=== PATIENT | male | born 1950 | race Caucasian/White ===

== ENCOUNTER → 2018-03-17 13:42 | Outpatient (CLI) | payer OTHER, SELFPAY ==
--- NOTE | 2018-03-17 13:44 | RAD_ITS ---
STUDY: X-RAY - LEFT FEMUR REASON FOR STUDY: Male, 67 years old. Femur pain postop. TECHNIQUE: Radiological exam, femur, minimum 2 views COMPARISON: Prior femur radiograph of April 02, 2016 FINDINGS: Intramedullary hardware remains unchanged in position. Continued callus deposition and smoothing of the intertrochanteric fracture zone. Femoral head remains located and rounded. Negative for evidence of avascular necrosis. RAD/Femur Min 2 Views IMPRESSION: Healed intertrochanteric fracture with intramedullary hardware remaining in good position and unchanged. Electronically Signed: Mary Nair MD at 20:31 EDT , Service support ,
== END ==
PROVIDERS: Family Provider Family Medicine; PCP Family Medicine; Visit Provider Orthopaedic Surgery
DX: S72.002A Fracture of unspecified part of neck of left femur, initial encounter for closed fracture (principal)
CPT/HCPCS: 73552

== ENCOUNTER 2018-08-22 09:24 | Emergency (ER) | payer MEDICARE, OTHER, SELFPAY ==
[2018-08-22 09:25] VITALS: BP 125/68; PULSE 57; RESP 18; TEMP 37.1; O2SAT 99; BMI 29.5
--- NOTE | 2018-08-22 09:39 | RAD_ITS ---
STUDY: X-RAY - RIGHT TIBIA AND FIBULA REASON FOR EXAM: Male, 67 years old. Status post fall, knee pain TECHNIQUE: 4 view(s) of the tibia and fibula were obtained. COMPARISON: None. FINDINGS: Normal visualized tibia. Normal visualized fibula. There is enthesopathy at the quadriceps insertion. There is minimal degenerative change of the medial lateral patellofemoral compartments. The soft tissue structures are unremarkable. RAD/Tibia & Fibula 2 Views IMPRESSION: The visualized acute fracture. Electronically Signed: Christie Chapa MD at 10:34 EDT Tel , Service support ,
--- NOTE | 2018-08-22 09:40 | ED.VISSUMM ---
- ER Visit Summary Date of Service: 08/22/18 Chief Complaint: Right foot pain History of Present Illness: The patient is a 67 M who presents with right foot pain after a fall yesterday. Yesterday morning patient tripped and fell down 12-14 steps, sliding down on his bottom. He denies any tumbling, head, neck or back injury. He had his feet splayed out in front of him, and is complaining of right foot injury. He also is complaining of bilateral elbow pain. Patient noted that he is unable to bear weight on the right foot today, with pain mainly in the heel. Tetanus is up-to-date. Patient denies any other complaints. Physical Examination: Vital signs: afebrile, hemodynamically stable, no hypoxia on room air General: well nourished, well developed, in no distress Skin: warm, dry, no rash, no pallor HEENT: normocephalic and atraumatic; PERRL, EOMI, moist mucous membranes Cardiovascular: regular rate and rhythm without murmurs, no peripheral edema, 2+ pulses all distal extremities Respiratory: No increased work of breathing, lungs are clear to auscultation bilaterally, no rales, rhonchi or wheezing, no chest wall tenderness Abdominal: Abdomen is soft, nontender with normoactive bowel sounds, no guarding or rebound, no masses MSK: Pelvis is stable, neck is supple with full active range of motion, no midline tenderness deformities or step-offs, full range of motion of the back, moves all extremities, no deformities, normal strength; ecchymosis noted to the right lateral calcaneal region, tenderness to palpation, full flexion and extension of the ankle, no tenderness to palpation of the posterior margins of the distal fibula or tibia, pain with flexion and extension of the knee, no deformity, no contusions, bilateral elbow contusions and left abrasion, full active range of motion of the elbows without difficulty, radial pulses 2+ and symmetric, DP pulses 2+ and symmetric Neuro: Awake and alert, oriented ?4. No facial droop, sensation and motor function intact and symmetric Test Results: Clinical Impression(s) from Imaging Studies Tibia/Fibula X-Ray 08/22/18 09:39 Foot X-Ray 08/22/18 09:45 IMPRESSION: Plantar spur. No visualized acute fracture. Degenerative change of the metatarsophalangeal joint of the first digit. Electronically Signed: Christie Chapa MD at 10:32 EDT Tel , Service support , Emergency Department Course and Treatment: Patient's tetanus is up-to-date. He has abrasions noted to the bilateral elbows, with a small skin tear on the left elbow, hemorrhage controlled. No concern for bony injury. X-ray was performed of the right foot and the right tibia/fibula given the patient is experiencing pain up to the knee. He declined pain medications. X-ray of the foot and tib-fib showed no acute fractures. There was a small questionable chip on 1 of the cuneiform bones that looked well rounded and likely is subacute/chronic. There was no point tenderness associated with this bony abnormality, thus it is likely to be an acute fracture. Patient was placed in a walking boot and given follow-up with podiatry. Patient discharged home. Treatment Plan: [] Disposition: [] Impression: Right foot sprain, bilateral elbow contusions This note was generated with [employer] dictation software. It may contain incorrect words, spelling, and punctuation that were not noted in review of the chart prior to signing ED Disposition - Plan for ED Patient: Disposition: Home or Assisted Living Chief Complaint: Lower Extremity Injury Instructions: ED Sprain Foot Referrals: Bhavesh Schwarz DO [Primary Care Provider] - Kleber Ramirez DPM [STAFF PHYSICIAN] - 1 Week if not improving Additional Instructions: Wear the walking boot as needed for comfort. Bear weight as tolerated. Keep the foot elevated and ice it 3-4 times a day. Use [id number] pain medication as needed. If you are not having improvement in your foot within 1 week, please follow-up with the university counselor on this paperwork. At any time if you have any concerns for your injury or any other concerns, please return immediately to the emergency department for another evaluation.
--- NOTE | 2018-08-22 09:43 | ED.DCSUM_ITS ---
- ER Visit Summary Date of Service: 08/22/18 Chief Complaint: Right foot pain History of Present Illness: The patient is a 67 M who presents with right foot pain after a fall yesterday. Yesterday morning patient tripped and fell down 12-14 steps, sliding down on his bottom. He denies any tumbling, head, neck or back injury. He had his feet splayed out in front of him, and is complaining of right foot injury. He also is complaining of bilateral elbow pain. Patient noted that he is unable to bear weight on the right foot today, with pain mainly in the heel. Tetanus is up-to-date. Patient denies any other complaints. Physical Examination: Vital signs: afebrile, hemodynamically stable, no hypoxia on room air General: well nourished, well developed, in no distress Skin: warm, dry, no rash, no pallor HEENT: normocephalic and atraumatic; PERRL, EOMI, moist mucous membranes Cardiovascular: regular rate and rhythm without murmurs, no peripheral edema, 2+ pulses all distal extremities Respiratory: No increased work of breathing, lungs are clear to auscultation bilaterally, no rales, rhonchi or wheezing, no chest wall tenderness Abdominal: Abdomen is soft, nontender with normoactive bowel sounds, no guarding or rebound, no masses MSK: Pelvis is stable, neck is supple with full active range of motion, no midline tenderness deformities or step-offs, full range of motion of the back, moves all extremities, no deformities, normal strength; ecchymosis noted to the right lateral calcaneal region, tenderness to palpation, full flexion and extension of the ankle, no tenderness to palpation of the posterior margins of the distal fibula or tibia, pain with flexion and extension of the knee, no deformity, no contusions, bilateral elbow contusions and left abrasion, full active range of motion of the elbows without difficulty, radial pulses 2+ and symmetric, DP pulses 2+ and symmetric Neuro: Awake and alert, oriented ?4. No facial droop, sensation and motor function intact and symmetric Test Results: Clinical Impression(s) from Imaging Studies Tibia/Fibula X-Ray 08/22/18 09:39 Foot X-Ray 08/22/18 09:45 IMPRESSION: Plantar spur. No visualized acute fracture. Degenerative change of the metatarsophalangeal joint of the first digit. Electronically Signed: Christie Chapa MD at 10:32 EDT Tel , Service support , Emergency Department Course and Treatment: Patient's tetanus is up-to-date. He has abrasions noted to the bilateral elbows, with a small skin tear on the left elbow, hemorrhage controlled. No concern for bony injury. X-ray was performed of the right foot and the right tibia/fibula given the patient is experiencing pain up to the knee. He declined pain medications. X-ray of the foot and tib- fib showed no acute fractures. There was a small questionable chip on 1 of the cuneiform bones that looked well rounded and likely is subacute/chronic. There was no point tenderness associated with this bony abnormality, thus it is likely to be an acute fracture. Patient was placed in a walking boot and given follow- up with podiatry. Patient discharged home. Treatment Plan: [] Disposition: [] Impression: Right foot sprain, bilateral elbow contusions This note was generated with [employer] dictation software. It may contain incorrect words, spelling, and punctuation that were not noted in review of the chart prior to signing ED Disposition - Plan for ED Patient: Disposition: Home or Assisted Living Chief Complaint: Lower Extremity Injury Instructions: ED Sprain Foot Referrals: hBavesh Schwarz DO [Primary Care Provider] - Kleber Ramirez DPM [STAFF PHYSICIAN] - 1 Week if not improving Additional Instructions: Wear the walking boot as needed for comfort. Bear weight as tolerated. Keep the foot elevated and ice it 3-4 times a day. Use [id number]-[id number] pain medication as needed. If you are not having improvement in your foot within 1 week, please follow-up with the tank stave assembler on this paperwork. At any time if you have any concerns for your injury or any other concerns, please return immediately to the emergency department for another evaluation.
--- NOTE | 2018-08-22 09:45 | RAD_ITS ---
STUDY: X-RAY - RIGHT FOOT CLINICAL: Male, 67 years old. Wall, heel pain TECHNIQUE: 3 view(s) of the foot. COMPARISON: August 22, 2018 ankle x-ray FINDINGS: There is a plantar calcaneal spur. The bones are osteopenic. Normal visualized subtalar, talonavicular, calcaneocuboid, tarsal and tarsometatarsal articulations. Normal metatarsi. There is degenerative arthrosis of the metatarsophalangeal joint of the hallux . Normal tibial and fibular sesamoid bones. Normal interphalangeal joint of the great toe. Normal phalanges of the great toe. Normal second through fifth metatarsophalangeal joints. Normal interphalangeal joints and phalanges of the lesser toes. The soft tissue structures are unremarkable. RAD/Foot min 3 Views IMPRESSION: Plantar spur. No visualized acute fracture. Degenerative change of the metatarsophalangeal joint of the first digit. Electronically Signed: Christie Chapa MD at 10:32 EDT Tel , Service support ,
--- NOTE | 2018-08-22 10:58 | ED.DEP ---
ED Disposition - Plan for ED Patient: Disposition: Home or Assisted Living Chief Complaint: Lower Extremity Injury Instructions: ED Sprain Foot Referrals: Bhavesh Schwarz DO [Primary Care Provider] - Kleber Ramirez DPM [STAFF PHYSICIAN] - 1 Week if not improving Additional Instructions: Wear the walking boot as needed for comfort. Bear weight as tolerated. Keep the foot elevated and ice it 3-4 times a day. Use [id number]-skomuyw pain medication as needed. If you are not having improvement in your foot within 1 week, please follow-up with the leather goods sales representative on this paperwork. At any time if you have any concerns for your injury or any other concerns, please return immediately to the emergency department for another evaluation.
[2018-08-22 11:14] VITALS: RESP 12
== END 2018-08-22 11:19 | disposition home or self-care (01) ==
PROVIDERS: Emergency Provider Emergency Medicine; Family Provider Family Medicine; PCP Family Medicine
DX: S93.601A Unspecified sprain of right foot, initial encounter (principal); S50.02XA Contusion of left elbow, initial encounter; S50.01XA Contusion of right elbow, initial encounter; W10.9XXA Fall (on) (from) unspecified stairs and steps, initial encounter; Y93.9 Activity, unspecified
CPT/HCPCS: 73590; 73630; 99283

== ENCOUNTER → 2019-01-17 09:15 | Outpatient (CLI) | payer OTHER, SELFPAY ==
[2019-01-17 08:15] VITALS: BMI 29.5
--- NOTE | 2019-01-17 09:16 | RAD_ITS ---
STUDY: X-RAY - LUMBAR SPINE REASON FOR EXAM: Male, 68 years old. Chronic pain TECHNIQUE: 5 view(s) of the lumbar spine were obtained. COMPARISON: None FINDINGS: Normal lumbar lordosis. There is no substantial scoliosis. There is a normal alignment of the vertebrae. Normal vertebral bodies and endplates. Moderate narrowing of the disc at L5-S1. Otherwise normal disc space heights. There is no demonstrated fracture. There is atherosclerotic calcification of the abdominal aorta without a demonstrated aneurysm. RAD/L/S Spine Min 4 Views IMPRESSION: No acute abnormality. Degenerative changes at L5-S1. Electronically Signed: Dane Milton MD at 22:46 EST , Service support ,
--- NOTE | 2019-01-17 09:16 | RAD_ITS ---
STUDY: X-RAY - LEFT FEMUR REASON FOR STUDY: Male, 68 years old. Pain. TECHNIQUE: 2 view(s) of the femur. COMPARISON: 03/17/2018. FINDINGS: No change and no acute abnormality. Stable appearance of an IM alla and femoral neck nail with no evidence for loosening or complications. RAD/Femur Min 2 Views IMPRESSION: No acute fracture or dislocation. Electronically Signed: Dane Milton MD at 22:50 EST , Service support ,
== END ==
PROVIDERS: Family Provider Family Medicine; PCP Family Medicine; Referring Provider Orthopaedic Surgery; Visit Provider Orthopaedic Surgery
DX: S72.145A Nondisplaced intertrochanteric fracture of left femur, initial encounter for closed fracture (principal); M25.552 Pain in left hip
CPT/HCPCS: 72110; 73552

== ENCOUNTER 2019-03-07 13:00 | Outpatient (RCR) | payer OTHER, SELFPAY ==
[2019-01-17 08:15] VITALS: BMI 29.5
--- NOTE | 2019-02-01 13:35 | HP.PTEVAL_ITS ---
Patient's Visit Information RENY GUTIÉRREZ is a 68 year old M referred to Physical Therapy by Nando Cormier DO with a diagnosis of DISPLACED INTERTROCHANTERIC FRACTURE LEFT FEMUR. Date of Evaluation: 02/01/19 Physical Therapist: Flynn Posadas PT, Cert MDT, OCS - Visit Plan Frequency: 3x /Week Duration: 4 Weeks Plan: ROM hip ,strength hip/knee ,nustep,balance endurance ,flexablity - Subjective Findings: This 68 y/o male presents to physical therapy displaced fracture intertrochantric left hip. Patient fracture left femur 10/09/15 at stepped in in hole twisted left hip caused fx. Patient underwent s/p hip nailing done by DR Goldberg on 10/11/15. Patient had PT. Most recenly , pain left hip thigh and weakness. Patient pain and weakness affects stairs ,walking ,unable to squat/kneeling. Patient knee can give way occassionally . Patient has intermmitant parathesia/tingling left hip.Patient is able to sleep at night. Patient weakness and pain left hip affects QOL and function.Patient seen DR Mullins did x-rays. SOCAIL: maried. VOCATION: retired ,part- time [employer] - Pain Left Foot Pain Intensity (Out of 10): 3 Pain Intensity Range: 10 - Objective POSTURE: mild foward posture. GAIT: ambulated with analgic gait with decrease stance time. NEURO: intact. PALPATION: unremarkable. PROM: hip flexion 100 degrees,abduction 40 degrees,ER 50 degrees pain,IR 40 degrees pain. MMT: quads 4-5/hams 4/5 hip flexion 3/5,hip abd 3-/5,ankle. STAIRS: one step at a time - Special Tests L Hip Scour: Negative L Hip Trendelenberg - Glut Medius: Positive - Goals Goal 1:: Independant with HEP Goal Time Frame: 4-6 Weeks Goal 2:: Patient improve quality of gait 80% of the vtime with less antalgic gait. Goal Time Frame: 4-6 Weeks Goal 3:: Patient improve ROM left hip by 5-10 degrees to improve function. Goal Time Frame: 4-6 Weeks Goal 4:: Patient to increase strength left hip 3+/5 to improve with gait and function. Goal Time Frame: 4-6 Weeks Goal 5:: Patient to decrease hip pain by 50% or greater to improve function. Goal Time Frame: 4-6 Weeks Goal 6:: Patient to improve LFES score by 5-points to improve function. Goal Time Frame: 4-6 Weeks - Rehabilitation Potential Physical Therapy Diagnosis: This patient fracture left fenur at work underwenr s/p left pinning 10/09/15 ,currently patient has decrease ROM ,pain ,weakness left hip impairs walking standinmg and ADL'S Rehabilitation Potential: Good - Anticipated Interventions Patient/Client Instruction: Educate patient on: Condition, Plan of Care For the Purpose of:: To decrease pain, To increase ROM, To improve muscle performance and motor function, To improve ability to perform ADL's, To increase tolerance to activity/condition/position, To improve performance and independence with ADL's, To improve ability of physical actions for omid e/community/work/leisure, To improve gait and locomotor functions, To improve health of tissue, To decrease soft tissue restriction, To increase flexibility/ROM, To improve ability to perform tasks related to life management Therapeutic Exercise to Include: Strength training, Postural training, Flexibilty training, Gait and locomotor training, Passive ROM, Active ROM Comment: hip/knee For the Purpose of:: To decrease pain, To increase ROM, To improve muscle performance and motor function, To improve ability to perform ADL's, To increase tolerance to activity/condition/position, To improve performance and independence with ADL's, To improve ability of physical actions for home/community/work/leisure, To improve health of tissue, To increase flexibility/ROM, To improve safety with gait, To assume or resume ADL's, To improve ability to perform tasks related to life management Thank you for the opportunity to evaluate your patient. For Medicare and Medicare HMO plans, please review the plan of care and approve it. It will need to be FAXED BACK to us at [phone] for Medicare purposes. For Medicare only, by signing this I certify the plan of care. Please let me know if there are questions or concerns regarding this plan of care. Physician Signature: Date:
--- NOTE | 2019-03-07 13:52 | HP.PTDCSUM_ITS ---
HP - PT D/C Summary It has been my pleasure to treat RENY GUTIÉRREZ under orders from Nando Cormier DO, for the diagnosis of DISPLACED INTERTROCHANTERIC FRACTURE LEFT FEMUR for a total of 12 visit(s). Discharge Date: 03/07/19 Please see the following information for a summary of their discharge status. - Subjective Subjective: Doing good .alot better.. most difficulty with socks and shoes. Will do ex's on own. - Pain Left Foot Pain Intensity (Out of 10): 0 - Overall Improvement % Improvement: 70 - Objective Objective/Function: POSTURE: mild foward posture. GAIT: mild foward posture with decrease stance time. MMT: quads/hams 4/5,hip flexion 4/5,4-/5 hip abd 4- /5. STAIRS: alternating step with rail. PROM: hip flexion 100 degrees,40 IR, 50 ER - Goals Goal 1:: Independant with HEP Goal Progress: Goal Met Goal 2:: Patient improve quality of gait 80% of the vtime with less antalgic gait. Goal Progress: Goal Met Goal 3:: Patient improve ROM left hip by 5-10 degrees to improve function. Goal Progress: Goal Met Goal 4:: Patient to increase strength left hip 3+/5 to improve with gait and function. Goal 5:: Patient to decrease hip pain by 50% or greater to improve function. Goal Progress: Goal Met Goal 6:: Patient to improve LFES score by 5-points to improve function. Goal Progress: Goal Met - Plan Plan: D/C TO HEP - D/C Information Discharge Comments: HEP If there are questions or concerns regarding this patient's physical therapy, please feel free to call me at [phone]. Thank you for the referral of this patient. Sincerely, Flynn Posadas, PT, Cert MDT, OCS
== END 2019-03-07 19:00 | disposition home or self-care (01) ==
LOC: PT 13:00
PROVIDERS: Family Provider Family Medicine; PCP Family Medicine; Visit Provider Orthopaedic Surgery
DX: S72.142D Displaced intertrochanteric fracture of left femur, subsequent encounter for closed fracture with routine healing (principal)
CPT/HCPCS: 97110; 97162

== ENCOUNTER → 2019-09-07 | Outpatient (CLI) | payer OTHER, SELFPAY ==
[2019-09-07 14:12] VITALS: BMI 29.5
--- NOTE | 2019-09-07 14:22 | RAD_ITS ---
STUDY: X-RAY - LEFT KNEE REASON FOR EXAM: Proximal pain, no recent injury. TECHNIQUE: 4 view(s) of the knee. COMPARISON: Radiographs 10/18/2015. FINDINGS: There is an intramedullary alla in the femur. Normal visualized proximal tibia and fibula. Normal proximal tibiofibular articulation. There is mild joint space narrowing of the medial femorotibial compartment. Normal lateral femorotibial compartment. Normal patellofemoral articulation. There is a small enthesophyte at the superior pole of the patella. RAD/Knee 4 or More Views IMPRESSION: Mild arthrosis of the medial femorotibial compartment. Electronically Signed: Frank Mcallister MD at 15:39 EDT Tel , Service support ,
--- NOTE | 2019-09-07 14:22 | RAD_ITS ---
HISTORY: DISTAL PAIN. ANTERIOR KNEE ADDITIONAL HISTORY: None provided. COMPARISON: 01/17/2019 TECHNIQUE: Left femur 2 views Number of images including paperwork: 4 FINDINGS: BONES: No acute fracture. Long intramedullary alla and hip screw, similar to previous. JOINTS: No subluxation. Mild degenerative changes of the left knee partially visualized. SOFT TISSUES: No distinct foreign body. RAD/Femur Min 2 Views IMPRESSION: No acute osseous abnormality. at 2230 Reported and signed by: Nancy Latham MD Electronically Signed: Nancy Latham MD at 22:30 EDT Tel , Service support ,
== END | disposition home or self-care (01) ==
LOC: HPRAD 14:21
PROVIDERS: Family Provider Family Medicine; PCP Family Medicine; Referring Provider Orthopaedic Surgery; Visit Provider Orthopaedic Surgery
DX: M25.562 Pain in left knee (principal)
CPT/HCPCS: 73552; 73564

== ENCOUNTER 2020-01-26 10:12 | Day surgery (SDC) | payer MEDICARE, OTHER, SELFPAY ==
[2019-09-07 14:12] VITALS: BMI 29.5
--- NOTE | 2020-01-22 10:33 | PCM.HP.BLA ---
History and Physical Date of Admission: 01/22/20 Pierre Ibrahim 1950 ? ? REFERRING PHYSICIAN: Soledad Vidal MD ? CHIEF COMPLAINT: port consult ? HPI: The patient is a 69 year old male presents with lymphoma. He will require chemotherapy and needs IV access. He is referred by his oncologist for consideration of placement of VAD with port. He denies previous central line catheters. Denies previous upper extremity thromboses. Had right shoulder surgery, had previous left rib fractures, denies clavicular fractures. Is taking aspirin on a regular basis. ?? PAST MEDICAL HISTORY ? Abdominal pain, unspecified site ? ? Anxiety ? ? Arthritis ? ? COPD (chronic obstructive pulmonary disease) (HCC) ? ? Depression ? ? Diffuse large B-cell lymphoma of lymph nodes of multiple regions (HCC) 01/17/2020 ? Diffuse large B-cell lymphoma of lymph nodes of multiple regions (HCC) 01/17/2020 ? Diffuse large B-cell lymphoma of lymph nodes of multiple regions (HCC) 01/17/2020 ? Duodenitis without mention of hemorrhage ? ? Gastric ulcer, unspecified as acute or chronic, without mention of hemorrhage, perforation, or obstruction ? ? Insomnia ? ? Mixed hyperlipidemia ? ? Panic attacks ? ? PTSD (post-traumatic stress disorder) ? ? Sleep apnea ? ? Unspecified essential hypertension ? ? PAST SURGICAL HISTORY ? COLONOSCOP W/ OR W/O [facility] SPEC ? 12/20/2008? Normal ? EGD W/O [facility] SPECIMEN W/BX?12/20/2008? Duodenitis, Gastritis, Gastric Ulcer? PAST SURGICAL HISTORY OF?Left hip & leg ? PAST SURGICAL HISTORY OF 01/04/2020? Left axillary mass biopsy ? ROTATOR CUFF REPAIR Right ? ?? Current Outpatient Medications ? aspirin, enteric coated (ASPIRIN, ENTERIC COATED) 81 mg EC tablet Take 81 mg by mouth once daily. ? esomeprazole magnesium (NEXIUM ORAL) Take 22.3 mg by mouth once daily. ? citalopram (CELEXA) 20 mg tablet Take 20 mg by mouth once daily. ? hydroCHLOROthiazide (HYDRODIURIL, ESIDRIX) 25 mg tablet Take 25 mg by mouth once daily. ? multivitamin tablet Take 1 tablet by mouth once daily. ? metoprolol tartrate, short acting, (LOPRESSOR) 25 mg tablet Take 25 mg by mouth twice daily. ? clonazePAM (KLONOPIN) 1 mg tablet Take 1 mg by mouth daily at bedtime. ? traZODone (DESYREL) 100 mg tablet Take 100 mg by mouth daily at bedtime. ? budesonide-formoterol (SYMBICORT) 160-4.5 mcg/actuation inhaler Inhale 2 Puffs as instructed twice daily. ? IPRATROPIUM BROMIDE NASAL Use 1 [place] in the nose twice daily. ? traMADol (ULTRAM) 50 mg tablet Take 50 mg by mouth every 12 hours as needed. ? tamsulosin ER (FLOMAX) 0.4 mg cap Take 0.4 mg by mouth once daily. ? allopurinol (ZYLOPRIM) 300 mg tablet Take 1 tablet by mouth once daily. ?? ALLERGIES: Patient has no known allergies. ? PERSONAL HISTORY: Social History ?Tobacco Use ? Smoking status: Former Smoker ? ? Packs/day: 1.00 ? ? Years: 45.00 ? ? Pack years: 45.00 ? ? Types: Cigarettes ? ? Last attempt to quit: 01/17/2010 ? ? Years since quittin.0 ? Smokeless tobacco: Never Used Substance Use Topics ? Alcohol use: Not Currently ? Drug use: No ? FAMILY HISTORY ? Hypertension Mother ? ? other (Lung Cancer) Mother ? ? Heart Father ? ? Heart Attack Brother ? ? ?Nursing Notes: Sissy Robles LPN 01/19/2020 9:58 AM Signed REVIEW OF SYSTEMS: General: The patient notes fatigue, denies weight loss, denies weight gain, denies feeling hot, and denies feelings of cold. Eyes: The patient denies glaucoma, NOTES eye injury/surgery, does not wear glasses or contacts. Ear/Nose/Throat: The patient denies allergies, denies hayfever, denies ear infections, and denies bloody noses. Cardiovascular: The patient denies chest pain, denies heart disease, NOTES high blood pressure,denies cardiac stent, denies prior heart attack, denies irregular heart beat, denies high cholesterol, denies poor circulation, denies heart failure, other cardiac issues, denies claudication, denies cold feet, denies peripheral arterial stent. Respiratory: The patient denies tuberculosis, denies pneumonia, denies frequent cough, denies pulmonary embolism, denies shortness of breath, and denies coughing up blood. Gastrointestinal: The patient denies difficulty swallowing, denies acid reflux, denies ulcers, denies vomiting, denies jaundice/hepatitis, denies gallbladder problems, denies black or tarry stools, denies hemorrhoids, denies bleeding from rectum, denies diverticulitis, denies constipation, denies diarrhea, denies loss of stool control, and denies hernias. Kidney/Bladder: The patient denies kidney stones, denies urine infections, and denies bloody urine. Skin: The patient denies a history of skin cancer, denies bleeding/changing moles, and denies a history of skin rash. Neurologic: The patient denies a history of epilepsy/convulsions, denies headaches, denies head/spinal injuries, and denies stroke/TIA. Psychiatric: The patient denies psychiatric medications, denies depression, and denies voices, denies substance abuse. Endocrine: The patient denies thyroid disorders, denies diabetes, and denies hormonal problems. Hematologic: The patient denies a history of bruising, denies bleeding, and denies anemia, denies blood clots. Infections: The patient denies a history of measles and mumps, denies rheumatic fever, and denies sexually transmitted diseases. Musculoskeletal: The patient denies back pain/injury, denies back problems, denies sciatica, denies knee/foot trouble, denies arthritis, or denies gout. ?? PHYSICAL EXAMINATION: General: The patient is 69 year old male, well nourished, well hydrated in no acute distress. The patient is oriented to time, place, and person. VITALS: BP 132/70 HR 76 Temp 97F Ht: 5'10 Wt: 218# Head ? Normocephalic. EOM intact with sclera clear and no icterus noted. Mouth with mucus membranes moist. Neck - supple with no jugular venous distention noted. Trachea is midline. Lungs ? clear to auscultation. Normal breath sounds. No rales/rhonchi/wheezing noted. No labored breathing noted, such as retractions. No cough heard. Heart ? normal S1 and S2 auscultated. No rubs/clicks/murmurs noted. Regular rate. Abdomen ? soft and benign. Normal bowel sounds. No abdominal bruits noted. Difficult to determine if any masses or organomegaly due to body habitus. Extremities ? no calf tenderness noted. No pitting edema noted. Lymph - no cervical or supraclavicular adenopathy noted, no palpable axillary nodes noted Skin ? normal skin integrity. Neurological ? gait normal, no focal deficits noted. Psych ? calm and appropriate ?? IMPRESSION: lymphoma, need for IV access ? PLAN: I have discussed the above with the patient and his who is present with him. I have offered placement of portacath I have explained the procedure to the patient. I have counseled the patient as to the risks of the procedure, including but not limited to: infection, bleeding, injury to any blood vessels/nerves, scar tissue, injury to the lungs such as pneumothorax and/or hemothorax, thrombosis of vein, infection of port, non functioning of port, inability to place portacath, wound infections, complications of anesthesia, etc. ? the patient understands. The patient wishes to proceed. Patient to discontinue aspirin use for now, may restart after placement of portacath. I have answered all questions to the patient?s satisfaction and the patient has no further questions. ? ? Celeste Sanchez MD
[2020-01-26] VITALS (7 sets, daily range): BP systolic 106–133; BP diastolic 62–84; PULSE 68–83; RESP 16–18; TEMP 36.8–37.1; O2SAT 91–98; BMI 32.4
[2020-01-26] MEDS: Lactated Ringers 1,000 ML 75 ML IV (11:14)
[2020-01-26] MEDS: Cefazolin 2 GM in 0.9% Normal Saline 100 ML IV (12:00)
--- NOTE | 2020-01-26 12:06 | PCM.DC.POR ---
Discharge Diet: No Restrictions Discharge Activity: Return to Normal Activity, May not drive while taking narcotic pain medications. Call your doctor if your incision/area has: Continuous Slow Oozing, Foul Smelling Discharge Call your doctor if you observe: Fever of 101 or Higher Additional Dressing/Incision Instructions:: Leave dressings in place. May get wet in shower. Do not soak - no tub baths/swimming Additional Instructions: Recommended pain medication regimen - take 650 mg acetaminophen (Tylenol) then in three to four hours take 600 mg ibuprofen (Motrin or Advil), then in 3-4 hours take 650 mg acetaminophen, then in 3-4 hours take 600 mg ibuprofen and so on take narcotic pain medications if above doesn't help and at night Allergies/Adverse Reactions: Allergies No Known Allergies Allergy (Verified 01/26/20 11:06) Medications to take at Discharge Budesonide/Formoterol 160/4.5 [Symbicort 160/4.5 Mcg Inhaler (SP)] 2 puff INHALATION BID 10/09/15 Citalopram [Celexa] 20 mg PO DAILY 10/09/15 traZODone [Desyrel] 100 mg PO QHS 10/09/15 Multivitamins,Therapeutic [Multivitamin] 1 tablet PO DAILYCM tablet 10/16/15 Clonazepam [Klonopin] 1 mg PO QHS #30 tablet 10/26/15 Aspirin [Aspirin, Baby] 81 mg PO DAILY@0800 08/22/18 Esomeprazole Mag Trihydrate [Nexium] 20 mg PO DAILY 08/22/18 Hydrochlorothiazide [Hctz] 25 mg PO DAILY 08/22/18 Metoprolol Tartrate [Lopressor (beta sharmaine)] 25 mg PO BID 08/22/18 Hydrocodone Bitart/Apap 5-325 [[place] 5MG-325MG] 1 tab PO Q8H PRN PRN 2 Days #6 tab 01/26/20 The following prescriptions were given: Hydrocodone Bitart/Apap 5-325 [[place] 5MG-325MG] 1 tab PO Q8H PRN PRN 2 Days #6 tab PRN Reason: Pain Transmission Status: Sent to [facility] Primary Care Physician: Diego Alonso DO [Primary Care Provider] - Test Results: Test results from this visit will be discussed in further detail at your follow-up appointment, if applicable. Please Follow Up With: Celeste Sanchez MD - as per needed
--- NOTE | 2020-01-26 12:54 | OP.PCM_ITS ---
Report of Operation Date of Procedure: 01/26/20 Pre-Operative Diagnosis: lymphoma need for chemotherapy, need for IV access Post-Operative Diagnosis: same as above Surgery/Procedure Performed:: placement of permanent tunnelled indwelling venous catheter in left subclavian vein with subcutaneous port Description of Surgical Findings:: normal left subclavian anatomy to SVC Type of Anesthesia:: Local MAC Anesthesiologist: Marek Fraser Specimen's removed: none Estimated Blood Loss (mL): < 10 ml Fluids Replaced: 800 ml RL Description of Procedure: After informed consent was given, the patient was brought to the operating room. Appropriate time out protocol was followed. He was then placed in the supine position. He was then given IV conscious sedation for anesthesia. The patient?s upper chest and neck were then prepped with a surgical skin preparation and sterile surgical drapes were placed. After proper landmarks were ascertained, the skin at the upper left chest area was then infiltrated with 1% xylocaine with epinephrine. A needle trocar was then inserted into the left subclavian vein and there was good aspiration of venous blood. A wire was then threaded into the needle trocar and this was visualized under fluoroscopy to ensure that the wire was in the left subclavian vein. Once this was done, then the needle trocar was removed. A small skin asim was made with an 11 blade knife at the wire entrance site. The dilator with the introducer sheath attached was then placed over the wire into the left subclavian vein via the Seldinger technique and this was visualized under fluoroscopy. The dilator and sheath were in proper position as visualized by fluoroscopy. The wire and dilator were then removed. The catheter was then threaded into the introducer sheath and was positioned with its tip at the junction of the superior vena cava and the right atrium as visualized under fluoroscopy. The catheter was flushed with a heparin saline mixture prior to placement. A subcutaneous pocket was then created caudad to the catheter insertion site. A transverse skin incision was made after the skin and subcutaneous tissues were infiltrated with local anesthetic. Blunt dissection was then used to create a space large enough for placement of the subcutaneous port. Hemostasis was carefully controlled with electrocautery. The port was sutured to the subcutaneous fascia using vicryl suture at three sites. The catheter was then tunneled into the subcutaneous pocket. The excess catheter was transected. The catheter was then attached to the subcutaneous port using farm service consultant?s guidelines. The port was then placed in the subcutaneous pocket and the sutures were ligated. The subdermal incisional sites were reapproximated with interrupted vicryl suture. The skin was reapproximated with monocryl suture in a subcuticular fashion. Cavilon and steristrips were used for reinforcement of the skin closure and a sterile opsite dressing was applied. Patient was brought to Recovery Room in stable condition. Grafts/Implants Used: Power Port 8 Fr Lot [id number] exp 2021-06-22 - Complications none noted - Admit VTE Documentation VTE Present on Admission: Yes VTE Mechan Device Prophylaxis: SCD's
--- NOTE | 2020-01-26 13:05 | RAD_ITS ---
STUDY: X-RAY CHEST REASON FOR EXAM: Male, 69 years old. POST PORT PLACEMENT TECHNIQUE: Single AP portable view of the chest. COMPARISON: Comparison is made with prior study. October 16, 2015. FINDINGS: A left-sided portacatheter as been placed. The tip is in the right atrium. There is evidence of a diffuse increased interstitial markings in both lungs suggestive of bilateral pulmonary scarring. This has progressed as compared to prior study. There is blunting of the costophrenic angles bilaterally. There is mild cardiac enlargement. Normal mediastinum and ramses. Normal visualized pulmonary arteries. Normal visualized aortic arch and descending thoracic aorta. Normal visualized thoracic spine. Normal visualized ribs, clavicles, and shoulders. There is no demonstrated abnormality of the visualized soft tissue structures of the upper abdomen. RAD/CXR for Line Placement IMPRESSION: The tip of the left portacatheter is in the right atrium. Diffuse increased interstitial markings in both lungs suggestive of scarring. This has progressed as compared to prior study. Electronically Signed: Andrew Gee, at 13:24 EST , Service support ,
== END 2020-01-26 13:43 | disposition home or self-care (01) ==
LOC: SDC 10:12 → AC 10:15
PROVIDERS: PCP Student in an Organized Health Care Education/Training Program; Referring Provider Surgery; Visit Provider Surgery
PROC: (CPT 36561; principal; 2020-01-26 11:45)
DX: C83.38 Diffuse large B-cell lymphoma, lymph nodes of multiple sites (principal); Z45.2 Encounter for adjustment and management of vascular access device; F32.9 Major depressive disorder, single episode, unspecified; J44.9 Chronic obstructive pulmonary disease, unspecified; M19.90 Unspecified osteoarthritis, unspecified site; F41.0 Panic disorder [episodic paroxysmal anxiety]; F43.10 Post-traumatic stress disorder, unspecified; I10 Essential (primary) hypertension; K21.9 Gastro-esophageal reflux disease without esophagitis; Z87.891 Personal history of nicotine dependence; Z79.82 Long term (current) use of aspirin; Z79.51 Long term (current) use of inhaled steroids; Z79.899 Other long term (current) drug therapy
CPT/HCPCS: 00532; 36561; 71045; 77001; J7120; C1788

== ENCOUNTER 2020-04-23 10:19 | Emergency (ER) | payer MEDICARE, OTHER, SELFPAY ==
[2020-01-26 11:10] VITALS: BMI 32.4
[2020-04-23 10:20] VITALS: BP 100/77; PULSE 82; RESP 17; TEMP 36.8; O2SAT 92; BMI 31.3
[2020-04-23 10:23] VITALS: BP 100/77; PULSE 82; RESP 16; TEMP 36.8; O2SAT 92
--- NOTE | 2020-04-23 11:15 | RAD_ITS ---
STUDY: X-RAY CHEST REASON FOR EXAM: Male, 69 years old. Shortness of breath TECHNIQUE: Single AP portable view of the chest. COMPARISON: Comparison is made with prior examination dated January 26, 2020. FINDINGS: A left-sided portacatheter is seen. A left-sided portacatheter is seen with the tip in the right atrium. Limited inspiratory effort. Stable increased diffuse interstitial markings at the lung bases suggest some bibasilar pulmonary scarring. There is no demonstrated pleural abnormality. There is moderate cardiac enlargement. Normal mediastinum and ramses. Normal visualized pulmonary arteries. Normal visualized aortic arch and descending thoracic aorta. There are diffuse degenerative changes of the visualized thoracic spine. Normal visualized ribs, clavicles, and shoulders. There is no demonstrated abnormality of the visualized soft tissue structures of the upper abdomen. RAD/Chest 1 View (Portable) IMPRESSION: Limited inspiratory effort with some stable increased markings at the lung bases suggestive of scarring. Electronically Signed: Andrew Gee, at 12:14 EDT , Service support ,
[2020-04-23 11:26] LABS: Bacteria 0 SEEN /hpf (None Seen); Mucous, Urine 0 SEEN /hpf (<or=2+); Red Blood Cells-Urine 0 SEEN /hpf (0-5); Squamous Epithelial Cells - UA 0 SEEN /hpf (0-5); White Blood Cells 0 SEEN /hpf (0-5)
--- NOTE | 2020-04-23 11:26 | ED.VIS.GEN ---
History of Present Illness Chief Complaint: Fever Narrative: Patient presenting for evaluation secondary to a febrile illness. Patient is a chemotherapy patient, his last chemotherapy infusion was on 12 April. He gets chemotherapy infusions through a port, and also has a direct chemotherapy infused into his CSF. Patient states that over the course of the last couple of weeks the chemotherapy has been adversely affecting him with significant malaise and fatigue, and he states that he could sleep around 14 hours a day. However, since yesterday the patient tells me that he has had some low-grade fevers as high as 100.5, generalized body aches, some increased shortness of breath, and nausea and vomiting. He denies any diarrhea associated with this. Patient denies any sick contacts. He denies any abnormal skin rashes. No headache or neck stiffness. Review of systems otherwise negative. Past Medical History - Allergies and Home Meds Allergies/Adverse Reactions: Allergies No Known Allergies Allergy (Verified 04/23/20 10:20) Primary Care Physician: Diego Alonso DO [Primary Care Provider] - Prior records reviewed: Yes Past Medical History: - - Hypertension, COPD Smoking Status: Former smoker Review of Systems All systems negative except as indicated General: Reports: Fever, Malaise Eyes: Denies: Visual changes - bilaterally, Diplopia ENT: Denies: Rhinorrhea, Sore throat Cardiovascular: Denies: Chest pain, Palpitations Respiratory: Reports: Dyspnea Gastrointestinal: Reports: Nausea, Vomiting Genitourinary: Denies: Dysuria, Hematuria, Frequency Musculoskeletal: Denies: Back pain, Extremity Pain Skin: Denies: Rash, Wounds Neurological: Denies: Headache, Weakness, Numbness Physical Exam Vital Signs/Narrative: Vital Signs Temp Pulse Resp BP Pulse Ox 04/23/20 10:20 98.3 F 82 17 100/77 92 Inital Vital Signs reviewed: Yes General: Well nourished, Well developed, No Acute Distress Head: Normocephalic, Atraumatic Eyes: Perrl, EOMI, - - No conjunctival pallor noted ENT: Moist mucous membranes, No rhinorrhea Neck: Supple, Nontender Cardiovascular: Regular rate, Regular rhythm, No murmurs Respiratory: No distress, CTA bilaterally, Chest nontender, - - Left anterior chest port clean dry and intact Abdomen: Soft, Nontender, Nondistended, Normal bowel sounds Back: Nontender, Normal Inspection Extremities: Nontender, No edema Skin: Normal color, No rash, - - Chronic skin changes of the bilateral arms Neurological: Alert, Oriented x3, Cranial nerves II-XII grossly intact, Normal Strength, Normal Sensation Psychological: Normal affect, Normal Mood Diagnostic/Tx/Re-eval Clinical Impression(s) from Imaging Studies Chest X-Ray 04/23/20 11:15 IMPRESSION: Limited inspiratory effort with some stable increased markings at the lung bases suggestive of scarring. Electronically Signed: Andrew Gee, at 12:14 EDT , Service support , Laboratory Data 04/23/20 04/23/20 04/23/20 11:10 11:10 11:10 WBC 5.7 RBC 4.21 L Hgb 11.8 L Hct 36.4 L MCV 86.5 MCH 28.0 MCHC 32.4 RDW Std Deviation 52.1 H RDW Coeff of Thor 17.0 H Plt Count 197 MPV 9.9 Neut % (Auto) Not Reportable Absolute Neuts (auto) 3.6 Absolute Lymphs (auto) 0.74 L Total Counted 100 Neutrophils % (Manual) 63 Lymphocytes % (Manual) 13 L Monocytes % (Manual) 16 H Eosinophils % (Manual) 1 Basophils % (Manual) 1 Metamyelocytes % 1 Myelocytes % 2 H Promyelocytes % 3 H Diff Path Review May foll Platelet Estimate ADEQUATE RBC Morphology NORM C+C PT 13.7 INR 1.1 APTT 37.2 H Sodium 135 L Potassium 3.5 Chloride 97 L Carbon Dioxide 29.0 Anion Gap 9 BUN 15 Creatinine 1.01 Estim Creat Clear Calc 70.97 Est GFR (MDRD) Af Amer 95 Est GFR (MDRD) Non-Af 78 BUN/Creatinine Ratio 14.9 Glucose 149 H Lactic Acid Calcium 9.6 Total Bilirubin 0.50 AST 19 ALT 30 Alkaline Phosphatase 82 Total Protein 7.0 Albumin 2.9 L Globulin 4.1 Albumin/Globulin Ratio 0.7 L Urine Color Urine Clarity Urine pH Ur Specific [place] Urine Protein Urine Glucose (UA) Urine Ketones Urine Occult Blood Urine Nitrite Urine Bilirubin Urine Urobilinogen Ur Leukocyte Esterase Urine RBC Urine WBC Ur Squamous Epith Cells Urine Bacteria Urine Mucus 04/23/20 04/23/20 11:10 11:10 WBC RBC Hgb Hct MCV MCH MCHC RDW Std Deviation RDW Coeff of Thor Plt Count MPV Neut % (Auto) Absolute Neuts (auto) Absolute Lymphs (auto) Total Counted Neutrophils % (Manual) Lymphocytes % (Manual) Monocytes % (Manual) Eosinophils % (Manual) Basophils % (Manual) Metamyelocytes % Myelocytes % Promyelocytes % Diff Path Review Platelet Estimate RBC Morphology PT INR APTT Sodium Potassium Chloride Carbon Dioxide Anion Gap BUN Creatinine Estim Creat Clear Calc Est GFR (MDRD) Af Amer Est GFR (MDRD) Non-Af BUN/Creatinine Ratio Glucose Lactic Acid 1.7 Calcium Total Bilirubin AST ALT Alkaline Phosphatase Total Protein Albumin Globulin Albumin/Globulin Ratio Urine Color Yellow Urine Clarity Clear Urine pH 6.5 Ur Specific [place] 1.005 Urine Protein Negative Urine Glucose (UA) Normal Urine Ketones Negative Urine Occult Blood Negative Urine Nitrite Negative Urine Bilirubin Negative Urine Urobilinogen Normal Ur Leukocyte Esterase Negative Urine RBC 0 SEEN Urine WBC 0 SEEN Ur Squamous Epith Cells 0 SEEN Urine Bacteria 0 SEEN Urine Mucus 0 SEEN - Medical Decision Making Patient presented secondary to a fever yesterday in the setting of chemotherapy. He is nontoxic-appearing, has no outward signs of infection on physical exam does not seem to have any evidence of nuchal rigidity or meningitis. Laboratory work-up does not demonstrate leukocytosis or leukopenia with neutropenia. Chemistry panel unremarkable. Urinalysis negative. Chest x-ray by my personal review as well as radiology shows no signs of infiltrate, shows chronic changes consistent with prior chest x-rays. Urinalysis had a urine culture sent, there were blood culture sent. I discussed patient's case with his oncologist Dr. Russell, and we do not feel that admission or prophylactic antibiotics are indicated. Patient was discharged in stable condition. ED Disposition - Plan for ED Patient: Disposition: Home or Assisted Living Diagnosis: Fever, History of chemotherapy Instructions: ED FUO Adult Referrals: Soledad Vidal MD [STAFF PHYSICIAN] - 3-5 Days
[2020-04-23 11:28] LABS: Color, Urine Yellow (Yellow); Glucose, Dipstick Normal (Normal); Hematocrit 36.4 % (40-54); Hemoglobin 11.8 g/dL (13.0-16.5); Ketone-Dipstick Negative (Negative); Leukocyte Esterase-Dipstick Negative /ul (Negative); Mean Corp Hgb Conc 32.4 g/dL (32-36); Mean Corpuscular Volume 86.5 fL (80-94); Mean Platelet Vol. 9.9 fl (6.2-12.0); Nitrite-Dipstick Negative (Negative); Occult Blood-Urine Negative /ul (Negative); POSITIVE COUNT YES; POSITIVE MORPHOLOGY YES; Platelet Count 197 K/mm3 (150-450); Protein-Dipstick Negative (Negative); RBC Distribution Width SD 52.1 fl (35.1-43.9); Red Blood Count 4.21 M/mm3 (4.6-6.2); Specific Gravity, Urine 1.005 (1.002-1.030); Urine Bilirubin Dipstick Negative (Negative); Urine Clarity Clear (Clear); Urine Urobilinogen Normal (Normal); Urine pH 6.5 (5.0 - 8.0); White Blood Count 5.7 K/mm3 (4.4-11.0)
[2020-04-23 11:29] LABS: Differential Indicated MANUAL DIFF
[2020-04-23 11:35] LABS: International Normalized Ratio 1.1; Prothrombin Time (Protime)PT. 13.7 SECONDS (11.7-14.9)
[2020-04-23 11:37] LABS: Partial Thromboplast Time 37.2 Seconds (24.1-36.2)
[2020-04-23 11:47] LABS: ALB/GLOB Ratio 0.7 RATIO (0.9-2.4); AST(SGOT) 19 U/L (15-37); Alanine Aminotransfer ALT/SGPT 30 U/L (16-61); Albumin, Serum 2.9 g/dL (3.2-5.0); Alkaline Phosphatase 82 U/L (45-117); Anion Gap 9 (5-15); BUN 15 mg/dL (7-18); BUN/Creat Ratio 14.9 RATIO (10-20); Calcium,Total 9.6 mg/dL (8.5-10.1); Chloride 97 mmol/L (98-107); Creatinine, Serum 1.01 mg/dL (0.70-1.30); EST Glomerular Filtration Rate 78 mL/min (>60); Est Glom Filt Rate - Afr Amer 95 mL/min (>60); Estimated Creatinine Clearance 70.97 ml/min; Globulin 4.1 g/dL (2.2-4.2); Glucose 149 mg/dL (74-106); Potassium 3.5 mmol/L (3.5-5.1); Sodium Level 135 mmol/L (136-145)
[2020-04-23 11:50] LABS: Lactic Acid 1.7 mmol/L (0.4-1.9)
[2020-04-23 12:01] LABS: Basophil 1 % (0-1); Eosinophil 1 % (0-5); Lymphocyte 13 % (19-41); Metamyelocyte 1 % (0-1); Monocyte 16 % (0-10); Myelocyte 2 (0-0); Neutrophil-Segmented 63 % (47-70); Platelet Estimate ADEQUATE (ADEQ); Promyelocyte 3 (0-0); Red Cell Morphology NORM C+C NORMAL (NORM C&C); Total Cells Counted 100 (MANUAL DIFF)
[2020-04-23 12:02] LABS: Absolute Lymphocyte Count 0.74 X10^3/uL (0.83-4.51); Absolute Neutrophil Count 3.6 X10^3/uL (2.0-7.7); Lymphocyte # 0.74 X10^3/ul (4.0)
[2020-04-23 13:36] VITALS: BP 101/86; PULSE 71; RESP 18; TEMP 37.1; O2SAT 95
[2020-04-24 11:27] LABS: Pathologist Review Reviewed
== END 2020-04-23 13:37 | disposition home or self-care (01) ==
PROVIDERS: Emergency Provider Emergency Medicine; PCP Student in an Organized Health Care Education/Training Program
DX: R50.9 Fever, unspecified (principal); R06.02 Shortness of breath; I10 Essential (primary) hypertension; J44.9 Chronic obstructive pulmonary disease, unspecified; Z87.891 Personal history of nicotine dependence
CPT/HCPCS: 71045; 80053; 81001; 83605; 85025; 85610; 85730; 87040; 87086; 87635; 99283; G2023; U0003

== ENCOUNTER 2020-04-30 10:01 | Inpatient (IN) | payer MEDICARE, OTHER, SELFPAY ==
[2020-04-30] VITALS (11 sets, daily range): BP systolic 90–129; BP diastolic 55–96; PULSE 60–93; RESP 14–20; TEMP 36.4–37; O2SAT 91–95; BMI 30.7
--- NOTE | 2020-04-30 10:24 | CT_ITS ---
STUDY: CT ABDOMEN AND PELVIS WITHOUT CONTRAST REASON FOR EXAM: Male, 69 years old. ABD PAIN W/ WEAKNESS, HX LYMPHOMA RADIATION DOSAGE (If Supplied By Facility): CTDIvol = ( 16.69 ) mGy, DLP = ( 1696.80 ) mGycm TECHNIQUE: Transaxial images were obtained from the dome of the diaphragm to the symphysis pubis with oral contrast, and without intravenous contrast. Sagittal and coronal images were reconstructed. Individualized dose optimization techniques were used for this CT. COMPARISON: Comparison is made with prior study dated October 15, 2011. FINDINGS: Stable fibrosis at the lung bases. Coronary artery calcification. There is decreased attenuation of the liver consistent with steatosis. Normal gallbladder and extrahepatic biliary system. Borderline splenomegaly. Normal pancreas. Normal bilateral adrenal glands. 2 mm nonobstructive crackers in the posterior mid pole calyx of the right kidney. Stable when some mucous cyst in the upper pole of the left kidney. Normal visualized stomach. Normal small intestine. Normal colon. The appendix is visualized and appears normal. There is diffuse atherosclerotic calcification of the abdominal aorta and its major visceral branches, without a demonstrated aneurysm. Normal inferior vena cava. Normal retroperitoneum. Normal urinary bladder. There are prostatic calcifications. There is a small umbilical hernia containing fat. There are diffuse degenerative changes of the visualized lumbar spine. CT/Abdomen/Pelvis W IV Cont ONLY IMPRESSION: Fatty infiltration of the liver. Nonobstructive calculus in the right kidney. Electronically Signed: Andrew Gee, at 12:30 EDT , Service support ,
--- NOTE | 2020-04-30 10:24 | EKG12_ITS ---
Test Reason : WEAKNESS Blood Pressure : / mmHG Vent. Rate : 066 BPM Atrial Rate : 066 BPM P-R Int : 170 ms QRS Dur : 130 ms QT Int : 458 ms P-R-T Axes : -18 -02 -02 degrees QTc Int : 480 ms Normal sinus rhythm Right bundle branch block Abnormal ECG Confirmed by NADER NAVA, ABDIRIZAK ([id number]), editor news CYNTHIA OSWALD ([id number]) on 05/01/2020 10:00:48 AM Referred By: CHRISTY Confirmed By:ABDIRIZAK DOE MD
--- NOTE | 2020-04-30 10:26 | CT_ITS ---
STUDY: CTA CHEST REASON FOR EXAM: Male, 69 years old. ABD PAIN AND WEAKNESS, HX LYMPHOMA RADIATION DOSAGE (If Supplied By Facility): CTDIvol = ( 16.69 ) mGy, DLP = ( 1696.80 ) mGycm TECHNIQUE: The examination was performed with the intravenous administration of [id number] 100ML. Post-processing of the angiographic images was performed, with multiplanar reformation and 3D reconstruction. Individualized dose optimization techniques were used for this CT. COMPARISON: Comparison is made with prior study dated October 10, 2015. FINDINGS: A left-sided portacatheter seen with the tip in the superior vena cava. Stable small bilateral axillary lymph nodes. Normal enhancement of the main pulmonary artery and right and left pulmonary arteries. Normal enhancement of the bilateral peripheral pulmonary arteries. There is no demonstrated pulmonary embolism. There is atherosclerotic calcification of the aortic arch with tortuosity. There is no demonstrated aortic dissection. There are calcifications of the coronary arteries. Mildly enlarged mediastinal lymph nodes larger measuring 2.3 cm and is in the precarinal space. Normal hilar regions. Normal visualized trachea and bronchi. Hyperinflation Absent at this changes. This is worse in the upper lobes. Multiple blebs are seen. There is also evidence of interstitial scarring in both lower lobes with subpleural blebs and honeycombing. Normal pleura. Normal chest wall structures. There are degenerative changes of thoracic spine. Fatty infiltration of the liver. CT/CTA Chest W/WO Contrast IMPRESSION: No evidence of pulmonary embolism. Stable examination without evidence of emphysema and scarring and honeycombing at the lung bases. Electronically Signed: Andrew Gee, at 12:28 EDT , Service support ,
[2020-04-30 10:45] LABS: Bacteria 0 SEEN /hpf (None Seen); Red Blood Cells-Urine 0 SEEN /hpf (0-5)
[2020-04-30 10:50] LABS: Color, Urine Yellow (Yellow); Glucose, Dipstick Normal (Normal); Ketone-Dipstick 5 mg/dl (Negative); Leukocyte Esterase-Dipstick 25 /ul (Negative); Nitrite-Dipstick Negative (Negative); Occult Blood-Urine Negative /ul (Negative); Protein-Dipstick 30 mg/dl (Negative); Urine Clarity Sl. Cloudy (Clear); Urine Urobilinogen 1 mg/dl (Normal); Urine pH 6.5 (5.0 - 8.0)
[2020-04-30 10:52] LABS: Urine Bilirubin Dipstick 1 mg/dL (Negative)
--- NOTE | 2020-04-30 11:01 | ED.VIS.GEN ---
History of Present Illness Chief Complaint: General Illness Narrative: Patient presents from his oncologist office, he has a history of B-cell lymphoma and gets chemotherapy, he also had intrathecal chemotherapy about 3 weeks ago. Today he is presenting with abdominal distention, apparently hypoxia at PCPs office and intermittent fevers for the past few weeks. He does not have a headache although he has had some headaches in the past, he denies any vision changes, any neurological symptoms. He does admit to being weak throughout but has no focal weakness. He tells me he has no abdominal pain at rest but has quite a bit of pain when there is palpation. Per , she has noticed increased distention in the abdomen. He tells me he has COPD however over the past 2 weeks he has been more short of breath. Past Medical History - Allergies and Home Meds Allergies/Adverse Reactions: Allergies No Known Allergies Allergy (Verified 04/30/20 10:06) Primary Care Physician: Diego Alonso DO [Primary Care Provider] - Past Medical History: - - COPD, B-cell lymphoma on chemotherapy Smoking Status: Former smoker Review of Systems All systems negative except as indicated General: Reports: - - Generalized weakness. Denies: Fever Eyes: Denies: Visual changes - bilaterally ENT: Denies: Rhinorrhea Cardiovascular: Denies: Chest pain Respiratory: Reports: Dyspnea. Denies: Cough Gastrointestinal: Reports: Abdominal pain Genitourinary: Denies: Dysuria Musculoskeletal: Denies: Myalgias Skin: Denies: Rash Neurological: Reports: Headache Psych: Denies: Depression Endocrine: Denies: Polyuria Hematologic: Denies: Easy bruising Physical Exam Vital Signs/Narrative: Vital Signs Temp Pulse Resp BP Pulse Ox 04/30/20 10:03 97.8 F 67 18 90/55 L 91 General: Well nourished, Well developed Eyes: Perrl ENT: Dry mucous membranes Neck: Supple Cardiovascular: Regular rate, Regular rhythm Respiratory: No distress, - - Minich breath sounds bilaterally with scant wheezing. Left-sided chest wall Mediport intact Abdomen: Soft - There is some distention but no obvious fluid wave. There is tenderness to palpation in the left upper and left lower quadrants. Back: Nontender, Normal Inspection Extremities: Nontender Skin: Normal color Neurological: Alert, Normal Strength, Normal Sensation Psychological: Normal affect Diagnostic/Tx/Re-eval - Rhythm Strip Rhythm Strip: Sinus Rhythm Rate: 66 Ectopy: None - EKG Initial EKG Interpretation: - - Normal sinus rhythm with a rate of 66. Normal HI and QTc intervals. Right bundle branch pattern is noted. Otherwise no ischemic changes. Interpreted by emergency doctor. - Medical Decision Making Patient does not have a pulmonary embolism, CT abdomen and pelvis are unremarkable. He is however still hypoxic he does have COPD and has emphysematous changes he could have an infection, therefore I will treat with antibiotics, at this time I have considered the possibility of cerebral spinal fluid infection, however patient has no headache no neurological symptoms he has had intrathecal chemotherapy 3 weeks ago and has not been recent. He appears well. I will defer a diagnostic lumbar puncture. I will treat for a respiratory infection. Patient will be admitted to the hospital. ED Disposition - Plan for ED Patient: Disposition: Home or Assisted Living Diagnosis: Hypoxia, B-cell lymphoma Referrals: Diego Alonso DO [Primary Care Provider] -
[2020-04-30 11:04] LABS: Hematocrit 35.5 % (40-54); Hemoglobin 11.1 g/dL (13.0-16.5); Mean Corp Hgb Conc 31.3 g/dL (32-36); Mean Corpuscular Hgb 27.8 pg (27.0-32.0); Mean Platelet Vol. 9.7 fl (6.2-12.0); POSITIVE COUNT YES; POSITIVE DIFFERENTIAL YES; POSITIVE MORPHOLOGY YES; Platelet Count 340 K/mm3 (150-450); RBC Distribution Width CV 17.7 % (11.6-14.6); RBC Distribution Width SD 56.8 fl (35.1-43.9); Red Blood Count 3.99 M/mm3 (4.6-6.2); White Blood Count 12.4 K/mm3 (4.4-11.0)
[2020-04-30 11:12] LABS: Fine Granular Cast- Urine 0-5 SEEN /lpf (0-5); Hyaline Cast 0-5 SEEN /lpf (0-5); Mucous, Urine 1+ /hpf (<or=2+); Squamous Epithelial Cells - UA 0-5 SEEN /hpf (0-5); White Blood Cells 0-5 SEEN /hpf (0-5)
[2020-04-30 11:20] LABS: Differential Indicated MANUAL DIFF
[2020-04-30 11:22] LABS: ALB/GLOB Ratio 0.6 RATIO (0.9-2.4); AST(SGOT) 27 U/L (15-37); Alanine Aminotransfer ALT/SGPT 19 U/L (16-61); Albumin, Serum 2.5 g/dL (3.2-5.0); Alkaline Phosphatase 61 U/L (45-117); Anion Gap 7 (5-15); BUN 13 mg/dL (7-18); BUN/Creat Ratio 11.5 RATIO (10-20); Calcium,Total 9.4 mg/dL (8.5-10.1); Chloride 105 mmol/L (98-107); Creatinine, Serum 1.13 mg/dL (0.70-1.30); EST Glomerular Filtration Rate 69 mL/min (>60); Est Glom Filt Rate - Afr Amer 83 mL/min (>60); Estimated Creatinine Clearance 63.44 ml/min; Globulin 4.1 g/dL (2.2-4.2); Glucose 99 mg/dL (74-106); Potassium 4.3 mmol/L (3.5-5.1); Protein, Total 6.6 g/dL (6.4-8.2); Sodium Level 138 mmol/L (136-145)
[2020-04-30 11:24] LABS: Basophil 1 % (0-1); Eosinophil 1 % (0-5); Lymphocyte 11 % (19-41); Metamyelocyte 2 % (0-1); Monocyte 16 % (0-10); Neutrophil-Band 4 % (0-5); Neutrophil-Segmented 65 % (47-70); Total Cells Counted 100 (MANUAL DIFF)
[2020-04-30 11:25] LABS: Absolute Lymphocyte Count 1.37 X10^3/uL (0.83-4.51); Absolute Neutrophil Count 8.6 X10^3/uL (2.0-7.7)
[2020-04-30 11:26] LABS: Hypersegmented Neutrophils OCC; Reactive Lymphocyte OCC
[2020-04-30 11:27] LABS: Platelet Estimate ADEQUATE (ADEQ); Polychromasia 1+; Red Cell Morphology N CYTIC NORMAL (NORM C&C)
--- NOTE | 2020-04-30 13:24 | HP.PCM_ITS ---
History of Present Illness Date of Admission: 04/30/20 Chief Complaint: Shortness of breath, low-grade fever, generalized malaise. The patient is a 69 year old M with past medical history of B-cell lymphoma undergoing chemotherapy. He has chemotherapy via port and also intrathecal chemo chemotherapy the last of which was 3 weeks ago at [facility]. Patient said he started having headaches and low-grade fevers as well as generalized malaise about 3 weeks ago which have persisted. He also had short ness of breath which is persistently worsened. He does complain of back pain but states is more of a dull aching pain and has denied any redness or oozing of fluid from his back. He denies having a cough but states that shortness of breath from COPD has gradually worsened. He did discuss with her primary care doctor a few weeks ago about possibly starting using oxygen at home but that was never finalized. He denied any chest pain, palpitations, nausea vomiting, dizziness, and complains of diarrhea and vomiting which occurred a few times over the past 2 weeks but was currently not present. He has been using Symbicort for his COPD but states that it has not been effective recently. Review of symptoms otherwise negative. At time of review in the ED, vitals were essentially stable with temperature of 97.8 Fahrenheit, blood pressure of 116/67, respiratory rate of 14 and pulse rate of 63. He was saturating at 94% on 3 L of oxygen. Chemistry was essentially unremarkable and CBC showed WBC of 12.4 and hemoglobin of 11.1. CT of the abdomen and pelvis showed fatty infiltration of the liver with nonobstructive calculus in the right kidney and CT of the chest was negative for PE and showed stable examination with evidence of emphysema and scarring and honeycombing at the lung bases, with multiple blebs. He has been admitted to be managed for acute hypoxic respiratory failure due to COPD exacerbation. I did require a COVID test and that is pending at the moment. [] Past Medical History Past Medical History (Chronic Problems): Chronic Problems COPD (chronic obstructive pulmonary disease) (Chronic) Pulmonary fibrosis (Chronic) Hypertension (Chronic) Allergies No Known Allergies Allergy (Verified 04/30/20 10:06) Home Medications: Ambulatory Orders Medication Instructions Recorded Budesonide/Formoterol 160/4.5 2 puff INHALATION BID 10/09/15 [Symbicort 160/4.5 Mcg Inhaler (SP)] Citalopram [Celexa] 20 mg PO DAILY 10/09/15 traZODone [Desyrel] 100 mg PO QHS 10/09/15 Esomeprazole Mag Trihydrate 20 mg PO DAILY 08/22/18 [Nexium] Metoprolol Tartrate [Lopressor 25 mg PO BID 08/22/18 (beta sharmaine)] Acetaminophen [Tylenol Extra 1,000 mg PO Q8H PRN PRN 04/30/20 Strength] Clonazepam [Klonopin] 1 mg PO QHS 04/30/20 Ipratropium [place] 2 sprays NS BID PRN PRN 04/30/20 Multivitamins,Therapeutic 1 tab PO DAILYCM 04/30/20 [Multivitamin] Tamsulosin HCl [Flomax] 0.4 mg PO QHS 04/30/20 Surgical History: - - has had hip and knee surgery Psychiatric History: No pertinent psych hx Lives: Spouse/ Significant Other Smoking Status: Former smoker Alcohol: None Drugs: None - *Family History Maternal History Items: No pertinent history Paternal History Items: No pertinent history Review of Systems Constitutional: Reports: Malaise. Denies: Chills, Fever, Weakness, Weight Change, Fatigue Eyes: Denies: Blurred vision HEENT: Denies: Head Aches, Sinus Congestion, Sinus Drainage Cardiovascular: Denies: Chest Pain, Heaviness, Light Headedness, Orthopnea, Palpitations, Paroxysmal Noc. Dyspnea, Syncope Respiratory: Reports: Shortness of Breath, Shortness of breath at rest, Shortness of breath upon exertion. Denies: Cough, Sputum production, Wheezing Gastrointestinal: Denies: Abdominal Pain, Nausea, Vomiting Genitourinary: Denies: Dysuria Musculoskeletal: Denies: Joint Pain, Joint Tenderness Skin: Denies: Rash, Wounds Neurological: Denies: Numbness, Tingling, Focal weakness Psychiatric: Denies: Anxiety, Depression, Homicidal Ideations, Suicidal Ideations Hematologic/ Lymphatic: Denies: Easy Bruising, Easy Bleeding VTE Information - Inpt Only VTE Present on Admission: No VTE Pharm Prophylaxis ordered?: Yes Patient Problems: Active and Suspected Problems Hypoxia (Acute) B-cell lymphoma (Acute) - Physical Exam Vitals/I&O's: Vital Signs Temp Pulse Resp BP Pulse Ox 97.8 F 60 16 111/76 95 04/30/20 10:03 04/30/20 12:06 04/30/20 12:06 04/30/20 12:06 04/30/20 12:06 Oxygen Delivery Method Room Air Weight: 208 lb Body Mass Index (BMI) 30.7 Intake and Output for Last 24 Hours 04/28/20 04/29/20 04/30/20 23:59 23:59 23:59 Intake Total 500 / 500 Balance 500 / 500 General: Alert, Oriented x3, Cooperative, No apparent distress HEENT: Atraumatic, PERRLA, EOMI, Normocephalic Oral: Dry Mucosa Neck: Supple, No JVD, Negative Carotid Bruits Lungs: - - mildly decreased breath sounds bibasally, no wheezes or crackles. On 3L of oxygen by nasal canula Cardiovascular: Regular rate, No murmurs Abdomen: Bowel Sounds Present, Soft, Non Tender, Non-Distended, No Hepato- splenomegaly Extremities: No clubbing, No cyanosis, No edema, Capillary Refill Less than 3 Seconds Skin: No rashes, No breakdown Musculoskeletal: No Tenderness to Palpation of Joints or Extremities Lymphatic: No Cervical, Supraclavicular, or Inguinal Adenopathy Neurological: Cranial nerves II-XII grossly intact, Neuro grossly intact, Motor Exam 5/5 strength throughout Psych/Mental Status: Normal Affect, Appropriate, Alert and oriented to time, place, person, mood and affect Laboratory Results 04/30/20 10:35: Urine Color Yellow, Urine Clarity Sl. Cloudy, Urine pH 6.5, Ur Specific [place] 1.010, Urine Protein 30 H, Urine Glucose (UA) Normal, Urine Ketones 5 H, Urine Occult Blood Negative, Urine Nitrite Negative, Urine Bilirubin 1 H, Urine Urobilinogen 1 H, Ur Leukocyte Esterase 25 H, Urine RBC 0 SEEN, Urine WBC 0-5 SEEN, Ur Squamous Epith Cells 0-5 SEEN, Urine Bacteria 0 SEEN, Hyaline Casts 0-5 SEEN, Fine Granular Casts 0-5 SEEN, Urine Mucus 1+ 04/30/20 10:55: WBC 12.4 H, RBC 3.99 L, Hgb 11.1 L, Hct 35.5 L, MCV 89.0, MCH 27.8, MCHC 31.3 L, RDW Std Deviation 56.8 H, RDW Coeff of Thor 17.7 H, Plt Count 340, MPV 9.7, Neut % (Auto) Not Reportable, Absolute Neuts (auto) 8.6 H, Absolute Lymphs (auto) 1.37, Total Counted 100, Neutrophils % (Manual) 65, Band Neutrophils % 4, Lymphocytes % (Manual) 11 L, Monocytes % (Manual) 16 H, Eosinophils % (Manual) 1, Basophils % (Manual) 1, Metamyelocytes % 2 H, Diff Path Review May foll, Hypersegmented Neuts OCC, Reactive Lymphocytes OCC, Platel et Estimate ADEQUATE, RBC Morphology N CYTIC, Polychromasia 1+ 04/30/20 10:55: Sodium 138, Potassium 4.3, Chloride 105, Carbon Dioxide 26.0, Anion Gap 7, BUN 13, Creatinine 1.13, Estim Creat Clear Calc 63.44, Est GFR (MDRD) Af Amer 83, Est GFR (MDRD) Non-Af 69, BUN/Creatinine Ratio 11.5, Glucose 99, Calcium 9.4, Total Bilirubin 0.40, AST 27, ALT 19, Alkaline Phosphatase 61, Troponin I < 0.015, Total Protein 6.6, Albumin 2.5 L, Globulin 4.1, Albumin/Globulin Ratio 0.6 L 04/30/20 10:55: Lactic Acid 1.0 Diagnostic Data Abdomen/Pelvis CT 04/30/20 10:24 IMPRESSION: Fatty infiltration of the liver. Nonobstructive calculus in the right kidney. Electronically Signed: Andrew Gee, at 12:30 EDT , Service support , Chest CTA 04/30/20 10:26 IMPRESSION: No evidence of pulmonary embolism. Stable examination without evidence of emphysema and scarring and honeycombing at the lung bases. Electronically Signed: Andrew Gee, at 12:28 EDT , Service support , Current Medications Azithromycin 500 mg/ Dextrose 255 mls @ 250 mls/hr IV X1 ONE Stop: 04/30/20 14:11 Ceftriaxone Sodium (Rocephin) 1 gm in 50 mls @ 100 mls/hr IV X1 ONE Stop: 04/30/20 13:39 Assessment/Plan All Active Problems Hypoxia (Acute) B-cell lymphoma (Acute) Acute respiratory insufficiency (Acute) Fluid overload (Acute) Closed left hip fracture (Acute) 69 y/o admitted with a complaint of shortness of breath, low grade fever and general malaise. 1. COPD exacerbation * Does have a history of COPD. CTA negative for PE but showed evidence of emphysema and scarring and honeycombing at the lung bases. * On 3 L of oxygen currently. Not on oxygen at home though his PCP has told him in the past that he may need to start oxygen. * Admit to PCU with telemetry * Start IV Solu-Medrol 40 mg every 8. Start on IV ceftriaxone and azithromycin in the ED. We will continue with IV Levaquin. * COVID test pending * Titrate oxygen to maintain saturation above 90%. * Breathing treatments with bronchodilators. * Continue Symbicort inhaler. * 2. Acute hypoxic respiratory insufficiency due to COPD exacerbation: as under 1 3. History of B-cell lymphoma: * Follows with Dr. Vidal. * Undergoes both chemotherapy and intrathecal chemotherapy. * Was due to have chemo this week but this was canceled. * 4.Hypertension: on metoprolol and HCTZ 5. Depression; on Celexa and trazodone. DVT prophylaxis; lovenox COde status; full code * Patient and counseled extensively about different types of CODE STATUS including full code, DNR CCA and DNR CCA. Patient elects to be full code. Total [id number] time () minutes. Inpatient E&M: 76049 Init Hosp L3 Procedures: 11697 Advncd Care Plan 30 Min
[2020-04-30] MEDS: Ceftriaxone 1 GM/50 ML BAG IV (13:30)
[2020-04-30 14:40] LABS: BNP,B-Type NATRIURETIC PEPTIDE 51.1 pg/mL (0-100)
[2020-04-30] MEDS: Acetaminophen 500 MG Tablet 1000 MG PO (19:01)
[2020-04-30] MEDS: levoFLOXacin IV 500 MG/100 ML BAG 100 MG IV (19:25)
[2020-04-30] MEDS: 0.9% Saline Lock 10 ML Syringe IV ×2 (19:25→22:20)
[2020-04-30] MEDS: traZODone 100 MG Tablet PO (22:20)
[2020-04-30] MEDS: clonazePAM 1 MG Tablet PO (22:20)
[2020-04-30] MEDS: Metoprolol Tartrate 25 MG Tablet PO (22:20)
[2020-04-30] MEDS: guaiFENesin 1,200 MG Tablet 1200 MG PO (22:20)
[2020-04-30] MEDS: Ipratropium/Albuterol Sulfate 3 ML AMPUL.NEB INHALATION (23:07)
[2020-05-01] VITALS (18 sets, daily range): BP systolic 112–128; BP diastolic 57–74; PULSE 68–89; RESP 16–20; TEMP 36.2–36.9; O2SAT 90–95; BMI 30.7
[2020-05-01] MEDS: Ipratropium/Albuterol Sulfate 3 ML AMPUL.NEB INHALATION ×6 (03:47→23:06)
[2020-05-01] MEDS: 0.9% Saline Lock 10 ML Syringe IV ×4 (05:21→21:47)
[2020-05-01 06:49] LABS: Hematocrit 33.7 % (40-54); Hemoglobin 10.6 g/dL (13.0-16.5); Mean Corp Hgb Conc 31.5 g/dL (32-36); Mean Corpuscular Hgb 28.2 pg (27.0-32.0); Mean Corpuscular Volume 89.6 fL (80-94); Mean Platelet Vol. 9.8 fl (6.2-12.0); POSITIVE COUNT YES; POSITIVE DIFFERENTIAL YES; POSITIVE MORPHOLOGY YES; Platelet Count 321 K/mm3 (150-450); RBC Distribution Width CV 17.2 % (11.6-14.6); RBC Distribution Width SD 55.6 fl (35.1-43.9); Red Blood Count 3.76 M/mm3 (4.6-6.2); White Blood Count 6.7 K/mm3 (4.4-11.0)
[2020-05-01 06:50] LABS: Differential Indicated MANUAL DIFF
[2020-05-01 07:06] LABS: Anion Gap 4 (5-15); BUN 13 mg/dL (7-18); BUN/Creat Ratio 14.8 RATIO (10-20); Calcium,Total 9.3 mg/dL (8.5-10.1); Chloride 108 mmol/L (98-107); Creatinine, Serum 0.88 mg/dL (0.70-1.30); EST Glomerular Filtration Rate 92 mL/min (>60); Est Glom Filt Rate - Afr Amer 112 mL/min (>60); Estimated Creatinine Clearance 81.46 ml/min; Glucose 176 mg/dL (74-106); Potassium 4.6 mmol/L (3.5-5.1); Sodium Level 141 mmol/L (136-145)
[2020-05-01 07:42] LABS: Lymphocyte 1 % (19-41); Metamyelocyte 1 % (0-1); Neutrophil-Band 1 % (0-5); Neutrophil-Segmented 97 % (47-70); Total Cells Counted 100 (MANUAL DIFF)
[2020-05-01 07:43] LABS: Hypersegmented Neutrophils 2+
[2020-05-01 07:45] LABS: Absolute Lymphocyte Count 0.06 X10^3/uL (0.83-4.51); Absolute Neutrophil Count 6.5 X10^3/uL (2.0-7.7); Lymphocyte # 0.06 X10^3/ul (4.0)
[2020-05-01] MEDS: Multivitamins,Therapeutic Tablet 1 TABLET PO (09:39)
[2020-05-01] MEDS: Enoxaparin 40 MG/0.4 ML Syringe SC (09:39)
[2020-05-01] MEDS: Metoprolol Tartrate 25 MG Tablet PO ×2 (09:39→21:37)
[2020-05-01] MEDS: guaiFENesin 1,200 MG Tablet 1200 MG PO ×2 (09:39→21:39)
[2020-05-01] MEDS: Citalopram 20 MG Tablet PO (09:39)
[2020-05-01] MEDS: Pantoprazole Sodium 20 MG Tablet PO (09:40)
[2020-05-01] MEDS: levoFLOXacin IV 500 MG/100 ML BAG 100 MG IV (09:40)
--- NOTE | 2020-05-01 10:11 | PCM.NTREPORT ---
Nutrition Therapy Report - History Nutrition Services has been consulted to:: Manage nutrient details of diet order Current diet / nutrition support order:: cardiac/low cholesterol, 120mL ensure enlive 4x/day - Anthropometric Measurements Height:: 5 ft 9 in Weight:: 94.4 kg Body Mass Index (BMI):: 30.7 - Relevant Labs Relevant Labs:: WBC 12.4 K/mm3 (4.4-11.0) H 04/30/20 10:55 RBC 3.76 M/mm3 (4.6-6.2) L 05/01/20 06:35 Hgb 10.6 g/dL (13.0-16.5) L 05/01/20 06:35 Hct 33.7 % (40-54) L 05/01/20 06:35 MCHC 31.5 g/dL (32-36) L 05/01/20 06:35 RDW Std Deviation 55.6 fl (35.1-43.9) H 05/01/20 06:35 RDW Coeff of Thor 17.2 % (11.6-14.6) H 05/01/20 06:35 Absolute Neuts (auto) 8.6 X10^3/uL (2.0-7.7) H 04/30/20 10:55 Absolute Lymphs (auto) 0.06 X10^3/uL (0.83-4.51) L 05/01/20 06:35 Neutrophils % (Manual) 97 % (47-70) H 05/01/20 06:35 Lymphocytes % (Manual) 1 % (19-41) L 05/01/20 06:35 Monocytes % (Manual) 16 % (0-10) H 04/30/20 10:55 Metamyelocytes % 2 % (0-1) H 04/30/20 10:55 Hypersegmented Neuts 2+ H 05/01/20 06:35 Chloride 108 mmol/L (98-107) H 05/01/20 06:35 Anion Gap 4 (5-15) L 05/01/20 06:35 Glucose 176 mg/dL (74-106) H 05/01/20 06:35 Albumin 2.5 g/dL (3.2-5.0) L 04/30/20 10:55 Albumin/Globulin Ratio 0.6 RATIO (0.9-2.4) L 04/30/20 10:55 - Assessment Food / Nutrition-Related History:: Pt reports decreased appetite/intake for ~1 week STUDENT SERVICES ADVISOR d/t acute illness. Pt states he had nothing but water for 3 days STUDENT SERVICES ADVISOR. No special diet followed normally at home, says makes him drink Boost occassionally. Reports wt was 220# at beginning of February 2020, prior to chemotherapy starting. States wt dropped to 212# and was steady prior to acute illness. CBW 208.1# suggesting a 3.9#/1.8% wt loss <1 week, significant. Describes consuming 100% of breakfast sandwich and muffin this AM. States appetite is improving. Noted hyperglycemia- on IV steroid. - Nutrition Diagnosis Problem / Etiology / Signs & Symptoms (PES):: Inadequate oral intake related to acute resp. failure, COPD exacerbation as evidenced by reported no PO intake x 3 days STUDENT SERVICES ADVISOR, estimated PO intake <50% of estimated needs x 1 week, 3.9#/1.8% wt loss <1 week. Evidence of Malnutrition Exists:: Yes Severe PCM:: Acute Illness - Nutrition Intervention Nutrition Prescription:: 2283-9179 calories/day, 103-113 g protein/day - Food / Nutrient Delivery Interventions Summary of nutrition intervention:: Discussed Ensure as ordered-pt agreeable to drinking as needed. Pt states he would like ice cream w/lunch. Is concerned about restrictions w/ cardiac diet as ordered. Explained to pt diet will be changed to regular d/t acute malnutrition. Nutrition support ordered as / adjusted to:: regular diet; continue ensure enlive 120mL 4x/day Nutrition education provided?: Yes - encouraged adequate PO intake to prevent additional wt loss - MNT Monitoring Further MNT monitoring and evaluation required?: Yes MNT Follow-up in:: 3-5 days
[2020-05-01 11:20] LABS: Pathologist Review Reviewed
--- NOTE | 2020-05-01 11:28 | CASEMGMT ---
ALEJO MOSHER assessment: Face to Face with patient for initial transition planning/care coordination assessment. RN NOMI introduced self and role at [facility], pt voices understanding and consents to assessment at this time. Pt is sitting up in bed in no distress at this time on 4liters of oxygen. Pt is A/Ox4 at this time and answers all questions appropriately at this time. Care providers, pharmacy, and demographics verified at this time. Presentation: Referred by Dr. Vidal for weakness, hypotension, abd distention-currently in treatment for lymphoma-pt states was supposed to have chemo last week but it was cancelled d/t pt 'not feeling well.' Pt states gets chemo thru port at [facility] office but gets intrathecal chemo at [facility]. Admitting dx: Acute hypoxic resp failure, COPD PCP: [facility] Specialists: dariana Vidal Preferred [facility]acy: [facility] Insurance: MCR A/B, AARP Prescription Benefit: Yes Living Will/HPOA: Pt states does have LW/HPOA and is aware that they are not on file at [facility] at this time. Pt states , Clara Ibrahim, is HPOA. LNOK: Clara Ibrahim, Living Arrangements: Pt states lives with in 2 story home with bedroom on 2nd floor. Pt states has been difficult getting upstairs since last week d/t weakness. Pt states is normally independent with ADL's. Transportation: Pt states drives self and states no transportation concerns at this time. DME/HHC: Pt states has the following DME: cane, crutches, walker, and shower bench. Pt states that his PCP has been discussing possible home oxygen need with pt and pt to be tested prior to discharge. Pt states Skip is fine for [employer]. Pt states no hx of HHC or SNF in the past. Pt states no concerns with going home at time of discharge. Pt states is retired. Pt states quit smoking cigarettes 10 years ago and quit drinking ETOH 4 years ago. Pt states no further concerns/needs at this time. CM to follow for home oxygen testing and for any further discharge planning/needs. Advised pt to ask for CM if any further questions/concerns/needs arise, voices understanding. Pt Goal: Home Plan: Home w/ O2, pending qualification. [place] ALEJO MOSHER
--- NOTE | 2020-05-01 12:04 | PCM.HP.ID ---
Problem List (1) Hypoxia Status: Acute Reason for Consult: hypoxia Consulted by: Dr. Michelle History of Present Illness: The patient is a 69 year old M with B cell lymphoma, on chemo via port and IT chemo. Last IT chemo was 3 weeks ago, since then c/o fatigue, chills/shakes, headache, back pain, nausea, increased cough with sputum. Has chronic congestion/drainage/cough with his h/o COPD. No issues with prior cycles of chemo. No redness or drainage from LP site. No issues with port. Lives with , both have been isolating, getting groceries delivered, only going out for doctor appts. No new change in taste/smell. No n/v/d. Had increased aches and dyspnea. Came to ED 04/23, covid sent, cxr done. Saw Dr. Vidal, started on augmentin a week ago without improvement. Came back to ED 04/30, covid pcr neg, admitted on levaquin and 4L O2. Feeling much better this AM. No dysuria, some increased urine frequency, no abd pain. Sputum now resolved. Full ROS performed and neg except as noted above. - Medical History Past Medical History (Chronic Problems): Chronic Problems COPD (chronic obstructive pulmonary disease) (Chronic) Pulmonary fibrosis (Chronic) Hypertension (Chronic) Allergies/Adverse Reactions: Allergies No Known Allergies Allergy (Verified 04/30/20 10:06) Home Medications: Ambulatory Orders Medication Instructions Recorded Budesonide/Formoterol 160/4.5 2 puff INHALATION BID 10/09/15 [Symbicort 160/4.5 Mcg Inhaler (SP)] Citalopram [Celexa] 20 mg PO DAILY 10/09/15 traZODone [Desyrel] 100 mg PO QHS 10/09/15 Esomeprazole Mag Trihydrate 20 mg PO DAILY 08/22/18 [Nexium] Metoprolol Tartrate [Lopressor 25 mg PO BID 08/22/18 (beta sharmaine)] Acetaminophen [Tylenol Extra 1,000 mg PO Q8H PRN PRN 04/30/20 Strength] Clonazepam [Klonopin] 1 mg PO QHS 04/30/20 Ipratropium [place] 2 sprays NS BID PRN PRN 04/30/20 Multivitamins,Therapeutic 1 tab PO DAILYCM 06/08/20 [Multivitamin] Tamsulosin HCl [Flomax] 0.4 mg PO QHS 04/30/20 - Social History SMOKING STATUS:: Former smoker Vital Signs Temp Pulse Resp BP Pulse Ox 97.1 F L 75 16 128/74 H 92 05/01/20 09:37 05/01/20 10:34 05/01/20 10:34 05/01/20 09:37 05/01/20 09:37 Oxygen Flow Rate (L/min) 4 Oxygen Delivery Method Nasal Cannula Weight: 94.4 kg Body Mass Index (BMI) 30.7 Microbiology Past 72 Hours 04/30/20 10:35 Urine Culture - Preliminary Urine, Clean Catch Culture exhibits no growth. Laboratory Tests Past 24 Hrs 04/30/20 04/30/20 04/30/20 10:55 10:55 13:30 WBC RBC Hgb Hct MCV MCH MCHC RDW Std Deviation RDW Coeff of Thor Plt Count MPV Neut % (Auto) Absolute Neuts (auto) Absolute Lymphs (auto) Total Counted Neutrophils % (Manual) Band Neutrophils % Lymphocytes % (Manual) Metamyelocytes % Diff Path Review Reviewed Hypersegmented Neuts Sodium Potassium Chloride Carbon Dioxide Anion Gap BUN Creatinine Estim Creat Clear Calc Est GFR (MDRD) Af Amer Est GFR (MDRD) Non-Af BUN/Creatinine Ratio Glucose Calcium Troponin I B-Natriuretic Peptide 51.1 COVID-19 ([place]) Not Detected 04/30/20 04/30/20 05/01/20 18:38 22:05 06:35 WBC 6.7 RBC 3.76 L Hgb 10.6 L Hct 33.7 L MCV 89.6 MCH 28.2 MCHC 31.5 L RDW Std Deviation 55.6 H RDW Coeff of Thor 17.2 H Plt Count 321 MPV 9.8 Neut % (Auto) Not Reportable Absolute Neuts (auto) 6.5 Absolute Lymphs (auto) 0.06 L Total Counted 100 Neutrophils % (Manual) 97 H Band Neutrophils % 1 Lymphocytes % (Manual) 1 L Metamyelocytes % 1 Diff Path Review May foll Hypersegmented Neuts 2+ H Sodium Potassium Chloride Carbon Dioxide Anion Gap BUN Creatinine Estim Creat Clear Calc Est GFR (MDRD) Af Amer Est GFR (MDRD) Non-Af BUN/Creatinine Ratio Glucose Calcium Troponin I < 0.015 < 0.015 B-Natriuretic Peptide COVID-19 ([place]) 05/01/20 06:35 WBC RBC Hgb Hct MCV MCH MCHC RDW Std Deviation RDW Coeff of Thor Plt Count MPV Neut % (Auto) Absolute Neuts (auto) Absolute Lymphs (auto) Total Counted Neutrophils % (Manual) Band Neutrophils % Lymphocytes % (Manual) Metamyelocytes % Diff Path Review Hypersegmented Neuts Sodium 141 Potassium 4.6 Chloride 108 H Carbon Dioxide 29.0 Anion Gap 4 L BUN 13 Creatinine 0.88 Estim Creat Clear Calc 81.46 Est GFR (MDRD) Af Amer 112 Est GFR (MDRD) Non-Af 92 BUN/Creatinine Ratio 14.8 Glucose 176 H Calcium 9.3 Troponin I B-Natriuretic Peptide COVID-19 ([place]) - Other Studies Radiology: [] reviewed Other Studies: [] Route of nutrition/ use of supplements: [] Nutritional Intake: [] IV Site: [] Renner Catheter: [] - Physical Exam General: Alert, Oriented x3, Cooperative, No apparent distress HEENT: Atraumatic, PERRLA, EOMI Neck: Supple, No Nodes Lungs: Rhonchi - scattered Cardiovascular: Regular rate, Regular Rhythm Abdomen: Soft, Non Tender, Non-Distended Extremities: No edema Skin: No rashes IV Site: Central Line, without redness Musculoskeletal: No Tenderness to Palpation of Joints or Extremities Neurological: Cranial nerves II-XII grossly intact - Assessment/Plan Antibiotics: [] Assessment/Plan: [] Active and Suspected Problems Hypoxia (Acute) B-cell lymphoma (Acute) Wbc quickly normalized, sx rapidly improved. Has been not feeling well since last cycle of IT chemo 3 weeks ago. COVID neg. On 4L here. Will check covid serology. Cont levaquin. Low suspicion for uti given lack of dysuria and no bacteria or wbc seen on UA. Ucx here pending. Will follow, thank you.
--- NOTE | 2020-05-01 14:12 | PCM.PN.HOSP ---
Patient Problems: Active and Suspected Problems Hypoxia (Acute) B-cell lymphoma (Acute) Reason for Visit: Intermittent low-grade fever and shortness of breath for about 3 weeks. Non-Hodgkin's lymphoma on chemotherapy and intrathecal chemotherapy Objective: Seen and examined. Patient has chronic sinus drainage and postnasal drip. Has history of COPD not on home oxygen. Admitted with 3 weeks of progressive worsening shortness of breath, low-grade fever, headache, postnasal drip and generalized malaise. No dysuria. Mild increased frequency but seems chronic. Physical exam General: Alert, Oriented x3, Cooperative HEENT: Atraumatic, PERRLA, EOMI, Normocephalic Oral: No Gingival or Mucosal Lesions/ Ulcerations Neck: Supple, No JVD, Negative Carotid Bruits Lungs: Air entry diminished in bilateral lung bases. Bilateral rhonchi present. On 4 L of oxygen. Cardiovascular: Regular rate, Regular Rhythm, Normal S1, Normal S2, No murmurs. 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 No suprapubic tenderness. Extremities: Mild bilateral pedal edema, Capillary Refill Less than 3 Seconds. Spine: No lumbar spine tenderness. Skin: No rashes, No breakdown. Left upper chest Mediport present. Musculoskeletal: No Tenderness to Palpation of Joints or Extremities Neurological: Cranial nerves II-XII grossly intact, Deep Tendon Reflexes 2+/4 and Symmetrical, Neuro grossly intact Psych/Mental Status: Normal Affect, Appropriate Vitals/I&O's: Vital Signs Temp Pulse Resp BP Pulse Ox 97.1 F L 79 16 128/74 H 92 05/01/20 09:37 05/01/20 12:06 05/01/20 10:34 05/01/20 09:37 05/01/20 09:37 Oxygen Flow Rate (L/min) 4 Oxygen Delivery Method Nasal Cannula Weight: 208 lb 1.862 oz Body Mass Index (BMI) 30.7 Intake and Output for Last 24 Hours 04/29/20 04/30/20 05/01/20 23:59 23:59 23:59 Intake Total 1385 / 1385 740 / 740 Output Total 400 / 400 Balance 1385 / 1385 340 / 340 Microbiology Past 72 Hours 04/30/20 10:35 Urine, Clean Catch Urine Culture - Preliminary Culture exhibits no growth. Laboratory Results 04/30/20 10:55: Diff Path Review Reviewed 04/30/20 10:55: B-Natriuretic Peptide 51.1 04/30/20 13:30: COVID-19 ([place]) Not Detected 04/30/20 18:38: Troponin I < 0.015 04/30/20 22:05: Troponin I < 0.015 05/01/20 06:35: WBC 6.7, RBC 3.76 L, Hgb 10.6 L, Hct 33.7 L, MCV 89.6, MCH 28.2, MCHC 31.5 L, RDW Std Deviation 55.6 H, RDW Coeff of Thor 17.2 H, Plt Count 321, MPV 9.8, Neut % (Auto) Not Reportable, Absolute Neuts (auto) 6.5, Absolute Lymphs (auto) 0.06 L, Total Counted 100, Neutrophils % (Manual) 97 H, Band Neutrophils % 1, Lymphocytes % (Manual) 1 L, Metamyelocytes % 1, Diff Path Review May foll, Hypersegmented Neuts 2+ H 05/01/20 06:35: Sodium 141, Potassium 4.6, Chloride 108 H, Carbon Dioxide 29.0, Anion Gap 4 L, BUN 13, Creatinine 0.88, Estim Creat Clear Calc 81.46, Est GFR (MDRD) Af Amer 112, Est GFR (MDRD) Non-Af 92, BUN/Creatinine Ratio 14.8, Glucose 176 H, Calcium 9.3 05/01/20 13:23: SARS Serology Pending Current Medications Acetaminophen (Tylenol) 1,000 mg PO Q8H PRN PRN PRN Reason: Pain or Fever Last Admin: 04/30/20 19:01 Dose: 1,000 mg Documented by: Albuterol/Ipratropium (Duoneb) 3 ml INHALATION Q4H.RT MELODIE Last Admin: 05/01/20 10:34 Dose: 3 ml Documented by: Citalopram Hydrobromide (Celexa) 20 mg PO DAILY MELODIE Last Admin: 05/01/20 09:39 Dose: 20 mg Documented by: Clonazepam (Klonopin) 1 mg PO QHS MELODIE Last Admin: 04/30/20 22:20 Dose: 1 mg Documented by: Dextrose (D50w Syringe) 0 gm IV X1 PRN; Protocol PRN Reason: Hypoglycemia Enoxaparin Sodium (Lovenox) 40 mg SC DAILY [facility] Last Admin: 05/01/20 09:39 Dose: 40 mg Documented by: Glucagon () 1 mg IM .X1 PRN PRN Reason: Hypoglycemia Guaifenesin (Mucinex) 1,200 mg PO BID [facility] Last Admin: 05/01/20 09:39 Dose: 1,200 mg Documented by: Levofloxacin (Levaquin Iv) 500 mg in 100 mls @ 100 mls/hr IV Q24 [facility] Stop: 05/04/20 10:59 Last Infusion: 05/01/20 10:41 Dose: Infused Documented by: Methylprednisolone (Solu-Medrol) 40 mg IV Q8 [facility] Last Admin: 05/01/20 13:11 Dose: 40 mg Documented by: Metoprolol Tartrate (Lopressor (Beta Nohemi)) 25 mg PO BID [facility] Last Admin: 05/01/20 09:39 Dose: 25 mg Documented by: Multivitamins (Multivitamin) 1 tablet PO DAILYCM [facility] Last Admin: 05/01/20 09:39 Dose: 1 tablet Documented by: Nitroglycerin (Nitrostat) 0.4 mg SUBLINGUAL Q5M PRN PRN Reason: CARDIAC/CHEST PAIN Nutritional Formula (Lactose Free) (Ensure Enlive) 120 ml PO 4X/DAY [facility] Last Admin: 05/01/20 13:11 Dose: Not Given Documented by: Ondansetron HCl (Zofran) 4 mg IV Q8H PRN PRN PRN Reason: NAUSEA/VOMITING Pantoprazole Sodium (Protonix) 20 mg PO DAILY [facility] Last Admin: 05/01/20 09:40 Dose: 20 mg Documented by: Sodium Chloride () 10 - 40 ml IV UD PRN PRN Reason: SALINE FLUSH Last Admin: 05/01/20 13:11 Dose: 10 ml Documented by: Tamsulosin HCl (Flomax) 0.4 mg PO QHS [facility] Last Admin: 04/30/20 22:41 Dose: Not Given Documented by: Trazodone HCl (Desyrel) 100 mg PO QHS [facility] Last Admin: 04/30/20 22:20 Dose: 100 mg Documented by: STROKE Vital Signs/Narrative: Vital Signs Pulse Resp 05/01/20 12:06 79 05/01/20 10:34 75 16 Medical Necessity - Tobacco Use Smoking Status: Former smoker Assessment/Plan All Active Problems Hypoxia (Acute) B-cell lymphoma (Acute) Acute respiratory insufficiency (Acute) Fluid overload (Acute) Closed left hip fracture (Acute) This is a 69 y/o admitted with a complaint of shortness of breath, low grade fever and general malaise, most probably COPD exacerbation. Patient has history of large B cell non-Hodgkin's lymphoma, on CT and intrathecal chemotherap; last intrathecal chemotherapy about 3 weeks ago. 1. COPD exacerbation: Patient is being admitted in PCU. Blood culture x2 pending. Has COVID PCR negative. Seen by ID and ordered serology test. On IV Levaquin. UA is negative of pyuria, LE 25. Nitrite negative. Patient does not have dysuria. Urine culture is negative. UTI ruled out On IV Solu-Medrol, bronchodilator, incentive spirometry and pep. Titrate oxygen to keep pulse ox 90%. 2. Acute hypoxic respiratory insufficiency due to COPD exacerbation: As mentioned above 3. History of large B-cell lymphoma: On chemotherapy and intrathecal chemotherapy, last one about 3 weeks ago. No signs of infection of Mediport. Discussed with Dr. GRIFFITH. Patient was due for chemotherapy this week but is canceled. Patient has intermittent headache mostly secondary to LP but no obvious evidence for CSF leak found. 4.Hypertension: on metoprolol and HCTZ 5. Depression; on Celexa and trazodone. DVT prophylaxis; lovenox Code status; full code Total time of the visit including total time spent in counseling or coordination of care, (more than 50% of the total time, spent in obtaining medical information from nurses and other ancillary care providers), discussion with consultants, oncologist and ID, review of labs and imaging is 30 minutes Inpatient E&M: [id number] [facility] L[facility]
--- NOTE | 2020-05-01 15:18 | CHAPLAIN ---
Type of Pastoral Visit _x__ Initial Visit ___ Follow-up Visit ___ On-call Visit ___ General Patient Visit ___ Spiritual Assessment ___ Family Conference ___ Bereavement ___ Rapid Response ___ Code Blue ___ Other (describe below) Pastoral Care Referral From _x__ Patient ___ Family ___ Nurse ___ Physician ___ Bending Roll Hand ___ Sprue Cutting Press Operator _x__ Other (describe below) Sacrament/Intervention _x__ Active listening ___ Anointing ___ Mormon ___ Bereavement ___ Communion _x__ Bhavna exploration ___ _x__ Life review _x__ Prayer ___ Reconciliation ___ Sacrament of Sick _x__ Supportive presence ___ Wedding ___ Other (describe below) Pastoral Comments patient is welcoming for someone to talk to and is quite talkative about his health, his life story, and his 'outlook on life'; pt is processing his illness and mortality in his words; pt presents with positive perspective on whatever happens to me and when; pt reports good support from family; pt is connected to [employer] in [place]
[2020-05-01 17:18] LABS: M R Staph aureus DNA By PCR POSITIVE (Negative); Probe Check PASS
[2020-05-01] MEDS: Acetaminophen 500 MG Tablet 1000 MG PO (18:27)
[2020-05-01] MEDS: traZODone 100 MG Tablet PO (21:38)
[2020-05-01] MEDS: Tamsulosin HCl 0.4 MG Capsule PO (21:38)
[2020-05-01] MEDS: clonazePAM 1 MG Tablet PO (21:41)
[2020-05-02] VITALS (8 sets, daily range): BP systolic 108–138; BP diastolic 63–79; PULSE 67–100; RESP 18; TEMP 36.6–36.7; O2SAT 82–98
[2020-05-02] MEDS: 0.9% Saline Lock 10 ML Syringe IV (05:33)
[2020-05-02 07:23] LABS: SARS-COV-2 TOTAL ABS Nonreactive (Nonreactive)
[2020-05-02] MEDS: levoFLOXacin IV 500 MG/100 ML BAG 100 MG IV (09:41)
[2020-05-02] MEDS: Metoprolol Tartrate 25 MG Tablet PO (09:42)
[2020-05-02] MEDS: Pantoprazole Sodium 20 MG Tablet PO (09:42)
[2020-05-02] MEDS: Citalopram 20 MG Tablet PO (09:42)
[2020-05-02] MEDS: Multivitamins,Therapeutic Tablet 1 TABLET PO (09:43)
[2020-05-02] MEDS: guaiFENesin 1,200 MG Tablet 1200 MG PO (09:43)
[2020-05-02] MEDS: Enoxaparin 40 MG/0.4 ML Syringe SC (09:43)
--- NOTE | 2020-05-02 10:47 | NURSING ---
Pt already called and gave update, states no need to call and give update at this time
--- NOTE | 2020-05-02 11:21 | DCINST_ITS ---
- Discharge Diagnoses Current Active Problems: Current Active and Chronic Problems COPD exacerbation with hypoxia (Acute) B-cell lymphoma (Acute) You will use the following diet at home:: No restrictions Discharge Activity: Return to Normal Activity Call your doctor if you observe: Fever of 101 or Higher, Shortness of breath, Dizziness, Fainting spells, Chest pain Allergies/Adverse Reactions: Allergies No Known Allergies Allergy (Verified 04/30/20 10:06) Medications to take at Discharge Budesonide/Formoterol 160/4.5 [Symbicort 160/4.5 Mcg Inhaler (SP)] 2 puff INHALATION BID 10/09/15 Citalopram [Celexa] 20 mg PO DAILY 10/09/15 traZODone [Desyrel] 100 mg PO QHS 10/09/15 Esomeprazole Mag Trihydrate [Nexium] 20 mg PO DAILY 08/22/18 Metoprolol Tartrate [Lopressor (beta sharmaine)] 25 mg PO BID 08/22/18 Acetaminophen [Tylenol] 1,000 mg PO Q8H PRN PRN 04/30/20 Clonazepam [Klonopin] 1 mg PO QHS 04/30/20 Ipratropium [place] 2 sprays NS BID PRN PRN 04/30/20 Multivitamins,Therapeutic [Multivitamin] 1 tab PO DAILYCM 04/30/20 Tamsulosin HCl [Flomax] 0.4 mg PO QHS 04/30/20 Albuterol Inhaler [Ventolin Hfa] 1 - 2 puff INHALATION Q4H PRN PRN #1 inhaler 05/02/20 Levofloxacin [Levaquin] 500 mg PO DAILY #2 tab 05/02/20 Prednisone See Taper PO DAILY #30 tab 05/02/20 The following prescriptions were given: Levofloxacin [Levaquin] 500 mg PO DAILY #2 tab Transmission Status: Pending to [id number] Prednisone See Taper PO DAILY #30 tab Transmission Status: Pending to [id number] Albuterol Inhaler [Ventolin Hfa] 1 - 2 puff INHALATION Q4H PRN PRN #1 inhaler PRN Reason: Shortness Of Breath Transmission Status: Pending to [id number] Primary Care Physician: Diego Alonso DO [Primary Care Provider] - Please follow up with your Primary Care Physician in: 1 Week Test Results: Test results from this visit will be discussed in further detail at your follow- up appointment, if applicable. Please Follow Up With: Soledad Vidal MD When: As scheduled Please Follow Up With: Rubin Perrin DO When: 2 weeks, call to establish with pulmonary medicine Proposed Discharge Date: 05/02/20
--- NOTE | 2020-05-02 11:25 | CASEMGMT ---
Pt does qualify for 4liters home oxygen with exertion at this time. Pt states [employer] as preference and script faxed to [facility] at this time. Call to Bhavna at [facility] to notify of referral and discharge today, voices understanding. Joana DHILLON CM
--- NOTE | 2020-05-02 11:28 | DS.PCM_ITS ---
<Belia Oreilly - Last Filed: 05/02/20 11:43> Discharge Date and Diagnosis Date of Admission: 04/30/20 Date of Discharge: 05/02/20 - Primary Discharge Diagnosis Acute Problems: Active Problems 1. Acute hypoxic respiratory insufficiency secondary to COPD exacerbation 2. Large B-cell lymphoma 3. Hypertension 4. Depression/anxiety 5. BPH - Secondary Discharge Diagnosis Chronic Problems: Chronic Problems COPD (chronic obstructive pulmonary disease) (Chronic) Pulmonary fibrosis (Chronic) Hypertension (Chronic) Hospital Course and Treatment Imaging Results: Diagnostic Data Abdomen/Pelvis CT 04/30/20 10:24 IMPRESSION: Fatty infiltration of the liver. Nonobstructive calculus in the right kidney. Electronically Signed: Andrew Gee, at 12:30 EDT , Service support , Chest CTA 04/30/20 10:26 IMPRESSION: No evidence of pulmonary embolism. Stable examination without evidence of emphysema and scarring and honeycombing at the lung bases. Electronically Signed: Andrew Gee, at 12:28 EDT , Service support , Dr. Andres- ID Operations: None Procedures: None Summary of Care Provided: The patient is a 69 year old M admitted 04/30/2020 due to shortness of breath, low-grade fever and general malaise. 1. Acute hypoxic respiratory insufficiency secondary to COPD exacerbation-CTA shows no evidence of PE or other acute process. CT of abdomen pelvis shows fatty infiltration of the liver, nonobstructive right renal calculus. Respiratory panel and COVID testing negative. Urine culture and blood cultures show no growth. Patient will complete course of Levaquin empirically. Afebrile during admission. No leukocytosis. Prednisone taper at discharge. Referred to pulmonary medicine for outpatient follow-up. Follow-up with primary care in 1 week. Patient's oxygen dropped to 82% on room air with ambulation. Patient will require 4 L oxygen with ambulation. He is ambulatory in the home. Continue supplement oxygen to maintain O2 sat above 90%. 2. Large B-cell lymphoma- Follows with Dr. Vidal. Undergoing chemotherapy. 3. Hypertension-stable, continue home metoprolol regimen. 4. Depression/anxiety-continue Celexa, Klonopin. 5. BPH-continue Flomax regimen. Patient seen and examined prior to discharge. Physical assessment as noted below. Patient is stable for discharge with follow up recommendations as noted above. This patient was seen by ROCCO Wang under the supervision of Dr. Flores. - Physical Exam Vitals/I&O's: Vital Signs Temp Pulse Resp BP Pulse Ox 97.8 F 79 18 108/63 90 05/02/20 09:31 05/02/20 09:42 05/02/20 09:31 05/02/20 09:31 05/02/20 10:55 Oxygen Flow Rate (L/min) [ 4 AMBULATION with Oxygen] Oxygen Flow Rate (L/min) 2 Oxygen Delivery Method Nasal Cannula Weight: 208 lb 1.862 oz Body Mass Index (BMI) 30.7 Intake and Output for Last 24 Hours 04/30/20 05/01/20 05/02/20 23:59 23:59 23:59 Intake Total 1385 / 1385 1092 / 1092 100 / 100 Output Total 400 / 400 Balance 1385 / 1385 692 / 692 100 / 100 General: Alert, Oriented x3, Cooperative HEENT: Atraumatic, PERRLA, EOMI, Normocephalic Neck: Supple, No JVD, Negative Carotid Bruits Lungs: Clear to auscultation, Diminished, - - Left chest port Cardiovascular: Regular rate, No murmurs Abdomen: Bowel Sounds Present, Soft, Non Tender Extremities: No clubbing, No cyanosis, No edema, Capillary Refill Less than 3 Seconds Skin: No rashes, No breakdown Musculoskeletal: No Tenderness to Palpation of Joints or Extremities Neurological: Cranial nerves II-XII grossly intact, Neuro grossly intact Psych/Mental Status: Normal Affect, Appropriate Microbiology Past 72 Hours 04/30/20 10:35 Urine, Clean Catch Urine Culture - Final Culture exhibits no growth. 05/01/20 15:00 Mucosa - Nasopharyngeal Respiratory Panel (PCR) - Final Laboratory Results 05/01/20 13:23: SARS Serology Nonreactive 05/01/20 15:37: MRSA (PCR) POSITIVE H Current Medications Acetaminophen (Tylenol) 1,000 mg PO Q8H PRN PRN PRN Reason: Pain or Fever Last Admin: 05/01/20 18:27 Dose: 1,000 mg Documented by: Albuterol/Ipratropium (Duoneb) 3 ml INHALATION Q4H.RT [facility] Last Admin: 05/02/20 11:24 Dose: Not Given Documented by: Citalopram Hydrobromide (Celexa) 20 mg PO DAILY [facility] Last Admin: 05/02/20 09:42 Dose: 20 mg Documented by: Clonazepam (Klonopin) 1 mg PO QHS [facility] Last Admin: 05/01/20 21:41 Dose: 1 mg Documented by: Dextrose (D50w Syringe) 0 gm IV X1 PRN; Protocol PRN Reason: Hypoglycemia Enoxaparin Sodium (Lovenox) 40 mg SC DAILY [facility] Last Admin: 05/02/20 09:43 Dose: 40 mg Documented by: Glucagon () 1 mg IM .X1 PRN PRN Reason: Hypoglycemia Guaifenesin (Mucinex) 1,200 mg PO BID [facility] Last Admin: 05/02/20 09:43 Dose: 1,200 mg Documented by: Levofloxacin (Levaquin Iv) 500 mg in 100 mls @ 100 mls/hr IV Q24 [facility] Stop: 05/04/20 10:59 Last Infusion: 05/02/20 10:47 Dose: Infused Documented by: Methylprednisolone (Solu-Medrol) 40 mg IV Q8 [facility] Last Admin: 05/02/20 05:32 Dose: 40 mg Documented by: Metoprolol Tartrate (Lopressor (Beta Nohemi)) 25 mg PO BID [facility] Last Admin: 05/02/20 09:42 Dose: 25 mg Documented by: Multivitamins (Multivitamin) 1 tablet PO DAILYCM [facility] Last Admin: 05/02/20 09:43 Dose: 1 tablet Documented by: Nitroglycerin (Nitrostat) 0.4 mg SUBLINGUAL Q5M PRN PRN Reason: CARDIAC/CHEST PAIN Nutritional Formula (Lactose Free) (Ensure Enlive) 120 ml PO 4X/DAY [facility] Last Admin: 05/02/20 09:46 Dose: Not Given Documented by: Ondansetron HCl (Zofran) 4 mg IV Q8H PRN PRN PRN Reason: NAUSEA/VOMITING Pantoprazole Sodium (Protonix) 20 mg PO DAILY [facility] Last Admin: 06/10/20 09:42 Dose: 20 mg Documented by: Sodium Chloride () 10 - 40 ml IV UD PRN PRN Reason: SALINE FLUSH Last Admin: 05/02/20 05:33 Dose: 10 ml Documented by: Tamsulosin HCl (Flomax) 0.4 mg PO QHS [facility] Last Admin: 05/01/20 21:38 Dose: 0.4 mg Documented by: Trazodone HCl (Desyrel) 100 mg PO QHS [facility] Last Admin: 05/01/20 21:38 Dose: 100 mg Documented by: Discharge Diet: No Restrictions Discharge Activity: Return to Normal Activity Call your doctor if you observe: Fever of 101 or Higher, Shortness of breath, Dizziness, Fainting spells, Chest pain Home Medications: Medications to take at Discharge Budesonide/Formoterol 160/4.5 [Symbicort 160/4.5 Mcg Inhaler (SP)] 2 puff INHALATION BID 10/09/15 Citalopram [Celexa] 20 mg PO DAILY 10/09/15 traZODone [Desyrel] 100 mg PO QHS 10/09/15 Esomeprazole Mag Trihydrate [Nexium] 20 mg PO DAILY 08/22/18 Metoprolol Tartrate [Lopressor (beta nohemi)] 25 mg PO BID 08/22/18 Acetaminophen [Tylenol] 1,000 mg PO Q8H PRN PRN 04/30/20 Clonazepam [Klonopin] 1 mg PO QHS 04/30/20 Ipratropium [place] 2 sprays NS BID PRN PRN 04/30/20 Multivitamins,Therapeutic [Multivitamin] 1 tab PO DAILYCM 04/30/20 Tamsulosin HCl [Flomax] 0.4 mg PO QHS 04/30/20 Albuterol Inhaler [Ventolin Hfa] 1 - 2 puff INHALATION Q4H PRN PRN #1 inhaler 05/02/20 Levofloxacin [Levaquin] 500 mg PO DAILY #2 tab 05/02/20 Prednisone See Taper PO DAILY #30 tab 05/02/20 Following Prescrptions Were Given to Patient: Levofloxacin [Levaquin] 500 mg PO DAILY #2 tab Transmission Status: Received by [id number] Prednisone See Taper PO DAILY #30 tab Transmission Status: Received by [id number] Albuterol Inhaler [Ventolin Hfa] 1 - 2 puff INHALATION Q4H PRN PRN #1 inhaler PRN Reason: Shortness Of Breath Transmission Status: Received by [facility]/pharm[facility] #[id number] Primary Care Physician: Diego Alonso DO [Primary Care Provider] - Please follow up with your Primary Care Physician in: 1 Week Please Follow Up With: Soledad Vidal MD When: As scheduled Please Follow Up With: Rubin Perrin DO When: 2 weeks, call to establish with pulmonary medicine Disposition: Home Minutes spent on discharge:: 35 Patient Condition:: Stable Medical Necessity - Tobacco Use Smoking Status: Former smoker Meaningful Use Info Meaningful Use Diagnoses (Choose all that apply): None applicable <Moises Flores - Last Filed: 05/02/20 15:18> Discharge Date and Diagnosis - Secondary Discharge Diagnosis Chronic Problems: Chronic Problems COPD (chronic obstructive pulmonary disease) (Chronic) Pulmonary fibrosis (Chronic) Hypertension (Chronic) Hospital Course and Treatment Operations: None Procedures: None Summary of Care Provided: Patient seen and examined independently. Data reviewed. I agree with the above note by the nurse practitioner. The patient is a 69 year old M presents with shortness of breath, low-grade fever and general malaise. Patient was found to have an acute exacerbation of COPD. Patient had testing that was negative for viral respiratory panel as well as COVID-19. Patient will continue with prednisone taper, levofloxacin. Patient to follow-up with pulmonology as outpatient. [] - Physical Exam Vitals/I&O's: Vital Signs Temp Pulse Resp BP Pulse Ox 36.6 C 79 18 108/63 90 05/02/20 09:31 05/02/20 09:42 05/02/20 09:31 05/02/20 09:31 05/02/20 10:55 Oxygen Flow Rate (L/min) [ 4 AMBULATION with Oxygen] Oxygen Flow Rate (L/min) 2 Oxygen Delivery Method Nasal Cannula Weight: 94.4 kg Body Mass Index (BMI) 30.7 Intake and Output for Last 24 Hours 04/30/20 05/01/20 05/02/20 23:59 23:59 23:59 Intake Total 1385 / 1385 1092 / 1092 100 / 100 Output Total 400 / 400 Balance 1385 / 1385 692 / 692 100 / 100 General: Alert, Cooperative HEENT: Atraumatic, Normocephalic Neck: No Nodes, Trachea Midline Lungs: Clear to auscultation, Normal air movement, No rhonchi, No wheeze, No rales, Diminished, - Cardiovascular: Regular rate, No murmurs Abdomen: Bowel Sounds Present, Soft, Non Tender Extremities: No edema, No Calf Tenderness Skin: No rashes, No breakdown Psych/Mental Status: Normal Affect, Appropriate Microbiology Past 72 Hours 04/30/20 10:55 Blood Culture (Wb) - Anticubital Left Blood Culture - Preliminary No growth in 48 hours. 04/30/20 11:15 Blood Culture (Wb) - Anticubital Right Blood Culture - Preliminary No growth in 48 hours. 04/30/20 10:35 Urine, Clean Catch Urine Culture - Final Culture exhibits no growth. 05/01/20 15:00 Mucosa - Nasopharyngeal Respiratory Panel (PCR) - Final Laboratory Results 05/01/20 06:35: Diff Path Review Reviewed 05/01/20 13:23: SARS Serology Nonreactive 05/01/20 15:37: MRSA (PCR) POSITIVE H Discharge Diet: No Restrictions Discharge Activity: Return to Normal Activity Call your doctor if you observe: Fever of 101 or Higher, Shortness of breath, Dizziness, Fainting spells, Chest pain Disposition: Home Minutes spent on discharge:: 35 Patient Condition:: Stable Medical Necessity - Tobacco Use Smoking Status: Former smoker Inpatient E&M: 52729 Disch Hosp
[2020-05-02 11:48] LABS: Pathologist Review Reviewed
--- NOTE | 2020-05-02 12:05 | PHA.DC.MC ---
Pharmacy Service has performed discharge medication reconciliation and counseling for this patient. 1. ALBUTEROL INHALER 1-2 PUFFS Q4H PRN SOB 2. LEVOFLOXACIN 500MG PO DAILY X 2 DAYS 3. PREDNISONE 40MG PO DAILY X 3 DAYS, THEN 30MG PO DAILY X 3 DAYS, THEN 20MG PO DAILY X 3 DAYS, THEN 10MG PO DAILY X 3 DAYS The patient's discharge medication list was reviewed for discrepancies and discrepancies were resolved. Home Medications Budesonide/Formoterol 160/4.5 [Symbicort 160/4.5 Mcg Inhaler (SP)] 2 puff INHALATION BID 10/09/15 Citalopram [Celexa] 20 mg PO DAILY 10/09/15 traZODone [Desyrel] 100 mg PO QHS 10/09/15 Esomeprazole Mag Trihydrate [Nexium] 20 mg PO DAILY 08/22/18 Metoprolol Tartrate [Lopressor (beta sharmaine)] 25 mg PO BID 08/22/18 Acetaminophen [Tylenol] 1,000 mg PO Q8H PRN PRN 04/30/20 Clonazepam [Klonopin] 1 mg PO QHS 04/30/20 Ipratropium [place] 2 sprays NS BID PRN PRN 04/30/20 Multivitamins,Therapeutic [Multivitamin] 1 tab PO DAILYCM 04/30/20 Tamsulosin HCl [Flomax] 0.4 mg PO QHS 04/30/20 Albuterol Inhaler [Ventolin Hfa] 1 - 2 puff INHALATION Q4H PRN PRN #1 inhaler 05/02/20 Levofloxacin [Levaquin] 500 mg PO DAILY #2 tab 05/02/20 Prednisone See Taper PO DAILY #30 tab 05/02/20 The patient was counseled on the following discharge medications and changes in medications for homegoing were reviewed. The Reason for Use, instructions for use, and potential side effects were reviewed for all new medications. The patient's questions regarding all of their medications were answered. The patient was able to verbally demonstrate an understanding of their discharge medications.
--- NOTE | 2020-05-03 13:35 | CASEMGMT ---
ALEJO MOSHER DC PHONE CALL DC DATE: 05.02.2020 DC DISPOSITION: Home DC DIAGNOSIS: COPD exacerbation LACE/STRATA: 09/25 F/U APPTS MADE PRIOR TO DC: Pt will make appointments, does not require any assistance. PRESCRIPTIONS ACQUIRED BY PT: yes Intro role of CM to patient via phone. Pt states he is doing well, has no questions re: instructions, medications or f/u. No care improvement suggestions were given. Pt states the nursing staff was fantastic'. Hanny CLAIRE RN ACM
== END 2020-05-02 13:11 | disposition home or self-care (01) | DRG 191 ==
LOC: ED 13:13 → PCU 13:56
PROVIDERS: Internal Medicine; Internal Medicine Infectious Disease; Admitting Provider Student in an Organized Health Care Education/Training Program; Emergency Provider Emergency Medicine; PCP Student in an Organized Health Care Education/Training Program
DX: J44.1 Chronic obstructive pulmonary disease with (acute) exacerbation (principal); R09.02 Hypoxemia; C85.10 Unspecified B-cell lymphoma, unspecified site; E44.1 Mild protein-calorie malnutrition; J84.10 Pulmonary fibrosis, unspecified; Z68.30 Body mass index [BMI] 30.0-30.9, adult; I10 Essential (primary) hypertension; N40.0 Benign prostatic hyperplasia without lower urinary tract symptoms; F32.9 Major depressive disorder, single episode, unspecified; F41.9 Anxiety disorder, unspecified; Z79.51 Long term (current) use of inhaled steroids; Z79.899 Other long term (current) drug therapy; Z87.891 Personal history of nicotine dependence
CPT/HCPCS: 36415; 71275; 74177; 80048; 80053; 81001; 83605; 83880; 84484; 85025; 86769; 87040; 87086; 87633; 87635; 87641; 93005; 94640; 97110; 97161; 97166; 97530; 99285; J7040; J7050; Q9967; A4216; U0003

== ENCOUNTER → 2020-05-14 11:07 | Outpatient (CLI) | payer MEDICARE, OTHER, SELFPAY ==
[2020-05-01 10:14] VITALS: BMI 30.7
[2020-05-14 11:27] LABS: Hematocrit 41.8 % (40-54); Hemoglobin 12.8 g/dL (13.0-16.5); Mean Corp Hgb Conc 30.6 g/dL (32-36); Mean Corpuscular Hgb 28.1 pg (27.0-32.0); Mean Corpuscular Volume 91.9 fL (80-94); Mean Platelet Vol. 11.5 fl (6.2-12.0); POSITIVE COUNT YES; POSITIVE DIFFERENTIAL YES; POSITIVE MORPHOLOGY YES; Platelet Count 110 K/mm3 (150-450); RBC Distribution Width CV 16.2 % (11.6-14.6); RBC Distribution Width SD 54.6 fl (35.1-43.9); Red Blood Count 4.55 M/mm3 (4.6-6.2)
[2020-05-14 11:31] LABS: Differential Indicated MANUAL DIFF; White Blood Count 0.6 K/mm3 (4.4-11.0)
[2020-05-14 11:48] LABS: Rheumatoid Factor < 10.0 IU/mL (<15)
[2020-05-14 12:31] LABS: Eosinophil 4 % (0-5); Lymphocyte 54 % (19-41); Monocyte 20 % (0-10); Neutrophil-Segmented 22 % (47-70); Platelet Estimate SLT DEC (ADEQ); Total Cells Counted 100 (MANUAL DIFF)
[2020-05-14 12:32] LABS: Absolute Neutrophil Count 0.1 X10^3/uL (2.0-7.7); Red Cell Morphology NORM C+C NORMAL (NORM C&C)
[2020-05-15 11:56] LABS: Pathologist Review Reviewed
[2020-05-15 16:02] LABS: ANTINUCLEAR ANTIBODIES DIRECT Negative (Negative)
[2020-05-16 03:07] LABS: Cytoplasmic Ab (C-ANCA) <1:20 titer (Neg:<1:20)
[2020-05-16 03:17] LABS: CCP IgG Antibodies 5 units (0-19); Perinuclear Ab (P-ANCA) <1:20 titer (Neg:<1:20)
== END ==
PROVIDERS: PCP Student in an Organized Health Care Education/Training Program; Referring Provider Internal Medicine Critical Care Medicine; Visit Provider Internal Medicine Critical Care Medicine
DX: J96.11 Chronic respiratory failure with hypoxia (principal); J84.10 Pulmonary fibrosis, unspecified
CPT/HCPCS: 36415; 85025; 86038; 86200; 86225; 86235; 86256; 86431

== ENCOUNTER 2020-05-14 21:47 | Emergency (ER) | payer MEDICARE, OTHER, SELFPAY ==
[2020-05-01 10:14] VITALS: BMI 30.7
[2020-05-14 21:48] VITALS: BP 114/73; PULSE 105; RESP 32; TEMP 36.7; O2SAT 94; BMI 31.0
[2020-05-14 22:16] VITALS: RESP 18
--- NOTE | 2020-05-14 22:39 | MRI_ITS ---
STUDY: MRI THORACIC SPINE WITH AND WITHOUT CONTRAST REASON FOR EXAM: Male, 69 years old. BACK PAIN , LUMBAR PUNCTURE 4 WEEKS AGO, ? ABCESS -- HX LYMPHOMA, just finished chemo TECHNIQUE: IV 20 ml dotarem was administered for the contrast portion of the examination. COMPARISON: None. FINDINGS: Normal kyphosis of the thoracic spine. There is no substantial scoliosis. T1-2, T2-3, T3-4, T4-5, T5-6, T6-7, T7-8, T8-9, T9-10, T10-11, T11-12: Normal endplates. Normal disc hydration, heights and morphology of the corresponding intervertebral discs. Normal central canal and intervertebral neural foramina at the corresponding levels. Normal visualized thoracic cord. No evidence of epidural abscess or hematoma. No evidence of intracanalicular mass or abnormal enhancement. The soft tissue structures are unremarkable. There is no enhancing abnormality. MRI/Spine Thoracic W/WO Contrast IMPRESSION: No evidence of thoracic spine mass. Normal cord. No evidence of epidural abscess or hematoma. Electronically Signed: Maxwell Nelson MD at 0:49 EDT Tel , Service support ,
--- NOTE | 2020-05-14 22:39 | MRI_ITS ---
STUDY: MRI LUMBAR SPINE WITH AND WITHOUT CONTRAST REASON FOR EXAM: Male, 69 years old. BACK PAIN , LUMBAR PUNCTURE 4 WEEKS AGO, ? ABSCESS -- HX LYMPHOMA, just finished chemo TECHNIQUE: Standardized fat and water weighted pulse sequences were obtained in the sagittal and axial planes. IV yes yes was administered for the contrast portion of the examination. COMPARISON: None FINDINGS: T12-L1: Normal endplates. Normal disc height, hydration and morphology. Normal bilateral facet joints. Normal central canal and bilateral lateral recesses. Normal bilateral intervertebral neural foramina. Normal lumbar lordosis. There is no substantial scoliosis. Normal conus medullaris that terminates at the L1-2 level. L1-2: Bulging annulus and bilateral facet hypertrophy without compressive sequelae. L2-3: Epidural lipomatosis with moderate central canal stenosis. L3-4: Epidural lipomatosis with mild central canal stenosis. Bulging annulus with moderate bilateral foraminal stenoses. L4-5: Epidural lipomatosis and bulging annulus with central disc protrusion. Mild central canal stenosis. Moderate bilateral foraminal stenoses. L5-S1: Epidural lipomatosis with bulging annulus and right foraminal stenosis. Moderate right foraminal stenosis. Normal visualized sacral ala. Normal visualized paraspinous soft tissue structures. MRI/Spine Lumbar W/WO Contrast IMPRESSION: No evidence of epidural hematoma or epidural abscess. No evidence of discitis or osteomyelitis. Epidural lipomatosis contributes to multilevel central canal stenoses. Multilevel degenerative disease as described. Moderate foraminal stenoses are present bilaterally at L3-4 and on the right at L5-S1. Electronically Signed: Maxwell Nelson MD at 0:47 EDT Tel , Service support ,
[2020-05-14] MEDS: Ondansetron 4 MG/2 ML Vial IV (22:55)
[2020-05-14] MEDS: morphine 8 MG/ML Syringe IV (22:56)
--- NOTE | 2020-05-14 23:00 | ED.VISSUMM ---
- ER Visit Summary Date of Service: 05/14/20 Chief Complaint: Back spasm History of Present Illness: The patient is a 69 M presenting with back spasm. Patient began having back pain this morning and it progressively worsened throughout the day. Denies recent injury. He tried Tylenol at home earlier today and then hydrocodone with no relief. He is on chemotherapy for lymphoma. His last chemo was 6 days ago. He has not had a fever. He has been receiving LP for his lymphoma. He denies bowel or bladder incontinence. No numbness or weakness. Physical Examination: Vitals are stable. Patient is afebrile. Alert moderate acute distress. HEENT exam is unremarkable. Neck is supple. No meningismus Lungs are clear and equal bilaterally. Heart is regular tachycardic. Abdomen is soft nontender nondistended. Back midline lumbar tenderness with no erythema or warmth. Extremities are unremarkable. Skin is warm and dry. No focal neurologic deficit. Remainder of exam is unremarkable. Emergency Department Course and Treatment: Patient given morphine, Zofran IV. CBC shows white count 1.1, hemoglobin 10.8, platelet 86. Chemistries unremarkable. Urinalysis unremarkable. Patient continues to have pain was given fentanyl IV. Thoracic spine MRI shows no evidence of thoracic spine mass. Normal cord. No evidence of epidural abscess or hematoma. Lumbar spine MRI shows no evidence of epidural hematoma or epidural abscess. No evidence of discitis or osteomyelitis. Epidural lipomatosis contributes to multilevel central canal stenoses. Multilevel degenerative disease as described. Moderate foraminal stenoses are present bilaterally at L3-4 and on the right at L5-S1. Discussed with hospitalist, he feels due to lack of back specialist at [facility] recommends transfer to tertiary care center. Discussed with [facility] for transfer. Disposition: Transfer [facility] Impression: Intractable back pain, history of lymphoma This note was generated with [employer] dictation software. It may contain incorrect words, spelling, and punctuation that were not noted in review of the chart prior to signing ED Disposition - Plan for ED Patient: Referrals: Diego Alonso DO [Primary Care Provider] -
[2020-05-14] MEDS: fentaNYL 100 MCG/2 ML Ampul IV (23:20)
[2020-05-14 23:25] LABS: Absolute Lymphocyte Count 0.71 X10^3/uL (0.83-4.51); Absolute Neutrophil Count 0.1 X10^3/uL (2.0-7.7); Eosinophil# 0.07 X10^3/uL; Eosinophils% 6.7 % (0-5); Hematocrit 34.6 % (40-54); Hemoglobin 10.8 g/dL (13.0-16.5); Lymphocyte # 0.71 X10^3/ul (4.0); Lymphocyte % 67.6 % (19-41); Mean Corp Hgb Conc 31.2 g/dL (32-36); Mean Corpuscular Hgb 28.1 pg (27.0-32.0); Mean Corpuscular Volume 90.1 fL (80-94); Monocyte# 0.14 X10^3/uL; Monocyte% 13.3 % (0-10); NRBC Flagged by Analyzer 0 % (0-5); Neutrophil # 0.13 X10^3/uL (2.7-7.7); Neutrophil % 12.4 % (47-70); POSITIVE COUNT YES; POSITIVE DIFFERENTIAL YES; POSITIVE MORPHOLOGY YES; Platelet Count 86 K/mm3 (150-450); Red Blood Count 3.84 M/mm3 (4.6-6.2)
[2020-05-14 23:28] LABS: Anion Gap 6 (5-15); BUN 18 mg/dL (7-18); BUN/Creat Ratio 14.2 RATIO (10-20); Calcium,Total 8.5 mg/dL (8.5-10.1); Chloride 105 mmol/L (98-107); Creatinine, Serum 1.27 mg/dL (0.70-1.30); EST Glomerular Filtration Rate 60 mL/min (>60); Est Glom Filt Rate - Afr Amer 73 mL/min (>60); Estimated Creatinine Clearance 56.44 ml/min; Glucose 101 mg/dL (74-106); Potassium 3.8 mmol/L (3.5-5.1); Sodium Level 140 mmol/L (136-145)
[2020-05-14 23:30] LABS: Differential Indicated SCAN CRITERIA MET; White Blood Count 1.1 K/mm3 (4.4-11.0)
[2020-05-15 00:04] LABS: Differential Comment SCANNED
[2020-05-15 01:13] VITALS: RESP 16
[2020-05-15 01:51] VITALS: BP 135/74; PULSE 86; RESP 18; O2SAT 94
[2020-05-15 02:08] LABS: Bacteria 0 SEEN /hpf (None Seen); Mucous, Urine 0 SEEN /hpf (<or=2+); Red Blood Cells-Urine 0 SEEN /hpf (0-5); Squamous Epithelial Cells - UA 0 SEEN /hpf (0-5); White Blood Cells 0 SEEN /hpf (0-5)
[2020-05-15 02:09] LABS: Color, Urine Yellow (Yellow); Glucose, Dipstick Normal (Normal); Ketone-Dipstick Negative (Negative); Leukocyte Esterase-Dipstick Negative /ul (Negative); Nitrite-Dipstick Negative (Negative); Occult Blood-Urine Negative /ul (Negative); Protein-Dipstick Negative (Negative); Urine Bilirubin Dipstick Negative (Negative); Urine Clarity Clear (Clear); Urine Urobilinogen Normal (Normal)
[2020-05-15] MEDS: fentaNYL 100 MCG/2 ML Ampul 50 MCG IV ×2 (02:20→03:33)
[2020-05-15 03:05] VITALS: RESP 16
[2020-05-15 03:19] VITALS: BP 112/71; PULSE 91; RESP 18; TEMP 36.8; O2SAT 96
--- NOTE | 2020-05-15 03:24 | EKG12_ITS ---
Test Reason : CP Blood Pressure : / mmHG Vent. Rate : 084 BPM Atrial Rate : 084 BPM P-R Int : 154 ms QRS Dur : 122 ms QT Int : 436 ms P-R-T Axes : 031 000 014 degrees QTc Int : 515 ms Normal sinus rhythm Right bundle branch block Abnormal ECG Confirmed by AGNIESZKA PUENTE ([id number]), editor at large SHAHIDA ASENCIO ([id number]) on 05/22/2020 8:18:18 AM Referred By: Confirmed By:AGNIESZKA PUENTE
[2020-05-15 12:01] LABS: Pathologist Review Reviewed
== END 2020-05-15 03:50 | disposition short-term general hospital (02) ==
PROVIDERS: Emergency Provider Emergency Medicine; PCP Student in an Organized Health Care Education/Training Program
DX: M54.9 Dorsalgia, unspecified (principal); C85.90 Non-Hodgkin lymphoma, unspecified, unspecified site; J44.9 Chronic obstructive pulmonary disease, unspecified; J96.11 Chronic respiratory failure with hypoxia; J84.10 Pulmonary fibrosis, unspecified; Z87.891 Personal history of nicotine dependence; Z79.51 Long term (current) use of inhaled steroids
CPT/HCPCS: 36415; 72157; 72158; 80048; 81001; 85025; 86038; 86200; 86225; 86235; 86256; 86431; 93005; 96374; 96375; 96376; 99285; A9575; A4216; J2405

== ENCOUNTER → 2020-06-22 | Outpatient (CLI) | payer MEDICARE, OTHER, SELFPAY ==
[2020-05-01 10:14] VITALS: BMI 30.7
[2020-06-22 13:47] VITALS: PULSE 76; PULSE 77; PULSE 80; PULSE 84; PULSE 85; PULSE 89; PULSE 90; O2SAT 86; O2SAT 87; O2SAT 89; O2SAT 90; O2SAT 92; O2SAT 94
--- NOTE | 2020-06-22 14:13 | CPS ---
Patient arrived on room air for testing. He has oxygen at home through [employer] already. Testing began on room air. Spo2 at 86% one minute in to testing so rest break taken to apply nc at 2lpm. Patient had increased WOB throughout. At four minute royal, increased to 3lpm for spo2 87% 2LPM, remainder of testing done on 3lpm. Encouraged use of oxygen while up moving at home. (he states h/o anemia d/t cancer tx as well)
--- NOTE | 2020-06-23 08:54 | PCM.PSN.6M ---
PSN 6 Minute Walk Test - 6 Minute Walk Test 6 Minute Walk Test: 6 Minute Walk Test PSN:6-Minute Walk Test Start: 06/22/20 13:46 Freq: Status: Active Protocol: RESP.6MINW Document 06/22/20 13:47 [facility] (Rec: 06/22/20 14:18 [facility] [id number]) 6 Minute Walk Test Date Performed 06/22/20 Time Performed 12:30 Height 5 ft 9 in Weight: 210 lb Weight in Pounds 210.[address]: Rubin Perrin Assistive device used: None Pre-test Oxygen Delivery Method Room Air Pulse Ox (%) 94 Pulse Rate (60-100 beats/min) 76 Dyspnea [place] Scale (0-10) 3 Reported Symptoms Increased Work of Breathing 1st minute Oxygen Delivery Method Room Air Pulse Ox (%) 86 Pulse Rate (60-100 beats/min) 80 Dyspnea [place] Scale (0-10) 4 Number of Rests Taken 1 Reported Symptoms Increased Work of Breathing 2nd minute Oxygen Flow Rate (L/min) (L/min) 2 Oxygen Delivery Method Nasal Cannula Pulse Ox (%) 90 Pulse Rate (60-100 beats/min) 84 Dyspnea [place] Scale (0-10) 3 Number of Rests Taken 0 Reported Symptoms Increased Work of Breathing 3rd minute Oxygen Flow Rate (L/min) (L/min) 2 Oxygen Delivery Method Nasal Cannula Pulse Ox (%) 89 Pulse Rate (60-100 beats/min) 85 Dyspnea [place] Scale (0-10) 3 Number of Rests Taken 0 Reported Symptoms Increased Work of Breathing 4th minute Oxygen Flow Rate (L/min) (L/min) 2 Oxygen Delivery Method Nasal Cannula Pulse Ox (%) 87 Pulse Rate (60-100 beats/min) 89 Dyspnea [place] Scale (0-10) 4 Number of Rests Taken 1 Reported Symptoms Increased Work of Breathing 5th minute Oxygen Flow Rate (L/min) (L/min) 3 Oxygen Delivery Method Nasal Cannula Pulse Ox (%) 89 Pulse Rate (60-100 beats/min) 90 Dyspnea [place] Scale (0-10) 4 Number of Rests Taken 0 Reported Symptoms Increased Work of Breathing 6th minute Oxygen Flow Rate (L/min) (L/min) 3 Oxygen Delivery Method Nasal Cannula Pulse Ox (%) 90 Pulse Rate (60-100 beats/min) 89 Dyspnea [place] Scale (0-10) 4 Number of Rests Taken 0 Reported Symptoms Increased Work of Breathing Post-test Oxygen Delivery Method Room Air Pulse Ox (%) 92 Pulse Rate (60-100 beats/min) 77 Dyspnea [place] Scale (0-10) 3 Full Laps Walked 12 Partial Lap, Number of Tiles Walked 17 Total Distance Walked (ft) 725 06/22/20 14:13 Cardiopulmonary Services by Jade Jarvis Patient arrived on room air for testing. He has oxygen at home through [employer] already. Testing began on room air. Spo2 at 86% one minute in to testing so rest break taken to apply nc at 2lpm. Patient had increased WOB throughout. At four minute royal, increased to 3lpm for spo2 87% 2LPM, remainder of testing done on 3lpm. Encouraged use of oxygen while up moving at home. (he states h/o anemia d/t cancer tx as well) Initialized on 06/22/20 14:13 - END OF NOTE - Interpretation Interpretation: The patient ambulated 725 feet over the course of 6 minutes beginning on room air without assistive devices or breaks. Pretesting oxygen saturation was noted to be 94% on room air. With ambulation, the patient desaturated on several occasions, requiring the initiation of supplemental oxygen and subsequent increase in flow rate to 3 L/min to maintain appropriate saturations. - Recommendations Recommendations: 3 L/min of supplemental oxygen should be utilized with exertion.
== END | disposition home or self-care (01) ==
LOC: PSN 12:26
PROVIDERS: PCP Student in an Organized Health Care Education/Training Program; Referring Provider Internal Medicine Critical Care Medicine; Visit Provider Internal Medicine Critical Care Medicine
DX: J96.11 Chronic respiratory failure with hypoxia (principal)
CPT/HCPCS: 94618

== ENCOUNTER → 2020-06-26 | Outpatient (CLI) | payer MEDICARE, OTHER, SELFPAY ==
[2020-05-01 10:14] VITALS: BMI 30.7
--- NOTE | 2020-06-26 12:36 | PFTCOMP_ITS ---
COMPLETE PULMONARY FUNCTION TEST INTERPRETATION Brief HPI: Patient is a 69 year old male, currently under the care of Dr. Perrin, who presents to [facility] for complete pulmonary function tests secondary to diagnosis of COPD. Respiratory therapist reports good effort and reproducible results. Interpretation: Forced expiration spirometry shows a mild large airways obstructive ventilatory defect with an FEV1 of 72% predicted. There is no significant bronchodilator response by strict ATS criteria. Spirograms are of good quality and plateau slowly, indicating slowly emptying areas of the lungs. The respiratory flow volume loop shows decreased expiratory flow rates at high lung volumes consistent with small airways obstruction. Lung volumes by body plethysmography show a normal total lung capacity at 5.81 L, 92% predicted. All other lung volumes are within normal limits. Diffusion capacity by carbon monoxide is decreased at 39% predicted. The airway resistance is normal. No previous pulmonary function tests were available for review. Impression: Irreversible mild large airways obstructive ventilatory defect with a reduction in diffusion capacity that is out of proportion to level of obstruction.
== END | disposition home or self-care (01) ==
PROVIDERS: PCP Student in an Organized Health Care Education/Training Program; Referring Provider Internal Medicine Critical Care Medicine; Visit Provider Internal Medicine Critical Care Medicine
DX: J44.9 Chronic obstructive pulmonary disease, unspecified (principal)
CPT/HCPCS: 94060; 94726; 94729

== ENCOUNTER → 2021-01-03 07:51 | Outpatient (CLI) | payer MEDICARE, OTHER, SELFPAY ==
[2020-06-28 07:18] VITALS: BMI 32.5
--- NOTE | 2021-01-03 07:53 | CT_ITS ---
STUDY: CT CHEST WITHOUT CONTRAST- LOW DOSE SCREENING PROTOCOL REASON FOR EXAM: Male, 70 years old. Former smoker. Quit smoking less than 10 years ago. 45 pack per year history. No current symptoms of lung cancer or pulmonary infection. Shared decision-making with referring PCP documented in patient''s record. RADIATION DOSAGE (If Supplied By Facility): CTDIvol = ( 4.02 ) mGy, DLP = ( 126.37 ) mGycm TECHNIQUE: Low dose screening CT examination performed from the base of the neck to the upper abdomen. Sagittal and coronal reformatted images performed. Sagittal and coronal MIP images provided. The measurements provided are average, rounded measurements per ACR guidelines. COMPARISON: 04/30/2020 FINDINGS: Left subclavian chest port. Mild bilateral apical scarring. Mild emphysematous changes with subpleural blebs and bulla. No noncalcified nodule or mass. There is no demonstrated pleural abnormality. Normal heart and pericardium. There are calcifications of the coronary arteries. Normal mediastinum. Normal hilar regions. Normal unenhanced pulmonary arteries. Normal aorta arch and descending thoracic aorta. Normal osseous structures. There is no demonstrated abnormality of the visualized upper abdomen. CT/Low Dose CT Lung Screening IMPRESSION: 1. No significant indeterminate incidental findings requiring additional imaging. 2. Incidental findings include mild emphysema and bilateral apical scarring. ASSESSMENT CATEGORY: LungRADS 1 - Negative. Continue annual screening with LDCT in 12 months, per established ACR guidelines. Electronically Signed: Mario Tapia MD at 9:44 EST Tel , Service support ,
== END ==
PROVIDERS: PCP Student in an Organized Health Care Education/Training Program; Visit Provider Internal Medicine Critical Care Medicine
DX: F17.211 Nicotine dependence, cigarettes, in remission (principal); Z12.2 Encounter for screening for malignant neoplasm of respiratory organs
CPT/HCPCS: 71271

== ENCOUNTER 2021-05-23 09:30 | Outpatient (RCR) | payer MEDICARE, OTHER, SELFPAY ==
[2021-01-08 09:38] VITALS: BMI 33.7
--- NOTE | 2021-04-19 11:15 | HP.OTEVAL_ITS ---
Patient's Visit Information RENY GUTIÉRREZ is a 70 year old M, referred to Occupational Therapy by Larry Darby PA-C, with a diagnosis of left CMC arthritis. Date of Evaluation: 04/19/21 Occupational Therapist: Larisa Randhawa, OTR/Najma, CHT - Subjective this 70 year old male was seen for OT eval with dx of unilateral post-trauma o steoarthritis carpometacarpal joint left hand. with radial styloid tenosynovitis (de, Quervain). pt is right handed. pt states he is unaware of injury. pt states left wrist/thumb started bothering him 6 months ago, and almost intolerable over the last month. pt states he has had two cortisone shots from his family with success. pt would like to know what he can do to decrease his pain. - Pain left thumb 3 Pain Intensity Range: 1, 4 - ROM Wrist: right 75/70 left 30/30 with pian CMC: right 10 left 5 MP: right 55 left 50 IP: right 40 left 40 Radial Abduction: right 40 left positioned at 30* painful with movement - Strength [employer] Manager: right 80# left unable - Goals Goal:: pt will demo a increase in left escalator attendant strength to 40# to increase pts ind.with ADLs and IADLs. Goal:: pt will demo left wrist ROM equal to left by d.c to increase pts ind. with ADls and IADLs Goal:: pt will report pain no greater than 2/10 with ADLs and IADLs by d/c Goal:: Pt will demo understanding of joint protection and ergonomics when performing BADLs and IADLs by d/c. Pt will demo understanding of adaptive Equipment use to decrease stress on joints to allow pt to perform BADSL and IADLS at BERYL level. Goal:: Pt will demo ind. Donning/doffing of custom orthosis by end of 1st session. Pt will demonstrate understanding of orthosis use and precautions by end of 1st session and demonstrate knowledge of returning to clinic if orthosis needs adj. to increase comfort by end of 1st session. - Rehabilitation General Assessment: pt demo with limited thumb mobility due to pain, along with weakness limiting pts ind. with all ADLs and IADl tasks. pt would benefit from skilled OT services 1-2x week for 4 weeks to decrease pts pain, ed. on joint protection, dx along with supportive bracing to return pt to BERYL level. Today therapist ed. pt on dx, gave handout on joint protection, and tonya. custom orthosis. pt instruction in precautions on orthosis use. therapist will transition pt to thumb stabilization ex. once pain has decreased. pt demo understanding and agree to PoC. Rehabilitation Potential: Questionable - Anticipated Interventions Triggerpoint Release, Modalities, Orthoses, Joint Protection/Energy Conservation, Ergonomic Education, Education re assistive Equipment, Education re Diagnosis - Visit Plan Frequency: 1-2x /Week Duration: 4 Weeks TEXT: Thank you for the opportunity to evaluate your patient. For Medicare and Medicare HMO plans, please review the plan of care and approve it. It will need to be FAXED BACK to us at [phone] for Medicare purposes. Please let me know if there are questions or concerns regarding this plan of care. Physician Signature: Date:
--- NOTE | 2021-10-28 11:20 | HP.OTDCNRP_ITS ---
REYN GUTIÉRREZ was seen in my office for initial evaluation on 04/19/21. The following Plan of Care was established for this patient: Initial Frequency: 1-2x /Week Initial Duration: 4 Weeks Plan: cont POC Anticipated Interventions: Triggerpoint Release, Modalities, Orthoses, Joint P rotection/Energy Conservation, Ergonomic Education, Education re assistive Equipment, Education re Diagnosis This patient was last seen in our office 05/23/21. Pertinent comments regarding their Occupational therapy will appear below: Due to time laps in OT services pt d/c at this time. At this point I will be discontinuing this patient from occupational therapy. I would be happy to see this patient again in the future if found appropriate by the physician. Thank you! Larisa Randhawa, OTR/L, CHT
== END 2021-05-23 19:00 | disposition home or self-care (01) ==
LOC: OT 09:30
PROVIDERS: PCP Student in an Organized Health Care Education/Training Program; Referring Provider Physician Assistant; Visit Provider Physician Assistant
DX: M65.4 Radial styloid tenosynovitis [de Quervain] (principal); M18.32 Unilateral post-traumatic osteoarthritis of first carpometacarpal joint, left hand
CPT/HCPCS: 97035; 97110; 97140; 97166; 97530; 97760

== ENCOUNTER → 2023-05-01 | Outpatient (CLI) | payer MEDICARE, OTHER, SELFPAY ==
--- NOTE | 2023-05-01 13:46 | CT_ITS ---
INDICATION: CHRONIC SINOSITIS EXAMINATION: CT SINUSES - CT Sinuses W/O Contrast Injection TECHNIQUE: Helically acquired images were obtained of the paranasal sinuses. A radiation dose optimization technique was used for this scan. IV Contrast dosage and agent: COMPARISON: Orbit radiograph on same day. 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 Paradoxical curvature of the right anterior middle nasal turbinate. FRONTAL SINUSES AND RECESSES: Central finding septation. Symmetric elevation of the frontal ethmoidal recesses. There is mucoperiosteal thickening along the inferior frontal sinuses with partial opacified of the left frontal ethmoidal recess.. ETHMOID AIR CELLS: Scattered mild diffuse ethmoid sinus mucoperiosteal thickening. Prominent anterior ethmoid air cells narrow the maxillary infundibula. Lamina papyracea are intact.. MAXILLARY SINUSES: Scattered mild mucoperiosteal thickening. Normal uncinate processes with partial opacification of the maxillary infundibula. No Shiva air cells.. SPHENOID SINUSES: Dividing septation is well right of midline inserting on a thin right carotid covering. Right sphenoid sinuses smaller than the left. Sphenoethmoidal recesses are clear. Minimal right maxillary sinus mucoperiosteal thickening. Anterior clinoid processes are not pneumatized.. MASTOID AIR CELLS: Partial opacification in the right mastoid air cells. Left mastoid air cells are clear. Middle ears are grossly clear. ANCILLARY FINDINGS: ORBITS: Prior cataract surgical change. Globes are intact. No intraorbital edema. Normal rectus musculature VISUALIZED DENTITION: No periodontal osseous erosion. INTRACRANIAL: Carotid and vertebral atherosclerosis.. OTHER: Carotid atherosclerosis. CT/Sinus/Facial Bone IMPRESSION: Diffuse mucoperiosteal thickening compatible with the clinical diagnosis of chronic sinusitis. Sinus anatomy as above. Electronically Signed: Zan Centeno MD at 8:41 EDT ,
== END | disposition home or self-care (01) ==
LOC: CT 13:39
PROVIDERS: PCP Student in an Organized Health Care Education/Training Program; Referring Provider Otolaryngology Otolaryngology/Facial Plastic Surgery; Visit Provider Otolaryngology Otolaryngology/Facial Plastic Surgery
DX: J32.9 Chronic sinusitis, unspecified (principal)
CPT/HCPCS: 70486

== ENCOUNTER → 2023-07-18 | Outpatient (CLI) | payer MEDICARE, OTHER, SELFPAY ==
--- NOTE | 2023-07-18 08:42 | CT_ITS ---
STUDY: LOW DOSE CT LUNG CANCER SCREENING REASON FOR EXAM: Male, 72 years old. h/o Tobacco Dependency RADIATION DOSAGE (If Supplied By Facility): CTDIvol = ( 4.02 ) mGy, DLP = ( 122.35 ) mGycm TECHNIQUE: No contrast was administered. Low dose technique was utilized (average mAS-38 and kVp 120). 1.25 mm axial source images with a slice interval of 1.25-mm were reconstructed in lung windows. 2.5 mm axial source images with a slice interval of 2.5-mm were reconstructed in lung windows. 5.0 mm axial source images with a slice interval of 5.0-mm were reconstructed in soft tissue windows. COMPARISON: None. NODULES: Nodular consolidation in the posterior left lower lobe measures 5.0 x 8.8 x 15.7 mm on image 139 series 2, new since the prior study. However, on sagittal reconstruction, the consolidation is Emphysema: Paraseptal emphysema. Scattered parenchymal fibrosis Endobronchial lesion: None. Bronchiectasis. Aorta: Atherosclerosis. CORONARY ARTERIES: Atherosclerosis and stents Heart: Normal size Pulmonary artery: Unremarkable for unopacified technique. Mediastinal nodes: No adenopathy Other chest and abdominal findings: None significant CT/Low Dose CT Lung Screening IMPRESSION: 1. New nodular consolidation of the posterior left lower lobe with air bronchograms. Lung-RADS category 4A - Screening at 3 months with LDCT or evaluation with PET/CT may be used. IMPORTANT NOTES FOR USE: ACR Lung-RADS Version 1.1 Assessment Categories Release Date: 2018 Category: Coded 0-4 bases on nodule(s) with highest degree of suspicion. Negative screen is defined as categories 1 and 2; a positive screen is defined as categories 3 and 4. Category 3 and 4A nodules that are unchanged on interval CT should be coded as category 2, and individuals returned to screening in 12 months. Category 4X: Category 3 or 4 nodules with additional imaging findings that increase the suspicion of lung cancer, such as spiculation, GGN that doubles in size in 1 year, enlarged lymph notes, etc. Category Modifiers: S (significant finding unrelated to lung cancer) Electronically Signed: Brian Will (Brooks), at 22:00 EDT ,
== END | disposition home or self-care (01) ==
LOC: CT 08:35
PROVIDERS: PCP Student in an Organized Health Care Education/Training Program; Referring Provider Internal Medicine Critical Care Medicine; Visit Provider Internal Medicine Critical Care Medicine
DX: F17.211 Nicotine dependence, cigarettes, in remission (principal)
CPT/HCPCS: 71271

== ENCOUNTER → 2023-07-22 | Outpatient (CLI) | payer MEDICARE, OTHER, SELFPAY ==
[2023-07-22 11:15] LABS: Absolute Lymphocyte Count 3.01 X10^3/uL (0.83-4.51); Absolute Neutrophil Count 5.3 X10^3/uL (2.0-7.7); Basophil# 0.05 X10^3/uL; Basophil% 0.5 % (0-1); Eosinophils% 2.1 % (0-5); Hematocrit 44.8 % (40-54); Hemoglobin 14.3 g/dL (13.0-16.5); Lymphocyte # 3.01 X10^3/ul (0.83-4.51); Mean Corp Hgb Conc 31.9 g/dL (32-36); Mean Corpuscular Hgb 28.5 pg (27.0-32.0); Mean Corpuscular Volume 89.2 fL (80-94); Mean Platelet Vol. 9.8 fl (6.2-12.0); Monocyte# 0.79 X10^3/uL; Monocyte% 8.4 % (0-10); NRBC Flagged by Analyzer 0 % (0-5); Neutrophil # 5.31 X10^3/uL (2.7-7.7); Neutrophil % 56.4 % (47-70); Platelet Count 208 K/mm3 (150-450); RBC Distribution Width SD 42.3 fl (35.1-43.9); Red Blood Count 5.02 M/mm3 (4.6-6.2); White Blood Count 9.4 K/mm3 (4.4-11.0)
[2023-07-25 20:07] LABS: Aspirgillus flavus Negative (Neg:<1:1); Aspirgillus fumigatus Negative (Neg:<1:1); Aspirgillus niger Negative (Neg:<1:1); Cytoplasmic Ab (C-ANCA) <1:20 titer (Neg:<1:20); Immunoglobulin E 14 IU/mL (6-495); Perinuclear Ab (P-ANCA) <1:20 titer (Neg:<1:20)
== END | disposition home or self-care (01) ==
PROVIDERS: PCP Student in an Organized Health Care Education/Training Program; Referring Provider Nurse Practitioner Acute Care; Visit Provider Nurse Practitioner Acute Care
DX: J30.9 Allergic rhinitis, unspecified (principal)
CPT/HCPCS: 36415; 82785; 85025; 86256; 86606

== ENCOUNTER → 2023-09-15 | Outpatient (CLI) | payer MEDICARE, OTHER, SELFPAY ==
--- NOTE | 2023-09-15 07:30 | PET_ITS ---
EXAMINATION: FDG PET/CT ? INDICATIONS: 72-year-old male with a history of apparent lymphoma, presenting for initial staging examination. ? COMPARISON EXAMINATION: None available ? INDEX LESION SIZE SUV LUGANO SCORE INTERPRETATION Right lateral neck, Level IIB, III, right periclavicular region 56.7 mm, largest 14.5 5 Fulfills quantitative criteria for viable neoplasm ? TECHNIQUE: Following the intravenous administration of 14.3 mCi of F-18 deoxyglucose, multiplanar image acquisitions of the head, neck, chest, abdomen and pelvis to the level of the midthigh, obtained at one-hour post radiopharmaceutical administration contemporaneously interpreted with the current CT of the chest, abdomen and pelvis dated 09/15/2023 via coregistration reveal: HEIGHT:?? 69 inches WEIGHT:?? 230 pounds ? FINDINGS: ? HEAD/NECK: Enhanced FDG concentration is defined in the confluent mass involving Levels IIB, III, as well as several? nodular foci additionally identified in the right periclavicular region. The calculated maximum standard uptake value is 14.5. The Lugano Deauville score is 5. The maximal axial diameter is 56.7 mm. ? The visualized portion of the cerebral cortical-subcortical structures demonstrate symmetric and preserved glucose metabolism. ? CHEST:? There is no quantitative scintigraphic evidence of abnormal increased glucose metabolism within the context of the bilateral hemithorax pulmonary parenchyma, right and left hemithorax at the pleural interface, mediastinal structures, and left-right thoracic perihilum. ? CT of the chest demonstrates the following anatomic characteristics: Atherosclerotic calcification is defined in the thoracic aorta without evidence of dilatation, aneurysm formation. Coronary arterial calcification is observed. Subcentimeter bilateral axillary soft tissue densities are ametabolic. Paraseptal emphysematous changes are identified in the bilateral upper hemithorax.? ? ABDOMEN/PELVIS:? Normal physiologic distribution of the radiopharmaceutical is identified in the hepatic and splenic parenchyma, both renal units, urinary bladder, and visualized intestinal tract. Diffuse intestinal tract is identified in all four quadrants of the abdomen and pelvis. ? CT of the abdomen and pelvis is remarkable for the following: Atherosclerotic calcification is defined in the abdominal aorta without evidence of dilatation, aneurysm formation. Abdominal-pelvic arterial calcification is observed. Calcification is demonstrated within the right kidney. Right and left inguinal soft tissue densities are ametabolic. There is calcification noted within the prostate gland. Calcified phlebolith formation is defined in the left lower hemipelvis. ? SKELETAL:? There is no evidence of quantitatively significant enhanced glucose metabolism on meticulous inspection of the appendicular and axial skeletal structures. ? Degenerative changes defined in the thoracic and lumbar spine demonstrate no evidence of increased glucose metabolism. There are no sclerotic, mixed sclerotic-lytic, or primarily lytic changes defined in the axial skeletal structures with evidence of increased FDG uptake. ? PET/PET/CT Tumor Base -Thigh Subs IMPRESSION: 1. ABNORMAL EXAMINATION INDICATIVE OF MALIGNANT-VIABLE NEOPLASM. 2. Increased radiopharmaceutical concentration manifest in the right lateral neck and periclavicular regions fulfill quantitative criteria for malignant transformation. (Miguel et al, Journal of Clinical Oncology, 32: 3059, 2014). Electronic Signature Mario Plummer D.O. Accurate Quantification of SUVs and standardized LUGANO-DEAUVILLE scores specific to lymphoma FDG PET-CT study interpretation for this report are calculated using the exclusive [employer]. (U.S. Patent No. 10, 674, 983 B2 [phone] [place] patent [phone]). Standardization and correction of the FDG SUV metric via [employer] technology allow for vendor non-specific objective quantitative examination comparison and optimization of the sensitivity and specificity of the FDG PET-CT examination. [email or web address] Electronically Signed: Mario Plummer DO at 21:36 EDT ,
== END | disposition home or self-care (01) ==
LOC: ONC 07:04
PROVIDERS: PCP Student in an Organized Health Care Education/Training Program; Referring Provider Internal Medicine Hematology & Oncology; Visit Provider Internal Medicine Hematology & Oncology
DX: C83.18 Mantle cell lymphoma, lymph nodes of multiple sites (principal)
CPT/HCPCS: 78815; A9552

== ENCOUNTER → 2023-10-19 | Outpatient (CLI) | payer MEDICARE, OTHER, SELFPAY ==
--- NOTE | 2023-10-19 08:20 | CT_ITS ---
INDICATION: new nodule versus pneumonia versus scar EXAMINATION: CT CHEST WITHOUT CONTRAST - CT Chest W/O Contrast Injection TECHNIQUE: Helically acquired images were obtained of the chest. A radiation dose optimization technique was used for this scan. IV Contrast dosage and agent: None. COMPARISON: PET/CT September 15, 2023.. July 18, 2023 CT chest. FINDINGS: LUNGS, PLEURA AND LARGE AIRWAYS: Left lower lobe pleural parenchymal reaction appears less conspicuous previously noted nodular lesion not identified. Centrilobular and paraseptal emphysema noted. There is however a new right middle lobe small focal interstitial infiltrate measuring several millimeters on image #59 and image #62 in addition there is a stable 10 mm nodule in the right lower lobe on image #57. Right middle lobe interstitial infiltrate right lung base. No pleural effusion or thickening. No pneumothorax. THYROID: No thyroid lesions. HEART AND PERICARDIUM: Heart size is normal. No pericardial effusion. CORONARY ARTERIES: Coronary artery calcification present. VESSELS: Thoracic aorta is not dilated. MEDIASTINUM AND ADDISON: No mediastinal or hilar adenopathy. Esophagus is unremarkable. No hiatal hernia. UPPER ABDOMEN: No acute pathology. BONES: No suspicious lytic or blastic abnormality. CT/Chest without Contrast IMPRESSION: New right sided interstitial infiltrates. Stable 10 mm nodule right lower lobe. Left lower lobe lesion appears less conspicuous. Differential considerations include infectious, inflammatory, and neoplastic etiologies. Electronically Signed: Sohail Lees MD at 17:10 [facility] ,
== END | disposition home or self-care (01) ==
LOC: CT 08:13
PROVIDERS: PCP Student in an Organized Health Care Education/Training Program; Referring Provider Nurse Practitioner Acute Care; Visit Provider Nurse Practitioner Acute Care
DX: R91.1 Solitary pulmonary nodule (principal)
CPT/HCPCS: 71250

== ENCOUNTER → 2024-04-12 | Outpatient (CLI) | payer MEDICARE, OTHER, SELFPAY ==
--- NOTE | 2024-04-12 08:30 | PET_ITS ---
EXAMINATION: FDG PET-CT INDICATIONS: A 73-year-old male with a history of lymphoma presenting for restaging examination. COMPARISON EXAMINATION: Previous FDG PET CT report dated 09/15/23. INDEX LESION SIZE SUV LUGANO SCORE INTERPRETATION NEW: Left oral cavity 26.3 mm 9.5 5 Quantitative criteria for viable neoplasm are fulfilled. NEW: Anterior mediastinum 61.9 mm 6.7 5 Fulfills quantitative criteria for viable neoplasm. NEW: Left lobe hepatic parenchyma segment III 8.9 cm 4.1 > 2.0 5 Fulfills quantitative criteria for viable neoplasm. NEW: Right inguinal, left medial soft tissue compartment of the left lower extremity 44.5 mm 10.2 5 Fulfills quantitative criteria for viable neoplasm. TECHNIQUE: Following the intravenous administration of 14.1 mCi of F-18 deoxyglucose, multiplanar image acquisitions of the head, neck, chest, abdomen and pelvis to level of mid-thigh, lower extremities obtained at one hour post radiopharmaceutical administration contemporaneously interpreted with the current CT of the head, neck, chest, abdomen and pelvis to level of mid-thigh, lower extremities dated 04/12/24 via coregistration and Previous FDG PET CT report dated 09/15/23 reveal: HEIGHT: 69 inches. WEIGHT: 211 lbs. FINDINGS: Head/Neck: Enhanced tracer distribution is notably apparent in the left posterior oral cavity extending caudal to the cephalad hypopharynx. The calculated maximum standard uptake value is 9.5. The maximum axial diameter of the metabolic abnormality is 26.3 mm. The Lugano-Deauville score is 5 if applicable. The visualized portion of the cerebral cortical-subcortical structures demonstrate symmetric and preserved glucose metabolism. CHEST: Enhanced tracer uptake is noted in the subcarinal anterior mediastinum. The calculated maximum standard uptake value is 6.7. The maximum axial diameter of the metabolic abnormality is 61.9 mm. The Lugano-Deauville score is 5. Prominent radiopharmaceutical concentration is identified in the left ventricular myocardium commensurate with the [place]. Pertinent chest CT findings are as follows. Otherwise, the previously defined morphologic-anatomic changes described on the prior FDG PET-CT report dated 09/15/23, are essentially unchanged on the current examination. Abdomen/Pelvis: Increased FDG concentration is defined in the left lobe of the hepatic parenchyma involving segment III. The calculated maximum standard uptake value is 4.1 with a lesion to liver background ratio greater than 2.0. The maximum axial diameter of the metabolic, morphologic abnormality is 8.9 cm. Facilitated uptake is noted in the right inguinal region and medial soft tissue compartment of the left lower extremity. The calculated maximum standard uptake value is 10.2. The maximum axial diameter of the largest metabolic abnormality is 44.5 mm. The Lugano-Deauville score is 5. Normal physiologic distribution of the radiopharmaceutical is apparent in the hepatic (3.5) and splenic parenchyma, both renal units, bladder and visualized intestinal tract. Diffuse radiopharmaceutical concentration is noted in all four quadrants of the abdomen and pelvis. Pertinent abdomen and pelvis CT findings are as follows. Otherwise, the previously defined morphologic-anatomic changes described on the prior FDG PET-CT report dated 09/15/23, are essentially unchanged on the current examination. Skeletal: Degenerative changes are noted in the cervical, thoracic and lumbar spine. PET/PET/CT Tumor Base -Thigh Subs IMPRESSION: 1. ABNORMAL EXAMINATION INDICATIVE OF MALIGNANT-VIABLE NEOPLASM. 2. Increased radiopharmaceutical concentration newly defined in the posterior aspect of the oral cavity left of midline, the anterior mediastinum, the left lobe hepatic parenchyma, right inguinal region, left medial soft tissue compartment of the lesser extremity fulfills quantitative criteria for malignant transformation. (Miguel et al, Journal of Clinical Oncology 32:3059, 2014). 3. There is interim resolution of the prior defined right lateral neck and periclavicular hypermetabolic foci. 4. Overall, compared to the prior FDG PET CT study report dated 09/15/23, there is interim development of defined viable neoplastic disease as defined above with interim resolution of the prior defined right lateral neck and periclavicular hypermetabolic foci. Electronic Signature Mario Plummer D.O. Limited is Dr. Stanton Accurate Quantification of SUVs and standardized LUGANO-[place]AUVIL[place] scores specific to lymphoma FDG PET-CT study interpretation for this report are calculated using the exclusive [employer]. (U.S. Patent No. 10, 674, 983 B2 [phone] [place] patent [phone]). Standardization and correction of the FDG SUV metric via ACCUQUAN technology allow for vendor non-specific objective quantitative examination comparison and optimization of the sensitivity and specificity of the FDG PET-CT examination. [email or web address] Electronically Signed: Mario Plummer DO at 9:43 EDT ,
== END | disposition home or self-care (01) ==
LOC: ONC 07:56
PROVIDERS: PCP Student in an Organized Health Care Education/Training Program; Referring Provider Internal Medicine Hematology & Oncology; Visit Provider Internal Medicine Hematology & Oncology
DX: C33 Malignant neoplasm of trachea (principal); C78.7 Secondary malignant neoplasm of liver and intrahepatic bile duct; C34.80 Malignant neoplasm of overlapping sites of unspecified bronchus and lung; C34.31 Malignant neoplasm of lower lobe, right bronchus or lung
CPT/HCPCS: 78815; A9552

== ENCOUNTER 2024-04-24 21:07 | Emergency (ER) | payer MEDICARE, OTHER, SELFPAY ==
[2024-04-24 21:09] VITALS: BP 129/61; PULSE 91; RESP 18; TEMP 37.4; O2SAT 94; BMI 31.0
--- NOTE | 2024-04-24 21:21 | EKG12_ITS ---
Test Reason : FEVER Blood Pressure : / mmHG Vent. Rate : 089 BPM Atrial Rate : 089 BPM P-R Int : 198 ms QRS Dur : 134 ms QT Int : 438 ms P-R-T Axes : 033 -67 016 degrees QTc Int : 532 ms Normal sinus rhythm Right bundle branch block Left anterior fascicular block Bifascicular block Abnormal ECG Confirmed by ABDIRIZAK DOE MD ([id number]), editor news ROWDY KIM ([id number]) on 04/26/2024 2:03:10 PM Referred By: Confirmed By:ABDIRIZAK DOE MD
--- NOTE | 2024-04-24 21:23 | EX.ED.DYSGE1 ---
HPI History of Present Illness Chief Complaint: Fever Informant: patient Onset/Context/Timing Onset: Today Narrative Narrative: Patient present secondary to generalized body aches and fever. He developed body aches this evening and reported temperature of 102 at home. He did not take Tylenol or anything for the fever. He is currently on immunotherapy as well as chemotherapy. He started a new chemo regimen on the and that was his last treatment. He is currently on Keytruda, Alimta, and Paraplatin. He denies significant cough or congestion. He denies abdominal pain, vomiting, or diarrhea. He does state that he had increased thirst and increased urination today. [facility] Medical History History of leg surgery ANCA (obstructive sleep apnea) GERD (gastroesophageal reflux disease) B-cell lymphoma Hypoxia COPD (chronic obstructive pulmonary disease) Pulmonary fibrosis Acute respiratory insufficiency Fluid overload Closed left hip fracture Hypertension (~07/22/23) Home Medications ?Medication ?Instructions ?Recorded ?Last Taken ?Type citalopram 20 mg tablet 20 mg PO DAILY depression 10/09/15 04/30/20 History trazodone 100 mg tablet 100 mg PO QHS sleep 10/09/15 04/29/20 History metoprolol tartrate 25 mg tablet 25 mg PO BID heart 08/22/18 04/30/20 History clonazepam 1 mg tablet 1 mg PO QHS anxiety 04/30/20 04/29/20 History ipratropium bromide 21 mcg (0.03 2 sprays NS DAILY sinus drainage 04/30/20 Unknown History %) nasal spray multivitamin with folic acid 400 1 tab PO DAILYCM supplement 04/30/20 04/30/20 History mcg tablet tamsulosin 0.4 mg capsule 0.4 mg PO QHS prostate 04/30/20 04/29/20 History cetirizine 10 mg capsule (Zyrtec) 10 mg PO DAILY 05/14/20 Unknown History omeprazole 40 mg capsule,delayed 40 mg PO DAILY 05/14/20 Unknown History release albuterol sulfate 90 mcg/actuation 2 puff inhalation Q4H PRN 07/08/22 Unknown Rx aerosol inhaler shortness of breath or wheezing #3 device clopidogrel 75 mg tablet 75 mg PO DAILY 07/08/22 Unknown History rosuvastatin 20 mg tablet 20 mg PO DAILY 07/08/22 Unknown History budesonide-formoterol HFA 160 2 puff inhalation BID #3 device 10/27/23 Unknown Rx mcg-4.5 mcg/actuation aerosol inhaler fenofibrate nanocrystallized 145 145 mg PO DAILY 10/27/23 Unknown History mg tablet acyclovir 400 mg tablet 400 mg PO BID 04/24/24 Unknown History calcium carbonate 600 mg-vitamin 1 cap PO QHS 04/24/24 Unknown History D3 5 mcg (200 unit) capsule (Calcium 600 + D(3)) fluticasone propionate 50 2 spray intranasal DAILY 04/24/24 Unknown History mcg/actuation nasal spray,suspension (24 Hour Allergy Relief) folic acid 1 mg tablet 1 mg PO DAILY 04/24/24 Unknown History sulfamethoxazole 800 1 tab PO MOWEFR 04/24/24 Unknown History mg-trimethoprim 160 mg tablet zanubrutinib 80 mg capsule 160 mg PO BID 04/24/24 Unknown History (Brukinsa) amoxicillin 875 mg-potassium 1 tab PO BID #14 tabs 04/25/24 Unknown Rx clavulanate 125 mg tablet Allergy/AdvReac Type Severity Reaction Status Date / Time No Known Allergies Allergy Verified 04/24/24 21:09 Surgical History H/O heart artery stent History of shoulder surgery Social History Smoking Status: Former smoker quit date: 11/23/06 Tobacco: How many years used: 44 ROS ROS ED Constitutional Constitutional ED: Reports fever(s) Eyes Eyes: Denies change in vision or discharge from eye(s) ENT ENT ED: Denies discharge from eye(s), rhinorrhea or sore throat Cardiovascular Cardiovascular: Denies chest pain or palpitations Respiratory/Chest Respiratory/Chest: Denies cough or dyspnea Gastrointestinal Gastrointestinal: Denies abdominal pain, diarrhea, nausea or vomiting Genitourinary Genitourinary ED: Reports urinary frequency Musculoskeletal Musculoskeletal: Reports myalgias; Denies back pain or extremity pain Integumentary Reports rash; Denies Abrasions Neurologic Neurologic: Denies headache(s) or weakness Psychiatric Psychiatric: Denies anxiety or depression Allergic/Immunologic Allergic/Immunologic ED: Denies lip swelling or urticaria EXAM Physical Exam Const Vital Signs: 04/24/24 21:09 04/24/24 21:56 04/24/24 22:13 Temperature 99.3 F H 100.4 F H Temperature Source Temporal Oral Pulse Rate 91 88 Respiratory Rate 18 13 Respiratory Effort Normal Non-Labored Respiratory Pattern Normal Blood Pressure 129/61 H 136/63 H Blood Pressure Mean 83 87 Pulse Ox 94 92 Oxygen Delivery Method Room Air Room Air 04/24/24 23:07 Temperature 99.1 F Temperature Source Oral Pulse Rate 83 Respiratory Rate 24 H Respiratory Effort Respiratory Pattern Blood Pressure 133/70 H Blood Pressure Mean 91 Pulse Ox 93 Oxygen Delivery Method Room Air Positive well nourished and well developed General Appearance ED: well developed HEENT Reports moist mucous membranes HEENT Narrative: Mild erythema to the lateral sides of his face. Dry skin noted but no sign of secondary bacterial infection. Eyes EOMs intact bilaterally Neck no lymphadenopathy Chest Wall palpation of chest normal Chest Narrative: Port in place in right upper chest. Resp normal respiratory effort and clear to auscultation bilaterally Cardio regular rate and regular rhythm GI non-tender Auscultation: normoactive bowel sounds Palpation: soft Extremity normal to inspection Neuro oriented x3 and no sensory deficits noted Motor Exam: strength 5/5 throughout Psych mental status grossly normal MDM MDM MDM Narrative Medical decision making narrative: Patient's oral temperature checked at the time of my exam. It is 98.7. Patient placed on residential monitor. EKG obtained to evaluate for cardiac arrhythmia/ischemia. IV line initiated. Labwork obtained to evaluate for leukocytosis, anemia, and electrolyte derangement. Urinalysis obtained to evaluate for infection/hematuria. Blood and urine cultures obtained. Swab for COVID, influenza, and RSV will be obtained. Chest x-ray obtained to evaluate for acute lung pathology, cardiac size, or mediastinal abnormality. Patient's temperature was rechecked during his ED stay and did go up to 100.4. He did receive a dose of oral Tylenol. History & Record Review Discussion w/independent historian: Patient and Significant other Additional record(s) reviewed:: Prior labs Lab Data Attestation: I reviewed the patient's lab results. Labs: Laboratory Results - last 24 hr 04/24/24 04/24/24 21:35 22:10 WBC 4.6 RBC 3.85 L Hgb 10.9 L Hct 34.7 L MCV 90.1 MCH 28.3 MCHC 31.4 L RDW Std Deviation 42.8 RDW Coeff of [place]oh[place] 13.3 Plt Count 122 L MPV 10.9 Immature Gran % (Auto) 0.200 Neut % (Auto) 60.4 Lymph % (Auto) 23.0 [place] % (Auto) 15.1 H Eos % (Auto) 1.1 Baso % (Auto) 0.2 Absolute Neuts (auto) 2.8 Absolute Lymphs (auto) 1.05 Nucleated RBC % 0 Sodium 138 Potassium 3.5 Chloride 107 Carbon Dioxide 26.0 Anion Gap 5 BUN 17 Creatinine 1.20 Estim Creat Clear Calc 64.35 Est GFR (MDRD) Af Amer 77 Est GFR (MDRD) Non-Af 63 BUN/Creatinine Ratio 14.2 Glucose 146 H Lactic Acid 1.1 Calcium 8.8 Total Bilirubin 0.30 AST 22 ALT 19 Alkaline Phosphatase 50 Total Protein 6.4 Albumin 3.1 L Globulin 3.3 Albumin/Globulin Ratio 0.9 Urine Color Yellow Urine Clarity Clear Urine pH 7.0 Ur Specific [place] 1.015 Urine Protein Negative Urine Glucose (UA) Normal Urine Ketones Negative Urine Occult Blood 10 H Urine Nitrite Negative Urine Bilirubin Negative Urine Urobilinogen 1 H Ur Leukocyte Esterase Negative Urine RBC 0-5 SEEN Urine WBC 0 SEEN Ur Squamous Epith Cells 0-5 SEEN Urine Bacteria 0 SEEN Urine Mucus 0 SEEN Radiography Chest X-Ray - ED: 1 View, Read by ED Physician, Chronic Changes and No Infiltrates Diagnostic Testing: Clinical Impression(s) from Imaging Studies Chest X-Ray 04/24/24 21:55 IMPRESSION: No evidence of acute cardiopulmonary disease. Electronically Signed: Kleber Meraz DO at 22:11 EDT , EKG Initial EKG: Attestation: I personally reviewed and interpreted this EKG as follows: Interpretation: Sinus Rhythm (Sinus rhythm 89 bpm. Right bundle branch block noted. No evidence of acute ischemia.) Treatment and Re-Evaluation :: CBC was a white count of 4.6 with 60% neutrophils. Absolute neutrophil count is 2.8. Hemoglobin is 10.9. Chemistry studies are unremarkable with normal renal function. Glucose is 146. LFTs are unremarkable. Lactic acid is normal at 1.1. Urinalysis reveals no evidence of infection. Swab for COVID, influenza, and RSV is negative. Portable chest x-ray per my interpretation reveals port to be in place with chronic changes. No focal infiltrate appreciated. Radiology interpretation reviewed and agrees. EKG is sinus rhythm with no evidence of acute ischemia. On repeat evaluation patient states he still feels well. His repeat temperature is currently 99.1. I did attempt to reach out to [facility] oncology to review patient's case. We have not received a return call. I will go ahead and treat the patient with Augmentin p.o. with close follow-up. Patient is to call the office tomorrow. I did advise them that blood and urine cultures are pending and if there are any abnormalities in this they would receive a call from us. They are comfortable with the plan. Patient be given initial dose of Augmentin here tonight. Discharge Plan Triage Chief Complaint: Fever ED Provider: Adelia Crain Dx/Rx/DC Orders Clinical Impression: Fever, B-cell lymphoma Instructions: ED FUO Adult Prescriptions: New amoxicillin-pot clavulanate 875-125 mg tablet 1 tab PO BID Qty: 14 0RF No Action Zyrtec 10 mg capsule 10 mg PO DAILY clopidogrel 75 mg tablet 75 mg PO DAILY rosuvastatin 20 mg tablet 20 mg PO DAILY albuterol sulfate 90 mcg/actuation HFA aerosol inhaler 2 puff inhalation Q4H PRN (Reason: shortness of breath or wheezing) Qty: 3 3RF Rx Instructions: administer with spacer fenofibrate nanocrystallized 145 mg tablet 145 mg PO DAILY budesonide-formoterol 160-4.5 mcg/actuation HFA aerosol inhaler 2 puff inhalation BID Qty: 3 3RF citalopram 20 MG tablet 20 mg PO DAILY Patient Comments: MOOD trazodone 100 MG tablet 100 mg PO QHS Patient Comments: SLEEP metoprolol tartrate 25 MG tablet 25 mg PO BID ipratropium bromide 30 ML spray,non-aerosol 2 sprays NS DAILY clonazepam 1 MG tablet 1 mg PO QHS Rx Instructions: do not fill after 10/19/15 multivitamin with folic acid 1 TABLET tablet 1 tab PO DAILYCM tamsulosin 0.4 MG capsule 0.4 mg PO QHS omeprazole 40 MG capsule,delayed release(DR/EC) 40 mg PO DAILY folic acid 1 mg tablet 1 mg PO DAILY fluticasone propionate [24 Hour Allergy Relief] 50 mcg/actuation spray,suspension 2 spray intranasal DAILY Rx Instructions: administer into each nostril Calcium 600 + D(3) 600 mg-5 mcg (200 unit) capsule 1 cap PO QHS Brukinsa 80 mg capsule 160 mg PO BID acyclovir 400 mg tablet 400 mg PO BID sulfamethoxazole-trimethoprim 800-160 mg tablet 1 tab PO MOWEFR Primary Care Provider: Diego Alonso Referrals: Diego Alonso DO [Primary Care Provider] - Isaac Pagan DO [Med Staff - Active Staff] - As soon as possible Activity Restrictions/Additional Instructions: Please call her Latasha's office tomorrow with an update on her symptoms. Print Language: Arabic Disposition Disposition: Home, Self Care
--- NOTE | 2024-04-24 21:55 | RAD_ITS ---
INDICATION: fever EXAMINATION/TECHNIQUE: X-RAY - XR Chest 1 View COMPARISON: None. FINDINGS: LINES/DEVICES: Right chest port with the catheter tip at the superior vena cava/right atrial junction. LUNGS: No consolidation or evidence of an effusion. No evidence of edema or a pneumothorax. MEDIASTINUM AND CARDIOVASCULAR STRUCTURES: Cardiac silhouette is normal in size and contour. Mediastinum is unremarkable. BONES AND SOFT TISSUES: No acute abnormality. RAD/Chest 1 View (Portable) IMPRESSION: No evidence of acute cardiopulmonary disease. Electronically Signed: Kleber Meraz DO at 22:11 EDT ,
[2024-04-24 22:02] LABS: Absolute Lymphocyte Count 1.05 X10^3/uL (0.83-4.51); Absolute Neutrophil Count 2.8 X10^3/uL (2.0-7.7); Basophil# 0.01 X10^3/uL; Basophil% 0.2 % (0-1); Eosinophil# 0.05 X10^3/uL; Eosinophils% 1.1 % (0-5); Hematocrit 34.7 % (40-54); Hemoglobin 10.9 g/dL (13.0-16.5); Lymphocyte # 1.05 X10^3/ul (0.83-4.51); Mean Corp Hgb Conc 31.4 g/dL (32-36); Mean Corpuscular Hgb 28.3 pg (27.0-32.0); Mean Corpuscular Volume 90.1 fL (80-94); Mean Platelet Vol. 10.9 fl (6.2-12.0); Monocyte# 0.69 X10^3/uL; Monocyte% 15.1 % (0-10); NRBC Flagged by Analyzer 0 % (0-5); Neutrophil # 2.76 X10^3/uL (2.7-7.7); Neutrophil % 60.4 % (47-70); Platelet Count 122 K/mm3 (150-450); RBC Distribution Width CV 13.3 % (11.6-14.6); RBC Distribution Width SD 42.8 fl (35.1-43.9); Red Blood Count 3.85 M/mm3 (4.6-6.2); White Blood Count 4.6 K/mm3 (4.4-11.0)
[2024-04-24] MEDS: 0.9% Normal Saline (1000mL) 1,000 ML 125 ML IV (22:12)
[2024-04-24 22:13] VITALS: BP 136/63; PULSE 88; RESP 13; TEMP 38; O2SAT 92
[2024-04-24 22:14] LABS: Lactic Acid 1.1 mmol/L (0.4-1.9)
[2024-04-24 22:16] LABS: ALB/GLOB Ratio 0.9 RATIO (0.9-2.4); AST(SGOT) 22 U/L (15-37); Alanine Aminotransfer ALT/SGPT 19 U/L (16-61); Albumin, Serum 3.1 g/dL (3.2-5.0); Alkaline Phosphatase 50 U/L (45-117); Anion Gap 5 (5-15); BUN 17 mg/dL (7-18); BUN/Creat Ratio 14.2 RATIO (10-20); Calcium,Total 8.8 mg/dL (8.5-10.1); Chloride 107 mmol/L (98-107); EST Glomerular Filtration Rate 63 mL/min (>60); Est Glom Filt Rate - Afr Amer 77 mL/min (>60); Estimated Creatinine Clearance 64.35 ml/min; Globulin 3.3 g/dL (2.2-4.2); Glucose 146 mg/dL (74-106); Potassium 3.5 mmol/L (3.5-5.1); Protein, Total 6.4 g/dL (6.4-8.2); Sodium Level 138 mmol/L (136-145)
[2024-04-24 22:16] LABS: Bacteria 0 SEEN /hpf (None Seen); Mucous, Urine 0 SEEN /hpf (<or=2+); White Blood Cells 0 SEEN /hpf (0-5)
[2024-04-24 22:28] LABS: Color, Urine Yellow (Yellow); Glucose, Dipstick Normal (Normal); Ketone-Dipstick Negative (Negative); Leukocyte Esterase-Dipstick Negative /ul (Negative); Nitrite-Dipstick Negative (Negative); Occult Blood-Urine 10 /ul (Negative); Protein-Dipstick Negative (Negative); Specific Gravity, Urine 1.015 (1.002-1.030); Urine Bilirubin Dipstick Negative (Negative); Urine Clarity Clear (Clear); Urine Urobilinogen 1 mg/dl (Normal)
[2024-04-24] MEDS: Acetaminophen 500 MG Tablet 1000 MG PO (22:31)
[2024-04-24 22:52] LABS: Red Blood Cells-Urine 0-5 SEEN /hpf (0-5); Squamous Epithelial Cells - UA 0-5 SEEN /hpf (0-5)
[2024-04-24 23:07] VITALS: BP 133/70; PULSE 83; RESP 24; TEMP 37.3; O2SAT 93
[2024-04-25] MEDS: Amox/Clavulanate 875 MG Tablet PO (00:32)
[2024-04-25] MEDS: 0.9 % NaCl (Sterile) Posiflush 10 mL IV (00:33)
[2024-04-25 00:34] VITALS: BP 103/55; PULSE 73; RESP 18; TEMP 36.8; O2SAT 93
== END 2024-04-25 00:40 | disposition home or self-care (01) ==
PROVIDERS: Emergency Provider Emergency Medicine; PCP Student in an Organized Health Care Education/Training Program; Visit Provider Emergency Medicine
DX: C85.10 Unspecified B-cell lymphoma, unspecified site (principal); J44.9 Chronic obstructive pulmonary disease, unspecified; Z87.891 Personal history of nicotine dependence; R50.9 Fever, unspecified; Z79.899 Other long term (current) drug therapy; K21.9 Gastro-esophageal reflux disease without esophagitis; R35.0 Frequency of micturition
CPT/HCPCS: 71045; 80053; 81001; 83605; 85025; 87040; 87086; 87631; 93005; 96360; 96361; 99285; A4216

== ENCOUNTER 2024-04-27 20:01 | Emergency (ER) | payer MEDICARE, OTHER, SELFPAY ==
[2024-04-27 20:02] VITALS: BP 134/88; PULSE 88; RESP 16; TEMP 37.6; O2SAT 99; BMI 30.9
[2024-04-27 20:04] VITALS: BP 127/64; PULSE 70; RESP 23; TEMP 37.3; O2SAT 93
--- NOTE | 2024-04-27 20:30 | EX.ED.DYSGE1 ---
HPI History of Present Illness Chief Complaint: Fever Detail of Chief Complaint: Fever Informant: patient and spouse/S.O. Narrative Narrative: Patient presents with a fever initially started 4 days ago. Patient was seen in the ER 4 days ago and had a complete workup that was unremarkable and no source was found. Patient was started on Augmentin as he is a chemotherapy patient. Patient states that he did pretty well until today when he started feeling chilled and has been sleeping more. Checked his temperature and it was up to 1039. Presents to the ER for evaluation. He is describing some increased urinary frequency. He denies significant cough. Complains of a sore throat today and some mild discomfort left side of his neck. He denies rashes. Patient currently being treated for B-cell lymphoma. Patient does state that he had diarrhea this morning x 4 and he was given Imodium and then had more diarrhea and was given 2 more tablets of Imodium. [facility] Medical History History of leg surgery ANCA (obstructive sleep apnea) GERD (gastroesophageal reflux disease) B-cell lymphoma Hypoxia COPD (chronic obstructive pulmonary disease) Pulmonary fibrosis Acute respiratory insufficiency Fluid overload Closed left hip fracture Hypertension (~07/22/23) Home Medications ?Medication ?Instructions ?Recorded ?Last Taken ?Type citalopram 20 mg tablet 20 mg PO DAILY depression 10/09/15 04/30/20 History trazodone 100 mg tablet 100 mg PO QHS sleep 10/09/15 04/29/20 History metoprolol tartrate 25 mg tablet 25 mg PO BID heart 08/22/18 04/30/20 History clonazepam 1 mg tablet 1 mg PO QHS anxiety 04/30/20 04/29/20 History ipratropium bromide 21 mcg (0.03 2 sprays NS DAILY sinus drainage 04/30/20 Unknown History %) nasal spray multivitamin with folic acid 400 1 tab PO DAILYCM supplement 04/30/20 04/30/20 History mcg tablet tamsulosin 0.4 mg capsule 0.4 mg PO QHS prostate 04/30/20 04/29/20 History cetirizine 10 mg capsule (Zyrtec) 10 mg PO DAILY 05/14/20 Unknown History omeprazole 40 mg capsule,delayed 40 mg PO DAILY 05/14/20 Unknown History release albuterol sulfate 90 mcg/actuation 2 puff inhalation Q4H PRN 07/08/22 Unknown Rx aerosol inhaler shortness of breath or wheezing #3 device clopidogrel 75 mg tablet 75 mg PO DAILY 07/08/22 Unknown History rosuvastatin 20 mg tablet 20 mg PO DAILY 07/08/22 Unknown History budesonide-formoterol HFA 160 2 puff inhalation BID #3 device 10/27/23 Unknown Rx mcg-4.5 mcg/actuation aerosol inhaler fenofibrate nanocrystallized 145 145 mg PO DAILY 10/27/23 Unknown History mg tablet acyclovir 400 mg tablet 400 mg PO BID 04/24/24 Unknown History calcium carbonate 600 mg-vitamin 1 cap PO QHS 04/24/24 Unknown History D3 5 mcg (200 unit) capsule (Calcium 600 + D(3)) fluticasone propionate 50 2 spray intranasal DAILY 04/24/24 Unknown History mcg/actuation nasal spray,suspension (24 Hour Allergy Relief) folic acid 1 mg tablet 1 mg PO DAILY 04/24/24 Unknown History sulfamethoxazole 800 1 tab PO MOWEFR 04/24/24 Unknown History mg-trimethoprim 160 mg tablet zanubrutinib 80 mg capsule 160 mg PO BID 04/24/24 Unknown History (Brukinsa) amoxicillin 875 mg-potassium 1 tab PO BID #14 tabs 04/25/24 Unknown Rx clavulanate 125 mg tablet Allergy/AdvReac Type Severity Reaction Status Date / Time No Known Allergies Allergy Verified 04/27/24 20:05 Surgical History H/O heart artery stent History of shoulder surgery Social History Smoking Status: Former smoker quit date: 11/23/06 Tobacco: How many years used: 44 ROS ROS ED Review of Systems ROS Unobtainable: other Constitutional Constitutional ED: Reports chills, fever(s) and lethargy; Denies sweats or weight loss Eyes Eyes: Denies blurry vision, change in vision or diplopia ENT ENT ED: Denies rhinorrhea or sore throat Cardiovascular Cardiovascular: Denies chest pain, orthopnea or racing heartbeat Respiratory/Chest Respiratory/Chest: Denies cough, dyspnea, dyspnea on exertion, orthopnea or sputum Gastrointestinal Gastrointestinal: Reports diarrhea; Denies abdominal pain, nausea or vomiting Genitourinary Genitourinary ED: Denies dysuria, hematuria or urinary frequency Musculoskeletal Musculoskeletal: Denies arthralgias, back pain, myalgias or neck pain Integumentary Denies abscess, Abrasions or rash Neurologic Neurologic: Denies headache(s) or weakness Psychiatric Psychiatric: Denies anxiety, depression or suicidal thoughts Endocrine Endocrinology: Denies polydipsia, polyphagia or polyuria Hematologic/Lymphatic Hematologic/Lymphatic: Denies easy bleeding, easy bruising or lymphadenopathy Allergic/Immunologic Allergic/Immunologic ED: Denies mouth swelling, tongue swelling or urticaria EXAM Physical Exam Const Vital Signs: 04/27/24 20:02 04/27/24 20:04 04/27/24 21:04 Temperature 99.7 F H 99.2 F H 99.3 F H Temperature Source Oral Oral Oral Pulse Rate 88 70 70 Respiratory Rate 16 23 H 20 H Respiratory Effort Respiratory Pattern Blood Pressure 134/88 H 127/64 H 125/62 H Blood Pressure Mean 103 85 83 Pulse Ox 99 93 93 Oxygen Delivery Method Room Air Room Air Room Air 04/27/24 21:48 04/27/24 22:00 Temperature 99.5 F H Temperature Source Oral Pulse Rate 72 Respiratory Rate 23 H Respiratory Effort Normal Respiratory Pattern Tachypnea Blood Pressure 127/60 H Blood Pressure Mean 82 Pulse Ox 95 Oxygen Delivery Method Room Air Positive well nourished and well developed General Appearance ED: well developed and NAD HEENT Reports TM's clear and moist mucous membranes normocephalic and atraumatic; Negative for trauma or tenderness Tympanic Membrane ED: Yes TM's clear Eyes PERRL and EOMs intact bilaterally General Eye ED: Negative for pale conjunctiva or scleral icterus Neck no lymphadenopathy, supple and no JVD General: Negative for tenderness Chest Wall inspection of chest normal and palpation of chest normal Chest: Negative for tenderness Resp normal respiratory effort and clear to auscultation bilaterally Effort and Inspection: Negative for respiratory distress or pain with movement Auscultation: Negative for rhonchi, wheezes or diminished lung sounds Cardio regular rate, regular rhythm, S1 normal heart sound, S2 normal heart sound and no murmurs Peripheral Pulses: pulses 2+ throughout GI normal to inspection, nondistended, normoactive bowel sounds, soft to palpation, non-tender, non-distended and no masses Back/Spine no CVA tenderness and no thoracic nor lumbar tenderness Extremity normal to inspection General Extremety ED: Negative for edema General Extremity: Negative for edema Neuro oriented x3, CN's II-XII intact bilaterally, no sensory deficits noted and gait normal Sensorium / Orientation: awake, alert, oriented to person, oriented to place and oriented to time Motor Exam: strength 5/5 throughout and strength abnormal Psych mental status grossly normal Skin no rashes or lesions noted and no wounds MDM MDM MDM Narrative Medical decision making narrative: Patient with history of lymphoma and 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 Presents with fever. Was seen 3 days ago in the emergency department for same complaint and had a negative workup and started on Augmentin. IV line established. Blood cultures ordered again. CBC with differential white count 6.9 with hemoglobin 10.6 and platelet count of 154. Chemistries unremarkable. Absolute neutrophil count was normal at 4.0. Chest x-ray unremarkable. COVID flu and RSV was negative. Rapid strep was negative. This point etiology of his symptoms unclear. He did have diarrhea today I ordered stool for C. difficile as well as enteric pathogen's. He was not able to give a sample in the emergency department. I discussed case with Dr. Isaac Pagan his oncologist who recommended adding stool for lactoferrin as well as full respiratory panel which was ordered. It was felt patient could be discharged to home especially given the normal white count and normal lactate. Patient not having abdominal pain. At this point I do not have a clear source for his fever. Dr. Pgaan postulates there may be some developing colitis related to the Keytruda that he patient currently on. They are asked to follow-up with a phone call tomorrow to Dr. Pagan. I will write him a lab order to bring in a stool sample from home to the lab. Clinically he looks well and feels well. Lab Data Attestation: I reviewed the patient's lab results. Labs: Laboratory Results - last 24 hr 04/27/24 04/27/24 21:11 21:34 WBC 6.9 RBC 3.71 L Hgb 10.6 L Hct 33.1 L MCV 89.2 MCH 28.6 MCHC 32.0 RDW Std Deviation 44.4 H RDW Coeff of [place] 13.7 Plt Count 154 MPV 10.8 Immature Gran % (Auto) 0.400 Neut % (Auto) 57.7 Lymph % (Auto) 23.5 [place] % (Auto) 17.4 H Eos % (Auto) 0.9 Baso % (Auto) 0.1 Absolute Neuts (auto) 4.0 Absolute Lymphs (auto) 1.61 Nucleated RBC % 0 Sodium 137 Potassium 3.7 Chloride 105 Carbon Dioxide 25.0 Anion Gap 7 BUN 18 Creatinine 1.09 Estim Creat Clear Calc 70.68 Est GFR (MDRD) Af Amer 86 Est GFR (MDRD) Non-Af 71 BUN/Creatinine Ratio 16.5 Glucose 99 Lactic Acid 0.6 Calcium 8.5 Total Bilirubin 0.50 AST 18 ALT 15 L Alkaline Phosphatase 51 Total Protein 6.3 L Albumin 3.0 L Globulin 3.3 Albumin/Globulin Ratio 0.9 Urine Color Yellow Urine Clarity Clear Urine pH 6.5 Ur Specific [place] 1.010 Urine Protein Negative Urine Glucose (UA) Normal Urine Ketones Negative Urine Occult Blood 10 H Urine Nitrite Negative Urine Bilirubin Negative Urine Urobilinogen Normal Ur Leukocyte Esterase Negative Urine RBC 0 SEEN Urine WBC 0 SEEN Ur Squamous Epith Cells 0 SEEN Urine Bacteria 0 SEEN Urine Mucus 0 SEEN Radiography Diagnostic Testing: Clinical Impression(s) from Imaging Studies Chest X-Ray 04/27/24 21:06 IMPRESSION: No acute findings in the chest. Electronically Signed: Navdeep Patel MD at 21:35 EDT , Discharge Plan Triage Chief Complaint: Fever ED Provider: Dariusz Lawrence Dx/Rx/DC Orders Clinical Impression: FUO (fever of unknown origin), Diarrhea Instructions: ED Diarrhea, Unknown Cause, ED FUO Adult Prescriptions: No Action Zyrtec 10 mg capsule 10 mg PO DAILY clopidogrel 75 mg tablet 75 mg PO DAILY rosuvastatin 20 mg tablet 20 mg PO DAILY albuterol sulfate 90 mcg/actuation HFA aerosol inhaler 2 puff inhalation Q4H PRN (Reason: shortness of breath or wheezing) Qty: 3 3RF Rx Instructions: administer with spacer fenofibrate nanocrystallized 145 mg tablet 145 mg PO DAILY budesonide-formoterol 160-4.5 mcg/actuation HFA aerosol inhaler 2 puff inhalation BID Qty: 3 3RF citalopram 20 MG tablet 20 mg PO DAILY Patient Comments: MOOD trazodone 100 MG tablet 100 mg PO QHS Patient Comments: SLEEP metoprolol tartrate 25 MG tablet 25 mg PO BID ipratropium bromide 30 ML spray,non-aerosol 2 sprays NS DAILY clonazepam 1 MG tablet 1 mg PO QHS Rx Instructions: do not fill after 10/19/15 multivitamin with folic acid 1 TABLET tablet 1 tab PO DAILYCM tamsulosin 0.4 MG capsule 0.4 mg PO QHS omeprazole 40 MG capsule,delayed release(DR/EC) 40 mg PO DAILY folic acid 1 mg tablet 1 mg PO DAILY fluticasone propionate [24 Hour Allergy Relief] 50 mcg/actuation spray,suspension 2 spray intranasal DAILY Rx Instructions: administer into each nostril Calcium 600 + D(3) 600 mg-5 mcg (200 unit) capsule 1 cap PO QHS Bru[place]a 80 mg capsule 160 mg PO BID acyclovir 400 mg tablet 400 mg PO BID sulfamethoxazole-trimethoprim 800-160 mg tablet 1 tab PO MOWEFR amoxicillin-pot clavulanate 875-125 mg tablet 1 tab PO BID Qty: 14 0RF Primary Care Provider: Diego Alonso Referrals: Diego Alonso DO [Primary Care Provider] - Activity Restrictions/Additional Instructions: Call Dr. Isaac Pagan's office tomorrow for an update report. Print Language: Albanian Disposition Disposition: Home, Self Care
[2024-04-27 21:04] VITALS: BP 125/62; PULSE 70; RESP 20; TEMP 37.4; O2SAT 93
--- NOTE | 2024-04-27 21:06 | RAD_ITS ---
EXAM: XR CHEST, 1 VIEW CLINICAL INDICATION: fever TECHNIQUE: Frontal view of the chest. COMPARISON: 04/24/2024 FINDINGS: LUNGS AND PLEURAL SPACES: Unremarkable. No consolidation or edema. No pneumothorax. No effusion. HEART: Unremarkable. Cardiac silhouette not enlarged. MEDIASTINUM: Central airways and mediastinal contour are unremarkable. BONES/JOINTS: Unremarkable. No acute fracture. SOFT TISSUES: Unremarkable. TUBES, LINES AND DEVICES: Right-sided Port-A-Cath is in stable position. RAD/Chest 1 View (Portable) IMPRESSION: No acute findings in the chest. Electronically Signed: Navdeep Patel MD at 21:35 EDT ,
[2024-04-27 21:19] LABS: Bacteria 0 SEEN /hpf (None Seen); Mucous, Urine 0 SEEN /hpf (<or=2+); Red Blood Cells-Urine 0 SEEN /hpf (0-5); Squamous Epithelial Cells - UA 0 SEEN /hpf (0-5); White Blood Cells 0 SEEN /hpf (0-5)
[2024-04-27 21:23] LABS: Color, Urine Yellow (Yellow); Glucose, Dipstick Normal (Normal); Ketone-Dipstick Negative (Negative); Leukocyte Esterase-Dipstick Negative /ul (Negative); Nitrite-Dipstick Negative (Negative); Occult Blood-Urine 10 /ul (Negative); Protein-Dipstick Negative (Negative); Urine Bilirubin Dipstick Negative (Negative); Urine Clarity Clear (Clear); Urine Urobilinogen Normal (Normal); Urine pH 6.5 (5.0 - 8.0)
[2024-04-27 21:51] LABS: Absolute Lymphocyte Count 1.61 X10^3/uL (0.83-4.51); Basophil# 0.01 X10^3/uL; Basophil% 0.1 % (0-1); Eosinophil# 0.06 X10^3/uL; Eosinophils% 0.9 % (0-5); Hematocrit 33.1 % (40-54); Hemoglobin 10.6 g/dL (13.0-16.5); Lymphocyte # 1.61 X10^3/ul (0.83-4.51); Lymphocyte % 23.5 % (19-41); Mean Corpuscular Hgb 28.6 pg (27.0-32.0); Mean Corpuscular Volume 89.2 fL (80-94); Mean Platelet Vol. 10.8 fl (6.2-12.0); Monocyte# 1.19 X10^3/uL; Monocyte% 17.4 % (0-10); NRBC Flagged by Analyzer 0 % (0-5); Neutrophil # 3.95 X10^3/uL (2.7-7.7); Neutrophil % 57.7 % (47-70); Platelet Count 154 K/mm3 (150-450); RBC Distribution Width CV 13.7 % (11.6-14.6); RBC Distribution Width SD 44.4 fl (35.1-43.9); Red Blood Count 3.71 M/mm3 (4.6-6.2); White Blood Count 6.9 K/mm3 (4.4-11.0)
--- NOTE | 2024-04-27 21:51 | ED.RN ---
patient states earlier this evening he felt himself get really thirsty and hot. patient states TA temp at home read 103.9. denies other complaints
[2024-04-27] MEDS: 0.9% Normal Saline (1000mL) 1,000 ML 150 ML IV (21:53)
[2024-04-27 22:00] VITALS: BP 127/60; PULSE 72; RESP 23; TEMP 37.5; O2SAT 95
[2024-04-27 22:15] LABS: ALB/GLOB Ratio 0.9 RATIO (0.9-2.4); AST(SGOT) 18 U/L (15-37); Alanine Aminotransfer ALT/SGPT 15 U/L (16-61); Alkaline Phosphatase 51 U/L (45-117); Anion Gap 7 (5-15); BUN 18 mg/dL (7-18); BUN/Creat Ratio 16.5 RATIO (10-20); Calcium,Total 8.5 mg/dL (8.5-10.1); Chloride 105 mmol/L (98-107); Creatinine, Serum 1.09 mg/dL (0.70-1.30); EST Glomerular Filtration Rate 71 mL/min (>60); Est Glom Filt Rate - Afr Amer 86 mL/min (>60); Estimated Creatinine Clearance 70.68 ml/min; Globulin 3.3 g/dL (2.2-4.2); Glucose 99 mg/dL (74-106); Potassium 3.7 mmol/L (3.5-5.1); Protein, Total 6.3 g/dL (6.4-8.2); Sodium Level 137 mmol/L (136-145)
[2024-04-27 22:27] LABS: Lactic Acid 0.6 mmol/L (0.4-1.9)
[2024-04-27 23:08] VITALS: BP 141/71; PULSE 72; RESP 19; TEMP 37; O2SAT 94
[2024-04-27] MEDS: 0.9% Saline Lock 10 ML Syringe IV (23:28)
== END 2024-04-27 23:33 | disposition home or self-care (01) ==
PROVIDERS: Emergency Provider Emergency Medicine; PCP Student in an Organized Health Care Education/Training Program; Visit Provider Emergency Medicine
DX: R50.9 Fever, unspecified (principal); C85.10 Unspecified B-cell lymphoma, unspecified site; J44.9 Chronic obstructive pulmonary disease, unspecified; R19.7 Diarrhea, unspecified; R35.0 Frequency of micturition; Z87.891 Personal history of nicotine dependence; K21.9 Gastro-esophageal reflux disease without esophagitis; I10 Essential (primary) hypertension
CPT/HCPCS: 36591; 71045; 80053; 81001; 83605; 85025; 87040; 87631; 87633; 87651; 99285; J7030; A4216

== ENCOUNTER 2024-07-10 21:19 | Inpatient (IN) | payer MEDICARE, OTHER, SELFPAY ==
[2024-07-10 21:20] VITALS: BP 105/59; PULSE 76; RESP 18; TEMP 36.5; O2SAT 96; O2SAT 98; BMI 30.8
--- NOTE | 2024-07-10 22:09 | CT_ITS ---
EXAM: CT HEAD WITHOUT INTRAVENOUS CONTRAST CLINICAL INDICATION: fall/trauma, altered mental status, dizzy TECHNIQUE: Multiple axial images were obtained of the head without intravenous contrast. This CT exam was performed using one or more of the following dose reduction techniques: automated exposure control, adjustment of the mA and/or kV according to patient size, and/or use of iterative reconstruction technique. COMPARISON: No relevant prior studies available. FINDINGS: BRAIN AND EXTRA-AXIAL SPACES: Unremarkable. No intra- or extra-axial hemorrhage. No evidence of acute infarct. No intracranial mass or mass effect. There is preservation of the ramos/white matter interface. Posterior fossa structures are unremarkable. Ventricles are appropriate for age. No hydrocephalus. Basal cisterns are patent. BONES/JOINTS: Unremarkable. No discrete lytic or blastic abnormalities. SINUSES: There is mild mucosal thickening in the right maxillary sinus. MASTOID AIR CELLS: There is fluid within the mastoid air cells greater on the left. ORBITS: Visualized globes, extraocular muscles, optic nerves and retrobulbar fat appear unremarkable. CT/Brain/Head without Contrast IMPRESSION: No acute intracranial abnormality. Electronically Signed: Navdeep Patel MD at 23:06 EDT ,
--- NOTE | 2024-07-10 22:10 | ED.VIS.FALL ---
HPI HPI - Fall History of Present Illness Chief Complaint: Fall Informant: patient, spouse/S.O., family and EMS Occured/Mechanism Occurred: Today Mechanism/Context: Yes same level fall Narrative: unsure reason; see below Usually ambulates: Without assistance Pain/Injury Location: head, both upper arms Narrative Narrative: Patient had an unwitnessed fall tonight. The heard him fall in the bedroom and came running from the other room and found him on the carpet next to the bed. Patient states he was in the bed, and when to get out and states he felt like he could not control his movements. Daughter came over about 30 minutes later and states he complained of feeling dizzy several times. He cannot characterize this or remember exactly what it felt like. He states he feels fine now and wants to go home. Family states he was very slow to respond for a while and acted confused. There is no vomiting. He complained of a headache although he is denying that right now. He is on clopidogrel because of a coronary stent. He is also getting chemotherapy for mantle cell lymphoma, last treatment was 3 days ago and has been a little weak since then. Follows w/ Dr. Pagan. 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 Prior to this fall today he was ambulatory multiple times and feeling fine no recent illness or fevers. Other than minor skin tears to the upper arms he denies new pain elsewhere. He has chronic pain in the left groin that has been there for months, he was able to walk tonight with assistance after getting him up, he was having trouble getting up on his own due to chronic bilateral knee pain that he has had for some time and is no different right now. [facility] Medical History History of leg surgery ANCA (obstructive sleep apnea) GERD (gastroesophageal reflux disease) B-cell lymphoma Hypoxia COPD (chronic obstructive pulmonary disease) Pulmonary fibrosis Acute respiratory insufficiency Fluid overload Closed left hip fracture Hypertension (~07/22/23) Home Medications ?Medication ?Instructions ?Recorded ?Last Taken ?Type citalopram 20 mg tablet 20 mg PO DAILY depression 10/09/15 04/30/20 History trazodone 100 mg tablet 100 mg PO QHS sleep 10/09/15 04/29/20 History metoprolol tartrate 25 mg tablet 25 mg PO BID heart 08/22/18 04/30/20 History clonazepam 1 mg tablet 1 mg PO QHS anxiety 04/30/20 04/29/20 History ipratropium bromide 21 mcg (0.03 2 sprays NS DAILY sinus drainage 04/30/20 Unknown History %) nasal spray multivitamin with folic acid 400 1 tab PO DAILYCM supplement 04/30/20 04/30/20 History mcg tablet tamsulosin 0.4 mg capsule 0.4 mg PO QHS prostate 04/30/20 04/29/20 History cetirizine 10 mg capsule (Zyrtec) 10 mg PO DAILY 05/14/20 Unknown History omeprazole 40 mg capsule,delayed 40 mg PO DAILY 05/14/20 Unknown History release albuterol sulfate 90 mcg/actuation 2 puff inhalation Q4H PRN 07/08/22 Unknown Rx aerosol inhaler shortness of breath or wheezing #3 device clopidogrel 75 mg tablet 75 mg PO DAILY 07/08/22 Unknown History rosuvastatin 20 mg tablet 20 mg PO DAILY 07/08/22 Unknown History budesonide-formoterol HFA 160 2 puff inhalation BID #3 device 10/27/23 Unknown Rx mcg-4.5 mcg/actuation aerosol inhaler fenofibrate nanocrystallized 145 145 mg PO DAILY 10/27/23 Unknown History mg tablet acyclovir 400 mg tablet 400 mg PO BID 04/24/24 Unknown History calcium carbonate 600 mg-vitamin 1 cap PO QHS 04/24/24 Unknown History D3 5 mcg (200 unit) capsule (Calcium 600 + D(3)) fluticasone propionate 50 2 spray intranasal DAILY 04/24/24 Unknown History mcg/actuation nasal spray,suspension (24 Hour Allergy Relief) folic acid 1 mg tablet 1 mg PO DAILY 04/24/24 Unknown History sulfamethoxazole 800 1 tab PO MOWEFR 04/24/24 Unknown History mg-trimethoprim 160 mg tablet zanubrutinib 80 mg capsule 160 mg PO BID 04/24/24 Unknown History ([place]) amoxicillin 875 mg-potassium 1 tab PO BID #14 tabs 04/25/24 Unknown Rx clavulanate 125 mg tablet Allergy/AdvReac Type Severity Reaction Status Date / Time No Known Allergies Allergy Verified 07/10/24 21:20 Surgical History H/O heart artery stent History of shoulder surgery Social History Smoking Status: Former smoker quit date: 11/23/06 Tobacco: How many years used: 44 ROS ROS ED Constitutional Constitutional ED: Denies chills or fever(s) Eyes Eyes: Denies change in vision or diplopia ENT ENT ED: Reports as per HPI, disequillibrium and dizziness; Denies ear discharge, ear pain, epistaxis, facial pain or rhinorrhea Cardiovascular Cardiovascular: Denies chest pain or palpitations Respiratory/Chest Respiratory/Chest: Denies cough or dyspnea Gastrointestinal Gastrointestinal: Denies abdominal pain, diarrhea, melena, nausea or vomiting Genitourinary Genitourinary ED: Denies dysuria or hematuria Musculoskeletal Musculoskeletal: Denies back pain, extremity pain or neck pain Integumentary Reports Abrasions and laceration; Denies abscess or rash Neurologic Neurologic: Reports confusion and headache(s); Denies paresthesias or weakness EXAM Physical Exam Const Vital Signs: 07/10/24 21:19 07/10/24 21:20 07/10/24 22:19 Temperature 97.7 F L Temperature Source Temporal Pulse Rate 76 66 Respiratory Rate 18 15 Respiratory Effort Normal Non-Labored Respiratory Depth Normal Respiratory Pattern Normal Blood Pressure 105/59 L 91/54 L Blood Pressure Mean 74 66 Pulse Ox 98 95 Oxygen Delivery Method Nasal Cannula Nasal Cannula Oxygen Flow Rate (L/min) 2 2 07/10/24 23:00 Temperature Temperature Source Pulse Rate 61 Respiratory Rate 18 Respiratory Effort Respiratory Depth Respiratory Pattern Blood Pressure 91/56 L Blood Pressure Mean 67 Pulse Ox 94 Oxygen Delivery Method Room Air Oxygen Flow Rate (L/min) Positive well nourished and well developed General Appearance ED: well developed and NAD HEENT Reports TM's clear and nasal mucous membranes and turbinates normal HEENT Narrative: Contusion without hematoma and minor tenderness left high parietal scalp. No crepitus or depression. No skin tears or breaks in the skin. No hemotympanum. No CSF otorhinorrhea. Tympanostomy tube present in the left TM without discharge, absent on the right. No infection present in either 1. No Carvajal sign. trauma, contusion and tenderness; Negative for hematoma Face and Sinus: Negative for facial tenderness Tympanic Membrane ED: Yes TM's clear Eyes PERRL and EOMs intact bilaterally Visual Acuity: other Other Details: no entrapment or pain with extraocular movements Neck full ROM and supple General: Negative for tenderness Chest Wall inspection of chest normal and palpation of chest normal Chest Narrative: Contusion left posterior thorax wall with mild tenderness but no pain with deep inspiration. No crepitance or step-off. Chest: symmetrical chest wall rise; Negative for crepitus or tenderness Resp normal respiratory effort and clear to auscultation bilaterally Percussion: other equal BS bilat Cardio Rate: regular rate Rhythm: regular rhythm GI normal to inspection, nondistended, normoactive bowel sounds, soft to palpation and non-tender Back/Spine normal ROM Cervical Spine: Negative for cervical spine tenderness Thoracic Spine / Upper Back: Negative for thoracic spinal tenderness Lumbar Spine / Lower Back: Negative for lumbar spinal tenderness Extremity normal to inspection Extremity Narrative: Limited range of motion only to the left hip due to pain that preexisted this fall for months, however with logroll he has no pain. Full range of motion throughout all joints of all 4 extremities otherwise. No bony tenderness anywhere. There are skin tears on the left lateral upper arm toward the elbow as well as the right upper arm medially somewhat distal toward the elbow. No bony tenderness in either. Contusion lateral proximal left humerus without bony tenderness or limited range of motion of the shoulder. General Extremety ED: Negative for tenderness Neuro oriented x3, CN's II-XII intact bilaterally, moves all extremities, no focal motor deficits and no sensory deficits noted Abbey Coma Scale: document GCS findings Spontaneous Obeys Commands Oriented 15 Sensorium / Orientation: awake and alert Psych mental status grossly normal and thought process normal Skin Skin Narrative: Skin tears to both upper arms see above Lesions: no lesions Rashes: no rashes MDM MDM MDM Narrative Medical decision making narrative: CT of the head was obtained in order to rule out intracranial injury, I reviewed the images and report which I agree with, negative for anything acute. Labs show VANESSA which is new for him, it is an approximate 10:1 ratio. His pressures have been soft here, we started him on IV fluids, he is pancytopenic, although his platelets are only 141 which is barely low, I suspect all of this is due to his recent chemotherapy. Family apprehensive about taking him home and they are asking to have him admitted. Discussed with hospitalist. Patient does not have a fever here or symptoms of an acute illness he has just been feeling fatigued last couple days and I suspect his lightheadedness was what made him fall. Lab Data Attestation: I reviewed the patient's lab results. Labs: Laboratory Results - last 24 hr 07/10/24 21:32 WBC 4.1 L RBC 2.88 L Hgb 8.7 L Hct 26.6 L MCV 92.4 MCH 30.2 MCHC 32.7 RDW Std Deviation 54.9 H RDW Coeff of Thor 16.1 H Plt Count 141 L MPV 11.1 Immature Gran % (Auto) 0.500 Neut % (Auto) 79.8 H Lymph % (Auto) 14.6 L [place] % (Auto) 3.6 Eos % (Auto) 1.0 Baso % (Auto) 0.5 Absolute Neuts (auto) 3.3 Absolute Lymphs (auto) 0.60 L Nucleated RBC % 0 Sodium 136 Potassium 3.4 L Chloride 104 Carbon Dioxide 26.0 Anion Gap 6 BUN 26 H Creatinine 1.86 H Estim Creat Clear Calc 40.60 Est GFR (MDRD) Af Amer 46 L Est GFR (MDRD) Non-Af 38 L BUN/Creatinine Ratio 14.0 Glucose 131 H Calcium 8.6 Radiography Diagnostic Testing: Clinical Impression(s) from Imaging Studies Brain CT 07/10/24 22:09 IMPRESSION: No acute intracranial abnormality. Electronically Signed: Navdeep Patel MD at 23:06 EDT , Rhythm Strip Rhythm Strip: Sinus Rhythm Rate: 75 Ectopy: None EKG Initial EKG: Attestation: I personally reviewed and interpreted this EKG as follows: Interpretation: Sinus Rhythm, No Acute Injury Pattern and RBBB Prior EKG tracings: available for review Prior: Unchanged Management Discussion w/another healthcare provider: Hospitalist Discharge Plan Triage Chief Complaint: Fall ED Provider: Dano Jo Dx/Rx/DC Orders Clinical Impression: VANESSA (acute kidney injury), B-cell lymphoma, Postural dizziness with near syncope, Pancytopenia due to antineoplastic chemotherapy, Multiple skin tears, Closed head injury without loss of consciousness Prescriptions: No Action Zyrtec 10 mg capsule 10 mg PO DAILY clopidogrel 75 mg tablet 75 mg PO DAILY rosuvastatin 20 mg tablet 20 mg PO DAILY albuterol sulfate 90 mcg/actuation HFA aerosol inhaler 2 puff inhalation Q4H PRN (Reason: shortness of breath or wheezing) Qty: 3 3RF Rx Instructions: administer with spacer fenofibrate nanocrystallized 145 mg tablet 145 mg PO DAILY budesonide-formoterol 160-4.5 mcg/actuation HFA aerosol inhaler 2 puff inhalation BID Qty: 3 3RF citalopram 20 MG tablet 20 mg PO DAILY Patient Comments: MOOD trazodone 100 MG tablet 100 mg PO QHS Patient Comments: SLEEP metoprolol tartrate 25 MG tablet 25 mg PO BID ipratropium bromide 30 ML spray,non-aerosol 2 sprays NS DAILY clonazepam 1 MG tablet 1 mg PO QHS Rx Instructions: do not fill after 10/19/15 multivitamin with folic acid 1 TABLET tablet 1 tab PO DAILYCM tamsulosin 0.4 MG capsule 0.4 mg PO QHS omeprazole 40 MG capsule,delayed release(DR/EC) 40 mg PO DAILY folic acid 1 mg tablet 1 mg PO DAILY fluticasone propionate [24 Hour Allergy Relief] 50 mcg/actuation spray,suspension 2 spray intranasal DAILY Rx Instructions: administer into each nostril Calcium 600 + D(3) 600 mg-5 mcg (200 unit) capsule 1 cap PO QHS [place] 80 mg capsule 160 mg PO BID acyclovir 400 mg tablet 400 mg PO BID sulfamethoxazole-trimethoprim 800-160 mg tablet 1 tab PO MOWEFR amoxicillin-pot clavulanate 875-125 mg tablet 1 tab PO BID Qty: 14 0RF Primary Care Provider: Diego Alonso Referrals: Diego Alonso DO [Primary Care Provider] - Print Language: Cambodian Disposition Disposition: Acute Care [facility]
--- NOTE | 2024-07-10 22:16 | EKG12_ITS ---
Test Reason : FALL Blood Pressure : / mmHG Vent. Rate : 076 BPM Atrial Rate : 076 BPM P-R Int : 204 ms QRS Dur : 150 ms QT Int : 438 ms P-R-T Axes : 035 -19 012 degrees QTc Int : 492 ms Normal sinus rhythm Right bundle branch block Abnormal ECG Confirmed by MICHAEL NAVA, TONG ([id number]), brands editor SHAHIDA ASENCIO ([id number]) on 07/15/2024 7:27:37 AM Referred By: Confirmed By:KALPANA RODRIGUEZ MD
[2024-07-10 22:19] VITALS: BP 91/54; PULSE 66; RESP 15; O2SAT 95
[2024-07-10 22:44] LABS: Anion Gap 6 (5-15); BUN 26 mg/dL (7-18); Calcium,Total 8.6 mg/dL (8.5-10.1); Chloride 104 mmol/L (98-107); Creatinine, Serum 1.86 mg/dL (0.70-1.30); EST Glomerular Filtration Rate 38 mL/min (>60); Est Glom Filt Rate - Afr Amer 46 mL/min (>60); Glucose 131 mg/dL (74-106); Potassium 3.4 mmol/L (3.5-5.1); Sodium Level 136 mmol/L (136-145)
[2024-07-10 23:00] VITALS: BP 91/56; PULSE 61; RESP 18; O2SAT 94
[2024-07-10 23:14] LABS: Absolute Neutrophil Count 3.3 X10^3/uL (2.0-7.7); Basophil# 0.02 X10^3/uL; Basophil% 0.5 % (0-1); Eosinophil# 0.04 X10^3/uL; Hematocrit 26.6 % (40-54); Hemoglobin 8.7 g/dL (13.0-16.5); Lymphocyte % 14.6 % (19-41); Mean Corp Hgb Conc 32.7 g/dL (32-36); Mean Corpuscular Hgb 30.2 pg (27.0-32.0); Mean Corpuscular Volume 92.4 fL (80-94); Mean Platelet Vol. 11.1 fl (6.2-12.0); Monocyte# 0.15 X10^3/uL; Monocyte% 3.6 % (0-10); NRBC Flagged by Analyzer 0 % (0-5); Neutrophil # 3.28 X10^3/uL (2.7-7.7); Neutrophil % 79.8 % (47-70); POSITIVE DIFFERENTIAL YES; Platelet Count 141 K/mm3 (150-450); RBC Distribution Width CV 16.1 % (11.6-14.6); RBC Distribution Width SD 54.9 fl (35.1-43.9); Red Blood Count 2.88 M/mm3 (4.6-6.2); White Blood Count 4.1 K/mm3 (4.4-11.0)
[2024-07-10] MEDS: 0.9% Normal Saline (1000mL) 1,000 ML 999 ML IV (23:40)
--- NOTE | 2024-07-10 23:51 | HP.PCM.HOS_ITS ---
[facility] - General General Date of Admission: 07/11/24 Date of Service: 07/10/24 Chief Complaint: Fall at Home. 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 Pagan, history of tobacco abuse (quit ~2006); with subsequent COPD, history of pulmonary fibrosis, history of closed Left hip fracture; with chronic pain in the Left groin, depression with anxiety, BPH, GERD and osteoarthritis; with chronic bilateral knee pain who presents to [facility] ER complaining of falling at home. Mr. Gutiérrez reports his symptoms began 1 hour prior to when his heard him fall in the bedroom and then came running and found him on a carpet next to the bed. The patient states he was laying in the bed and then when he tried to get up he could not fully control his movements. They then called their daughter who arrived approximately 30 minutes later with patient still complaining of a mild headache and feeling dizzy on several occasions with the patient slow to respond and mildly confused so the decision was made to bring him in for further evaluation and treatment. He was also noted to have skin tears to both of his upper arms along with a contusion over the Left parietal area of his scalp but he denies other acute pain. According to his family he was fine prior to his fall with no recent illness or medication changes. There is no report of fever, chills vomiting, diarrhea or constipation but he admits to mild nausea. In the ER he was noted to have laboratory evidence of VANESSA with elevated serum creatinine of 1.86 mg/dL with a BUN of 26 mg/dL present on admission (up from his baseline serum creatinine of 1.09 mg/dL and BUN of 18 mg/dL last admission) complicated by symptomatic hypotension of 91/56 mmHg present on admission causing mechanical fall with skin tears and forehead contusion with hypokalemia of 3.4 mmol/L present on admission suspected to be due to dehydration arising from adverse drug reaction to chemotherapy and he was then admitted to the general medical floor for ongoing care for stay that is expected to extend beyond 2 midnights. [facility] Medical History (Updated 07/11/24 @ 02:[address] Mo Herndon, DO) Hearing loss, left Hearing loss, right Cancer Alcohol abuse Anxiety Diabetes Osteoporosis History of leg surgery ANCA (obstructive sleep apnea) GERD (gastroesophageal reflux disease) B-cell lymphoma Hypoxia COPD (chronic obstructive pulmonary disease) Pulmonary fibrosis Acute respiratory insufficiency Fluid overload Closed left hip fracture Hypertension (~07/22/23) Home Medications ?Medication ?Instructions ?Recorded ?Last Taken ?Type citalopram 20 mg tablet 20 mg PO DAILY depression 10/09/15 04/30/20 History trazodone 100 mg tablet 100 mg PO QHS sleep 10/09/15 04/29/20 History metoprolol tartrate 25 mg tablet 12.5 mg PO BID heart 08/22/18 04/30/20 History clonazepam 1 mg tablet 1 mg PO QHS anxiety 04/30/20 04/29/20 History ipratropium bromide 21 mcg (0.03 2 sprays NS DAILY sinus drainage 04/30/20 Unknown History %) nasal spray multivitamin with folic acid 400 1 tab PO DAILYCM supplement 04/30/20 04/30/20 History mcg tablet tamsulosin 0.4 mg capsule 0.8 mg PO QHS prostate 04/30/20 04/29/20 History cetirizine 10 mg capsule (Zyrtec) 10 mg PO DAILY 05/14/20 Unknown History omeprazole 40 mg capsule,delayed 40 mg PO DAILY 05/14/20 Unknown History release albuterol sulfate 90 mcg/actuation 2 puff inhalation Q4H PRN 07/08/22 Unknown Rx aerosol inhaler shortness of breath or wheezing #3 device clopidogrel 75 mg tablet 75 mg PO DAILY 07/08/22 Unknown History rosuvastatin 20 mg tablet 10 mg PO DAILY 07/08/22 Unknown History budesonide-formoterol HFA 160 2 puff inhalation BID #3 device 10/27/23 Unknown Rx mcg-4.5 mcg/actuation aerosol inhaler fenofibrate nanocrystallized 145 145 mg PO QHS 10/27/23 Unknown History mg tablet acyclovir 400 mg tablet 400 mg PO BID 04/24/24 Unknown History calcium carbonate 600 mg-vitamin 1 cap PO QHS 04/24/24 Unknown History D3 5 mcg (200 unit) capsule (Calcium 600 + D(3)) fluticasone propionate 50 2 spray intranasal DAILY 04/24/24 Unknown History mcg/actuation nasal spray,suspension (24 Hour Allergy Relief) folic acid 1 mg tablet 1 mg PO DAILY 04/24/24 Unknown History sulfamethoxazole 800 1 tab PO MOWEFR 04/24/24 Unknown History mg-trimethoprim 160 mg tablet zanubrutinib 80 mg capsule 160 mg PO BID 04/24/24 Unknown History (Brukinsa) fluorometholone 0.1 % eye 1 drp ophthalmic (eye) BID EYES 07/11/24 Unknown History drops,suspension gabapentin 300 mg capsule 300 mg PO TID LEG PAIN 07/11/24 Unknown History ondansetron HCl 8 mg tablet 8 mg PO Q8H PRN PRN nausea 07/11/24 Unknown History pantoprazole 40 mg tablet,delayed 40 mg PO DAILY 07/11/24 Unknown History release prochlorperazine maleate 10 mg 10 mg PO Q6H PRN PRN 07/11/24 Unknown History tablet nausea/vomiting rosuvastatin 10 mg tablet 10 mg PO QHS 07/11/24 Unknown History Allergy/AdvReac Type Severity Reaction Status Date / Time No Known Allergies Allergy Verified 07/10/24 21:20 Surgical History H/O heart artery stent History of shoulder surgery Social History Smoking Status: Former smoker quit date: 11/23/06 Tobacco: How many years used: 44 ROS ROS Narrative Review of Systems: General: Patient denies fever or chills. HENT: Patient initially did complain of headache and dizziness that was worse with standing. EYES: Denies changes in vision or discharge from eyes. Resp: Denies cough, denies shortness of breath Cardiac: Denies chest pain, palpitations or heart racing. GI: Denies abdominal pain, denies changes in bowel, had some nausea but denies vomiting. : Denies changes in urination Extremity: Denies swelling Musculoskeletal: Feels somewhat generally weak and unwell with skin tears over both upper extremities. Neuro: Patient admits to confusion and transient headache that has now resolved but he denies paresthesias or focal neurologic weakness. Heme: Denies any significant bleeding Skin: Patient has skin tears over both upper extremities and a bruise over his forehead. Psychiatric: No complaints voiced related uncontrolled depression or anxiety. Endocrine: No polyuria, polydipsia or polyphagia. The rest of the 14 point ROS was negative except for positives in HPI. Vital Signs Vital Signs Vital Signs: 07/10/24 21:19 07/10/24 21:20 07/10/24 22:19 Temperature 97.7 F L Temperature Source Temporal Pulse Rate 76 66 Respiratory Rate 18 15 Respiratory Effort Normal Non-Labored Respiratory Depth Normal Respiratory Pattern Normal Blood Pressure 105/59 L 91/54 L Blood Pressure Mean 74 66 Pulse Ox 98 95 Oxygen Delivery Method Nasal Cannula Nasal Cannula Oxygen Flow Rate (L/min) 2 2 07/10/24 23:00 Temperature Temperature Source Pulse Rate 61 Respiratory Rate 18 Respiratory Effort Respiratory Depth Respiratory Pattern Blood Pressure 91/56 L Blood Pressure Mean 67 Pulse Ox 94 Oxygen Delivery Method Room Air Oxygen Flow Rate (L/min) Weight Weight: 208 lb 1.862 oz Body Mass Index (BMI) 30.8 Physical Exam Const alert, oriented x3, no apparent distress and average body habitus General Appearance: cooperative HEENT normocephalic and hearing grossly normal bilaterally HEENT Narrative: Patient has contusion over the left parietal scalp area with minor tenderness to palpation. Eyes PERRL and EOMs intact bilaterally Neck no lymphadenopathy and supple Resp normal respiratory effort, no retractions, no use of accessory muscles and clear to auscultation bilaterally Cardio regular rate and regular rhythm GI normal to inspection, nondistended, normoactive bowel sounds, soft to palpation, non-tender and non-distended Extremity Extremity Narrative: Limited ROM to the Left hip that is chronic from his previous fall with hip fracture. Skin Skin Narrative: Patient has skin tears to both upper extremities and a contusion over his Left parietal area. Neuro oriented x3, CN's II-XII intact bilaterally, moves all extremities and no focal motor deficits Sensorium / Orientation: awake, alert, oriented to person, oriented to place and oriented to time Speech: speech normal Psych affect normal Results Medical Records Data Attestation: I reviewed the patient's medical records Lab / Micro Data Attestation: I reviewed the patient's lab results. 07/10/24 21:32 07/10/24 21:32 Labs: Laboratory Results - last 24 hr 07/10/24 21:32: WBC 4.1 L, RBC 2.88 L, Hgb 8.7 L, Hct 26.6 L, MCV 92.4, MCH 30.2, MCHC 32.7, RDW Std Deviation 54.9 H, RDW Coeff of Thor 16.1 H, Plt Count 141 L, MPV 11.1, Immature Gran % (Auto) 0.500, Neut % (Auto) 79.8 H, Lymph % (Auto) 14.6 L, [place] % (Auto) 3.6, Eos % (Auto) 1.0, Baso % (Auto) 0.5, Absolute Neuts (auto) 3.3, Absolute Lymphs (auto) 0.60 L, Nucleated RBC % 0, Sodium 136, Potassium 3.4 L, Chloride 104, Carbon Dioxide 26.0, Anion Gap 6, BUN 26 H, C reatinine 1.86 H, Estim Creat Clear Calc 40.60, Est GFR (MDRD) Af Amer 46 L, Est GFR (MDRD) Non-Af 38 L, BUN/Creatinine Ratio 14.0, Glucose 131 H, Calcium 8.6 Rhythm Strip Rhythm Strip: Sinus Rhythm Rate: 75 Ectopy: None Imaging Radiology Impression Brain CT 07/10/24 22:09 IMPRESSION: No acute intracranial abnormality. Electronically Signed: Navdeep Patel MD at 23:06 EDT , Assessment & Plan Assessment/Plan (1) VANESSA (acute kidney injury): (2) Postural dizziness with near syncope: (3) Closed head injury without loss of consciousness: QUALIFIERS: Encounter type: initial encounter Qualified Code(s): S09.90XA - Unspecified injury of head, initial encounter (4) Hypokalemia: (5) Pancytopenia due to antineoplastic chemotherapy: (6) Multiple skin tears: (7) B-cell lymphoma: QUALIFIERS: B-cell lymphoma type: unspecified B-cell Lymphoma site: unspecified region Qualified Code(s): C85.10 - Unspecified B-cell lymphoma, unspecified site PLAN: Plan 1. VANESSA with elevated serum creatinine of 1.86 mg/dL with a BUN of 26 mg/dL present on admission (up from his baseline serum creatinine of 1.09 mg/dL and BUN of 18 mg/dL last admission) - Admit to general medical floor. Aggressively volume resuscitate and recheck BMP in the a.m. to ensure improvement. Avoid potentially nephrotoxic agents. 2. Symptomatic hypotension of 91/56 mmHg present on admission with near syncope causing mechanical fall with skin tears and Left parietal scalp contusion complicating #1 - Hold scheduled antihypertensives. Otherwise continue supportive care and monitor for improvement. PT/OT and case management consult and treat on rounds in the a.m. further recommendations with appreciated in advance. 3. Hypokalemia of 3.4 mmol/L present on admission compounding #1 & #2 - Give supplemental KCl and then recheck level in a.m. to confirm repletion. 4. Adverse drug reaction to chemotherapy used to treat metastatic mantle/B-cell lymphoma precipitating #1 - #3 - Restart chemotherapy after above problems have been treated and fully resolved. 5. History of closed Left hip fracture; with chronic pain in the Left groin along with osteoarthritis in both knees adding to the complexity of #1 - #4 - Stable. Give Tylenol as needed. PT/OT to evaluate as noted above. 6. History of CAD; on Plavix (2021) - Stable. Resume Plavix as previous. 7. History of tobacco abuse (quit ~2006); with subsequent COPD - Stable with no evidence of acute flare at this time. Continue as needed nebulizers. 8. History of pulmonary fibrosis - Stable. 9. Obesity; with a BMI of 30.8 this admission plus ANCA - Weight loss will be recommended. Continue nocturnal CPAP. This complicates his case and may hamper recovery. 10. Hyperlipidemia - Restart statin at current dose. 11. Depression with anxiety - Continue home medications as previous. 12. BPH - Stable on tamsulosin. 13. GERD - Resume PPI. 14. DVT prophylaxis - Lovenox 30 mg sq daily plus SCD's Total time: Approximately 75 minutes. Charges/Coding Visit Charges Inpatient E&M: 71786 Init Hosp L3
[2024-07-11] VITALS (10 sets, daily range): BP systolic 93–156; BP diastolic 48–67; PULSE 59–104; RESP 16–18; TEMP 36.3–38.7; O2SAT 94–97; BMI 28.5
[2024-07-11] MEDS: KCL 20MEQ in 0.9% NS 20 MEQ/1,000 ML IV.SOLN. 70 MEQ IV (01:30)
[2024-07-11 05:05] LABS: Absolute Lymphocyte Count 0.92 X10^3/uL (0.83-4.51); Absolute Neutrophil Count 1.9 X10^3/uL (2.0-7.7); Basophil# 0.01 X10^3/uL; Basophil% 0.3 % (0-1); Eosinophil# 0.03 X10^3/uL; Hematocrit 25.4 % (40-54); Hemoglobin 8.1 g/dL (13.0-16.5); Lymphocyte # 0.92 X10^3/ul (0.83-4.51); Lymphocyte % 31.2 % (19-41); Mean Corp Hgb Conc 31.9 g/dL (32-36); Mean Corpuscular Hgb 29.9 pg (27.0-32.0); Mean Corpuscular Volume 93.7 fL (80-94); Mean Platelet Vol. 10.7 fl (6.2-12.0); Monocyte# 0.11 X10^3/uL; Monocyte% 3.7 % (0-10); NRBC Flagged by Analyzer 0 % (0-5); Neutrophil # 1.87 X10^3/uL (2.7-7.7); Neutrophil % 63.5 % (47-70); POSITIVE MORPHOLOGY YES; Platelet Count 117 K/mm3 (150-450); RBC Distribution Width CV 16.5 % (11.6-14.6); Red Blood Count 2.71 M/mm3 (4.6-6.2)
[2024-07-11] MEDS: Potassium Chloride Oral Tablet 20 MEQ 40 MEQ PO (05:19)
[2024-07-11 05:38] LABS: ALB/GLOB Ratio 0.7 RATIO (0.9-2.4); AST(SGOT) 39 U/L (15-37); Alanine Aminotransfer ALT/SGPT 29 U/L (16-61); Albumin, Serum 2.5 g/dL (3.2-5.0); Alkaline Phosphatase 34 U/L (45-117); Anion Gap 5 (5-15); BUN 25 mg/dL (7-18); BUN/Creat Ratio 14.9 RATIO (10-20); Calcium,Total 8.5 mg/dL (8.5-10.1); Chloride 109 mmol/L (98-107); Creatinine, Serum 1.68 mg/dL (0.70-1.30); EST Glomerular Filtration Rate 43 mL/min (>60); Est Glom Filt Rate - Afr Amer 52 mL/min (>60); Estimated Creatinine Clearance 46.99 ml/min; Globulin 3.5 g/dL (2.2-4.2); Glucose 114 mg/dL (74-106); Phosphorus 3.2 mg/dL (2.5-4.9); Potassium 3.7 mmol/L (3.5-5.1); Sodium Level 142 mmol/L (136-145); Thyroid Stim Hormone (TSH) 0.325 uIU/mL (0.358-3.740)
[2024-07-11 06:29] LABS: Differential Comment SCANNED; Differential Indicated SCAN CRITERIA MET
[2024-07-11] MEDS: Acyclovir 200 MG Capsule 400 MG PO ×2 (09:17→20:44)
[2024-07-11] MEDS: Multivitamins,Therapeutic Tablet 1 TABLET PO (09:17)
[2024-07-11] MEDS: Pantoprazole Sodium 40 MG Tablet PO (09:17)
[2024-07-11] MEDS: Fenofibrate 145 MG Tablet PO (09:18)
[2024-07-11] MEDS: Smz/Tmp Ds Tablet 1 TABLET PO (09:18)
[2024-07-11] MEDS: Folic Acid 1 MG Tablet PO (09:18)
[2024-07-11] MEDS: ZANUBRUTINIB 80 MG 160 MG PO ×2 (09:20→20:41)
[2024-07-11] MEDS: Loratadine 10 MG Tablet PO (09:21)
[2024-07-11] MEDS: Citalopram 20 MG Tablet PO (09:21)
--- NOTE | 2024-07-11 09:22 | PN.HOSP_ITS ---
Reason for Visit Reason for Visit: Diagnoses Unspecified B-cell lymphoma, unspecified site (07/11/24) Antineoplastic chemotherapy induced pancytopenia (07/11/24) Hypokalemia (07/11/24) Acute kidney failure, unspecified (07/11/24) Dizziness and giddiness (07/11/24) Syncope and collapse (07/11/24) Unspecified injury of head, initial encounter (07/11/24) Other injury of unspecified body region, initial encounter (07/11/24) Adverse effect of antineoplastic and immunosuppressive drugs, initial encounter (07/11/24) Subjective Subjective Patient feeling better than yesterday, still poor appetite, not nauseous at this time, has not been up moving around to better assess strength yet Objective Data Objective Data Vital Signs: Vital Signs Temp Pulse Resp BP Pulse Ox O2 Del Method O2 Flow Rate 99.7 F H 78 18 143/48 H 97 Room Air 2 07/11/24 09:14 07/11/24 09:14 07/11/24 09:14 07/11/24 09:14 07/11/24 09:14 07/11/24 09:14 07/10/24 22:19 Oxygen Flow Rate (L/min) 2 Oxygen Delivery Method Room Air Weight: 93 kg Body Mass Index (BMI) 28.5 Intake & Output: Intake and Output for Last 24 Hours 07/09/24 07/10/24 07/11/24 23:59 23:59 23:59 Intake Total 1120 / 1120 Output Total 550 / 550 Balance 570 / 570 Lab / Micro Data 07/11/24 04:33 07/11/24 04:33 Labs: Laboratory Results - last 24 hr 07/10/24 21:32: WBC 4.1 L, RBC 2.88 L, Hgb 8.7 L, Hct 26.6 L, MCV 92.4, MCH 30.2, MCHC 32.7, RDW Std Deviation 54.9 H, RDW Coeff of Thor 16.1 H, Plt Count 141 L, MPV 11.1, Immature Gran % (Auto) 0.500, Neut % (Auto) 79.8 H, Lymph % (Auto) 14.6 L, [place] % (Auto) 3.6, Eos % (Auto) 1.0, Baso % (Auto) 0.5, Absolute Neuts (auto) 3.3, Absolute Lymphs (auto) 0.60 L, Nucleated RBC % 0, Sodium 136, Potassium 3.4 L, Chloride 104, Carbon Dioxide 26.0, Anion Gap 6, BUN 26 H, C reatinine 1.86 H, Estim Creat Clear Calc 40.60, Est GFR (MDRD) Af Amer 46 L, Est GFR (MDRD) Non-Af 38 L, BUN/Creatinine Ratio 14.0, Glucose 131 H, Calcium 8.6 07/11/24 04:33: WBC 3.0 L, RBC 2.71 L, Hgb 8.1 L, Hct 25.4 L, MCV 93.7, MCH 29.9, MCHC 31.9 L, RDW Std Deviation 56.0 H, RDW Coeff of Thor 16.5 H, Plt Count 117 L, MPV 10.7, Immature Gran % (Auto) 0.300, Neut % (Auto) 63.5, Lymph % (Auto) 31.2, [place] % (Auto) 3.7, Eos % (Auto) 1.0, Baso % (Auto) 0.3, Absolute Neuts (auto) 1.9 L, Absolute Lymphs (auto) 0.92, Nucleated RBC % 0, Differential Comment SCANNED, Sodium 142, Potassium 3.7, Chloride 109 H, Carbon Dioxide 28.0, Anion Gap 5, BUN 25 H, Creatinine 1.68 H, Estim Creat Clear Calc 46.99, Est GFR (MDRD) Af Amer 52 L, Est GFR (MDRD) Non-Af 43 L, BUN/Creatinine Ratio 14.9, G lucose 114 H, Calcium 8.5, Phosphorus 3.2, Magnesium 2.0, Total Bilirubin 0.50, AST 39 H, ALT 29, Alkaline Phosphatase 34 L, Total Protein 6.0 L, Albumin 2.5 L, Globulin 3.5, Albumin/Globulin Ratio 0.7 L, TSH 0.325 L Radiography Diagnostic Testing: Radiology Impression Brain CT 07/10/24 22:09 IMPRESSION: No acute intracranial abnormality. Electronically Signed: Navdeep Patel MD at 23:06 EDT , Rhythm Strip Rhythm Strip: Sinus Rhythm Rate: 75 Ectopy: None Physical Exam Narrative General: Alert, oriented, no apparent distress HEENT: Atraumatic, normocephalic Eyes: Anicteric, normal conjunctiva, extraocular movements grossly intact Neck: Supple Respiratory: Clear to auscultation bilaterally, normal respiratory effort Cardiovascular: Regular rate and rhythm GI: Soft, nontender, nondistended Extremities: No edema Musculoskeletal: Moving all extremities Neuro: No overt focal neurological deficits Skin: No rashes appreciated, patient without cellulitic changes return for Psych: Cooperative Assessment & Plan Assessment/Plan (1) VANESSA (acute kidney injury): (2) Postural dizziness with near syncope: (3) Closed head injury without loss of consciousness: QUALIFIERS: Encounter type: initial encounter Qualified Code(s): S09.90XA - Unspecified injury of head, initial encounter (4) Hypokalemia: (5) Pancytopenia due to antineoplastic chemotherapy: (6) Multiple skin tears: (7) B-cell lymphoma: QUALIFIERS: B-cell lymphoma type: unspecified B-cell Lymphoma site: unspecified region Qualified Code(s): C85.10 - Unspecified B-cell lymphoma, unspecified site PLAN: Plan # Near syncope with falls and generalized weakness -Suspect secondary to dehydration as evidenced by elevated BUN and creatinine with symptomatic hypotension -Treat underlying medical etiology -IV fluids -Blood pressure significantly improved today -PT/OT # VANESSA suspect secondary to dehydration -Baseline creatinine around 1?1.2 -On admission BUN 26 with creatinine 1.86 -Patient received IV fluids and this a.m. BUN 25 with creatinine 1.68 # Mantle/B-cell lymphoma -On Brukinsa, continue home medication -Continue acyclovir and Bactrim -Follows with Dr. Pagan # Pancytopenia -Likely secondary to underlying mental logic/oncologic problems -Will need to continue follow-up on outpatient basis Chronic medical problems: # COPD/history of pulmonary fibrosis -Continue inhalers, breathing seems to be at baseline -Follows with pulmonology on outpatient basis #GERD -Continue PPI #Chronic BPH with obstruction -Continue home medications # History of coronary artery disease -Continue Plavix # Depression and anxiety -Continue home medication #DVT ppx: Lovenox subcu Roslyn Cason MD
[2024-07-11] MEDS: Fluorometholone 0.1% Susp 1 DRP DROPS EACH EYE (09:23)
[2024-07-11] MEDS: Clopidogrel Bisulfate 75 MG Tablet PO (09:24)
[2024-07-11] MEDS: Acetaminophen 325 MG Tablet 650 MG PO ×2 (09:34→20:41)
--- NOTE | 2024-07-11 11:30 | WOUNDNOTE ---
wound photo: right upper arm
--- NOTE | 2024-07-11 11:31 | WOUNDNOTE ---
wound photo: left arm
--- NOTE | 2024-07-11 11:45 | CASEMGMT ---
ALEJO MOSHER Assessment: Face to Face with pt for initial transition planning/care coordination assessment. ALEJO MOSHER introduced self and role at [facility], pt voices understanding and consents to assessment. Pt is A&O x4 and answers all questions appropriately at this time. Pt lying in bed in no distress. Pt sitting at bedside, pt agreeable to answering questions with present. Care providers, pharmacy, and demographics verified/updated. Admitting Dx: VANESSA, Dehydration and symptomatic hypotension Strata Score: 3 PCP: Celeste Specialists: Latasha, Oncologist; Aydin, Concrete Worker; Efraín, ENT Preferred Pharmacy: [facility] Insurance: [employer], Pagido[employer] Prescription Benefit: yes LNOK: , daughter Living Arrangements: Pt lives in a 2 story home with 4 steps to enter. Pt reports I with ADLs and IADLs. Transportation: Pt drives self and denies concerns with transportation. DME: Walker, cane, Portable O2, Shower stool. HHC/SNF: Denies hx of. Pt states no concerns with going home at time of dc. Pt reports frequent falls at home. ALEJO MOSHER discussed medical alert, pt denies wanting information. Pt reports feeling weaker lately, ALEJO MOSHER discussed outpatient therapy, pt denies wanting script. Pt inquired about Palliative care, Pt denies wanting information. RN NOMI informed Pt and Pt they can always discuss this with their PCP if they would like information about this in the futures. Pt states no further concerns/needs. CM to follow. Advised pt to ask CM if any further question/concerns/needs arise, voices understanding. Pt Goal: Home Plan: Home, Follow plan of care. Obi DHILLON CM
[2024-07-11] MEDS: 0.9% Normal Saline (1000mL) 1,000 ML 75 ML IV (12:13)
[2024-07-11] MEDS: Polyethylene Glycol 3350 17 GM PACKET PO (12:14)
[2024-07-11] MEDS: Enoxaparin 30 MG/0.3 ML Syringe SC (12:14)
--- NOTE | 2024-07-11 14:30 | CASEMGMT ---
ALEJO CM into pt room, pt states he has a portable concentrator through [employer] but no concentrator that plugs into the wall. States he only uses PRN. Email to [employer] to verify orders.
[2024-07-11] MEDS: Gabapentin 300 MG Capsule PO (14:37)
[2024-07-11] MEDS: Albuterol 2.5 MG/3 ML VIAL.NEB. INHALATION (19:21)
[2024-07-11] MEDS: Budesonide Respules 0.5 MG/2 ML AMPUL.NEB. INHALATION (19:21)
[2024-07-11] MEDS: traZODone 100 MG Tablet PO (20:42)
[2024-07-11] MEDS: Tamsulosin HCl 0.4 MG Capsule 0.8 MG PO (20:42)
[2024-07-11] MEDS: Calcium Carb/Vitamin D 1 TABLET Tablet PO (20:44)
[2024-07-11] MEDS: Atorvastatin Calcium 20 MG Tablet PO (20:44)
--- NOTE | 2024-07-11 21:28 | RAD_ITS ---
INDICATION: FEVER EXAMINATION/TECHNIQUE: X-RAY - portable upright AP chest x-ray COMPARISON: 04/27/2024 FINDINGS: LINES/DEVICES: Stable right-sided port LUNGS: Patchy airspace opacity projects largely over the left cardiac silhouette and is likely retrocardiac. No pleural effusions. MEDIASTINUM AND CARDIOVASCULAR STRUCTURES: Cardiac silhouette stable within upper normal limits. BONES AND SOFT TISSUES: No acute changes. RAD/Chest 1 View (Portable) IMPRESSION: Patchy retrocardiac infiltrate consistent with pneumonia. Recommend short-term follow-up to complete resolution. Electronically Signed: Gerardo Barnhart MD at 22:48 EDT ,
[2024-07-11 21:49] LABS: Absolute Lymphocyte Count 0.69 X10^3/uL (0.83-4.51); Absolute Neutrophil Count 0.8 X10^3/uL (2.0-7.7); Eosinophil# 0.02 X10^3/uL; Eosinophils% 1.3 % (0-5); Hematocrit 24.1 % (40-54); Lymphocyte # 0.69 X10^3/ul (0.83-4.51); Lymphocyte % 43.1 % (19-41); Mean Corp Hgb Conc 33.2 g/dL (32-36); Mean Corpuscular Hgb 30.3 pg (27.0-32.0); Mean Corpuscular Volume 91.3 fL (80-94); Mean Platelet Vol. 10.3 fl (6.2-12.0); Monocyte# 0.11 X10^3/uL; Monocyte% 6.9 % (0-10); NRBC Flagged by Analyzer 0 % (0-5); Neutrophil # 0.77 X10^3/uL (2.7-7.7); Neutrophil % 48.1 % (47-70); POSITIVE DIFFERENTIAL YES; POSITIVE MORPHOLOGY YES; Platelet Count 102 K/mm3 (150-450); RBC Distribution Width CV 16.2 % (11.6-14.6); RBC Distribution Width SD 54.7 fl (35.1-43.9); Red Blood Count 2.64 M/mm3 (4.6-6.2); White Blood Count 1.6 K/mm3 (4.4-11.0)
[2024-07-11 21:50] LABS: Differential Indicated SCAN CRITERIA MET
[2024-07-11 22:04] LABS: Anion Gap 6 (5-15); BUN 21 mg/dL (7-18); BUN/Creat Ratio 13.3 RATIO (10-20); Calcium,Total 8.3 mg/dL (8.5-10.1); Chloride 108 mmol/L (98-107); Creatinine, Serum 1.58 mg/dL (0.70-1.30); EST Glomerular Filtration Rate 46 mL/min (>60); Est Glom Filt Rate - Afr Amer 56 mL/min (>60); Estimated Creatinine Clearance 49.97 ml/min; Glucose 106 mg/dL (74-106); Potassium 3.6 mmol/L (3.5-5.1); Sodium Level 139 mmol/L (136-145)
[2024-07-11 22:15] LABS: Differential Comment SCANNED
[2024-07-11 23:14] LABS: Bacteria 0 SEEN /hpf (None Seen); Mucous, Urine 0 SEEN /hpf (<or=2+); Red Blood Cells-Urine 0 SEEN /hpf (0-5); White Blood Cells 0 SEEN /hpf (0-5)
[2024-07-11 23:16] LABS: Color, Urine Yellow (Yellow); Glucose, Dipstick Normal (Normal); Ketone-Dipstick Negative (Negative); Leukocyte Esterase-Dipstick Negative /ul (Negative); Nitrite-Dipstick Negative (Negative); Occult Blood-Urine Negative /ul (Negative); Protein-Dipstick Negative (Negative); Urine Bilirubin Dipstick Negative (Negative); Urine Clarity Clear (Clear); Urine Urobilinogen Normal (Normal); Urine pH 6.5 (5.0 - 8.0)
[2024-07-11 23:27] LABS: Squamous Epithelial Cells - UA 0-5 SEEN /hpf (0-5)
[2024-07-11] MEDS: Ceftriaxone 1 GM/50 ML BAG IV (23:48)
[2024-07-12] VITALS (13 sets, daily range): BP systolic 104–155; BP diastolic 53–71; PULSE 86–112; RESP 14–18; TEMP 36.6–38.5; O2SAT 93–96; BMI 29.0
[2024-07-12] MEDS: Azithromycin 500 MG in Dextrose 5%-Water (250mL Bag) 250 ML 250 MG IV ×2 (00:33→21:24)
[2024-07-12] MEDS: 0.9% Normal Saline (1000mL) 1,000 ML 75 ML IV (00:33)
[2024-07-12] MEDS: Acetaminophen 325 MG Tablet 650 MG PO ×3 (06:19→17:44)
[2024-07-12] MEDS: Albuterol 2.5 MG/3 ML VIAL.NEB. INHALATION ×3 (06:52→19:38)
[2024-07-12] MEDS: Budesonide Respules 0.5 MG/2 ML AMPUL.NEB. INHALATION (06:52)
[2024-07-12 07:54] LABS: Absolute Lymphocyte Count 0.68 X10^3/uL (0.83-4.51); Absolute Neutrophil Count 0.6 X10^3/uL (2.0-7.7); Basophil# 0.01 X10^3/uL; Basophil% 0.7 % (0-1); Eosinophil# 0.02 X10^3/uL; Eosinophils% 1.4 % (0-5); Hematocrit 24.5 % (40-54); Hemoglobin 8.2 g/dL (13.0-16.5); Lymphocyte # 0.68 X10^3/ul (0.83-4.51); Lymphocyte % 48.9 % (19-41); Mean Corp Hgb Conc 33.5 g/dL (32-36); Mean Corpuscular Hgb 30.7 pg (27.0-32.0); Mean Corpuscular Volume 91.8 fL (80-94); Mean Platelet Vol. 11.4 fl (6.2-12.0); Monocyte# 0.09 X10^3/uL; Monocyte% 6.5 % (0-10); NRBC Flagged by Analyzer 0 % (0-5); Neutrophil # 0.58 X10^3/uL (2.7-7.7); Neutrophil % 41.8 % (47-70); POSITIVE COUNT YES; POSITIVE DIFFERENTIAL YES; POSITIVE MORPHOLOGY YES; Platelet Count 89 K/mm3 (150-450); RBC Distribution Width CV 16.1 % (11.6-14.6); RBC Distribution Width SD 54.2 fl (35.1-43.9); Red Blood Count 2.67 M/mm3 (4.6-6.2)
[2024-07-12 08:09] LABS: Differential Indicated SCAN CRITERIA MET; White Blood Count 1.4 K/mm3 (4.4-11.0)
[2024-07-12 08:19] LABS: ALB/GLOB Ratio 0.7 RATIO (0.9-2.4); AST(SGOT) 34 U/L (15-37); Alanine Aminotransfer ALT/SGPT 25 U/L (16-61); Albumin, Serum 2.5 g/dL (3.2-5.0); Alkaline Phosphatase 36 U/L (45-117); Anion Gap 7 (5-15); BUN 17 mg/dL (7-18); Calcium,Total 8.4 mg/dL (8.5-10.1); Chloride 108 mmol/L (98-107); Creatinine, Serum 1.54 mg/dL (0.70-1.30); EST Glomerular Filtration Rate 48 mL/min (>60); Est Glom Filt Rate - Afr Amer 57 mL/min (>60); Estimated Creatinine Clearance 51.59 ml/min; Globulin 3.4 g/dL (2.2-4.2); Glucose 112 mg/dL (74-106); Potassium 3.3 mmol/L (3.5-5.1); Protein, Total 5.9 g/dL (6.4-8.2); Sodium Level 139 mmol/L (136-145)
[2024-07-12] MEDS: Fenofibrate 145 MG Tablet PO (08:31)
[2024-07-12] MEDS: Multivitamins,Therapeutic Tablet 1 TABLET PO (08:31)
[2024-07-12] MEDS: Folic Acid 1 MG Tablet PO (08:31)
[2024-07-12] MEDS: Pantoprazole Sodium 40 MG Tablet PO (08:31)
[2024-07-12] MEDS: Piperacil/Tazobactam 4.5 GM in 0.9% Normal Saline (100mL MB+) 100 ML IV (08:32)
[2024-07-12] MEDS: Clopidogrel Bisulfate 75 MG Tablet PO (08:32)
[2024-07-12] MEDS: Loratadine 10 MG Tablet PO (08:32)
[2024-07-12] MEDS: ZANUBRUTINIB 80 MG 160 MG PO ×2 (08:44→21:22)
[2024-07-12] MEDS: Fluorometholone 0.1% Susp 1 DRP DROPS EACH EYE (08:45)
[2024-07-12] MEDS: Acyclovir 200 MG Capsule 400 MG PO ×2 (08:45→21:21)
[2024-07-12] MEDS: Polyethylene Glycol 3350 17 GM PACKET PO (08:50)
[2024-07-12] MEDS: Ipratropium Bromide 0.06% NASAL SPRAY 2 SPRAY NASAL (08:51)
[2024-07-12] MEDS: Fluticasone 0.05% 1 SPRAY NASAL.SRY 2 SPRAY NASAL (08:51)
[2024-07-12] MEDS: Citalopram 20 MG Tablet PO (08:52)
[2024-07-12 09:08] LABS: Platelet Estimate MOD DEC (ADEQ)
[2024-07-12] MEDS: Vancomycin HCl 2,000 MG in 0.9% Normal Saline (500mL Bag) 500 ML 250 MG IV (11:42)
[2024-07-12] MEDS: Potassium Chloride Oral Tablet 20 MEQ 40 MEQ PO (11:42)
[2024-07-12 11:53] LABS: Pathologist Review Reviewed
--- NOTE | 2024-07-12 13:03 | PHA.PHARE_ITS ---
Consult Antibiotic Management Pharmacy has been consulted to manage selected antibiotic: Vancomycin Type of Intervention Type of Consult: New start Labs Labs: Sodium 139 mmol/L (136-145) 07/12/24 07:01 Potassium 3.3 mmol/L (3.5-5.1) L 07/12/24 07:01 Chloride 108 mmol/L (98-107) H 07/12/24 07:01 Carbon Dioxide 24.0 mmol/L (21.0-32.0) 07/12/24 07:01 Anion Gap 7 (5-15) 07/12/24 07:01 BUN 17 mg/dL (7-18) 07/12/24 07:01 Creatinine 1.54 mg/dL (0.70-1.30) H 07/12/24 07:01 Est GFR (MDRD) Af Amer 57 mL/min (>60) L 07/12/24 07:01 Est GFR (MDRD) Non-Af 48 mL/min (>60) L 07/12/24 07:01 BUN/Creatinine Ratio 11.0 RATIO (10-20) 07/12/24 07:01 Glucose 112 mg/dL (74-106) H 07/12/24 07:01 Microbiology Microbiology: Microbiology 07/12/24 09:53 Mucosa - Nose Coronavirus COVID-19 PCR - Final 07/11/24 23:05 Urine, Clean Catch Urine Culture - Preliminary Culture exhibits no growth. 07/11/24 08:00 Urine, Clean Catch Legionella Antigen - Final 07/11/24 08:00 Urine, Clean Catch Streptococcus pneumoniae Antigen (M - Final Dosing Weight Weight used for dosin.3 kg Estimated Creatinine Clearance Estimated Creatinine Clearance: 51.6ML/MIN Goal Trough Goal Trough: 15-20 mcg/mL Pharmacy Plan for Drug Dosing Pharmacy Plan for Drug Dosing: Give initial loading dose (25mg/kg) of 2000mg IV x1, then will continue with 1000mg IV q12h per [facility] dosing protocol. Check a trough level before the 4th overall dose. Pharmacy Service will continue to monitor and adjust dosing as required. Follow-Up Labs Follow-Up Labs: Trough: Vancomycin Date/Time Labs Ordered Labs to be done on [date and time ordered]: 07/13/24 23:30
--- NOTE | 2024-07-12 14:09 | CASEMGMT ---
Social Work- Pt confirms she has completed a living will and health care POA naming , Pilar, and dtr, Macy, as agents.? Pt notified that documents are not on file at [facility] and SW requested they be brought in for scanning into the EMR.? XAVIER Dias
[2024-07-12] MEDS: Piperacil/Tazobactam 3.375 GM in 0.9% Normal Saline (50mL MB+) 50 ML IV ×2 (14:48→22:54)
--- NOTE | 2024-07-12 16:27 | PCM.PN.HOSP ---
Reason for Visit Reason for Visit: Diagnoses Unspecified B-cell lymphoma, unspecified site (07/11/24) Antineoplastic chemotherapy induced pancytopenia (07/11/24) Hypokalemia (07/11/24) Acute kidney failure, unspecified (07/11/24) Dizziness and giddiness (07/11/24) Syncope and collapse (07/11/24) Unspecified injury of head, initial encounter (07/11/24) Other injury of unspecified body region, initial encounter (07/11/24) Adverse effect of antineoplastic and immunosuppressive drugs, initial encounter (07/11/24) Subjective Subjective Pt spiking temps over night and had chest x-ray that looked like possible pneumonia so he was started on Rocephin and azithromycin and pancultured. This a.m. antibiotics adjusted, ID consulted. Patient denies any significant cough or shortness of breath, has some bleeding on his elbow from where he scraped it and is having a hard time getting it to stop bleeding. Otherwise has no new or acute complaints, is feeling somewhat better than yesterday, no longer febrile after broadening antibiotics Objective Data Objective Data Vital Signs: Vital Signs Temp Pulse Resp BP Pulse Ox O2 Del Method O2 Flow Rate 97.9 F 88 18 131/71 H 95 Room Air 2 07/12/24 14:54 07/12/24 14:54 07/12/24 14:54 07/12/24 14:54 07/12/24 14:54 07/12/24 14:54 07/10/24 22:19 Oxygen Flow Rate (L/min) 2 Oxygen Delivery Method Room Air Weight: 94.3 kg Body Mass Index (BMI) 29.0 Intake & Output: Intake and Output for Last 24 Hours 07/10/24 07/11/24 07/12/24 23:59 23:59 23:59 Intake Total 2322.5 / 2322.5 2542.5 / 2542.5 Output Total 1100 / 1100 Balance 1222.5 / 1222.5 2542.5 / 2542.5 Lab / Micro Data 07/12/24 07:01 07/12/24 07:01 Labs: Laboratory Results - last 24 hr 07/11/24 21:40: WBC 1.6 L, RBC 2.64 L, Hgb 8.0 L, Hct 24.1 L, MCV 91.3, MCH 30.3, MCHC 33.2, RDW Std Deviation 54.7 H, RDW Coeff of Thor 16.2 H, Plt Count 102 L, MPV 10.3, Immature Gran % (Auto) 0.600, Neut % (Auto) 48.1, Lymph % (Auto) 43.1 H, [place] % (Auto) 6.9, Eos % (Auto) 1.3, Baso % (Auto) 0.0, Absolute Neuts (auto) 0.8 L, Absolute Lymphs (auto) 0.69 L, Nucleated RBC % 0, Differential Comment SCANNED, Sodium 139, Potassium 3.6, Chloride 108 H, Carbon Dioxide 25.0, Anion Gap 6, BUN 21 H, Creatinine 1.58 H, Estim Creat Clear Calc 49.97, Est GFR (MDRD) Af Amer 56 L, Est GFR (MDRD) Non-Af 46 L, BUN/Creatinine Ratio 13.3, Glucose 106, Calcium 8.3 L 07/11/24 23:05: Urine Color Yellow, Urine Clarity Clear, Urine pH 6.5, Ur Specific [place] 1.010, Urine Protein Negative, Urine Glucose (UA) Normal, Urine Ketones Negative, Urine Occult Blood Negative, Urine Nitrite Negative, Urine Bilirubin Negative, Urine Urobilinogen Normal, Ur Leukocyte Esterase Negative, Urine RBC 0 SEEN, Urine WBC 0 SEEN, Ur Squamous Epith Cells 0-5 SEEN, Urine Bacteria 0 SEEN, Urine Mucus 0 SEEN 07/12/24 07:01: WBC 1.4 L*, RBC 2.67 L, Hgb 8.2 L, Hct 24.5 L, MCV 91.8, MCH 30.7, MCHC 33.5, RDW Std Deviation 54.2 H, RDW Coeff of Thor 16.1 H, Plt Count 89 L, MPV 11.4, Immature Gran % (Auto) 0.700, Neut % (Auto) 41.8 L, Lymph % (Auto) 48.9 H, [place] % (Auto) 6.5, Eos % (Auto) 1.4, Baso % (Auto) 0.7, Absolute Neuts (auto) 0.6 L, Absolute Lymphs (auto) 0.68 L, Nucleated RBC % 0, Diff Path Review Reviewed, Platelet Estimate MOD DEC, Sodium 139, Potassium 3.3 L, Chloride 108 H, Carbon Dioxide 24.0, Anion Gap 7, BUN 17, Creatinine 1.54 H, Estim Creat Clear Calc 51.59, Est GFR (MDRD) Af Amer 57 L, Est GFR (MDRD) Non-Af 48 L, BUN/Creatinine Ratio 11.0, Glucose 112 H, Calcium 8.4 L, Total Bilirubin 0.60, AST 34, ALT 25, Alkaline Phosphatase 36 L, Total Protein 5.9 L, Albumin 2.5 L, Globulin 3.4, Albumin/Globulin Ratio 0.7 L Micro: Microbiology 07/12/24 08:50 Sputum, Expectorated/Coughed Gram Stain - Final 07/12/24 09:53 Mucosa - Nose Coronavirus COVID-19 PCR - Final 07/12/24 09:53 Mucosa - Nose Respiratory Panel (PCR) - Final 07/11/24 23:05 Urine, Clean Catch Urine Culture - Preliminary Culture exhibits no growth. 07/11/24 08:00 Urine, Clean Catch Legionella Antigen - Final 07/11/24 08:00 Urine, Clean Catch Streptococcus pneumoniae Antigen (M - Final Radiography Diagnostic Testing: Radiology Impression Chest X-Ray 07/11/24 21:28 IMPRESSION: Patchy retrocardiac infiltrate consistent with pneumonia. Recommend short-term follow-up to complete resolution. Electronically Signed: Gerardo Barnhart MD at 22:48 EDT , Rhythm Strip Rhythm Strip: Sinus Rhythm Rate: 75 Ectopy: None Physical Exam Narrative General: Alert, oriented, no apparent distress HEENT: Atraumatic, normocephalic Eyes: Anicteric, normal conjunctiva, extraocular movements grossly intact Neck: Supple Respiratory: Clear to auscultation bilaterally, normal respiratory effort Cardiovascular: Regular rate and rhythm GI: Soft, nontender, nondistended Extremities: No edema Musculoskeletal: Moving all extremities Neuro: No overt focal neurological deficits Skin: No rashes appreciated, patient without cellulitic changes around right sided port, does have some bleeding on left elbow from previous scrape Psych: Cooperative Assessment & Plan Assessment/Plan (1) VANESSA (acute kidney injury): (2) B-cell lymphoma: QUALIFIERS: B-cell lymphoma type: unspecified B-cell Lymphoma site: unspecified region Qualified Code(s): C85.10 - Unspecified B-cell lymphoma, unspecified site (3) Neutropenic fever: PLAN: Plan # Neutropenic fever -Patient overnight spiking temperatures of 101.8 -UA not suggestive of UTI -Blood cultures ordered -Covid and resp panel negative -Chest x-ray suggestive of pneumonia however lungs sound clear, no significant cough, no shortness of breath, unclear significance -On vancomycin, Zosyn, given the query of pneumonia also azithromycin -Fever improved after broadening antibiotics -Discussed with patient's hematology oncology doctor, Dr. Pagan, and started patient on Granix daily -Infectious disease consulted as well # Pancytopenia -Likely secondary to underlying hematologic/oncologic problems -Will need to continue follow-up on outpatient basis -07/12: Worsening of all 3 cell lines, patient with worsening neutropenia and worsening thrombocytopenia. Discussed with patient's hematology/oncology doctor. Granix started. Transfuse for hemoglobin < 7.5 and platelet count <20 # Near syncope with falls and generalized weakness -Suspect secondary to dehydration as evidenced by elevated BUN and creatinine with symptomatic hypotension -Treat underlying medical etiology -IV fluids -Blood pressure significantly improved today -PT/OT -07/12: Improving after IV fluids and antibiotics to treat underlying infection, PT/OT # VANESSA suspect secondary to dehydration -Baseline creatinine around 1?1.2 -On admission BUN 26 with creatinine 1.86 -Patient received IV fluids and this a.m. BUN 25 with creatinine 1.68 -07/12: Creatinine down to 1.54 today, last in our system in April was 1.[address] 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 Pagan -07/12: Discussed with patient's hematology oncology doctor, okay to hold Brukinsa. Patient has the mantle cell lymphoma was also found to have lesions in his liver which were biopsied and were found to be non-small cell. He underwent 4 cycles of pemetrexed, Keytruda, carboplatin 3 weeks apart with last treatment 06/14. On July 05 he had just Keytruda and pemetrexed. # History of coronary artery disease -Continue Plavix -07/12: If further dropping of platelets will need to weigh risks and benefits of holding Plavix Chronic medical problems: # COPD/history of pulmonary fibrosis -Continue inhalers, breathing seems to be at baseline -Follows with pulmonology on outpatient basis #GERD -Continue PPI #Chronic BPH with obstruction -Continue home medications # Depression and anxiety -Continue home medication #DVT ppx: SCDs given platelet count Roslyn Cason MD Time spent in the patient's overall evaluation,decision-making process, review of diagnostic data, adjustment of management, discussion with other providers, nursing nursing and ancillary staff involved in patient's care documentation, 43 minutes Charges/Coding Visit Charges Inpatient E&M: 27834 Subs Hosp L2
[2024-07-12] MEDS: Gabapentin 300 MG Capsule PO ×2 (17:44→21:22)
[2024-07-12] MEDS: TBO-FILGRASTIM 480 MCG/0.8 ML ML SC (17:52)
[2024-07-12] MEDS: 0.9% Saline Lock 10 ML Syringe IV (18:27)
[2024-07-12] MEDS: Ondansetron 4 MG/2 ML Vial IV (18:27)
[2024-07-12] MEDS: Calcium Carb/Vitamin D 1 TABLET Tablet PO (21:21)
[2024-07-12] MEDS: Atorvastatin Calcium 20 MG Tablet PO (21:21)
[2024-07-12] MEDS: traZODone 100 MG Tablet PO (21:21)
[2024-07-12] MEDS: Tamsulosin HCl 0.4 MG Capsule 0.8 MG PO (21:21)
[2024-07-13] VITALS (20 sets, daily range): BP systolic 102–163; BP diastolic 47–79; PULSE 79–125; RESP 14–20; TEMP 36.4–39.1; O2SAT 90–99; BMI 29.0
[2024-07-13] MEDS: Vancomycin IV 1,000 MG/200 ML BAG 200 MG IV ×2 (03:27→15:54)
--- NOTE | 2024-07-13 03:30 | NURSING ---
VANC HUNG AT THIS TIME D/T ZOSYN WAS STILL INFUSING. COMMUNICATION HAD BEEN SENT TO PHARMACY ASKING TO ADJUST TIME. ZOSYN WAS HUNG AROUND 2300 D/T ZITHROMAX STILL INFUSING. PTS BAND WOULD NOT SCAN WHEN VANC WAS HUNG
[2024-07-13] MEDS: Piperacil/Tazobactam 3.375 GM in 0.9% Normal Saline (50mL MB+) 50 ML IV ×3 (05:40→23:47)
[2024-07-13] MEDS: Gabapentin 300 MG Capsule PO ×2 (05:42→22:20)
[2024-07-13] MEDS: Acetaminophen 325 MG Tablet 650 MG PO ×2 (05:45→15:01)
[2024-07-13] MEDS: Budesonide Respules 0.5 MG/2 ML AMPUL.NEB. INHALATION ×2 (07:07→19:25)
[2024-07-13] MEDS: Albuterol 2.5 MG/3 ML VIAL.NEB. INHALATION (07:07)
[2024-07-13 07:31] LABS: Hematocrit 23.1 % (40-54); Hemoglobin 7.6 g/dL (13.0-16.5); Mean Corp Hgb Conc 32.9 g/dL (32-36); Mean Corpuscular Hgb 30.5 pg (27.0-32.0); Mean Corpuscular Volume 92.8 fL (80-94); Mean Platelet Vol. 10.4 fl (6.2-12.0); POSITIVE COUNT YES; POSITIVE DIFFERENTIAL YES; POSITIVE MORPHOLOGY YES; Platelet Count 66 K/mm3 (150-450); RBC Distribution Width CV 15.8 % (11.6-14.6); RBC Distribution Width SD 53.8 fl (35.1-43.9); Red Blood Count 2.49 M/mm3 (4.6-6.2)
--- NOTE | 2024-07-13 07:45 | PCM.PN.HOSP ---
Reason for Visit Reason for Visit: Diagnoses Unspecified B-cell lymphoma, unspecified site (07/11/24) Antineoplastic chemotherapy induced pancytopenia (07/11/24) Neutropenia, unspecified (07/11/24) Hypokalemia (07/11/24) Acute kidney failure, unspecified (07/11/24) Dizziness and giddiness (07/11/24) Fever presenting with conditions classified elsewhere (07/11/24) Syncope and collapse (07/11/24) Unspecified injury of head, initial encounter (07/11/24) Other injury of unspecified body region, initial encounter (07/11/24) Adverse effect of antineoplastic and immunosuppressive drugs, initial encounter (07/11/24) Subjective Subjective Patient is a 73-year-old male with past medical history significant 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 Patient was noted to have significant pancytopenia admitted to regular nursing floor for further management Objective Data Objective Data Vital Signs: Vital Signs Temp Pulse Resp BP Pulse Ox O2 Del Method O2 Flow Rate 98.5 F 92 16 127/75 H 92 Room Air 2 07/13/24 06:53 07/13/24 07:08 07/13/24 07:08 07/13/24 06:53 07/13/24 07:08 07/13/24 07:08 07/10/24 22:19 Oxygen Flow Rate (L/min) 2 Oxygen Delivery Method Room Air Weight: 94.3 kg Body Mass Index (BMI) 29.0 Intake & Output: Intake and Output for Last 24 Hours 07/11/24 07/12/24 07/13/24 23:59 23:59 23:59 Intake Total 2322.5 / 2322.5 3647.5 / 3647.5 1247.5 / 1247.5 Output Total 1100 / 1100 Balance 1222.5 / 1222.5 3647.5 / 3647.5 1247.5 / 1247.5 Lab / Micro Data 07/13/24 06:50 07/13/24 06:50 Labs: Laboratory Results - last 24 hr 07/12/24 07:01: WBC 1.4 L*, RBC 2.67 L, Hgb 8.2 L, Hct 24.5 L, MCV 91.8, MCH 30.7, MCHC 33.5, RDW Std Deviation 54.2 H, RDW Coeff of Thor 16.1 H, Plt Count 89 L, MPV 11.4, Immature Gran % (Auto) 0.700, Neut % (Auto) 41.8 L, Lymph % (Auto) 48.9 H, [place] % (Auto) 6.5, Eos % (Auto) 1.4, Baso % (Auto) 0.7, Absolute Neuts (auto) 0.6 L, Absolute Lymphs (auto) 0.68 L, Nucleated RBC % 0, Diff Path Review Reviewed, Platelet Estimate MOD DEC, Sodium 139, Potassium 3.3 L, Chloride 108 H, Carbon Dioxide 24.0, Anion Gap 7, BUN 17, Creatinine 1.54 H, Estim Creat Clear Calc 51.59, Est GFR (MDRD) Af Amer 57 L, Est GFR (MDRD) Non-Af 48 L, BUN/Creatinine Ratio 11.0, Glucose 112 H, Calcium 8.4 L, Total Bilirubin 0.60, AST 34, ALT 25, Alkaline Phosphatase 36 L, Total Protein 5.9 L, Albumin 2.5 L, Globulin 3.4, Albumin/Globulin Ratio 0.7 L Micro: Microbiology 07/12/24 08:50 Sputum, Expectorated/Coughed Gram Stain - Final 07/12/24 09:53 Mucosa - Nose Coronavirus COVID-19 PCR - Final 07/12/24 09:53 Mucosa - Nose Respiratory Panel (PCR) - Final 07/11/24 23:05 Urine, Clean Catch Urine Culture - Preliminary Culture exhibits no growth. 07/11/24 08:00 Urine, Clean Catch Legionella Antigen - Final 07/11/24 08:00 Urine, Clean Catch Streptococcus pneumoniae Antigen (M - Final Rhythm Strip Rhythm Strip: Sinus Rhythm Rate: 75 Ectopy: None Physical Exam Narrative GENERAL: cooperative HEENT: Atraumatic; normocephalic EYES; Anicteric, Normal Conjunctiva NECK; supple, normal thyroid, RESPIRATORY: Diminished to auscultation CARDIOVASCULAR: Regular S1 S2, GI: soft, normoactive bowel sounds, : No Renal angle tenderness; EXTREMITIES: No edema, no clubbing, MUSCULOSKELETAL: no muscle wasting NEURO: Awake; no lateralizing signs. SKIN: Bruising dorsal surface of the left hand PSYCH; Flat affect Const alert, oriented x3, no apparent distress and average body habitus General Appearance: cooperative HEENT normocephalic and hearing grossly normal bilaterally Eyes PERRL and EOMs intact bilaterally Neck no lymphadenopathy and supple Resp normal respiratory effort, no retractions, no use of accessory muscles and clear to auscultation bilaterally Cardio regular rate and regular rhythm GI normal to inspection, nondistended, normoactive bowel sounds, soft to palpation, non-tender and non-distended Extremity Extremity Narrative: Limited ROM to the Left hip that is chronic from his previous fall with hip fracture. Skin Skin Narrative: Patient has skin tears to both upper extremities and a contusion over his Left parietal area. 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 Patient was noted to have significant pancytopenia admitted to regular nursing floor for further management 1. Near syncope ? Suspected to be secondary to dehydration patient was found to have elevated BUN and creatinine with relative hypotension resuscitated with IV fluids 2. Neutropenic fever ? Source not clear if patient remains on broad-spectrum antibiotic therapy with vancomycin and Zosyn 3. Pancytopenia ? Related to patient treatment and underlying malignancy plan is to transfuse if hemoglobin falls below 7.5 or platelet falls below 20. Patient was started on Granix 4. Acute kidney injury Secondary to dehydration resolved with rehydration 5. 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 Zapata 6. History of coronary artery disease -Continue Plavix 7. COPD Manage bronchodilator treatment as needed History of pulmonary fibrosis This patient is followed by pulmonary medicine as outpatient 9. Depression with anxiety ? Patient is on citalopram as well as clonazepam 10. Dyslipidemia ? Patient is on fenofibrate and rosuvastatin 11. GERD patient is on PPI daily continue 12. DVT prophylaxis ? Bilateral SCDs only given patient low platelet Time spent in the patient's overall evaluation,decision-making process, review of diagnostic data, adjustment of management, discussion with other providers, nursing nursing and ancillary staff involved in patient's care documentation, 50 minutes Charges/Coding Visit Charges Inpatient E&M: 55434 [facility] Hosp L3
[2024-07-13] MEDS: Smz/Tmp Ds Tablet 1 TABLET PO (07:59)
[2024-07-13] MEDS: Citalopram 20 MG Tablet PO (07:59)
[2024-07-13] MEDS: Folic Acid 1 MG Tablet PO (08:00)
[2024-07-13] MEDS: Multivitamins,Therapeutic Tablet 1 TABLET PO (08:00)
[2024-07-13] MEDS: Loratadine 10 MG Tablet PO (08:00)
[2024-07-13] MEDS: Fenofibrate 145 MG Tablet PO (08:01)
[2024-07-13] MEDS: Pantoprazole Sodium 40 MG Tablet PO (08:01)
[2024-07-13] MEDS: Clopidogrel Bisulfate 75 MG Tablet PO (08:01)
[2024-07-13] MEDS: ZANUBRUTINIB 80 MG 160 MG PO ×2 (08:01→22:09)
[2024-07-13] MEDS: Ipratropium Bromide 0.06% NASAL SPRAY 2 SPRAY NASAL (08:02)
[2024-07-13] MEDS: Fluorometholone 0.1% Susp 1 DRP DROPS EACH EYE ×2 (08:03→19:02)
[2024-07-13] MEDS: Acyclovir 200 MG Capsule 400 MG PO ×2 (08:04→22:08)
[2024-07-13 08:07] LABS: White Blood Count 1.3 K/mm3 (4.4-11.0)
[2024-07-13] MEDS: TBO-FILGRASTIM 480 MCG/0.8 ML ML SC (08:08)
[2024-07-13 08:26] LABS: ALB/GLOB Ratio 0.7 RATIO (0.9-2.4); AST(SGOT) 41 U/L (15-37); Alanine Aminotransfer ALT/SGPT 27 U/L (16-61); Albumin, Serum 2.4 g/dL (3.2-5.0); Alkaline Phosphatase 35 U/L (45-117); Anion Gap 4 (5-15); BUN 11 mg/dL (7-18); BUN/Creat Ratio 6.8 RATIO (10-20); Calcium,Total 8.3 mg/dL (8.5-10.1); Chloride 108 mmol/L (98-107); Creatinine, Serum 1.62 mg/dL (0.70-1.30); EST Glomerular Filtration Rate 45 mL/min (>60); Est Glom Filt Rate - Afr Amer 54 mL/min (>60); Estimated Creatinine Clearance 49.04 ml/min; Globulin 3.4 g/dL (2.2-4.2); Glucose 106 mg/dL (74-106); Potassium 3.2 mmol/L (3.5-5.1); Protein, Total 5.8 g/dL (6.4-8.2); Sodium Level 139 mmol/L (136-145)
[2024-07-13 10:25] LABS: Differential Indicated MANUAL DIFF
[2024-07-13 10:37] LABS: Lymphocyte 51 % (19-41); Metamyelocyte 3 % (0-1); Monocyte 11 % (0-10); Myelocyte 2 % (0-0); Neutrophil-Segmented 33 % (47-70); Total Cells Counted 100 (MANUAL DIFF)
[2024-07-13 10:38] LABS: Anisocytosis 1+
[2024-07-13 10:39] LABS: Absolute Neutrophil Count 0.4 X10^3/uL (2.0-7.7)
[2024-07-13 13:17] LABS: Pathologist Review Reviewed
--- NOTE | 2024-07-13 13:33 | NURSING ---
pt used call light. stated he went into bathroom, passed out. fell to floor. woke up, and returned to bed. pt denies injury. notified.
--- NOTE | 2024-07-13 13:39 | CT_ITS ---
STUDY: CT BRAIN WITHOUT CONTRAST REASON FOR EXAM: Male, 73 years old. Head injury due to a fall. RADIATION DOSAGE (If Supplied By Facility): CTDIvol = ( 44.99 ) mGy, DLP = ( 829.85 ) mGycm TECHNIQUE: Transaxial CT imaging of the brain was performed without administration of intravenous contrast material. Individualized dose optimization techniques were used for this CT. COMPARISON: Comparison is made with prior study July 10, 2024. FINDINGS: Normal soft tissue structures. Normal calvarium. There is mild cerebral atrophy with widening of the extra-axial spaces and ventricular dilatation. Normal white matter tracts of the cerebral hemispheres. Normal basal ganglia and thalami. Normal brainstem. Normal cerebellum. There is no intracranial hemorrhage. There are no findings of an acute ischemic infarction. Mucosal thickening of the maxillary sinuses more prominent on the right side. Stable opacification of the mastoid air cells. CT/Brain/Head without Contrast IMPRESSION: Chronic involutional changes of the brain. Mucosal thickening of the maxillary sinuses worse on the right side. Electronically Signed: Andrew Gee MD at 14:22 EDT ,
--- NOTE | 2024-07-13 13:39 | PCM.CONS.GEN ---
Assessment & Plan Assessment/Plan (1) Neutropenic fever: PLAN: Port in place. ANC remains low. Cxs neg so far, resp pcr panel neg. On azithro/vanc/zosyn. Will follow, thank you HPI Consult Data Date of Consult: 07/13/24 HPI Narrative Reason for Consultation: neutropenic fever HPI Narrative: RENY GUTIÉRREZ, is a 73 M with h/o B cell lymphoma, copd, presented with 2-3 days fever, chills, fatigue. Has R chest port, no issues at that site. No sick contacts, no recent travel. No cough, SOb, abd pain, n/v/d, dysuria, rash. Admitted on zosyn, still fever, added vanc 07/12, now feeling better this afternoon, no fever overnight. Azithro added as well. Full ROS performed and neg except as noted above. [facility] Medical History Hearing loss, left Hearing loss, right Cancer Alcohol abuse Anxiety Diabetes Osteoporosis History of leg surgery ANCA (obstructive sleep apnea) GERD (gastroesophageal reflux disease) B-cell lymphoma Hypoxia COPD (chronic obstructive pulmonary disease) Pulmonary fibrosis Acute respiratory insufficiency Fluid overload Closed left hip fracture Hypertension (~07/22/23) Home Medications ?Medication ?Instructions ?Recorded ?Last Taken ?Type citalopram 20 mg tablet 20 mg PO DAILY depression 10/09/15 04/30/20 History trazodone 100 mg tablet 100 mg PO QHS sleep 10/09/15 04/29/20 History metoprolol tartrate 25 mg tablet 12.5 mg PO BID heart 08/22/18 04/30/20 History clonazepam 1 mg tablet 1 mg PO QHS anxiety 04/30/20 04/29/20 History ipratropium bromide 21 mcg (0.03 2 sprays NS DAILY sinus drainage 04/30/20 Unknown History %) nasal spray multivitamin with folic acid 400 1 tab PO DAILYCM supplement 04/30/20 04/30/20 History mcg tablet tamsulosin 0.4 mg capsule 0.8 mg PO QHS prostate 04/30/20 04/29/20 History cetirizine 10 mg capsule (Zyrtec) 10 mg PO DAILY 05/14/20 Unknown History omeprazole 40 mg capsule,delayed 40 mg PO DAILY 05/14/20 Unknown History release albuterol sulfate 90 mcg/actuation 2 puff inhalation Q4H PRN 07/08/22 Unknown Rx aerosol inhaler shortness of breath or wheezing #3 device clopidogrel 75 mg tablet 75 mg PO DAILY 07/08/22 Unknown History rosuvastatin 20 mg tablet 10 mg PO DAILY 07/08/22 Unknown History budesonide-formoterol HFA 160 2 puff inhalation BID #3 device 10/27/23 Unknown Rx mcg-4.5 mcg/actuation aerosol inhaler fenofibrate nanocrystallized 145 145 mg PO QHS 10/27/23 Unknown History mg tablet acyclovir 400 mg tablet 400 mg PO BID 04/24/24 Unknown History calcium carbonate 600 mg-vitamin 1 cap PO QHS 04/24/24 Unknown History D3 5 mcg (200 unit) capsule (Calcium 600 + D(3)) fluticasone propionate 50 2 spray intranasal DAILY 04/24/24 Unknown History mcg/actuation nasal spray,suspension (24 Hour Allergy Relief) folic acid 1 mg tablet 1 mg PO DAILY 04/24/24 Unknown History sulfamethoxazole 800 1 tab PO MOWEFR 04/24/24 Unknown History mg-trimethoprim 160 mg tablet zanubrutinib 80 mg capsule 160 mg PO BID 04/24/24 Unknown History (Brukinsa) fluorometholone 0.1 % eye 1 drp ophthalmic (eye) BID EYES 07/11/24 Unknown History drops,suspension gabapentin 300 mg capsule 300 mg PO TID LEG PAIN 07/11/24 Unknown History ondansetron HCl 8 mg tablet 8 mg PO Q8H PRN PRN nausea 07/11/24 Unknown History pantoprazole 40 mg tablet,delayed 40 mg PO DAILY 07/11/24 Unknown History release prochlorperazine maleate 10 mg 10 mg PO Q6H PRN PRN 07/11/24 Unknown History tablet nausea/vomiting rosuvastatin 10 mg tablet 10 mg PO QHS 07/11/24 Unknown History Allergy/AdvReac Type Severity Reaction Status Date / Time No Known Allergies Allergy Verified 07/10/24 21:20 Surgical History H/O heart artery stent History of shoulder surgery Social History Smoking Status: Former smoker quit date: 11/23/06 Tobacco: How many years used: 44 Physical Exam Const alert, oriented x3 and no apparent distress General Appearance: lethargic HEENT normocephalic and head/scalp atraumatic Eyes PERRL and EOMs intact bilaterally Eyes Narrative: no thrush Neck supple and No nodes Resp normal air movement and clear to auscultation bilaterally Cardio regular rate and regular rhythm GI soft to palpation, non-tender and non-distended Extremity General Extremity: Negative for edema Skin no rashes or lesions noted Skin Narrative: R chest port no inflammation Neuro CN's II-XII intact bilaterally Lab / Micro Data Attestation: I reviewed the patient's lab results. 07/13/24 06:50 07/13/24 06:50 Labs: Laboratory Results - last 24 hr 07/13/24 06:50: WBC 1.3 L*, RBC 2.49 L, Hgb 7.6 L, Hct 23.1 L, MCV 92.8, MCH 30.5, MCHC 32.9, RDW Std Deviation 53.8 H, RDW Coeff of Thor 15.8 H, Plt Count 66 L, MPV 10.4, Immature Gran % (Auto) [employer]NITTER, Neut % (Auto) F[employer] KNITTER, Lymph % (Auto) [employer] KNITTER, [place] % (Auto) [employer]MENT KNITTER, Eos % (Auto) [employer] KNITTER, Baso % (Auto) [employer]MENT KNITTER, Absolute Neuts (auto) 0.4 L, Absolute Lymphs (auto) 0.70 L, Total Counted 100, Neutrophils % (Manual) 33 L, Lymphocytes % (Manual) 51 H, Monocytes % (Manual) 11 H, Metamyelocytes % 3 H, Myelocytes % 2 H, Nucleated RBC % [employer], Diff Path Review Reviewed, Anisocytosis 1+, Sodium 139, Potassium 3.2 L, Chloride 108 H, Carbon Dioxide 27.0, Anion Gap 4 L, BUN 11, Creatinine 1.62 H, Estim Creat Clear Calc 49.04, Est GFR (MDRD) Af Amer 54 L, Est GFR (MDRD) Non-Af 45 L, BUN/Creatinine Ratio 6.8 L, Glucose 106, Calcium 8.3 L, Total Bilirubin 0.90, AST 41 H, ALT 27, Alkaline Phosphatase 35 L, Total Protein 5.8 L, Albumin 2.4 L, Globulin 3.4, Albumin/Globulin Ratio 0.7 L Micro: Microbiology 07/12/24 08:50 Sputum, Expectorated/Coughed Gram Stain - Final 07/12/24 08:50 Sputum, Expectorated/Coughed Respiratory Culture - Preliminary Appears to be normal respiratory mauricio. Further studies to follow. 07/12/24 09:53 Mucosa - Nose Coronavirus COVID-19 PCR - Final 07/12/24 09:53 Mucosa - Nose Respiratory Panel (PCR) - Final Rhythm Strip Rhythm Strip: Sinus Rhythm Rate: 75 Ectopy: None
[2024-07-13] MEDS: Ondansetron 4 MG/2 ML Vial IV (15:03)
--- NOTE | 2024-07-13 19:09 | EKG12_ITS ---
Test Reason : A-FIB Blood Pressure : / mmHG Vent. Rate : 109 BPM Atrial Rate : 000 BPM P-R Int : 000 ms QRS Dur : 150 ms QT Int : 422 ms P-R-T Axes : 000 006 002 degrees QTc Int : 568 ms Atrial fibrillation with rapid ventricular response Right bundle branch block Abnormal ECG When compared with ECG of 10-JUL-2024 21:21, MANUAL COMPARISON REQUIRED, DATA IS UNCONFIRMED Confirmed by MICHAEL NAVA, TONG ([id number]), mapping editor ROWDY KIM ([id number]) on 07/15/2024 7:21:24 AM Referred By: KENNETH Confirmed By:KALPANA RODRIGUEZ MD
--- NOTE | 2024-07-13 19:42 | PCM.HOSP.N ---
Hospitalist Note Per discussion with nursing patient has syncopal episode in the bathroom earlier today at which time the hospitalist was notified and placed him on telemetry. About 7 PM he was noted to have heart rates in 150s and EKG was obtained he was found to be in A-fib with RVR. There is no previous documentation that he has a history of this. Blood pressure is relatively stable so we will give 5 mg IV metoprolol x 1 dose and start p.o. twice daily to start this evening with IV metoprolol 2.5 mg every 6 hours for heart rates greater than 120 on a consistent basis. Will hold on anticoagulation due to thrombocytopenia with platelet count of 66,000. TSH was ordered on admission and found to be low at 0.325 so we will obtain reflex free T4. Echocardiogram ordered for a.m. Patient transferred to PCU given new onset A-fib with RVR.
[2024-07-13] MEDS: Metoprolol Tartrate 5 MG/5 ML Vial IV (19:49)
--- NOTE | 2024-07-13 20:22 | ECHOCS_ITS ---
Reason For Study: Afib/Flutter Procedure This was a 2D Doppler, Color Flow transthoracic echocardiogram. The study was technically difficult. Contrast injection was performed. Unable to perform strain d/t needed use of Definity. Exam performed portable in patient room. Left Ventricle Normal LV size. The estimated ejection fraction is 60 %. Diastolic function is indeterminate. No regional wall motion abnormalities noted. Right Ventricle Normal RV size. Normal systolic function. Atria The left atrium is mildly enlarged. Normal right atrium. No doppler evidence for ASD. Mitral Valve There is no mitral valve stenosis. Mild (1+) mitral valve insufficiency. Tricuspid Valve There is no tricuspid stenosis. Trivial tricuspid valve insufficiency. Pulmonary artery systolic pressure is 40-45 mmHg. Aortic Valve Trisinus/trileaflet aortic valve. There is no aortic stenosis. Trivial aortic valve insufficiency. Pulmonic Valve There is no pulmonic valvular stenosis. Trivial pulmonic valve insufficiency. Great Vessels Normal aortic root. Pericardium/Pleural No pericardial effusion. Medication Diluted definity 5.5ml given slow IV push to enhance endocardial definition. MMode/2D Measurements & Calculations LVIDd: 5.0 cm IVSd: 1.5 cm Ao root diam: 3.6 cm LVIDs: 3.7 cm LVPWd: 1.4 cm LA dimension: 5.6 cm RVDd: 4.4 cm FS: 27.2 % LAV(MOD-bp): 82.9 ml LA A4 area: 27.1 cm2 RA A4 area: 21.9 cm2 LAV(MOD-bp) Indexed: 38.7 ml/m2 LAV(MOD-sp2): 75.8 ml LAV(MOD-sp4): 80.5 ml TAPSE: 2.2 cm Time Measurements MV dec time: 0.21 sec Doppler Measurements & Calculations MV E max jayesh: 65.4 cm/sec Lat Peak E' Jayesh: 10.8 cm/sec Med Peak E' Jayesh: 9.5 cm/sec MV A max jayesh: 85.3 cm/sec E/E' lat: 6.0 E/E' med: 6.9 MV E/A: 0.77 MV V2 max: 90.5 cm/sec MV P1/2t max jayesh: 78.4 cm/sec Ao V2 max: 157.9 cm/sec MV max P.3 mmHg MV P1/2t: 71.8 msec Ao max P.0 mmHg MV V2 mean: 48.1 cm/sec MV dec slope: 319.8 cm/sec2 Ao V2 mean: 100.8 cm/sec MV mean P.1 mmHg MVA(P1/2t): 3.1 cm2 Ao mean P.8 mmHg MV V2 VTI: 24.1 cm Ao V2 VTI: 29.2 cm AV (velocity ratio): 0.79 AI max jayesh: 411.7 cm/sec LV V1 max: 124.5 cm/sec MR max jayesh: 475.4 cm/sec AI max P.9 mmHg LV V1 max P.2 mmHg MR max P.4 mmHg LV V1 mean P.3 mmHg AI dec slope: 267.5 cm/sec2 LV V1 mean: 84.5 cm/sec AI P1/2t: 450.8 msec LV V1 VTI: 23.0 cm PA V2 max: 104.4 cm/sec TR max jayesh: 304.9 cm/sec PA max PG (full): 1.5 mmHg TR max P.2 mmHg PA V2 mean: 79.2 cm/sec PA mean PG (full): 1.0 mmHg ECHO/Echo Complete W/ Contrast Interpretation Summary The estimated ejection fraction is 60 %. Diastolic function is indeterminate. The left atrium is mildly enlarged. Mild (1+) mitral valve insufficiency. Trivial aortic valve insufficiency. Ordering Physician: Joleen Salinas Performed By: Shorty Hoyt RCS
--- NOTE | 2024-07-13 21:14 | EKG12_ITS ---
Test Reason : A-FIB Blood Pressure : / mmHG Vent. Rate : 076 BPM Atrial Rate : 076 BPM P-R Int : 182 ms QRS Dur : 144 ms QT Int : 458 ms P-R-T Axes : 031 -55 017 degrees QTc Int : 515 ms Normal sinus rhythm Right bundle branch block Left anterior fascicular block Bifascicular block Cannot rule out Inferior infarct , age undetermined Abnormal ECG When compared with ECG of 13-JUL-2024 19:13, MANUAL COMPARISON REQUIRED, DATA IS UNCONFIRMED Confirmed by MICHAEL NAVA, TONG ([id number]), non linear editor ROWDY KIM ([id number]) on 07/15/2024 7:16:41 AM Referred By: Confirmed By:KALPANA RODRIGUEZ MD
[2024-07-13] MEDS: Tamsulosin HCl 0.4 MG Capsule 0.8 MG PO (22:08)
[2024-07-13] MEDS: traZODone 100 MG Tablet PO (22:08)
[2024-07-13] MEDS: Calcium Carb/Vitamin D 1 TABLET Tablet PO (22:08)
[2024-07-13] MEDS: Atorvastatin Calcium 20 MG Tablet PO (22:09)
[2024-07-13] MEDS: Azithromycin 500 MG in Dextrose 5%-Water (250mL Bag) 250 ML 250 MG IV (22:27)
[2024-07-13] MEDS: Metoprolol Tartrate 25 MG Tablet PO (22:29)
[2024-07-13] MEDS: 0.9 % NaCl (Sterile) Posiflush 10 mL IV (23:47)
[2024-07-14] VITALS (9 sets, daily range): BP systolic 103–123; BP diastolic 56–66; PULSE 74–116; RESP 16–20; TEMP 36.2–36.9; O2SAT 92–95; BMI 21.2
[2024-07-14 03:26] LABS: Hematocrit 22.3 % (40-54); Hemoglobin 7.3 g/dL (13.0-16.5); Mean Corp Hgb Conc 32.7 g/dL (32-36); Mean Corpuscular Hgb 29.9 pg (27.0-32.0); Mean Corpuscular Volume 91.4 fL (80-94); Mean Platelet Vol. 10.7 fl (6.2-12.0); POSITIVE COUNT YES; POSITIVE DIFFERENTIAL YES; POSITIVE MORPHOLOGY YES; RBC Distribution Width CV 15.6 % (11.6-14.6); Red Blood Count 2.44 M/mm3 (4.6-6.2)
[2024-07-14 03:34] LABS: Differential Indicated MANUAL DIFF; Platelet Count 45 K/mm3 (150-450)
[2024-07-14 03:43] LABS: ALB/GLOB Ratio 0.7 RATIO (0.9-2.4); AST(SGOT) 43 U/L (15-37); Alanine Aminotransfer ALT/SGPT 26 U/L (16-61); Albumin, Serum 2.3 g/dL (3.2-5.0); Alkaline Phosphatase 35 U/L (45-117); Anion Gap 5 (5-15); BUN 12 mg/dL (7-18); BUN/Creat Ratio 7.5 RATIO (10-20); Calcium,Total 8.1 mg/dL (8.5-10.1); Chloride 109 mmol/L (98-107); Creatinine, Serum 1.59 mg/dL (0.70-1.30); EST Glomerular Filtration Rate 46 mL/min (>60); Est Glom Filt Rate - Afr Amer 55 mL/min (>60); Estimated Creatinine Clearance 49.97 ml/min; Globulin 3.2 g/dL (2.2-4.2); Glucose 107 mg/dL (74-106); Potassium 2.9 mmol/L (3.5-5.1); Protein, Total 5.5 g/dL (6.4-8.2); Sodium Level 141 mmol/L (136-145); T4 Free Direct 1.28 ng/dL (0.76-1.46)
[2024-07-14 04:12] LABS: Vancomycin, Trough Level 16.6 ug/mL (5.0-15.0)
--- NOTE | 2024-07-14 04:27 | PCM.HOSP.N ---
Hospitalist Note Called as a.m. platelet count is critical at 45,000. Will hold Plavix for now. Last cardiac stent was reportedly in 2021.
--- NOTE | 2024-07-14 04:29 | PCM.RX.CS ---
Consult Antibiotic Management Pharmacy has been consulted to manage selected antibiotic: Vancomycin Type of Intervention Type of Consult: Follow-up Labs Labs: Sodium 141 mmol/L (136-145) 07/14/24 03:00 Potassium 2.9 mmol/L (3.5-5.1) L 07/14/24 03:00 Chloride 109 mmol/L (98-107) H 07/14/24 03:00 Carbon Dioxide 27.0 mmol/L (21.0-32.0) 07/14/24 03:00 Anion Gap 5 (5-15) 07/14/24 03:00 BUN 12 mg/dL (7-18) 07/14/24 03:00 Creatinine 1.59 mg/dL (0.70-1.30) H 07/14/24 03:00 Est GFR (MDRD) Af Amer 55 mL/min (>60) L 07/14/24 03:00 Est GFR (MDRD) Non-Af 46 mL/min (>60) L 07/14/24 03:00 BUN/Creatinine Ratio 7.5 RATIO (10-20) L 07/14/24 03:00 Glucose 107 mg/dL (74-106) H 07/14/24 03:00 Vancomycin Trough 16.6 ug/mL (5.0-15.0) H 07/14/24 03:00 Microbiology Microbiology: Microbiology 07/12/24 08:50 Sputum, Expectorated/Coughed Gram Stain - Final 07/12/24 08:50 Sputum, Expectorated/Coughed Respiratory Culture - Preliminary Appears to be normal respiratory mauricio. Further studies to follow. 07/12/24 09:53 Mucosa - Nose Coronavirus COVID-19 PCR - Final 07/12/24 09:53 Mucosa - Nose Respiratory Panel (PCR) - Final 07/11/24 23:05 Urine, Clean Catch Urine Culture - Preliminary Culture exhibits no growth. 07/11/24 08:00 Urine, Clean Catch Legionella Antigen - Final 07/11/24 08:00 Urine, Clean Catch Streptococcus pneumoniae Antigen (M - Final Pharmacy Plan for Drug Dosing Pharmacy Plan for Drug Dosing: Pharmacy Service will continue to monitor and adjust dosing as required. TROUGH 16.6 @ 11 HOURS. NO CHANGES, FOLLOW UP TROUGH IN 2 DAYS Follow-Up Labs Follow-Up Labs: Trough: Vancomycin Date/Time Labs Ordered Labs to be done on [date and time ordered]: 07/16 @ 8240
[2024-07-14 05:08] LABS: Neutrophil-Band 10 % (0-5); Neutrophil-Segmented 44 % (47-70); Total Cells Counted 100 (MANUAL DIFF)
[2024-07-14 05:09] LABS: Differential Comment SCANNED; Eosinophil 2 % (0-5); Lymphocyte 32 % (19-41); Metamyelocyte 5 % (0-1); Monocyte 6 % (0-10); Myelocyte 1 % (0-0)
[2024-07-14 05:10] LABS: Absolute Neutrophil Count 1.1 X10^3/uL (2.0-7.7); Platelet Estimate MKD DEC (ADEQ)
[2024-07-14 05:11] LABS: Absolute Lymphocyte Count 0.64 X10^3/uL (0.83-4.51)
[2024-07-14] MEDS: Vancomycin IV 1,000 MG/200 ML BAG 200 MG IV ×2 (05:14→17:40)
[2024-07-14] MEDS: Gabapentin 300 MG Capsule PO ×3 (05:16→21:31)
[2024-07-14] MEDS: 0.9% Saline Lock 10 ML Syringe IV (06:36)
[2024-07-14] MEDS: Piperacil/Tazobactam 3.375 GM in 0.9% Normal Saline (50mL MB+) 50 ML IV ×3 (06:36→21:33)
--- NOTE | 2024-07-14 07:37 | PCM.PN.HOSP ---
Reason for Visit Reason for Visit: Diagnoses Unspecified B-cell lymphoma, unspecified site (07/11/24) Antineoplastic chemotherapy induced pancytopenia (07/11/24) Neutropenia, unspecified (07/11/24) Hypokalemia (07/11/24) Acute kidney failure, unspecified (07/11/24) Dizziness and giddiness (07/11/24) Fever presenting with conditions classified elsewhere (07/11/24) Syncope and collapse (07/11/24) Unspecified injury of head, initial encounter (07/11/24) Other injury of unspecified body region, initial encounter (07/11/24) Adverse effect of antineoplastic and immunosuppressive drugs, initial encounter (07/11/24) Subjective Subjective Patient did experience an apparent syncopal episode the day prior was using the bathroom. Subsequently ordered to shifted to statics as well as head CT head CT came back unremarkable. Patient apparently went into A-fib with RVR later on in the evening necessitating patient being transferred to the progressive care unit. Objective Data Objective Data Vital Signs: Vital Signs Temp Pulse Resp BP Pulse Ox O2 Del Method O2 Flow Rate 98.0 F 88 18 117/63 93 Room Air 2 07/14/24 05:05 07/14/24 05:05 07/14/24 05:05 07/14/24 05:05 07/14/24 05:05 07/14/24 05:05 07/13/24 15:46 Oxygen Flow Rate (L/min) 2 Oxygen Delivery Method Room Air Weight: 68.946 kg Body Mass Index (BMI) 21.2 Intake & Output: Intake and Output for Last 24 Hours 07/12/24 07/13/24 07/14/24 23:59 23:59 23:59 Intake Total 3647.5 / 3647.5 3552.50 / 3552.50 250 / 250 Balance 3647.5 / 3647.5 3552.50 / 3552.50 250 / 250 Lab / Micro Data 07/14/24 03:00 07/14/24 03:00 Labs: Laboratory Results - last 24 hr 07/13/24 06:50: WBC 1.3 L*, RBC 2.49 L, Hgb 7.6 L, Hct 23.1 L, MCV 92.8, MCH 30.5, MCHC 32.9, RDW Std Deviation 53.8 H, RDW Coeff of Thor 15.8 H, Plt Count 66 L, MPV 10.4, Immature Gran % (Auto) FRAME CLEANER, Neut % (Auto) FRAME CLEANER, Lymph % (Auto) FRAME CLEANER, Young % (Auto) FRAME CLEANER, Eos % (Auto) FRAME CLEANER, Baso % (Auto) FRAME CLEANER, Absolute Neuts (auto) 0.4 L, Absolute Lymphs (auto) 0.70 L, Total Counted 100, Neutrophils % (Manual) 33 L, Lymphocytes % (Manual) 51 H, Monocytes % (Manual) 11 H, Metamyelocytes % 3 H, Myelocytes % 2 H, Nucleated RBC % FRAME CLEANER, Diff Path Review Reviewed, Anisocytosis 1+, Sodium 139, Potassium 3.2 L, Chloride 108 H, Carbon Dioxide 27.0, Anion Gap 4 L, BUN 11, Creatinine 1.62 H, Estim Creat Clear Calc 49.04, Est GFR (MDRD) Af Amer 54 L, Est GFR (MDRD) Non-Af 45 L, BUN/Creatinine Ratio 6.8 L, Glucose 106, Calcium 8.3 L, Total Bilirubin 0.90, AST 41 H, ALT 27, Alkaline Phosphatase 35 L, Total Protein 5.8 L, Albumin 2.4 L, Globulin 3.4, Albumin/Globulin Ratio 0.7 L 07/14/24 03:00: WBC 2.0 L, RBC 2.44 L, Hgb 7.3 L, Hct 22.3 L, MCV 91.4, MCH 29.9, MCHC 32.7, RDW Std Deviation 52.0 H, RDW Coeff of Thor 15.6 H, Plt Count 45 L*, MPV 10.7, Neut % (Auto) Not Reportable, Absolute Neuts (auto) 1.1 L, Absolute Lymphs (auto) 0.64 L, Total Counted 100, Neutrophils % (Manual) 44 L, Band Neutrophils % 10 H, Lymphocytes % (Manual) 32, Monocytes % (Manual) 6, Eosinophils % (Manual) 2, Metamyelocytes % 5 H, Myelocytes % 1 H, Differential Comment SCANNED, Diff Path Review May foll, Platelet Estimate MKD DEC, Sodium 141, Potassium 2.9 L, Chloride 109 H, Carbon Dioxide 27.0, Anion Gap 5, BUN 12, Creatinine 1.59 H, Estim Creat Clear Calc 49.97, Est GFR (MDRD) Af Amer 55 L, Est GFR (MDRD) Non-Af 46 L, BUN/Creatinine Ratio 7.5 L, Glucose 107 H, Calcium 8.1 L, Total Bilirubin 0.60, AST 43 H, ALT 26, Alkaline Phosphatase 35 L, Total Protein 5.5 L, Albumin 2.3 L, Globulin 3.2, Albumin/Globulin Ratio 0.7 L, Free T4 1.28, Vancomycin Trough 16.6 H Micro: Microbiology 07/12/24 08:50 Sputum, Expectorated/Coughed Gram Stain - Final 07/12/24 08:50 Sputum, Expectorated/Coughed Respiratory Culture - Preliminary Appears to be normal respiratory mauricio. Further studies to follow. 07/12/24 09:53 Mucosa - Nose Coronavirus COVID-19 PCR - Final 07/12/24 09:53 Mucosa - Nose Respiratory Panel (PCR) - Final 07/11/24 23:05 Urine, Clean Catch Urine Culture - Preliminary Culture exhibits no growth. 07/11/24 08:00 Urine, Clean Catch Legionella Antigen - Final 07/11/24 08:00 Urine, Clean Catch Streptococcus pneumoniae Antigen (M - Final Radiography Diagnostic Testing: Radiology Impression Brain CT 07/13/24 13:39 IMPRESSION: Chronic involutional changes of the brain. Mucosal thickening of the maxillary sinuses worse on the right side. Electronically Signed: Andrew Gee MD at 14:22 EDT Reading Location ID and State: [address] [place] [address] , Service support , Rhythm Strip Rhythm Strip: Sinus Rhythm Rate: 75 Ectopy: None Physical Exam Narrative GENERAL: cooperative HEENT: Atraumatic; normocephalic EYES; Anicteric, Normal Conjunctiva NECK; supple, normal thyroid, RESPIRATORY: Diminished to auscultation CARDIOVASCULAR: Regular S1 S2, GI: soft, normoactive bowel sounds, : No Renal angle tenderness; EXTREMITIES: No edema, no clubbing, MUSCULOSKELETAL: no muscle wasting NEURO: Awake; no lateralizing signs. 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 Patient was noted to have significant pancytopenia admitted to regular nursing floor for further management 1. Near syncope ? Suspected to be secondary to dehydration patient was found to have elevated BUN and creatinine with relative hypotension resuscitated with IV fluids ? 07/14/2024; patient had a syncopal episode was using the bowel from on 07/13/2024. Ordered every shift orthostatic checks other CT of the head which demonstrated chronic involutional changes of the brain. Mucosal thickening of the maxillary sinuses worse on the right side. Patient apparently went into A-fib with RVR later on in the evening necessitating patient being transferred to the progressive care unit for continuous telemetry eval 2D echo ordered. Do suspect patient syncopal episode to be secondary to his bradycardia. 2. Transient A-fib ? Heart rate went as high as 150 EKG demonstrated A-fib with bifascicular block did receive metoprolol heart rate this a.m. is in the 70s. Patient had been placed on continuous telemetry monitoring with episodic bradycardia.. Consult placed to cardiology Case discussed with Dr. Negron 3. Neutropenic fever ? Source not clear if patient remains on broad-spectrum antibiotic therapy with vancomycin and Zosyn ? 07/14/2024 WBC count up to 2.0 4. Pancytopenia ? Related to patient treatment and underlying malignancy plan is to transfuse if hemoglobin falls below 7.5 or platelet falls below 20. Patient was started on Granix ? 07/14/2024 hemoglobin 7.3 platelet count 44 we will continue with monitoring with daily CBC with differential 5. Acute kidney injury Secondary to dehydration resolved with rehydration 6. 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 Zapata 7. History of coronary artery disease -Patient on Plavix held given the low platelet 8. COPD Managed bronchodilator treatment as needed 9. Depression with anxiety ? Patient is on citalopram as well as clonazepam 10. Dyslipidemia ? Patient is on fenofibrate and rosuvastatin 11. GERD patient is on PPI daily continue 12. History of pulmonary fibrosis This patient is followed by pulmonary medicine as outpatient 13. DVT prophylaxis ? Bilateral SCDs only given patient low platelet Time spent in the patient's overall evaluation,decision-making process, review of diagnostic data, adjustment of management, discussion with other providers, nursing nursing and ancillary staff involved in patient's care documentation, 52 minutes Charges/Coding Visit Charges Inpatient E&M: 64662 Subs Hosp L3
[2024-07-14] MEDS: Folic Acid 1 MG Tablet PO (08:04)
[2024-07-14] MEDS: Acyclovir 200 MG Capsule 400 MG PO ×2 (08:04→21:32)
[2024-07-14] MEDS: Citalopram 20 MG Tablet PO (08:04)
[2024-07-14] MEDS: Ipratropium Bromide 0.06% NASAL SPRAY 2 SPRAY NASAL (08:05)
[2024-07-14] MEDS: Pantoprazole Sodium 40 MG Tablet PO (08:05)
[2024-07-14] MEDS: Fenofibrate 145 MG Tablet PO (08:05)
[2024-07-14] MEDS: ZANUBRUTINIB 80 MG 160 MG PO ×2 (08:07→21:34)
[2024-07-14] MEDS: Multivitamins,Therapeutic Tablet 1 TABLET PO (08:08)
[2024-07-14] MEDS: Loratadine 10 MG Tablet PO (08:08)
[2024-07-14] MEDS: Polyethylene Glycol 3350 17 GM PACKET PO (08:09)
[2024-07-14] MEDS: Fluorometholone 0.1% Susp 1 DRP DROPS EACH EYE (08:10)
[2024-07-14] MEDS: Metoprolol Tartrate 25 MG Tablet PO ×2 (08:10→21:31)
[2024-07-14] MEDS: TBO-FILGRASTIM 480 MCG/0.8 ML ML SC (08:16)
[2024-07-14] MEDS: Potassium Chloride Oral Tablet 20 MEQ 40 MEQ PO (08:27)
[2024-07-14] MEDS: Potassium Chloride Oral Tablet 20 MEQ PO ×2 (08:27→16:42)
--- NOTE | 2024-07-14 10:57 | PCM.PN.ID ---
Physical Exam Narrative Feeling ok, fever last night, some diarrhea, no abd pain. Const alert and no apparent distress General Appearance: cooperative Resp normal air movement and clear to auscultation bilaterally Cardio regular rate and regular rhythm GI soft to palpation, non-tender and non-distended Skin no rashes or lesions noted ID ID: Route of nutrition/ use of supplements: [] Nutritional Intake: [] IV Site: [] Renner Catheter: [] Assessment & Plan Assessment/Plan (1) Neutropenic fever: PLAN: Port in place. ANC improved, now 1100 this AM. Still with fever. Cxs neg so far, resp pcr panel neg. On azithro/vanc/zosyn. C/o diarrhea this AM, will stop azithro. Will check stool panel. Would decrease/hold bid miralax. Will follow, thank you
[2024-07-14 13:08] LABS: Pathologist Review Reviewed
[2024-07-14] MEDS: Albuterol 2.5 MG/3 ML VIAL.NEB. INHALATION ×2 (13:19→19:33)
[2024-07-14] MEDS: Acetaminophen 325 MG Tablet 650 MG PO ×2 (14:24→21:32)
--- NOTE | 2024-07-14 16:45 | CON.PCM.CA_ITS ---
Assessment & Plan Assessment/Plan (1) Syncope: QUALIFIERS: Syncope type: unspecified Qualified Code(s): R55 - Syncope and collapse PLAN: Possibly orthostatic. Could also be related to patient's A-fib with RVR. It also possible that patient's heart rate went up in response to orthostatic drop in blood pressure and patient ended up in A-fib with RVR. At this time recommend hydration as is being done. Check orthostatic blood pressure and heart rate. Continue telemonitoring. Agree with metoprolol 25 mg p.o. twice daily (2) Atrial fibrillation: QUALIFIERS: Atrial fibrillation type: unspecified Qualified Code(s): I48.91 - Unspecified atrial fibrillation PLAN: Currently in sinus rhythm. Continue metoprolol. No anticoagulation due to recent fall and also due to thrombocytopenia. (3) Coronary artery disease: QUALIFIERS: Coronary Disease-Associated Artery/Lesion type: [place] artery [place] vs. transplanted heart: [place] heart Associated angina: without angina Qualified Code(s): I25.10 - Atherosclerotic heart disease of [place] coronary artery without angina pectoris PLAN: Continue present management HPI Consult Data Date of Consult: 07/14/24 HPI Narrative Reason for Consultation: Syncope, atrial fibrillation HPI Narrative: RENY GUTIÉRREZ, is a 73 M who presents after a fall at home. He apparently got up from bed, felt dizzy and fell to the floor. Patient was admitted with acute kidney injury, dehydration, neutropenic fever. Please refer to H&P for full details regarding his other medical conditions. Yesterday when patient went to the bathroom he had a syncopal episode. His heart rate was in the 150s and he was transferred to telemetry. He was found to be in A-fib with RVR. He has since converted to sinus rhythm. Currently denies any cardiac complaints. [facility] Medical History Hearing loss, left Hearing loss, right Cancer Alcohol abuse Anxiety Diabetes Osteoporosis History of leg surgery ANCA (obstructive sleep apnea) GERD (gastroesophageal reflux disease) B-cell lymphoma Hypoxia COPD (chronic obstructive pulmonary disease) Pulmonary fibrosis Acute respiratory insufficiency Fluid overload Closed left hip fracture Hypertension (~07/22/23) Home Medications ?Medication ?Instructions ?Recorded ?Last Taken ?Type citalopram 20 mg tablet 20 mg PO DAILY depression 10/09/15 04/30/20 History trazodone 100 mg tablet 100 mg PO QHS sleep 10/09/15 04/29/20 History metoprolol tartrate 25 mg tablet 12.5 mg PO BID heart 08/22/18 04/30/20 History clonazepam 1 mg tablet 1 mg PO QHS anxiety 04/30/20 04/29/20 History ipratropium bromide 21 mcg (0.03 2 sprays NS DAILY sinus drainage 04/30/20 Unknown History %) nasal spray multivitamin with folic acid 400 1 tab PO DAILYCM supplement 04/30/20 04/30/20 History mcg tablet tamsulosin 0.4 mg capsule 0.8 mg PO QHS prostate 04/30/20 04/29/20 History cetirizine 10 mg capsule (Zyrtec) 10 mg PO DAILY 05/14/20 Unknown History omeprazole 40 mg capsule,delayed 40 mg PO DAILY 05/14/20 Unknown History release albuterol sulfate 90 mcg/actuation 2 puff inhalation Q4H PRN 07/08/22 Unknown Rx aerosol inhaler shortness of breath or wheezing #3 device clopidogrel 75 mg tablet 75 mg PO DAILY 07/08/22 Unknown History rosuvastatin 20 mg tablet 10 mg PO DAILY 07/08/22 Unknown History budesonide-formoterol HFA 160 2 puff inhalation BID #3 device 10/27/23 Unknown Rx mcg-4.5 mcg/actuation aerosol inhaler fenofibrate nanocrystallized 145 145 mg PO QHS 10/27/23 Unknown History mg tablet acyclovir 400 mg tablet 400 mg PO BID 04/24/24 Unknown History calcium carbonate 600 mg-vitamin 1 cap PO QHS 04/24/24 Unknown History D3 5 mcg (200 unit) capsule (Calcium 600 + D(3)) fluticasone propionate 50 2 spray intranasal DAILY 04/24/24 Unknown History mcg/actuation nasal spray,suspension (24 Hour Allergy Relief) folic acid 1 mg tablet 1 mg PO DAILY 04/24/24 Unknown History sulfamethoxazole 800 1 tab PO MOWEFR 04/24/24 Unknown History mg-trimethoprim 160 mg tablet zanubrutinib 80 mg capsule 160 mg PO BID 04/24/24 Unknown History (Brukinsa) fluorometholone 0.1 % eye 1 drp ophthalmic (eye) BID EYES 07/11/24 Unknown History drops,suspension gabapentin 300 mg capsule 300 mg PO TID LEG PAIN 07/11/24 Unknown History ondansetron HCl 8 mg tablet 8 mg PO Q8H PRN PRN nausea 07/11/24 Unknown History pantoprazole 40 mg tablet,delayed 40 mg PO DAILY 07/11/24 Unknown History release prochlorperazine maleate 10 mg 10 mg PO Q6H PRN PRN 07/11/24 Unknown History tablet nausea/vomiting rosuvastatin 10 mg tablet 10 mg PO QHS 07/11/24 Unknown History Allergy/AdvReac Type Severity Reaction Status Date / Time No Known Allergies Allergy Verified 07/10/24 21:20 Surgical History H/O heart artery stent History of shoulder surgery Social History Smoking Status: Former smoker quit date: 11/23/06 Tobacco: How many years used: 44 Physical Exam Const alert HEENT normocephalic Eyes no scleral icterus Resp normal respiratory effort and clear to auscultation bilaterally Cardio regular rate Extremity no pedal edema Skin no rashes or lesions noted Psych mental status grossly normal Risk Stratification Risk Stratification Applicable: No Charges/Coding Visit Charges Inpatient E&M: 95238 Init Hosp L2 Objective Data Vital Signs: Vital Signs Temp Pulse Resp BP Pulse Ox O2 Del Method O2 Flow Rate 98.5 F 88 18 103/59 L 92 Room Air 2 07/14/24 16:40 07/14/24 16:40 07/14/24 16:40 07/14/24 16:40 07/14/24 16:40 07/14/24 16:40 07/13/24 15:46 Oxygen Flow Rate (L/min) 2 Oxygen Delivery Method Room Air Weight: 152 lb Body Mass Index (BMI) 21.2 Intake & Output: Intake and Output for Last 24 Hours 07/12/24 07/13/24 07/14/24 23:59 23:59 23:59 Intake Total 3647.5 / 3647.5 3552.50 / 3552.50 1100 / 1100 Balance 3647.5 / 3647.5 3552.50 / 3552.50 1100 / 1100 Lab / Micro Data 07/14/24 03:00 07/14/24 03:00 Labs: Laboratory Results - last 24 hr 07/14/24 03:00: WBC 2.0 L, RBC 2.44 L, Hgb 7.3 L, Hct 22.3 L, MCV 91.4, MCH 29.9, MCHC 32.7, RDW Std Deviation 52.0 H, RDW Coeff of Thor 15.6 H, Plt Count 45 L*, MPV 10.7, Neut % (Auto) Not Reportable, Absolute Neuts (auto) 1.1 L, A bsolute Lymphs (auto) 0.64 L, Total Counted 100, Neutrophils % (Manual) 44 L, B and Neutrophils % 10 H, Lymphocytes % (Manual) 32, Monocytes % (Manual) 6, Eosinophils % (Manual) 2, Metamyelocytes % 5 H, Myelocytes % 1 H, Differential Comment SCANNED, Diff Path Review Reviewed, Platelet Estimate MKD DEC, Sodium 141, Potassium 2.9 L, Chloride 109 H, Carbon Dioxide 27.0, Anion Gap 5, BUN 12, Creatinine 1.59 H, Estim Creat Clear Calc 49.97, Est GFR (MDRD) Af Amer 55 L, E st GFR (MDRD) Non-Af 46 L, BUN/Creatinine Ratio 7.5 L, Glucose 107 H, Calcium 8.1 L, Total Bilirubin 0.60, AST 43 H, ALT 26, Alkaline Phosphatase 35 L, Total Protein 5.5 L, Albumin 2.3 L, Globulin 3.2, Albumin/Globulin Ratio 0.7 L, Free T4 1.28, Vancomycin Trough 16.6 H Micro: Microbiology 07/14/24 12:53 Stool Enteric Bacteriology - Final 07/12/24 12:30 Nasal Secretion MRSA (PCR) - Final 07/12/24 08:50 Sputum, Expectorated/Coughed Gram Stain - Final 07/12/24 08:50 Sputum, Expectorated/Coughed Respiratory Culture - Final Mixed normal respiratory mauricio. No Streptococcus pneumoniae, beta-hemolytic Streptococcus or Staphylococcus aureus isolated. 07/11/24 23:05 Urine, Clean Catch Urine Culture - Final Culture exhibits no growth. 07/12/24 10:53 Blood Culture (Wb) - Anticubital Right Blood Culture - Preliminary No growth in 48 hours. 07/11/24 21:40 Blood Culture (Wb) - Anticubital Right Blood Culture - Preliminary No growth in 48 hours. Rhythm Strip Rhythm Strip: Sinus Rhythm Rate: 75 Ectopy: None Cardiology Labs/Tests 07/14/24 03:00: WBC 2.0 L, RBC 2.44 L, Hgb 7.3 L, Hct 22.3 L, MCV 91.4, MCH 29.9, MCHC 32.7, Plt Count 45 L*, MPV 10.7, Neut % (Auto) Not Reportable, A bsolute Neuts (auto) 1.1 L, Total Counted 100, Neutrophils % (Manual) 44 L, Band Neutrophils % 10 H, Lymphocytes % (Manual) 32, Monocytes % (Manual) 6, Eosinophils % (Manual) 2, Metamyelocytes % 5 H, Myelocytes % 1 H, Sodium 141, P otassium 2.9 L, Chloride 109 H, Carbon Dioxide 27.0, Anion Gap 5, BUN 12, C reatinine 1.59 H, Est GFR (MDRD) Af Amer 55 L, Est GFR (MDRD) Non-Af 46 L, B UN/Creatinine Ratio 7.5 L, Glucose 107 H, Calcium 8.1 L, Total Bilirubin 0.60 Rhythm: EKG: ECHO: Stress Test: Cardiac Cath: PCI: CT Surgery: Holter monitor: EPS: PPM: CXR: Chest CT Scan: Radiography Diagnostic Testing: Radiology Impression Echocardiogram 07/13/24 20:22 Interpretation Summary The estimated ejection fraction is 60 %. Diastolic function is indeterminate. The left atrium is mildly enlarged. Mild (1+) mitral valve insufficiency. Trivial aortic valve insufficiency. Ordering Physician: Joleen Salinas Performed By: Shorty Hoyt RCS
[2024-07-14] MEDS: Budesonide Respules 0.5 MG/2 ML AMPUL.NEB. INHALATION (19:33)
[2024-07-14] MEDS: Atorvastatin Calcium 20 MG Tablet PO (21:27)
[2024-07-14] MEDS: Tamsulosin HCl 0.4 MG Capsule 0.8 MG PO (21:27)
[2024-07-14] MEDS: Calcium Carb/Vitamin D 1 TABLET Tablet PO (21:33)
[2024-07-14] MEDS: traZODone 100 MG Tablet PO (21:35)
[2024-07-15] VITALS (10 sets, daily range): BP systolic 123–131; BP diastolic 56–60; PULSE 61–92; RESP 12–20; TEMP 36.2–37.3; O2SAT 91–96; BMI 28.9
[2024-07-15] MEDS: Vancomycin IV 1,000 MG/200 ML BAG 200 MG IV (03:04)
[2024-07-15] MEDS: Gabapentin 300 MG Capsule PO ×3 (05:17→21:39)
[2024-07-15] MEDS: Piperacil/Tazobactam 3.375 GM in 0.9% Normal Saline (50mL MB+) 50 ML IV (05:17)
[2024-07-15 07:24] LABS: Absolute Lymphocyte Count 0.95 X10^3/uL (0.83-4.51); Absolute Neutrophil Count 2.4 X10^3/uL (2.0-7.7); Basophil# 0.01 X10^3/uL; Basophil% 0.3 % (0-1); Eosinophil# 0.02 X10^3/uL; Eosinophils% 0.5 % (0-5); Hematocrit 22.7 % (40-54); Hemoglobin 7.5 g/dL (13.0-16.5); Lymphocyte # 0.95 X10^3/ul (0.83-4.51); Lymphocyte % 24.2 % (19-41); Mean Corpuscular Volume 90.8 fL (80-94); Mean Platelet Vol. 12.8 fl (6.2-12.0); Monocyte% 10.2 % (0-10); NRBC Flagged by Analyzer 0 % (0-5); Neutrophil # 2.37 X10^3/uL (2.7-7.7); Neutrophil % 60.5 % (47-70); POSITIVE COUNT YES; POSITIVE MORPHOLOGY YES; Platelet Count 32 K/mm3 (150-450); RBC Distribution Width CV 15.7 % (11.6-14.6); RBC Distribution Width SD 51.8 fl (35.1-43.9); White Blood Count 3.9 K/mm3 (4.4-11.0)
[2024-07-15 07:33] LABS: Differential Indicated SCAN CRITERIA MET
--- NOTE | 2024-07-15 07:55 | PCM.PN.HOSP ---
Reason for Visit Reason for Visit: Diagnoses Unspecified B-cell lymphoma, unspecified site (07/11/24) Antineoplastic chemotherapy induced pancytopenia (07/11/24) Neutropenia, unspecified (07/11/24) Hypokalemia (07/11/24) Atherosclerotic heart disease of [place] coronary artery without angina pectoris (07/11/24) Unspecified atrial fibrillation (07/11/24) Acute kidney failure, unspecified (07/11/24) Dizziness and giddiness (07/11/24) Fever presenting with conditions classified elsewhere (07/11/24) Syncope and collapse (07/11/24) Unspecified injury of head, initial encounter (07/11/24) Other injury of unspecified body region, initial encounter (07/11/24) Adverse effect of antineoplastic and immunosuppressive drugs, initial encounter (07/11/24) Subjective Subjective Patient is having profuse loose bowel movement. Patient is on MiraLAX discontinued. Ideally when I have ordered for C. difficile however given patient presentation?neutropenic fever with no identifiable source stool for C. difficile was sent after discontinuation of MiraLAX. Patient telemetry monitoring was discussed with cardiology the day prior. Apparent bradycardia secondary to low voltages. No indication for pacemaker at this point Objective Data Objective Data Vital Signs: Vital Signs Temp Pulse Resp BP Pulse Ox O2 Del Method O2 Flow Rate 97.2 F L 85 18 123/56 H 93 Room Air 2 07/15/24 03:07 07/15/24 03:07 07/15/24 03:07 07/15/24 03:07 07/15/24 03:07 07/15/24 03:07 07/13/24 15:46 Oxygen Flow Rate (L/min) 2 Oxygen Delivery Method Room Air Weight: 94.2 kg Body Mass Index (BMI) 28.9 Intake & Output: Intake and Output for Last 24 Hours 07/13/24 07/14/24 07/15/24 23:59 23:59 23:59 Intake Total 3552.50 / 3552.50 1810 / 1810 250 / 250 Balance 3552.50 / 3552.50 1810 / 1810 250 / 250 Lab / Micro Data 07/15/24 04:14 07/15/24 04:14 Labs: Laboratory Results - last 24 hr 07/14/24 03:00: Diff Path Review Reviewed 07/15/24 04:14: WBC 3.9 L, RBC 2.50 L, Hgb 7.5 L, Hct 22.7 L, MCV 90.8, MCH 30.0, MCHC 33.0, RDW Std Deviation 51.8 H, RDW Coeff of Thor 15.7 H, Plt Count 32 L*, MPV 12.8 H, Immature Gran % (Auto) 4.300 H, Neut % (Auto) 60.5, Lymph % (Auto) 24.2, [place] % (Auto) 10.2 H, Eos % (Auto) 0.5, Baso % (Auto) 0.3, Absolute Neuts (auto) 2.4, Absolute Lymphs (auto) 0.95, Nucleated RBC % 0 Micro: Microbiology 07/14/24 12:53 Stool Enteric Bacteriology - Final 07/12/24 12:30 Nasal Secretion MRSA (PCR) - Final 07/12/24 08:50 Sputum, Expectorated/Coughed Gram Stain - Final 07/12/24 08:50 Sputum, Expectorated/Coughed Respiratory Culture - Final Mixed normal respiratory mauricio. No Streptococcus pneumoniae, beta-hemolytic Streptococcus or Staphylococcus aureus isolated. 07/11/24 23:05 Urine, Clean Catch Urine Culture - Final Culture exhibits no growth. 07/12/24 10:53 Blood Culture (Wb) - Anticubital Right Blood Culture - Preliminary No growth in 48 hours. 07/11/24 21:40 Blood Culture (Wb) - Anticubital Right Blood Culture - Preliminary No growth in 48 hours. 07/12/24 09:53 Mucosa - Nose Coronavirus COVID-19 PCR - Final 07/12/24 09:53 Mucosa - Nose Respiratory Panel (PCR) - Final 07/11/24 08:00 Urine, Clean Catch Legionella Antigen - Final 07/11/24 08:00 Urine, Clean Catch Streptococcus pneumoniae Antigen (M - Final Radiography Diagnostic Testing: Radiology Impression Echocardiogram 07/13/24 20:22 Interpretation Summary The estimated ejection fraction is 60 %. Diastolic function is indeterminate. The left atrium is mildly enlarged. Mild (1+) mitral valve insufficiency. Trivial aortic valve insufficiency. Ordering Physician: Joleen Salinas Performed By: Shorty Hoyt RCS Rhythm Strip Rhythm Strip: Sinus Rhythm Rate: 75 Ectopy: None Physical Exam Narrative GENERAL: cooperative HEENT: Atraumatic; normocephalic EYES; Anicteric, Normal Conjunctiva NECK; supple, normal thyroid, RESPIRATORY: Diminished to auscultation CARDIOVASCULAR: Regular S1 S2, GI: soft, normoactive bowel sounds, : No Renal angle tenderness; EXTREMITIES: No edema, no clubbing, MUSCULOSKELETAL: no muscle wasting NEURO: Awake; no lateralizing signs. SKIN: Bruising dorsal surface of the left hand PSYCH; Flat affect Extremity Extremity Narrative: Limited ROM to the Left hip that is chronic from his previous fall with hip fracture. Skin Skin Narrative: Patient has skin tears to both upper extremities and a contusion over his Left parietal area. 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 Patient was noted to have significant pancytopenia admitted to regular nursing floor for further management 1. Near syncope ? Suspected to be secondary to dehydration patient was found to have elevated BUN and creatinine with relative hypotension resuscitated with IV fluids ? 07/14/2024; patient had a syncopal episode was using the bowel from on 07/13/2024. Ordered every shift orthostatic checks other CT of the head which demonstrated chronic involutional changes of the brain. Mucosal thickening of the maxillary sinuses worse on the right side. Patient apparently went into A-fib with RVR later on in the evening necessitating patient being transferred to the progressive care unit for continuous telemetry eval 2D echo ordered. Do suspect patient syncopal episode to be secondary to his bradycardia. 2. Transient A-fib ? Heart rate went as high as 150 EKG demonstrated A-fib with bifascicular block did receive metoprolol heart rate this a.m. is in the 70s. Patient had been placed on continuous telemetry monitoring with episodic bradycardia.. Consult placed to cardiology Case discussed with Dr. Negron ? 07/15/2024 Patient telemetry monitoring was discussed with cardiology the day prior. Apparent bradycardia secondary to low voltages. No indication for pacemaker at this point 3. Neutropenic fever ? Source not clear if patient remains on broad-spectrum antibiotic therapy with vancomycin and Zosyn ? 07/14/2024 WBC count up to 2.0 4. Pancytopenia ? Related to patient treatment and underlying malignancy plan is to transfuse if hemoglobin falls below 7.5 or platelet falls below 20. Patient was started on Granix ? 07/14/2024 hemoglobin 7.3 platelet count 44 we will continue with monitoring with daily CBC with differential 5. Acute kidney injury Secondary to dehydration resolved with rehydration 6. 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 Zapata 7. History of coronary artery disease -Patient on Plavix held given the low platelet 8. COPD Managed bronchodilator treatment as needed 9. Depression with anxiety ? Patient is on citalopram as well as clonazepam 10. Dyslipidemia ? Patient is on fenofibrate and rosuvastatin 11. GERD patient is on PPI daily continue 12. History of pulmonary fibrosis This patient is followed by pulmonary medicine as outpatient 13. DVT prophylaxis ? Bilateral SCDs only given patient low platelet 14. Acute diarrhea ?Patient is having profuse loose bowel movement. Patient is on MiraLAX discontinued. Ideally when I have ordered for C. difficile however given patient presentation?neutropenic fever with no identifiable source stool for C. difficile was sent after discontinuation of MiraLAX. Time spent in the patient's overall evaluation,decision-making process, review of diagnostic data, adjustment of management, discussion with other providers, nursing nursing and ancillary staff involved in patient's care documentation, 40 minutes Charges/Coding Visit Charges Inpatient E&M: 05144 Subs Hosp L2
[2024-07-15] MEDS: Budesonide Respules 0.5 MG/2 ML AMPUL.NEB. INHALATION ×2 (08:06→19:13)
[2024-07-15] MEDS: Albuterol 2.5 MG/3 ML VIAL.NEB. INHALATION ×3 (08:06→19:13)
[2024-07-15 08:16] LABS: ALB/GLOB Ratio 0.6 RATIO (0.9-2.4); AST(SGOT) 30 U/L (15-37); Alanine Aminotransfer ALT/SGPT 23 U/L (16-61); Albumin, Serum 2.1 g/dL (3.2-5.0); Alkaline Phosphatase 51 U/L (45-117); Anion Gap 6 (5-15); BUN 11 mg/dL (7-18); BUN/Creat Ratio 5.6 RATIO (10-20); Chloride 108 mmol/L (98-107); Creatinine, Serum 1.96 mg/dL (0.70-1.30); EST Glomerular Filtration Rate 36 mL/min (>60); Est Glom Filt Rate - Afr Amer 44 mL/min (>60); Estimated Creatinine Clearance 40.51 ml/min; Globulin 3.3 g/dL (2.2-4.2); Glucose 115 mg/dL (74-106); Potassium 3.2 mmol/L (3.5-5.1); Protein, Total 5.4 g/dL (6.4-8.2); Sodium Level 139 mmol/L (136-145)
[2024-07-15 08:35] LABS: Platelet Estimate MKD DEC (ADEQ)
[2024-07-15] MEDS: Potassium Chloride Oral Tablet 20 MEQ 40 MEQ PO (09:32)
[2024-07-15] MEDS: Potassium Chloride Oral Tablet 20 MEQ PO ×2 (09:33→17:11)
[2024-07-15] MEDS: Fluorometholone 0.1% Susp 1 DRP DROPS EACH EYE ×2 (09:34→17:11)
[2024-07-15] MEDS: Loratadine 10 MG Tablet PO (09:43)
[2024-07-15] MEDS: Metoprolol Tartrate 25 MG Tablet PO ×2 (09:43→21:39)
[2024-07-15] MEDS: ZANUBRUTINIB 80 MG 160 MG PO ×2 (09:43→21:39)
[2024-07-15] MEDS: Pantoprazole Sodium 40 MG Tablet PO (09:43)
[2024-07-15] MEDS: Citalopram 20 MG Tablet PO (09:43)
[2024-07-15] MEDS: Acyclovir 200 MG Capsule 400 MG PO ×2 (09:44→21:39)
[2024-07-15] MEDS: TBO-FILGRASTIM 480 MCG/0.8 ML ML SC (09:44)
[2024-07-15] MEDS: Multivitamins,Therapeutic Tablet 1 TABLET PO (09:44)
[2024-07-15] MEDS: Smz/Tmp Ds Tablet 1 TABLET PO (09:44)
[2024-07-15] MEDS: Fenofibrate 145 MG Tablet PO (09:44)
[2024-07-15] MEDS: Folic Acid 1 MG Tablet PO (09:44)
--- NOTE | 2024-07-15 11:08 | CASEMGMT ---
ALEJO CM into pt room to discuss dc planning needs. Pt states he does feel weak but declines any therapy post hospitalization. Pt states he just needs to get better. He states he plans to stay at home until his strength returns. He is aware that should he change his mind once home, he can notify his PCP.
[2024-07-15] MEDS: Hydrocortisone 2.5% Crm 1 APPLIC TOPICAL (11:43)
[2024-07-15] MEDS: Loperamide 2 MG Capsule 4 MG PO (11:43)
[2024-07-15 12:11] LABS: Pathologist Review Reviewed
--- NOTE | 2024-07-15 13:15 | PCM.PN.ID ---
Physical Exam Narrative No fever, feeling ok. Const no apparent distress Resp normal air movement and clear to auscultation bilaterally Cardio regular rate and regular rhythm GI soft to palpation, non-tender and non-distended Skin no rashes or lesions noted ID ID: Route of nutrition/ use of supplements: [] Nutritional Intake: [] IV Site: [] Renner Catheter: [] Assessment & Plan Assessment/Plan (1) Neutropenic fever: PLAN: Port in place. ANC improved, now 2400 this AM. Fever resolved. Cxs neg so far, resp pcr panel neg. Will narrow abx to augmentin for 3 more days. Will follow
[2024-07-15] MEDS: Amox/Clavulanate 875 MG Tablet PO (17:11)
[2024-07-15] MEDS: Acetaminophen 325 MG Tablet 650 MG PO (21:38)
[2024-07-15] MEDS: Atorvastatin Calcium 20 MG Tablet PO (21:38)
[2024-07-15] MEDS: traZODone 100 MG Tablet PO (21:38)
[2024-07-15] MEDS: Calcium Carb/Vitamin D 1 TABLET Tablet PO (21:38)
[2024-07-15] MEDS: Tamsulosin HCl 0.4 MG Capsule 0.8 MG PO (21:39)
[2024-07-16 04:00] VITALS: BP 113/54; PULSE 81; RESP 18; TEMP 36.4; O2SAT 93
[2024-07-16 04:06] VITALS: BMI 29.0
--- NOTE | 2024-07-16 04:38 | NURSING ---
Dressing change completed to bilateral upper extremities.
[2024-07-16] MEDS: Gabapentin 300 MG Capsule PO (05:12)
[2024-07-16 07:19] LABS: Hematocrit 21.9 % (40-54); Hemoglobin 7.4 g/dL (13.0-16.5); Mean Corp Hgb Conc 33.8 g/dL (32-36); Mean Corpuscular Hgb 30.6 pg (27.0-32.0); Mean Corpuscular Volume 90.5 fL (80-94); Mean Platelet Vol. 12.4 fl (6.2-12.0); POSITIVE COUNT YES; POSITIVE MORPHOLOGY YES; Platelet Count 22 K/mm3 (150-450); RBC Distribution Width CV 15.9 % (11.6-14.6); RBC Distribution Width SD 52.7 fl (35.1-43.9); Red Blood Count 2.42 M/mm3 (4.6-6.2); White Blood Count 7.7 K/mm3 (4.4-11.0)
[2024-07-16] MEDS: Albuterol 2.5 MG/3 ML VIAL.NEB. INHALATION (07:24)
[2024-07-16] MEDS: Budesonide Respules 0.5 MG/2 ML AMPUL.NEB. INHALATION (07:25)
--- NOTE | 2024-07-16 07:38 | PN.HOSP_ITS ---
Reason for Visit Reason for Visit: Diagnoses Unspecified B-cell lymphoma, unspecified site (07/11/24) Antineoplastic chemotherapy induced pancytopenia (07/11/24) Neutropenia, unspecified (07/11/24) Hypokalemia (07/11/24) Atherosclerotic heart disease of [place] coronary artery without angina pectoris (07/11/24) Unspecified atrial fibrillation (07/11/24) Acute kidney failure, unspecified (07/11/24) Dizziness and giddiness (07/11/24) Fever presenting with conditions classified elsewhere (07/11/24) Syncope and collapse (07/11/24) Unspecified injury of head, initial encounter (07/11/24) Other injury of unspecified body region, initial encounter (07/11/24) Adverse effect of antineoplastic and immunosuppressive drugs, initial encounter (07/11/24) Subjective Subjective Patient seen diarrhea has subsided patient to be assessed for discharge Objective Data Objective Data Vital Signs: Vital Signs Temp Pulse Resp BP Pulse Ox O2 Del Method O2 Flow Rate 97.6 F L 81 18 113/54 L 93 Room Air 2 07/16/24 04:00 07/16/24 04:00 07/16/24 04:00 07/16/24 04:00 07/16/24 04:00 07/16/24 04:00 07/13/24 15:46 Oxygen Flow Rate (L/min) 2 Oxygen Delivery Method Room Air Weight: 94.4 kg Body Mass Index (BMI) 29.0 Intake & Output: Intake and Output for Last 24 Hours 07/14/24 07/15/24 07/16/24 23:59 23:59 23:59 Intake Total 1810 / 1810 1600 / 1600 Balance 1810 / 1810 1600 / 1600 Lab / Micro Data 07/16/24 07:07 07/16/24 07:07 Labs: Laboratory Results - last 24 hr 07/15/24 04:14: Diff Path Review Reviewed, Platelet Estimate MKD DEC, Sodium 139, Potassium 3.2 L, Chloride 108 H, Carbon Dioxide 25.0, Anion Gap 6, BUN 11, Creatinine 1.96 H, Estim Creat Clear Calc 40.51, Est GFR (MDRD) Af Amer 44 L, E st GFR (MDRD) Non-Af 36 L, BUN/Creatinine Ratio 5.6 L, Glucose 115 H, Calcium 8.0 L, Total Bilirubin 0.50, AST 30, ALT 23, Alkaline Phosphatase 51, Total Protein 5.4 L, Albumin 2.1 L, Globulin 3.3, Albumin/Globulin Ratio 0.6 L 07/16/24 07:07: WBC 7.7, RBC 2.42 L, Hgb 7.4 L, Hct 21.9 L, MCV 90.5, MCH 30.6, MCHC 33.8, RDW Std Deviation 52.7 H, RDW Coeff of Thor 15.9 H, Plt Count 22 L*, M PV 12.4 H, Immature Gran % (Auto) 7.700 H, Neut % (Auto) 69.4, Lymph % (Auto) 12.5 L, [place] % (Auto) 9.6, Eos % (Auto) 0.5, Baso % (Auto) 0.3, Absolute Neuts (auto) 5.3, Absolute Lymphs (auto) 0.96, Nucleated RBC % 0.3 Micro: Microbiology 07/14/24 12:53 Stool Clostridioides difficile (PCR) - Final 07/14/24 12:53 Stool Enteric Bacteriology - Final 07/12/24 12:30 Nasal Secretion MRSA (PCR) - Final 07/12/24 08:50 Sputum, Expectorated/Coughed Gram Stain - Final 07/12/24 08:50 Sputum, Expectorated/Coughed Respiratory Culture - Final Mixed normal respiratory mauricio. No Streptococcus pneumoniae, beta-hemolytic Streptococcus or Staphylococcus aureus isolated. 07/11/24 23:05 Urine, Clean Catch Urine Culture - Final Culture exhibits no growth. 07/12/24 10:53 Blood Culture (Wb) - Anticubital Right Blood Culture - Preliminary No growth in 48 hours. 07/11/24 21:40 Blood Culture (Wb) - Anticubital Right Blood Culture - Preliminary No growth in 48 hours. 07/12/24 09:53 Mucosa - Nose Coronavirus COVID-19 PCR - Final 07/12/24 09:53 Mucosa - Nose Respiratory Panel (PCR) - Final 07/11/24 08:00 Urine, Clean Catch Legionella Antigen - Final 07/11/24 08:00 Urine, Clean Catch Streptococcus pneumoniae Antigen (M - Final Rhythm Strip Rhythm Strip: Sinus Rhythm Rate: 75 Ectopy: None Physical Exam Narrative GENERAL: cooperative HEENT: Atraumatic; normocephalic EYES; Anicteric, Normal Conjunctiva NECK; supple, normal thyroid, RESPIRATORY: Diminished to auscultation CARDIOVASCULAR: Regular S1 S2, GI: soft, normoactive bowel sounds, : No Renal angle tenderness; EXTREMITIES: No edema, no clubbing, MUSCULOSKELETAL: no muscle wasting NEURO: Awake; no lateralizing signs. SKIN: Bruising dorsal surface of the left hand PSYCH; Flat affect Assessment & Plan Assessment/Plan (1) VANESSA (acute kidney injury): (2) B-cell lymphoma: QUALIFIERS: B-cell lymphoma type: unspecified B-cell Lymphoma site: unspecified region Qualified Code(s): C85.10 - Unspecified B-cell lymphoma, unspecified site (3) Neutropenic fever: PLAN: Plan Patient is a 73-year-old male with past medical history 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 Patient was noted to have significant pancytopenia admitted to regular nursing floor for further management 1. Near syncope ? Suspected to be secondary to dehydration patient was found to have elevated BUN and creatinine with relative hypotension resuscitated with IV fluids ? 07/14/2024; patient had a syncopal episode was using the bowel from on 07/13/2024. Ordered every shift orthostatic checks other CT of the head which demonstrated chronic involutional changes of the brain. Mucosal thickening of the maxillary sinuses worse on the right side. Patient apparently went into A- fib with RVR later on in the evening necessitating patient being transferred to the progressive care unit for continuous telemetry eval 2D echo ordered. Do suspect patient syncopal episode to be secondary to his bradycardia. ? 07/16/2024; bradycardia was ruled out with initial report was secondary to low voltages 2. Transient A-fib ? Heart rate went as high as 150 EKG demonstrated A-fib with bifascicular block did receive metoprolol heart rate this a.m. is in the 70s. Patient had been placed on continuous telemetry monitoring with episodic bradycardia.. Consult placed to cardiology Case discussed with Dr. Negron ? 07/15/2024 Patient telemetry monitoring was discussed with cardiology the day prior. Apparent bradycardia secondary to low voltages. No indication for pacemaker at this point 3. Neutropenic fever ? Source not clear if patient remains on broad-spectrum antibiotic therapy with vancomycin and Zosyn ? 07/14/2024 WBC count up to 2.0 4. Pancytopenia ? Related to patient treatment and underlying malignancy plan is to transfuse if hemoglobin falls below 7.5 or platelet falls below 20. Patient was started on Granix ? 07/14/2024 hemoglobin 7.3 platelet count 44 we will continue with monitoring with daily CBC with differential 5. Acute kidney injury Secondary to dehydration resolved with rehydration ? 07/16/2024 patient kidney function did worsen prior to discharge was however secondary to his diarrhea he was encouraged to drink liberally. Patient will follow-up with primary care physician for repeat labs 6. 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 Zapata 7. History of coronary artery disease -Patient on Plavix held given the low platelet 8. COPD Managed bronchodilator treatment as needed 9. Depression with anxiety ? Patient is on citalopram as well as clonazepam 10. Dyslipidemia ? Patient is on fenofibrate and rosuvastatin 11. GERD patient is on PPI daily continue 12. History of pulmonary fibrosis This patient is followed by pulmonary medicine as outpatient 13. DVT prophylaxis ? Bilateral SCDs only given patient low platelet 14. Acute diarrhea ?Patient is having profuse loose bowel movement. Patient is on MiraLAX discontinued. Ideally when I have ordered for C. difficile however given patient presentation?neutropenic fever with no identifiable source stool for C. difficile was sent after discontinuation of MiraLAX. ? Patient diarrhea was negative for C. difficile given loperamide for symptomatic treatment Time spent in the patient's overall evaluation,decision-making process, review of diagnostic data, adjustment of management, discussion with other providers, nursing nursing and ancillary staff involved in patient's care documentation, 36 minutes
[2024-07-16 07:40] VITALS: PULSE 77; RESP 18; O2SAT 93
[2024-07-16 08:19] LABS: Scan Smear per Review Criteria MANUAL DIFF
[2024-07-16 08:36] LABS: ALB/GLOB Ratio 0.6 RATIO (0.9-2.4); AST(SGOT) 26 U/L (15-37); Alanine Aminotransfer ALT/SGPT 17 U/L (16-61); Albumin, Serum 2.1 g/dL (3.2-5.0); Alkaline Phosphatase 61 U/L (45-117); Anion Gap 5 (5-15); BUN 12 mg/dL (7-18); BUN/Creat Ratio 5.5 RATIO (10-20); Calcium,Total 8.2 mg/dL (8.5-10.1); Chloride 111 mmol/L (98-107); EST Glomerular Filtration Rate 31 mL/min (>60); Est Glom Filt Rate - Afr Amer 38 mL/min (>60); Estimated Creatinine Clearance 36.13 ml/min; Globulin 3.5 g/dL (2.2-4.2); Glucose 119 mg/dL (74-106); Potassium 3.7 mmol/L (3.5-5.1); Protein, Total 5.6 g/dL (6.4-8.2); Sodium Level 141 mmol/L (136-145)
[2024-07-16 09:37] LABS: Eosinophil 4 % (0-5); Lymphocyte 17 % (19-41); Metamyelocyte 2 % (0-1); Monocyte 4 % (0-10); Myelocyte 2 % (0-0); Neutrophil-Band 2 % (0-5); Neutrophil-Segmented 69 % (47-70); Total Cells Counted 100 (MANUAL DIFF)
[2024-07-16 09:41] LABS: Promyelocyte 2 % (0-0)
[2024-07-16 09:45] LABS: Platelet Estimate MKD DEC (ADEQ); Red Cell Morphology NORM C+C NORMAL (NORM C&C)
[2024-07-16 10:02] LABS: Pathologist Review May foll
[2024-07-16 10:23] VITALS: BP 115/57; PULSE 81; RESP 16; TEMP 37.1; O2SAT 94
[2024-07-16] MEDS: Potassium Chloride Oral Tablet 20 MEQ PO (10:27)
[2024-07-16] MEDS: Folic Acid 1 MG Tablet PO (10:27)
[2024-07-16] MEDS: Amox/Clavulanate 875 MG Tablet PO (10:27)
[2024-07-16] MEDS: Fenofibrate 145 MG Tablet PO (10:28)
[2024-07-16] MEDS: Ipratropium Bromide 0.06% NASAL SPRAY 2 SPRAY NASAL (10:28)
[2024-07-16] MEDS: ZANUBRUTINIB 80 MG 160 MG PO (10:28)
[2024-07-16] MEDS: Multivitamins,Therapeutic Tablet 1 TABLET PO (10:28)
[2024-07-16] MEDS: Loratadine 10 MG Tablet PO (10:29)
[2024-07-16] MEDS: Fluticasone 0.05% 1 SPRAY NASAL.SRY 2 SPRAY NASAL (10:29)
[2024-07-16] MEDS: Citalopram 20 MG Tablet PO (10:29)
[2024-07-16] MEDS: Fluorometholone 0.1% Susp 1 DRP DROPS EACH EYE (10:30)
[2024-07-16 10:31] VITALS: PULSE 81
[2024-07-16 10:31] LABS: Differential Indicated MANUAL DIFF
[2024-07-16] MEDS: Metoprolol Tartrate 25 MG Tablet PO (10:31)
[2024-07-16] MEDS: Pantoprazole Sodium 40 MG Tablet PO (10:31)
--- NOTE | 2024-07-16 10:31 | DS.PCM_ITS ---
Providers Date of Admission: 07/11/24 Date of Discharge: 07/16/24 Primary Care Physician: Dr. 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 Routine Comment: Reason for Consult:: FLORA ARM WOUNDS FROM FALL 07/12/24 09:16 Consult: Infectious Disease Routine Consulting Provider: Sigifredo Andres Reason for Consult: neutropenic fever EMERGENT Consult: No MD Notified: Yes Date Notified: 07/12/24 Time Notified: 09:27 Method of Notification: Text 07/14/24 09:34 Consult: Cardiology Routine Consulting Provider: Jacquie Negron Reason for Consult: Tachybradycardia syndrome EMERGENT Consult: No MD Notified: Yes Date Notified: 07/14/24 Time Notified: 09:35 Method of Notification: Verbal Reason For Visit: VANESSA, DEHYDRATION AND SYMPTOMATIC HYPOTENSION WITH Diagnosis Discharge Diagnosis (1) VANESSA (acute kidney injury): Status: Acute Code(s): N17.9 - Acute kidney failure, unspecified (2) B-cell lymphoma: Status: Acute Code(s): C85.10 - Unspecified B-cell lymphoma, unspecified site Qualifiers: B-cell lymphoma type: unspecified B-cell Lymphoma site: unspecified region Qualified Code(s): C85.10 - Unspecified B-cell lymphoma, unspecified site (3) Neutropenic fever: Status: Acute Code(s): D70.9 - Neutropenia, unspecified; R50.81 - Fever presenting with conditions classified elsewhere Plan Patient is a 73-year-old male with past medical history 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 Patient was noted to have significant pancytopenia admitted to regular nursing floor for further management 1. Near syncope ? Suspected to be secondary to dehydration patient was found to have elevated BUN and creatinine with relative hypotension resuscitated with IV fluids ? 07/14/2024; patient had a syncopal episode was using the bowel from on 07/13/2024. Ordered every shift orthostatic checks other CT of the head which demonstrated chronic involutional changes of the brain. Mucosal thickening of the maxillary sinuses worse on the right side. Patient apparently went into A- fib with RVR later on in the evening necessitating patient being transferred to the progressive care unit for continuous telemetry eval 2D echo ordered. Do suspect patient syncopal episode to be secondary to his bradycardia. ? 07/16/2024; bradycardia was ruled out with initial report was secondary to low voltages 2. Transient A-fib ? Heart rate went as high as 150 EKG demonstrated A-fib with bifascicular block did receive metoprolol heart rate this a.m. is in the 70s. Patient had been placed on continuous telemetry monitoring with episodic bradycardia.. Consult placed to cardiology Case discussed with Dr. Negron ? 07/15/2024 Patient telemetry monitoring was discussed with cardiology the day prior. Apparent bradycardia secondary to low voltages. No indication for pacemaker at this point 3. Neutropenic fever ? Source not clear if patient remains on broad-spectrum antibiotic therapy with vancomycin and Zosyn ? 07/14/2024 WBC count up to 2.0 4. Pancytopenia ? Related to patient treatment and underlying malignancy plan is to transfuse if hemoglobin falls below 7.5 or platelet falls below 20. Patient was started on Granix ? 07/14/2024 hemoglobin 7.3 platelet count 44 we will continue with monitoring with daily CBC with differential ? Patient to follow-up with Dr. Pagan his oncologist within 2 days for repeat CBC with differential 5. Acute kidney injury Secondary to dehydration resolved with rehydration ? 07/16/2024 patient kidney function did worsen prior to discharge was however secondary to his diarrhea he was encouraged to drink liberally. Patient will follow-up with primary care physician for repeat labs 6. 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 Pagan 7. History of coronary artery disease -Patient on Plavix held given the low platelet 8. COPD Managed bronchodilator treatment as needed 9. Depression with anxiety ? Patient is on citalopram as well as clonazepam 10. Dyslipidemia ? Patient is on fenofibrate and rosuvastatin 11. GERD patient is on PPI daily continue 12. History of pulmonary fibrosis This patient is followed by pulmonary medicine as outpatient 13. DVT prophylaxis ? Bilateral SCDs only given patient low platelet 14. Acute diarrhea ?Patient is having profuse loose bowel movement. Patient is on MiraLAX discontinued. Ideally when I have ordered for C. difficile however given patient presentation?neutropenic fever with no identifiable source stool for C. difficile was sent after discontinuation of MiraLAX. ? Patient diarrhea was negative for C. difficile given loperamide for symptomatic treatment Time spent in the patient's overall evaluation,decision-making process, review of diagnostic data, adjustment of management, discussion with other providers, nursing nursing and ancillary staff involved in patient's care documentation, 36 minutes Medications at Discharge Home Medications citalopram 20 mg tablet 20 mg PO DAILY depression 10/09/15 trazodone 100 mg tablet 100 mg PO QHS sleep 10/09/15 metoprolol tartrate 25 mg tablet 12.5 mg PO BID heart 08/22/18 clonazepam 1 mg tablet 1 mg PO QHS anxiety 04/30/20 ipratropium bromide 21 mcg (0.03 %) nasal spray 2 sprays NS DAILY sinus drainage 04/30/20 multivitamin with folic acid 400 mcg tablet 1 tab PO DAILYCM supplement 04/30/20 tamsulosin 0.4 mg capsule 0.8 mg PO QHS prostate 04/30/20 cetirizine 10 mg capsule (Zyrtec) 10 mg PO DAILY 05/14/20 omeprazole 40 mg capsule,delayed release 40 mg PO DAILY 05/14/20 albuterol sulfate 90 mcg/actuation aerosol inhaler 2 puff inhalation Q4H PRN shortness of breath or wheezing #3 device 07/08/22 clopidogrel 75 mg tablet 75 mg PO DAILY 07/08/22 rosuvastatin 20 mg tablet 10 mg PO DAILY 07/08/22 budesonide-formoterol HFA 160 mcg-4.5 mcg/actuation aerosol inhaler 2 puff inhalation BID #3 device 10/27/23 fenofibrate nanocrystallized 145 mg tablet 145 mg PO QHS 10/27/23 acyclovir 400 mg tablet 400 mg PO BID 04/24/24 calcium carbonate 600 mg-vitamin D3 5 mcg (200 unit) capsule (Calcium 600 + D(3)) 1 cap PO QHS 04/24/24 fluticasone propionate 50 mcg/actuation nasal spray,suspension (24 Hour Allergy Relief) 2 spray intranasal DAILY 04/24/24 folic acid 1 mg tablet 1 mg PO DAILY 04/24/24 sulfamethoxazole 800 mg-trimethoprim 160 mg tablet 1 tab PO MOWEFR 04/24/24 zanubrutinib 80 mg capsule (Brukinsa) 160 mg PO BID 04/24/24 fluorometholone 0.1 % eye drops,suspension 1 drp ophthalmic (eye) BID EYES 07/11/24 gabapentin 300 mg capsule 300 mg PO TID LEG PAIN 07/11/24 ondansetron HCl 8 mg tablet 8 mg PO Q8H PRN PRN nausea 07/11/24 pantoprazole 40 mg tablet,delayed release 40 mg PO DAILY 07/11/24 prochlorperazine maleate 10 mg tablet 10 mg PO Q6H PRN PRN nausea/vomiting 07/11/24 rosuvastatin 10 mg tablet 10 mg PO QHS 07/11/24 Physical Exam Narrative GENERAL: cooperative HEENT: Atraumatic; normocephalic EYES; Anicteric, Normal Conjunctiva NECK; supple, normal thyroid, RESPIRATORY: Diminished to auscultation CARDIOVASCULAR: Regular S1 S2, GI: soft, normoactive bowel sounds, : No Renal angle tenderness; EXTREMITIES: No edema, no clubbing, MUSCULOSKELETAL: no muscle wasting NEURO: Awake; no lateralizing signs. SKIN: Bruising dorsal surface of the left hand PSYCH; Flat affect Weight / BMI Weight Weight: 94.4 kg Body Mass Index (BMI) 29.0 ABG / Lab / Microbiology Data 07/16/24 07:07 07/16/24 07:07 Laboratory: Laboratory Results - last 24 hr 07/15/24 04:14: Diff Path Review Reviewed 07/16/24 07:07: WBC 7.7, RBC 2.42 L, Hgb 7.4 L, Hct 21.9 L, MCV 90.5, MCH 30.6, MCHC 33.8, RDW Std Deviation 52.7 H, RDW Coeff of Thor 15.9 H, Plt Count 22 L*, M PV 12.4 H, Immature Gran % (Auto) [employer] OPERATOR, Neut % (Auto) [employer] OPERATOR, Lymph % (Auto) [employer] HE[employer] OPERATOR, Roane % (Auto) [employer] HE[employer] OPERATOR, Eos % (Auto) [employer] HE[employer] OPERATOR, Baso % (Auto) [employer] OPERATOR, Absolute Neuts (auto) 5.3, Absolute Lymphs (auto) 1.30, Total Counted 100, Neutrophils % (Manual) 69, Band Neutrophils % 2, Lymphocytes % (Manual) 17 L, Monocytes % (Manual) 4, Eosinophils % (Manual) 4, Metamyelocytes % 2 H, Myelocytes % 2 H, Promyelocytes % 2 H, Nucleated RBC % 0.3, Diff Path Review May foll, Platelet Estimate MKD DEC, RBC Morphology NORM C+C, Sodium 141, Potassium 3.7, Chloride 111 H, Carbon Dioxide 25.0, Anion Gap 5, BUN 12, Creatinine 2.20 H, Estim Creat Clear Calc 36.13, Est GFR (MDRD) Af Amer 38 L, Est GFR (MDRD) Non-Af 31 L, BUN/Creatinine Ratio 5.5 L, Glucose 119 H, Calcium 8.2 L, Total Bilirubin 0.40, AST 26, ALT 17, Alkaline Phosphatase 61, Total Protein 5.6 L, Albumin 2.1 L, Globulin 3.5, A lbumin/Globulin Ratio 0.6 L Microbiology: Microbiology 07/14/24 12:53 Stool Clostridioides difficile (PCR) - Final 07/14/24 12:53 Stool Enteric Bacteriology - Final 07/12/24 12:30 Nasal Secretion MRSA (PCR) - Final 07/12/24 08:50 Sputum, Expectorated/Coughed Gram Stain - Final 07/12/24 08:50 Sputum, Expectorated/Coughed Respiratory Culture - Final Mixed normal respiratory mauricio. No Streptococcus pneumoniae, beta-hemolytic Streptococcus or Staphylococcus aureus isolated. 07/11/24 23:05 Urine, Clean Catch Urine Culture - Final Culture exhibits no growth. 07/12/24 10:53 Blood Culture (Wb) - Anticubital Right Blood Culture - Preliminary No growth in 48 hours. 07/11/24 21:40 Blood Culture (Wb) - Anticubital Right Blood Culture - Preliminary No growth in 48 hours. 07/12/24 09:53 Mucosa - Nose Coronavirus COVID-19 PCR - Final 07/12/24 09:53 Mucosa - Nose Respiratory Panel (PCR) - Final 07/11/24 08:00 Urine, Clean Catch Legionella Antigen - Final 07/11/24 08:00 Urine, Clean Catch Streptococcus pneumoniae Antigen (M - Final D/C Instructions Discharge Diet: No restrictions Discharge Activity: Return to Normal Activity Call your doctor if you observe: Fever of 101 or Higher, Shortness of breath, Fainting spells and Chest pain Meaningful Use Info Meaningful Use Meaningful Use Diagnoses (Choose all that apply): None applicable Ischemic Stroke Statin Dosing Therapy Reference: STATIN DOSE THERAPY REFERENCE: * Patients > 75 years receive moderate or high dose statin therapy. * Patients 75 years or YOUNGER should receive HIGH intensity statin dose unless contraindicated. You will be required to document reason for non-treatment if statin daily dose does not meet guidelines. HIGH DOSE STATIN THERAPY DAILY Atorvastatin > than or = to 40 mg Rosuvastatin > than or = to 20 mg Amlodipine + Atorvastatin > than or = to 2.5/40 mg Ezetimibe + Simvastatin 10/80 mg Simvastatin 80mg Discharge Plan Admission Admit Date/Time: 07/11/24 00:25 Attending Provider: Mo Champion Primary Care Provider: Diego Alonso Consulting Providers: Mo Herndon; Roslyn Cason; Sigifredo Andres; Jacquie Negron Discharge Orders/Prescriptions Prescriptions: Continued Zyrtec 10 mg capsule 10 mg PO DAILY rosuvastatin 20 mg tablet 10 mg PO DAILY albuterol sulfate 90 mcg/actuation HFA aerosol inhaler 2 puff inhalation Q4H PRN (Reason: shortness of breath or wheezing) Qty: 3 3RF Rx Instructions: administer with spacer fenofibrate nanocrystallized 145 mg tablet 145 mg PO QHS budesonide-formoterol 160-4.5 mcg/actuation HFA aerosol inhaler 2 puff inhalation BID Qty: 3 3RF citalopram 20 MG tablet 20 mg PO DAILY Patient Comments: MOOD trazodone 100 MG tablet 100 mg PO QHS Patient Comments: SLEEP metoprolol tartrate 25 MG tablet 12.5 mg PO BID ipratropium bromide 30 ML spray,non-aerosol 2 sprays NS DAILY clonazepam 1 MG tablet 1 mg PO QHS Rx Instructions: do not fill after 10/19/15 multivitamin with folic acid 1 TABLET tablet 1 tab PO DAILYCM tamsulosin 0.4 MG capsule 0.8 mg PO QHS omeprazole 40 MG capsule,delayed release(DR/EC) 40 mg PO DAILY pantoprazole 40 mg tablet,delayed release (DR/EC) 40 mg PO DAILY fluorometholone 0.1 % drops,suspension 1 drp ophthalmic (eye) BID Rx Instructions: EACH EYE TWICE DAILY gabapentin 300 mg capsule 300 mg PO TID ondansetron HCl 8 mg tablet 8 mg PO Q8H PRN PRN (Reason: nausea) prochlorperazine maleate 10 mg tablet 10 mg PO Q6H PRN PRN (Reason: nausea/vomiting) rosuvastatin 10 mg tablet 10 mg PO QHS folic acid 1 mg tablet 1 mg PO DAILY fluticasone propionate [24 Hour Allergy Relief] 50 mcg/actuation spray,suspension 2 spray intranasal DAILY Rx Instructions: administer into each nostril Calcium 600 + D(3) 600 mg-5 mcg (200 unit) capsule 1 cap PO QHS Brukinsa 80 mg capsule 160 mg PO BID acyclovir 400 mg tablet 400 mg PO BID sulfamethoxazole-trimethoprim 800-160 mg tablet 1 tab PO MOWEFR Held clopidogrel 75 mg tablet 75 mg PO DAILY Hold Instructions: Resume on 07/27/24. Referrals / Follow Up: Diego Alonso DO [Primary Care Provider] - Within 1 Week Isaac Pagan DO [Med Staff - Active Staff] - 07/18/24 (For repeat Donald CBC with differential) Disposition Disposition (needs filled in before D/C Order can be placed): Home, Self Care Charges/Coding Visit Charges Inpatient E&M: 85735 Disch Hosp >30min
[2024-07-16 10:32] LABS: Absolute Neutrophil Count 5.3 X10^3/uL (2.0-7.7)
[2024-07-16] MEDS: Acyclovir 200 MG Capsule 400 MG PO (10:32)
[2024-07-16] MEDS: TBO-FILGRASTIM 480 MCG/0.8 ML ML SC (10:35)
== END 2024-07-16 12:48 | disposition home or self-care (01) | DRG 682 ==
LOC: ED 23:56 → MS3 07-11 05:08 → PCU 07-13 20:39
PROVIDERS: Family Medicine; Internal Medicine; Internal Medicine Infectious Disease; Admitting Provider Internal Medicine; Emergency Provider Emergency Medicine; PCP Student in an Organized Health Care Education/Training Program; Visit Provider Internal Medicine
DX: N17.9 Acute kidney failure, unspecified (principal); D61.810 Antineoplastic chemotherapy induced pancytopenia; J18.9 Pneumonia, unspecified organism; C83.10 Mantle cell lymphoma, unspecified site; J44.0 Chronic obstructive pulmonary disease with (acute) lower respiratory infection; C34.90 Malignant neoplasm of unspecified part of unspecified bronchus or lung; C78.7 Secondary malignant neoplasm of liver and intrahepatic bile duct; I45.2 Bifascicular block; N13.8 Other obstructive and reflux uropathy; D70.9 Neutropenia, unspecified; E11.9 Type 2 diabetes mellitus without complications; I10 Essential (primary) hypertension; F32.A Depression, unspecified; E66.9 Obesity, unspecified; I48.91 Unspecified atrial fibrillation; E86.0 Dehydration; E87.6 Hypokalemia; M25.561 Pain in right knee; E78.5 Hyperlipidemia, unspecified; K21.9 Gastro-esophageal reflux disease without esophagitis; W18.30XA Fall on same level, unspecified, initial encounter; M25.562 Pain in left knee; F41.9 Anxiety disorder, unspecified; I25.10 Atherosclerotic heart disease of native coronary artery without angina pectoris; S00.03XA Contusion of scalp, initial encounter; G47.33 Obstructive sleep apnea (adult) (pediatric); R19.7 Diarrhea, unspecified; I95.1 Orthostatic hypotension; T45.1X5A Adverse effect of antineoplastic and immunosuppressive drugs, initial encounter; G89.29 Other chronic pain; Y92.003 Bedroom of unspecified non-institutional (private) residence as the place of occurrence of the external cause; N40.1 Benign prostatic hyperplasia with lower urinary tract symptoms; R50.81 Fever presenting with conditions classified elsewhere; Z68.30 Body mass index [BMI] 30.0-30.9, adult; Z11.52 Encounter for screening for COVID-19; Z79.02 Long term (current) use of antithrombotics/antiplatelets; Z87.891 Personal history of nicotine dependence; Z95.5 Presence of coronary angioplasty implant and graft
CPT/HCPCS: 36415; 36591; 70450; 71045; 80048; 80053; 80202; 81001; 83735; 84100; 84439; 84443; 85025; 87040; 87070; 87086; 87205; 87449; 87493; 87506; 87633; 87635; 87641; 92507; 92526; 92610; 93005; 93306; 94640; 94668; 97161; 97165; 99252; 99284; J7030; J7040; Q9957; A4216; C8929; G0463; J1447; J2405

== ENCOUNTER 2024-08-11 14:59 | Inpatient (IN) | payer MEDICARE, OTHER, SELFPAY ==
[2024-08-11] VITALS (9 sets, daily range): BP systolic 90–134; BP diastolic 48–72; PULSE 70–98; RESP 12–30; TEMP 36.6–37.2; O2SAT 30–100
--- NOTE | 2024-08-11 16:32 | EDS_ITS ---
HPI History of Present Illness Chief Complaint: Syncope [facility] Medical History Hearing loss, left Hearing loss, right Cancer Alcohol abuse Anxiety Diabetes Osteoporosis History of leg surgery ANCA (obstructive sleep apnea) GERD (gastroesophageal reflux disease) B-cell lymphoma Hypoxia COPD (chronic obstructive pulmonary disease) Pulmonary fibrosis Acute respiratory insufficiency Fluid overload Closed left hip fracture Hypertension (~07/22/23) Home Medications ?Medication ?Instructions ?Recorded ?Last Taken ?Type citalopram 20 mg tablet 20 mg PO DAILY depression 10/09/15 04/30/20 History trazodone 100 mg tablet 100 mg PO QHS sleep 10/09/15 04/29/20 History metoprolol tartrate 25 mg tablet 12.5 mg PO BID heart 08/22/18 04/30/20 History clonazepam 1 mg tablet 1 mg PO QHS anxiety 04/30/20 04/29/20 History ipratropium bromide 21 mcg (0.03 2 sprays NS DAILY sinus drainage 04/30/20 Unknown History %) nasal spray multivitamin with folic acid 400 1 tab PO DAILYCM supplement 04/30/20 04/30/20 History mcg tablet tamsulosin 0.4 mg capsule 0.8 mg PO QHS prostate 04/30/20 04/29/20 History cetirizine 10 mg capsule (Zyrtec) 10 mg PO DAILY allergies 05/14/20 Unknown History omeprazole 40 mg capsule,delayed 40 mg PO DAILY reflux 05/14/20 Unknown History release albuterol sulfate 90 mcg/actuation 2 puff inhalation Q4H PRN 07/08/22 Unknown Rx aerosol inhaler shortness of breath or wheezing #3 device clopidogrel 75 mg tablet 75 mg PO DAILY anti platelet 07/08/22 Unknown History rosuvastatin 20 mg tablet 10 mg PO DAILY cholesterol 07/08/22 Unknown History budesonide-formoterol HFA 160 2 puff inhalation BID breathing #3 10/27/23 Unknown Rx mcg-4.5 mcg/actuation aerosol device inhaler fenofibrate nanocrystallized 145 145 mg PO QHS cholesterol 10/27/23 Unknown History mg tablet acyclovir 400 mg tablet 400 mg PO BID viral infection 04/24/24 Unknown History calcium carbonate 600 mg-vitamin 1 cap PO QHS supplement 04/24/24 Unknown History D3 5 mcg (200 unit) capsule (Calcium 600 + D(3)) fluticasone propionate 50 2 spray intranasal DAILY allergies 04/24/24 Unknown History mcg/actuation nasal spray,suspension (24 Hour Allergy Relief) folic acid 1 mg tablet 1 mg PO DAILY supplement 04/24/24 Unknown History sulfamethoxazole 800 1 tab PO MOWEFR antibiotic 04/24/24 Unknown History mg-trimethoprim 160 mg tablet zanubrutinib 80 mg capsule 160 mg PO BID cancer 04/24/24 Unknown History (Brukinsa) fluorometholone 0.1 % eye 1 drp ophthalmic (eye) BID EYES 07/11/24 Unknown History drops,suspension gabapentin 300 mg capsule 300 mg PO TID LEG PAIN 07/11/24 Unknown History ondansetron HCl 8 mg tablet 8 mg PO Q8H PRN PRN nausea 07/11/24 Unknown History pantoprazole 40 mg tablet,delayed 40 mg PO DAILY reflux 07/11/24 Unknown History release prochlorperazine maleate 10 mg 10 mg PO Q6H PRN PRN 07/11/24 Unknown History tablet nausea/vomiting rosuvastatin 10 mg tablet 10 mg PO QHS cholesterol 07/11/24 Unknown History Allergy/AdvReac Type Severity Reaction Status Date / Time No Known Allergies Allergy Verified 08/11/24 15:01 Surgical History H/O heart artery stent History of shoulder surgery Social History Smoking Status: Former smoker quit date: 11/23/06 Tobacco: How many years used: 44 EXAM Physical Exam Const Vital Signs: 08/11/24 15:00 08/11/24 15:00 08/11/24 16:00 Temperature 99 F Temperature Source Temporal Pulse Rate 80 83 70 Respiratory Rate 12 14 18 Respiratory Pattern Blood Pressure 93/48 L 99/53 L 113/65 Blood Pressure Mean 63 68 81 Pulse Ox 96 94 96 Oxygen Delivery Method Room Air Room Air 08/11/24 16:25 08/11/24 16:48 08/11/24 17:00 Temperature Temperature Source Pulse Rate 71 Respiratory Rate 22 H Respiratory Pattern Normal Blood Pressure 111/64 Blood Pressure Mean 79 Pulse Ox 94 Oxygen Delivery Method Room Air Room Air 08/11/24 18:00 08/11/24 20:00 Temperature Temperature Source Pulse Rate 73 75 Respiratory Rate 22 H 18 Respiratory Pattern Blood Pressure 113/59 L 112/70 Blood Pressure Mean 77 84 Pulse Ox 96 96 Oxygen Delivery Method Room Air [facility] [place] Narrative Medical decision making narrative: HISTORY OF PRESENT ILLNESS: 73-year-old male presents with syncope. Notes he passed out both yesterday and today. He further states he has no prodromal symptoms prior to passing out including headache, abdominal pain, neck pain, focal weakness, chest pain, shortness of breath. No bleeding diathesis. Notes loose stools. Denies increased urination. Denies any bleeding diathesis. No history of blood clots. Notes he is currently on chemo his last therapy was several weeks ago. The patient denies recent surgery in the last 4 weeks or immobilization in the last 3 days, denies previous diagnosis of DVT or PE, hemoptysis, unilateral leg swelling. No estrogen use noted. REVIEW OF SYSTEMS: Pertinent positives: Syncope Pertinent negatives: As per HPI PHYSICAL EXAM: Nursing triage notes reviewed, Vital signs reviewed Constitutional: please see [facility] HENT: MMM Eyes: Pupils equal round and reactive to light, Extraocular muscles intact Neck: No stridor, no JVD, full neck ROM Lungs: Clear to auscultation, No wheezing or rales. No increased work of breathing, no conversational dyspnea, no accessory muscle use, no nasal flaring. No respiratory distress noted Heart: Regular rate and rhythm, No murmurs, No rubs and No gallops, 2+ distal pulses (radial, femoral, posterior tibial) in all extremities Abdomen: Soft, there is no tenderness, rigidity, rebound or guarding, no obvious peritoneal signs, no palpable pulsatile abdominal masses, no auscultated abdominal bruit : No CVAT Extremities: No edema Rectal exam: Performed fraud prevention analyst in room shows no evidence of hemorrhoid, fissure, fistula but does show bright red blood Neuro: No focal neurological deficits, cranial nerves II through XII intact, 5/5 strength in all extremities. Intact sensation to light touch in all extremities, 2+ reflexes bilateral patella tendons. Normal gait. No ataxia. 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 Johnson) [facility] Narrative: The patient was initially hypotensive with blood pressure 90/48 which improved to 113/65 without intervention, otherwise afebrile and nontoxic-appearing. Exam without focal cardiopulmonary normalities, no stigmata of VTE, I considered the following differential diagnosis: Arrhythmia, anemia, electrolyte disturbance, PE While considered PE the patient's history and physical exam were not consistent with this diagnosis. (No chest pain, no hypoxia, low risk Wells score) I obtained a broad lab and imaging workup to further elucidate etiology of patient complaint. ALL IMAGES (IF OBTAINED) HAVE BEEN PERSONALLY REVIEWED AND INTERPRETED BY AARON CRYSTAL. EKG showed poor quality study, normal sinus rhythm, right axis deviation, right bundle branch block, no obvious STEMI similar to prior EKG from April 2024 I have personally reviewed the patient's chest x-ray. Chest x-ray is unremarkable for pulmonary edema, pneumothorax, pneumonia or focal cardiopulmonary abnormality. CBC with significant anemia, noted leukopenia as well as thrombocytopenia consistent with active chemotherapy BMP with improved CKD, no circulatory abnormalities, High-sensitivity troponin is negative, no evidence of myocardial ischemia Stool occult blood samples positive concerning for GI bleed Given age, history of cancer, reported syncope, significant severe anemia with concern for GI bleed, the patient's on antiplatelet agent such as Plavix 30 is high risk and was not appropriate for discharge. Did order 2 units of blood that were irradiated, leukoreduced made to be nonthreatening for the cancer patient. Patient is admitted to hospitalist to get GI consultation, blood transfusion and further observation for acute blood loss anemia likely from GI bleed. The patient and/or family, caregivers express understanding. The patient and/or family, caregivers agrees with the plan. Shared decision making: I will have a discussion with the patient and or visitors regarding risk/benefits of further testing or admission. They will be made aware of of the risk/benefits inherent in this decision they will be given the opportunity to voice understanding. Total critical care time today provided was at least 0 minutes. This excludes separately billable procedures. Critical care time (if documented) is secondary to the patient having high probability of clinically significant/life threatening deterioration in the patient's condition which required my urgent intervention. Impression: 1. Syncope 2. History of B-cell lymphoma 3. Anemia Dispo: Admit This note was generated with [employer] dictation software. It may contain incorrect words, spelling, and punctuation that were not noted in review of the chart prior to signing. Lab Data Labs: Laboratory Results - last 24 hr 08/11/24 08/11/24 08/11/24 15:48 19:00 20:00 WBC 2.2 L RBC 2.06 L Hgb 6.8 L Hct 21.1 L MCV 102.4 H MCH 33.0 H MCHC 32.2 RDW Std Deviation 75.4 H RDW Coeff of Thor 20.5 H Plt Count 73 L MPV 12.0 Neut % (Auto) Not Reportable Absolute Neuts (auto) 1.5 L Absolute Lymphs (auto) 0.53 L Total Counted 100 Neutrophils % (Manual) 69 Lymphocytes % (Manual) 24 Monocytes % (Manual) 5 Eosinophils % (Manual) 2 Differential Comment MANUAL Diff Path Review May foll Atypical Lymphocytes 1+ Toxic Granulation 3+ Platelet Estimate MOD DEC Plt Morphology Comment LARGE RBC Morphology N CHROM Anisocytosis 3+ Sodium 137 Potassium 3.6 Chloride 105 Carbon Dioxide 26.0 Anion Gap 6 BUN 21 H Creatinine 1.43 H Est GFR (MDRD) Af Amer 63 Est GFR (MDRD) Non-Af 52 L BUN/Creatinine Ratio 14.7 Glucose 110 H Calcium 8.1 L Troponin I High Sens 17 18 Blood Type A POSITIVE Antibody Screen NEGATIVE Crossmatch See Detail Radiography Diagnostic Testing: Clinical Impression(s) from Imaging Studies Chest X-Ray 08/11/24 16:40 IMPRESSION: Probable chronic interstitial changes in both lower lobes. No definitive evidence for acute infiltration Electronically Signed: Kleber Mas MD at 16:58 EDT , Discharge Plan Triage Chief Complaint: Syncope ED Provider: Julian Castellanos Dx/Rx/DC Orders Prescriptions: No Action Zyrtec 10 mg capsule 10 mg PO DAILY clopidogrel 75 mg tablet 75 mg PO DAILY rosuvastatin 20 mg tablet 10 mg PO DAILY albuterol sulfate 90 mcg/actuation HFA aerosol inhaler 2 puff inhalation Q4H PRN (Reason: shortness of breath or wheezing) Qty: 3 3RF Rx Instructions: administer with spacer fenofibrate nanocrystallized 145 mg tablet 145 mg PO QHS budesonide-formoterol 160-4.5 mcg/actuation HFA aerosol inhaler 2 puff inhalation BID Qty: 3 3RF citalopram 20 MG tablet 20 mg PO DAILY Patient Comments: MOOD trazodone 100 MG tablet 100 mg PO QHS Patient Comments: SLEEP metoprolol tartrate 25 MG tablet 12.5 mg PO BID ipratropium bromide 30 ML spray,non-aerosol 2 sprays NS DAILY clonazepam 1 MG tablet 1 mg PO QHS Rx Instructions: do not fill after 10/19/15 multivitamin with folic acid 1 TABLET tablet 1 tab PO DAILYCM tamsulosin 0.4 MG capsule 0.8 mg PO QHS omeprazole 40 MG capsule,delayed release(DR/EC) 40 mg PO DAILY pantoprazole 40 mg tablet,delayed release (DR/EC) 40 mg PO DAILY fluorometholone 0.1 % drops,suspension 1 drp ophthalmic (eye) BID Rx Instructions: EACH EYE TWICE DAILY gabapentin 300 mg capsule 300 mg PO TID ondansetron HCl 8 mg tablet 8 mg PO Q8H PRN PRN (Reason: nausea) prochlorperazine maleate 10 mg tablet 10 mg PO Q6H PRN PRN (Reason: nausea/vomiting) rosuvastatin 10 mg tablet 10 mg PO QHS folic acid 1 mg tablet 1 mg PO DAILY fluticasone propionate [24 Hour Allergy Relief] 50 mcg/actuation spray,suspension 2 spray intranasal DAILY Rx Instructions: administer into each nostril Calcium 600 + D(3) 600 mg-5 mcg (200 unit) capsule 1 cap PO QHS Brukinsa 80 mg capsule 160 mg PO BID acyclovir 400 mg tablet 400 mg PO BID sulfamethoxazole-trimethoprim 800-160 mg tablet 1 tab PO MOWEFR Primary Care Provider: Diego Alonso Referrals: Diego Alonso DO [Primary Care Provider] - Print Language: Martiniquais
--- NOTE | 2024-08-11 16:32 | EKG12_ITS ---
Test Reason : CP Blood Pressure : / mmHG Vent. Rate : 081 BPM Atrial Rate : 081 BPM P-R Int : 162 ms QRS Dur : 144 ms QT Int : 420 ms P-R-T Axes : -01 -23 012 degrees QTc Int : 487 ms Normal sinus rhythm Right bundle branch block Abnormal ECG BASELINE ARTIFACT Confirmed by Diego Cifuentes ([id number]), online editor ROWDY KIM ([id number]) on 08/15/2024 1:18:19 PM Referred By: Confirmed By:Diego Cifuentes
--- NOTE | 2024-08-11 16:40 | RAD_ITS ---
STUDY: X-RAY CHEST REASON FOR EXAM: Male, 73 years old. chest pain TECHNIQUE: AP portable COMPARISON: July 11, 2024 FINDINGS: Mild interstitial thickening in the lower lobes bilaterally.. There is no demonstrated pleural abnormality. Heart is enlarged. Normal mediastinum and ramses. Normal visualized pulmonary arteries. Normal visualized aortic arch and descending thoracic aorta. Mediport catheter noted on the right with tip in the right atrium Normal visualized thoracic spine. Normal visualized ribs, clavicles, and shoulders. There is no demonstrated abnormality of the visualized soft tissue structures of the upper abdomen. RAD/Chest 1 View (Portable) IMPRESSION: Probable chronic interstitial changes in both lower lobes. No definitive evidence for acute infiltration Electronically Signed: Kleber Mas MD at 16:58 EDT ,
[2024-08-11 16:59] LABS: Hematocrit 21.1 % (40-54); Hemoglobin 6.8 g/dL (13.0-16.5); Mean Corp Hgb Conc 32.2 g/dL (32-36); Mean Corpuscular Volume 102.4 fL (80-94); POSITIVE COUNT YES; POSITIVE MORPHOLOGY YES; Platelet Count 73 K/mm3 (150-450); RBC Distribution Width CV 20.5 % (11.6-14.6); RBC Distribution Width SD 75.4 fl (35.1-43.9); Red Blood Count 2.06 M/mm3 (4.6-6.2); White Blood Count 2.2 K/mm3 (4.4-11.0)
[2024-08-11 17:08] LABS: Anion Gap 6 (5-15); BUN 21 mg/dL (7-18); BUN/Creat Ratio 14.7 RATIO (10-20); Calcium,Total 8.1 mg/dL (8.5-10.1); Chloride 105 mmol/L (98-107); Creatinine, Serum 1.43 mg/dL (0.70-1.30); EST Glomerular Filtration Rate 52 mL/min (>60); Est Glom Filt Rate - Afr Amer 63 mL/min (>60); Glucose 110 mg/dL (74-106); Potassium 3.6 mmol/L (3.5-5.1); Sodium Level 137 mmol/L (136-145); Troponin-I HS (w/2H Reflex) 17 pg/mL (3.0-78.0)
[2024-08-11 17:46] LABS: Differential Indicated MANUAL DIFF
[2024-08-11 18:48] LABS: Reflex Troponin-HS? (from REC) Y
[2024-08-11 19:24] LABS: Troponin-I HS 18 pg/mL (3.0-78.0)
[2024-08-11 19:39] LABS: Differential Comment MANUAL
[2024-08-11 19:57] LABS: Atypical Lymphocyte 1+ %; Eosinophil 2 % (0-5); Lymphocyte 24 % (19-41); Monocyte 5 % (0-10); Neutrophil-Segmented 69 % (47-70); Total Cells Counted 100 (MANUAL DIFF); Toxic Granulation 3+
[2024-08-11 20:16] LABS: Absolute Neutrophil Count 1.5 X10^3/uL (2.0-7.7)
[2024-08-11 20:19] LABS: Absolute Lymphocyte Count 0.53 X10^3/uL (0.83-4.51)
[2024-08-11 20:21] LABS: Platelet Estimate MOD DEC (ADEQ)
[2024-08-11 20:22] LABS: Anisocytosis 3+; Red Cell Morphology N CHROM NORMAL (NORM C&C)
[2024-08-11 20:23] LABS: Platelet Morphology LARGE
--- NOTE | 2024-08-11 21:14 | HP.PCM.HOS_ITS ---
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 Pagan, CAD, HTN, HLD, Anxiety and Depression, GERD, Hypothyroidism, Pulmonary Fibrosis, Former tobacco use, ANCA, COPD, Obesity, recent discharge 07/16/2024 following admission on 07/11/2024 with near syncopal event with atrial fibrillation with RVR transiently with neutropenic fever treated with broad-spectrum antibiotics with no clear source with pancytopenia administered Granix discharge to home with early recommended follow-up with hematology/oncology Dr. Pagan who now re-presents to the [facility] ED on 08/11/24 with syncopal event reporting that he passed out yesterday and on day of presentation with no prodrome prior to the event with his last chemotherapy several weeks prior with no reported bright red blood per rectum or dark stools but does report on day of presentation onset of left-sided abdominal discomfort described as cramping/aching in addition to occasional sharp stabbing with no specific nausea or emesis prompting ED evaluation to be cautious. Workup in the ED included T99, heart rate 80, BP 93/48, respiratory rate 12, 96% on room air with most recent repeat vital signs heart rate 75, BP 112/70, respiratory rate 18, 96% on room air, CBC with WBC 2.2, hemoglobin 6.8, MCV 102.4, platelets 73 with ANC 1.5, lymphocytes 0.53, BMP with BUN/Crea 21/1.43, GFR 52, initial troponin 17 with repeat delta 18, chest x-ray with probable chronic interstitial changes in both lobes with no definitive evidence for infection, guaiac stool positive for blood, EKG with sinus rhythm with right bundle branch block with no acute evidence of ischemia. ED physician ordered 2 u PRBC. [facility] Medical History Hearing loss, left Hearing loss, right Cancer Alcohol abuse Anxiety Diabetes Osteoporosis History of leg surgery ANCA (obstructive sleep apnea) GERD (gastroesophageal reflux disease) B-cell lymphoma Hypoxia COPD (chronic obstructive pulmonary disease) Pulmonary fibrosis Acute respiratory insufficiency Fluid overload Closed left hip fracture Hypertension (~07/22/23) Home Medications ?Medication ?Instructions ?Recorded ?Last Taken ?Type citalopram 20 mg tablet 20 mg PO DAILY depression 10/09/15 04/30/20 History trazodone 100 mg tablet 100 mg PO QHS sleep 10/09/15 04/29/20 History metoprolol tartrate 25 mg tablet 12.5 mg PO BID heart 08/22/18 04/30/20 History clonazepam 1 mg tablet 1 mg PO QHS anxiety 04/30/20 04/29/20 History ipratropium bromide 21 mcg (0.03 2 sprays NS DAILY sinus drainage 04/30/20 Unknown History %) nasal spray tamsulosin 0.4 mg capsule 0.8 mg PO QHS prostate 04/30/20 04/29/20 History cetirizine 10 mg capsule (Zyrtec) 10 mg PO QHS allergies 05/14/20 Unknown History omeprazole 40 mg capsule,delayed 40 mg PO DAILY reflux 05/14/20 Unknown History release albuterol sulfate 90 mcg/actuation 2 puff inhalation Q4H PRN 07/08/22 Unknown Rx aerosol inhaler shortness of breath or wheezing #3 device clopidogrel 75 mg tablet 75 mg PO DAILY anti platelet 07/08/22 Unknown History budesonide-formoterol HFA 160 2 puff inhalation BID breathing #3 10/27/23 Unknown Rx mcg-4.5 mcg/actuation aerosol device inhaler fenofibrate nanocrystallized 145 145 mg PO QHS cholesterol 10/27/23 Unknown History mg tablet acyclovir 400 mg tablet 400 mg PO BID viral infection 04/24/24 Unknown History calcium carbonate 600 mg-vitamin 1 cap PO QHS supplement 04/24/24 Unknown History D3 5 mcg (200 unit) capsule (Calcium 600 + D(3)) fluticasone propionate 50 2 spray intranasal DAILY allergies 04/24/24 Unknown History mcg/actuation nasal spray,suspension (24 Hour Allergy Relief) folic acid 1 mg tablet 1 mg PO DAILY supplement 04/24/24 Unknown History sulfamethoxazole 800 1 tab PO MOWEFR antibiotic 04/24/24 Unknown History mg-trimethoprim 160 mg tablet zanubrutinib 80 mg capsule 160 mg PO BID cancer 04/24/24 Unknown History (Brukinsa) fluorometholone 0.1 % eye 1 drp ophthalmic (eye) BID EYES 07/11/24 Unknown History drops,suspension gabapentin 300 mg capsule 300 mg PO TID LEG PAIN 07/11/24 Unknown History ondansetron HCl 8 mg tablet 8 mg PO Q8H PRN PRN nausea 07/11/24 Unknown History pantoprazole 40 mg tablet,delayed 40 mg PO DAILY reflux 07/11/24 Unknown History release prochlorperazine maleate 10 mg 10 mg PO Q6H PRN PRN 07/11/24 Unknown History tablet nausea/vomiting carboxymethylcellulose sodium 1 % 1 drp EACH EYE BID 08/11/24 Unknown History eye liquid gel drops (Refresh Liquigel) clonazepam 1 mg tablet 1 mg PO QHS 08/11/24 Unknown History clopidogrel 75 mg tablet (Plavix) 75 mg PO DAILY 08/11/24 Unknown History levothyroxine 25 mcg tablet 25 mcg PO DAILY 08/11/24 Unknown History multivitamin (Daily Multi-Vitamin 1 tab PO DAILY 08/11/24 Unknown History tablet) omega 5-[id number]-gkw-fish oil 300 2 cap PO DAILY 08/11/24 Unknown History mg-1,000 mg capsule (Fish Oil) rosuvastatin 5 mg tablet 5 mg PO DAILY 08/11/24 Unknown History Allergy/AdvReac Type Severity Reaction Status Date / Time No Known Allergies Allergy Verified 08/11/24 15:01 Family History (Updated 08/11/24 @ 22:[address] Imelda Johnson MD) Mother Heart disease Hypertension COPD (chronic obstructive pulmonary disease) Lung cancer Father Heart disease Hypertension CAD (coronary artery disease) Myocardial infarction Surgical History (Updated 08/11/24 @ 22:[address] Imelda Johnson MD) History of surgery on lower extremity History of hip surgery Status post left foot surgery S/P tonsillectomy and adenoidectomy H/O heart artery stent History of shoulder surgery Social History (Updated 08/11/24 @ 22:[address] Imelda Johnson MD) household members: spouse Smoking Status: Former smoker quit date: 11/23/06 Tobacco: How many years used: 44 how long ago did patient quit smoking: Quit 2009, smoked 1 ppd since 13 years old until quit. alcohol intake: former details: Sober since 1980, prior nearly 4 packs beer daily. substance use type: does not use ROS ROS Narrative Admission Review of Systems: CONSTITUTIONAL: No weight loss, fever, chills, + weakness or fatigue. HEENT: + Significant hearing loss secondary to cancer treatments. Eyes: No visual loss, blurred vision, double vision or yellow sclerae. Ears, Nose, Throat: No sneezing, congestion, runny nose or sore throat. SKIN: No rash or itching, lesions, wounds except + occasional abrasion, very staged ecchymoses. CARDIOVASCULAR: + Syncopal event. No chest pain, chest pressure or chest discomfort, palpitations, edema, orthopnea. RESPIRATORY: No shortness of breath, cough or sputum, wheezing, hemoptysis. GASTROINTESTINAL: No anorexia, nausea, vomiting or diarrhea, abdominal pain, melena, BRBPR. GENITOURINARY: No dysuria, frequency, urgency or retention. NEUROLOGICAL: No headache, dizziness, syncope, paralysis, ataxia, numbness or tingling in the extremities, focal weakness, change in bowel or bladder control, seizure. MUSCULOSKELETAL: + muscle, back pain, joint pain or stiffness. HEMATOLOGIC: + Chronic anemia, easy bleeding/bruising. LYMPHATICS: No enlarged nodes. No history of splenectomy. PSYCHIATRIC: + History of anxiety and depression. ENDOCRINOLOGIC: No reports of sweating, cold or heat intolerance. No polyuria or polydipsia. ALLERGIES: + History of allergic rhinitis. Vital Signs Vital Signs Vital Signs: 08/11/24 15:00 08/11/24 15:00 08/11/24 16:00 Temperature 99 F Temperature Source Temporal Pulse Rate 80 83 70 Respiratory Rate 12 14 18 Respiratory Pattern Blood Pressure 93/48 L 99/53 L 113/65 Blood Pressure Mean 63 68 81 Pulse Ox 96 94 96 Oxygen Delivery Method Room Air Room Air 08/11/24 16:25 08/11/24 16:48 08/11/24 17:00 Temperature Temperature Source Pulse Rate 71 Respiratory Rate 22 H Respiratory Pattern Normal Blood Pressure 111/64 Blood Pressure Mean 79 Pulse Ox 94 Oxygen Delivery Method Room Air Room Air 08/11/24 18:00 08/11/24 20:00 Temperature Temperature Source Pulse Rate 73 75 Respiratory Rate 22 H 18 Respiratory Pattern Blood Pressure 113/59 L 112/70 Blood Pressure Mean 77 84 Pulse Ox 96 96 Oxygen Delivery Method Room Air Physical Exam Narrative Physical Examination: General: Awake, alert, oriented x 3 and cooperative, seated upright in the ED bed, fatigued, notes some discomfort in the left side of the abdomen otherwise no complaints including lightheadedness/dizziness Skin: Normal color, normal turgor, no icterus, no cyanosis except occasional stage ecchymoses, abrasion. HEENT: AT/NC, EOMI, PERRLA, mildly dry MM, no carotid bruits or JVD noted, extremely hard of hearing using a microphone and headphone system. Lungs: Diminished, greater bases, appropriate effort, no rales, ronchi or wheezing. Heart: Currently regular rate and rhythm; no gallop, rub audible. Abdomen: Soft, mild discomfort to the left upper and lower quadrant with no rebound or guarding, no marked distention, mildly hyperactive BS, no markedly appreciated HSM. Extremities: No cyanosis, clubbing, or edema. Neurological: Patient awake, alert, oriented as noted, cognitive function intact; pupils equally reactive to light and accommodation, cranial nerves gross normal, moving all 4 extremities, no focal deficits, strength moderately globally decreased secondary to acute presentation complaints Psychiatric: Affect appears fatigued, no acute evidence of depressive or anxiety feelings but does have underlying history. Results Lab / Micro Data 08/11/24 15:48 08/11/24 15:48 Labs: Laboratory Results - last 24 hr 08/11/24 15:48: WBC 2.2 L, RBC 2.06 L, Hgb 6.8 L, Hct 21.1 L, MCV 102.4 H, MCH 33.0 H, MCHC 32.2, RDW Std Deviation 75.4 H, RDW Coeff of Thor 20.5 H, Plt Count 73 L, MPV 12.0, Neut % (Auto) Not Reportable, Absolute Neuts (auto) 1.5 L, A bsolute Lymphs (auto) 0.53 L, Total Counted 100, Neutrophils % (Manual) 69, Lymphocytes % (Manual) 24, Monocytes % (Manual) 5, Eosinophils % (Manual) 2, Differential Comment MANUAL, Diff Path Review May foll, Atypical Lymphocytes 1+, Toxic Granulation 3+, Platelet Estimate MOD DEC, Plt Morphology Comment LARGE, RBC Morphology N CHROM, Anisocytosis 3+, Sodium 137, Potassium 3.6, Chloride 105, Carbon Dioxide 26.0, Anion Gap 6, BUN 21 H, Creatinine 1.43 H, Est GFR (MDRD) Af Amer 63, Est GFR (MDRD) Non-Af 52 L, BUN/Creatinine Ratio 14.7, G lucose 110 H, Calcium 8.1 L, Troponin I High Sens 17 08/11/24 19:00: Troponin I High Sens 18 08/11/24 20:00: Blood Type A POSITIVE, Antibody Screen NEGATIVE, Crossmatch See Detail Micro: Microbiology 08/11/24 20:23 Stool Stool Occult Blood (ARLYN) - Final Occult Blood Positive Imaging Radiology Impression Chest X-Ray 08/11/24 16:40 IMPRESSION: Probable chronic interstitial changes in both lower lobes. 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 Pagan, CAD, HTN, HLD, Anxiety and Depression, GERD, Hypothyroidism, Pulmonary Fibrosis, Former tobacco use, ANCA, COPD, Obesity, recent discharge 07/16/2024 following admission on 07/11/2024 with near syncopal event with atrial fibrillation with RVR transiently with neutropenic fever treated with broad-spectrum antibiotics with no clear source with pancytopenia administered Granix discharge to home with early recommended follow-up with hematology/oncology Dr. Pagan who now re-presents to the [facility] ED on 08/11/24 with syncopal event reporting that he passed out yesterday and on day of presentation with no prodrome prior to the event with his last chemotherapy several weeks prior with no reported bright red blood per rectum or dark stools but does report on day of presentation onset of left-sided abdominal discomfort described as cramping/aching in addition to occasional sharp stabbing. #1. Acute Syncopal event suspected secondary to Acute GI Bleed w/ resultant Acute Blood Loss Anemia on Chronic with concurrent pancytopenia: Will admit to [facility], maintain on IVFs, Hold antiplatelet therapy, will obtain serial H&H assessments, type and cross for 2 units initiated in the ED which will be continued, will maintain on IV Protonix drip, given history of former alcohol abuse and unclear cirrhotic/liver history will place also on prophylactic Rocephin, will request GI involvement in AM for consideration of scope, allow clears until midnight with n.p.o. status following, maintain on fall precautions, orthostatics requested. PT/OT/case management consulted for discharge planning and will maintain on fall precautions. #2. 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 Pagan, will continue his regimen with patient to use own home Brukinsa regimen, mag and phos requested, maintain on precautions given reduced ANC. Of note patient with significant hearing deficits secondary to previous cancer treatments. #3. Chronic pancytopenia: Likely secondary to underlying malignancy and treatments, complicated by acute presentation #1, admission CBC with WBC 2.2, A16.8, MCV 102.4, platelets 73 with ANC 1.5, absolute lymphs 0.53, maintained on precautions, will continue to trend. #4. Pulmonary fibrosis: Encouraged continued aggressive follow-up with pulmonary medicine, will continue inhalers given also concurrent underlying COPD history as noted. #5. Chronic COPD with allergic rhinitis: Will temporally hold home inhalers in the interim transition to ATC budesonide therapy, PRN albuterol, HOB, IS parameters, continue also home Zyrtec nasal spray as well as fluticasone home regimen, ipratropium. #6. PAF: Not on chronic anticoagulant therapy, holding Plavix, will continue metoprolol as BP allows. #7. CAD: s/p PCI, will hold plavix as noted, continue metoprolol as BP allows given #1, continue statin therapy, not on ACEI/ARB. #8. Hypertension: Continue home regimen including metoprolol as BP allows given presentation as noted #1, PRN hydralazine. #9. Hyperlipidemia: We will continue patient on statin therapy. #10. Former alcohol abuse: Encouraged continued sobriety, sober since 1980. #11. Former tobacco use: Encourage continued tobacco cessation. #12. Anxiety and depression: We will continue patient home citalopram, trazodone and clonazepam home regimen. #13. Obesity: Weight loss and lifestyle changes encouraged. #14. GERD: As noted given presentation #1 will maintain on IV Protonix drip. #15. Obesity: Weight loss and lifestyle changes encouraged. #16. Diabetes mellitus type II with Chronic neuropathy: Patient with noted history, per current list not on any type of diabetic regimen, hemoglobin A1c requested, in the interim will maintain on Accu-Cheks with insulin sliding scale every 6 hours given clear status with transition to n.p.o. at midnight, continue patient home gabapentin regimen. #18. ANCA: Clarifying if on CPAP q HS, ordered pending clarification. #19. BPH: We will continue patient on Flomax regimen. #20. Hypothyroidism: We will continue patient home levothyroxine regimen. #21. DVT Prophylaxis: SCDs. #22. CODE status: Patient HCPOA is his who is present and living will is currently in place. Discussed CODE status at length including difference between FULL code, DNR-CCA and DNR-CC status. Following discussions about the differences in these status, requested Full Code status. Advanced Care Planning Face to Face Time: 16 minutes. Charges/Coding Visit Charges Inpatient E&M: 34050 Init Hosp L3 Procedures Hospitalists Procedures: 57516 Advncd Care Plan 30 Min
[2024-08-11 22:56] LABS: Magnesium 1.7 mg/dL (1.6-2.6); Phosphorus 1.9 mg/dL (2.5-4.9)
[2024-08-12] VITALS (22 sets, daily range): BP systolic 107–140; BP diastolic 53–74; PULSE 81–112; RESP 14–20; TEMP 36.3–38.1; O2SAT 93–100; BMI 29.0
[2024-08-12 00:54] LABS: Hematocrit 21.5 % (40-54)
[2024-08-12] MEDS: 0.9% Saline Lock 10 ML Syringe IV ×3 (01:10→22:42)
[2024-08-12] MEDS: 0.9% Normal Saline (1000mL) 1,000 ML 100 ML IV (01:11)
[2024-08-12] MEDS: Ceftriaxone 1 GM/50 ML BAG IV ×2 (01:12→22:34)
[2024-08-12] MEDS: Tamsulosin HCl 0.4 MG Capsule 0.8 MG PO ×2 (01:14→22:22)
[2024-08-12] MEDS: Fenofibrate 145 MG Tablet PO ×2 (01:15→22:22)
[2024-08-12] MEDS: Pantoprazole Sodium 80 MG in 0.9% Normal Saline (100mL Bag) 80 ML 10 MG CONT INF ×3 (02:20→21:52)
[2024-08-12] MEDS: Acetaminophen 325 MG Tablet 650 MG PO ×2 (04:17→22:45)
[2024-08-12] MEDS: Gabapentin 300 MG Capsule PO ×2 (05:18→22:22)
[2024-08-12] MEDS: Levothyroxine 25 MCG TABLET PO (05:18)
[2024-08-12] MEDS: proCHLORPERazine 10 MG/2 ML Vial 5 MG IV (05:45)
[2024-08-12 07:03] LABS: Bedside Glucose 109 mg/dL (74-106)
[2024-08-12] MEDS: Budesonide Respules 0.5 MG/2 ML AMPUL.NEB. INHALATION ×2 (07:25→19:44)
[2024-08-12] MEDS: Metoprolol Tartrate 25 MG Tablet 12.5 MG PO ×2 (09:00→22:45)
[2024-08-12] MEDS: Acyclovir 200 MG Capsule 400 MG PO ×2 (09:00→22:21)
[2024-08-12] MEDS: Smz/Tmp Ds Tablet 1 TABLET PO (09:00)
[2024-08-12] MEDS: Citalopram 20 MG Tablet PO (09:02)
[2024-08-12] MEDS: Loratadine 10 MG Tablet PO (09:03)
[2024-08-12] MEDS: ZANUBRUTINIB 80 MG 160 MG PO ×2 (11:04→22:24)
[2024-08-12 11:38] LABS: Bedside Glucose 142 mg/dL (74-106)
--- NOTE | 2024-08-12 12:03 | PCM.PN.HOSP ---
Reason for Visit Reason for Visit: Diagnoses Gastrointestinal hemorrhage, unspecified (08/11/24) Syncope and collapse (08/11/24) Subjective Subjective Saw patient at bedside this morning, present. Patient was laying comfortably in bed, in no acute distress. He did use headphones with a microphone device in order to hear what I was saying. He denied any acute pain or discomfort currently. Did note that he has had some significant acid reflux recently more than his usual. No other new concerns at this time. Objective Data Objective Data Vital Signs: Vital Signs Temp Pulse Resp BP Pulse Ox O2 Del Method 97.4 F L 81 14 132/64 H 97 Room Air 08/12/24 09:10 08/12/24 09:10 08/12/24 09:10 08/12/24 09:10 08/12/24 09:10 08/12/24 09:10 Oxygen Delivery Method Room Air Weight: 89.2 kg Body Mass Index (BMI) 29.0 Intake & Output: Intake and Output for Last 24 Hours 08/10/24 08/11/24 08/12/24 23:59 23:59 23:59 Intake Total 1651 / 1651 Balance 1651 / 1651 Lab / Micro Data 08/12/24 13:02 08/12/24 13:02 Labs: Laboratory Results - last 24 hr 08/11/24 15:48: WBC 2.2 L, RBC 2.06 L, Hgb 6.8 L, Hct 21.1 L, MCV 102.4 H, MCH 33.0 H, MCHC 32.2, RDW Std Deviation 75.4 H, RDW Coeff of Thor 20.5 H, Plt Count 73 L, MPV 12.0, Neut % (Auto) Not Reportable, Absolute Neuts (auto) 1.5 L, Absolute Lymphs (auto) 0.53 L, Total Counted 100, Neutrophils % (Manual) 69, Lymphocytes % (Manual) 24, Monocytes % (Manual) 5, Eosinophils % (Manual) 2, Differential Comment MANUAL, Diff Path Review May foll, Atypical Lymphocytes 1+, Toxic Granulation 3+, Platelet Estimate MOD DEC, Plt Morphology Comment LARGE, RBC Morphology N CHROM, Anisocytosis 3+, Sodium 137, Potassium 3.6, Chloride 105, Carbon Dioxide 26.0, Anion Gap 6, BUN 21 H, Creatinine 1.43 H, Est GFR (MDRD) Af Amer 63, Est GFR (MDRD) Non-Af 52 L, BUN/Creatinine Ratio 14.7, Glucose 110 H, Calcium 8.1 L, Troponin I High Sens 17 08/11/24 19:00: Phosphorus 1.9 L, Magnesium 1.7, Troponin I High Sens 18 08/11/24 20:00: Blood Type A POSITIVE, Antibody Screen NEGATIVE, Crossmatch See Detail 08/11/24 20:00: Crossmatch See Detail 08/12/24 00:48: Hgb 7.0 L, Hct 21.5 L 08/12/24 06:45: POC Glucose 109 H 08/12/24 11:00: POC Glucose 142 H Micro: Microbiology 08/11/24 20:23 Stool Stool Occult Blood (ARLYN) - Final Occult Blood Positive Radiography Diagnostic Testing: Radiology Impression Chest X-Ray 08/11/24 16:40 IMPRESSION: Probable chronic interstitial changes in both lower lobes. No definitive evidence for acute infiltration Electronically Signed: Kleber Mas MD at 16:58 EDT , Physical Exam Const alert, oriented x3, no apparent distress and average body habitus Constitutional Narrative: Elderly male, somewhat chronically ill-appearing, using headphones and microphone device for assistance with hearing, otherwise laying back comfortably in bed, conversing normally, in no acute distress. General Appearance: cooperative and comfortable HEENT normocephalic, head/scalp atraumatic, nasal mucous membranes and turbinates normal and moist oral mucous membranes HEENT Narrative: Headphones in place. Eyes PERRL, EOMs intact bilaterally and conjunctivae normal Neck full ROM Chest inspection of chest normal Resp normal respiratory effort, normal air movement, no use of accessory muscles and clear to auscultation bilaterally Cardio regular rate, regular rhythm, no murmurs and peripheral pulses 2+ throughout GI normal to inspection, nondistended, normoactive bowel sounds, soft to palpation, non-tender and non-distended Back/Spine normal ROM Extremity normal to inspection, full ROM and no pedal edema Skin no rashes or lesions noted Neuro no focal motor deficits and no sensory deficits noted Speech: speech normal Psych mental status grossly normal Assessment & Plan Assessment/Plan (1) GI bleed: (2) Syncope: PLAN: Plan Patient is a 73-year-old male who presented [facility] ED on 08/11/2024 after a syncopal event at home. 1. Acute on chronic anemia with concern for GI bleed ? GI following. Hemoglobin 6.8 on admit, slightly down from baseline around 7.5-8. Stool occult positive. S/p 2 units of packed red blood cells with repeat hemoglobin 9.1. EGD on 08/12 showed nonbleeding gastric and duodenal ulcers with no stigmata of bleeding and normal esophagus. GI recommended Protonix 40 mg p.o. twice daily for 12 weeks and sucralfate 1 g p.o. twice daily for 14 days for treatment. Will need repeat EGD in 3 months for surveillance. Follow-up a.m. CBC. 2. 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 Follows with Dr. Pagan. Current treatment regimen of Tiara with prophylactic acyclovir and Bactrim, continuing this while inpatient. Notably has significant hearing deficits secondary to cancer treatment and uses headphones with microphone for medication. 3. Chronic pancytopenia ? Presumed secondary to underlying malignancy and treatments. Admission CBC with WBC 2.2 with ANC 1.5 and absolute lymphs 0.53, hemoglobin 6.8, MCV 102, platelets 73. Maintain on neutropenic precautions for now. Chronic medical conditions: ? Pulmonary fibrosis: Continue home inhalers. Outpatient follow-up with pulmonology. ? Chronic COPD with allergic rhinitis: Not in acute exacerbation. Continue home inhalers. ? Paroxysmal A-fib: Continue home Lopressor. Not on anticoagulant therapy. ? CAD s/p stenting, hypertension, hyperlipidemia: Continue home Lopressor, statin and fenofibrate. Holding Plavix for now. Not on ARTHUR or ARB. ? Former alcohol abuse: Encouraged continued cessation. ? Former tobacco abuse: Encouraged continued cessation. ? GERD: Treated with Protonix as noted above. ? Type 2 diabetes with neuropathy: A1c 5.3%. Sliding scale insulin while inpatient. Continue home gabapentin. ? BPH with obstructive symptoms: Continue home Flomax. ? Hypothyroidism: Continue home Synthroid. DVT prophylaxis: SCDs CODE STATUS: Full code, verified Expected disposition: Home, TBD Total clinical time spent by myself addressing the patient's medical issues, reviewing all the data, and collaborating with patient's care team: 35 minutes. Charges/Coding Visit Charges Inpatient E&M: 31806 Subs Hosp L2
--- NOTE | 2024-08-12 13:14 | CASEMGMT ---
Addendum entered by Rubin Hughes 08/13/24 13:13: EMail sent to Palliative that the pt is getting discharged home today. Original Note: Readmission Note: Index: 07/11/24-07/16/24. Dx: VANESSA, Dehydration and Hypotension Readmission: 08/11/24. Dx: ABLA, GI Bleed On index admission, the pt was discharged home with his and denied any additional therapy needs post-hospitalization. Pt was recommended to f/u with Dr. Pagan (Geotechnician/ Oncologist). Pt was not prescribed any new medications but was advised to hold his Plavix until 07/27/24. RN CM to pt room at this time. Pt at bedside. Pt states that he was able to follow up with Dr. Pagan. Pt states that he was able to take all of his medications as prescribed and held his Plavix as ordered. Pt states that he wears oxygen at home through [employer] but only as needed. Pt was set up with a Palliative appt for today but unfortunately had to be canceled d/t the current hospitalization. Moving forward, the pt states that he plans to DC home once he is medically ready and denies the need for HHC, OP Tx, or SNF. Pt is denying the need for PT/OT here in the hospital as well. Pt states that he wants to DC home once medically ready and to have Palliative care follow up with him. CM to follow.
[2024-08-12 13:15] LABS: Absolute Lymphocyte Count 0.86 X10^3/uL (0.83-4.51); Absolute Neutrophil Count 1.7 X10^3/uL (2.0-7.7); Basophil# 0.01 X10^3/uL; Basophil% 0.4 % (0-1); Eosinophil# 0.04 X10^3/uL; Eosinophils% 1.5 % (0-5); Hematocrit 28.3 % (40-54); Hemoglobin 9.1 g/dL (13.0-16.5); Lymphocyte # 0.86 X10^3/ul (0.83-4.51); Lymphocyte % 31.6 % (19-41); Mean Corp Hgb Conc 32.2 g/dL (32-36); Mean Corpuscular Hgb 31.4 pg (27.0-32.0); Mean Corpuscular Volume 97.6 fL (80-94); Mean Platelet Vol. 11.4 fl (6.2-12.0); Monocyte# 0.13 X10^3/uL; Monocyte% 4.8 % (0-10); NRBC Flagged by Analyzer 0 % (0-5); Neutrophil # 1.65 X10^3/uL (2.7-7.7); Neutrophil % 60.6 % (47-70); POSITIVE COUNT YES; POSITIVE MORPHOLOGY YES; Platelet Count 59 K/mm3 (150-450); RBC Distribution Width CV 20.3 % (11.6-14.6); RBC Distribution Width SD 71.6 fl (35.1-43.9); White Blood Count 2.7 K/mm3 (4.4-11.0)
[2024-08-12 13:22] LABS: Differential Indicated SCAN CRITERIA MET
[2024-08-12 13:43] LABS: ALB/GLOB Ratio 0.6 RATIO (0.9-2.4); AST(SGOT) 40 U/L (15-37); Alanine Aminotransfer ALT/SGPT 51 U/L (16-61); Albumin, Serum 2.2 g/dL (3.2-5.0); Alkaline Phosphatase 66 U/L (45-117); Anion Gap 6 (5-15); BUN 12 mg/dL (7-18); BUN/Creat Ratio 9.8 RATIO (10-20); Calcium,Total 8.1 mg/dL (8.5-10.1); Chloride 109 mmol/L (98-107); Creatinine, Serum 1.23 mg/dL (0.70-1.30); EST Glomerular Filtration Rate 62 mL/min (>60); Est Glom Filt Rate - Afr Amer 74 mL/min (>60); Estimated Creatinine Clearance 60.85 ml/min; Globulin 3.4 g/dL (2.2-4.2); Glucose 100 mg/dL (74-106); Potassium 3.6 mmol/L (3.5-5.1); Protein, Total 5.6 g/dL (6.4-8.2); Sodium Level 141 mmol/L (136-145)
[2024-08-12 13:50] LABS: Hemoglobin A1c 5.3 % (3.8-5.6)
[2024-08-12 14:00] LABS: Pathologist Review Reviewed
[2024-08-12 14:09] LABS: Anisocytosis 1+; Platelet Estimate MOD DEC (ADEQ)
[2024-08-12] MEDS: Lactated Ringers 1,000 ML 15 ML IV (14:38)
--- NOTE | 2024-08-12 15:30 | EGD_PTH ---
PATIENT: RENY GUTIÉRREZ LOC: [facility] U#:[id number] AGE/SX: 73/M ROOM: [facility] RE08/11/[address]: Dr. Shaq Duffy DO : 1950 BED: 1 DIS: 08/13/2024 SPEC #: [id number] RECD: 08/15/24 10:36 STATUS: PAT REQ #: [id number] CARMEN: 08/12/24 15:[address]: Chino Mclaughlin DEPT: SURGICAL PATHOLOGY RECD BY: Tomasa Garrett ENTERED: 08/15/24 12:26 SP TYPE: EGD BIOPSY OTHR DR: DO Dr. Imelda Paul MD Dr. Michael Halko, DO Tissues: Gastric mucous membrane Procedures: Surgery Specimen Level IV Comments: @ Ordering doctor for SUIV edited from to @ by MOI at 08/16/24825 @ Submitting doctor edited from to @ by MOI at 08/16/24825 HEADER OPERATION: EGD with biopsy PRE-OP DIAGNOSIS: GI bleed TISSUE SUBMITTED: Gastric antrum biopsy MICROSCOPIC DIAGNOSIS Gastric antrum, biopsy: Moderate chronic gastritis and minimal acute gastritis. Reactive epithelial changes. See comment. Stalin 08/16/2024 COMMENT The results of immunohistochemistry for Helicobacter pylori will be reported separately ([id number]). Clinical correlation and appropriate follow up are necessary. Case has been reviewed in consultation with Dr. Vargas who concurs with the above diagnosis. IDC:AM MICROSCOPIC DESCRIPTION Slides are reviewed. GROSS DESCRIPTION Received in fixative is one container labeled with the patient's name and designated Gastric antrum biopsy. The specimen consists of multiple irregular fragments of light luis soft tissue that in aggregate measure 0.8 x 0.3 x 0.1 cm. The specimen is totally submitted in one cassette. 08/15/2024 TC:3 [facility]:[id number]
--- NOTE | 2024-08-12 15:30 | IMM_PTH ---
PATIENT: RENY GUTIÉRREZ LOC: [facility] U#:[id number] AGE/SX: 73/M ROOM: [facility] RE08/11/[address]: Dr. Shaq Duffy DO : 1950 BED: 1 DIS: 08/13/2024 SPEC #: [id number] RECD: 08/15/24 11:11 STATUS: SOUT REQ #: [id number] CARMEN: 08/12/24 15:[address]: Chino Mclaughlin DEPT: IMMUNOHISTOCHEMISTRY RECD BY: Felix Sweet ENTERED: 08/15/24 11:12 SP TYPE: IMMUNO OTHR DR: DO Dr. Imelda Paul MD Dr. Michael Halko, DO Tissues: Gastric mucous membrane Procedures: H Pylori (initial) Comments: @ Ordering doctor for H.PYLORI edited from to @ by MOI at 08/15/24 111 @ Submitting doctor edited from to @ by MOI at 08/15/24 111 PHYSICIAN & INSTITUTION [place] [phone] SPECIMEN INFORMATION: Tissue Source: Gastric antrum biopsy Clinical Info: GI bleed Specimen Number: [id number] CPT code: 01362 METHODOLOGY: Deparaffinized sections of prefer/formalin-fixed tissue or PAP/DQ stained slides are incubated with monoclonal/polyclonal antibodies/oligonucleotide probes. Localization is made via biotin free immunoperoxidase method. Appropriate controls are performed and reacted as expected. Results on target cell population are indicated in the following table: RESULTS: ANTIBODY / CLONE RESULT H Pylori (polyclonal) negative These tests were developed and their performance characteristics determined by [facility]. They may not have been cleared or approved by the [place]. Food and Drug Administration. The FDA has determined that such clearance or approval is not necessary. The above immunohistochemical/dualISH markers are ordered and reviewed by the Pathologist. INTERPRETATION: Gastric antrum, biopsy: Negative for Helicobacter pylori organisms. 08/16/2024
--- NOTE | 2024-08-12 15:44 | PCM.PRE.AN2 ---
ASA Classification* ASA Classification ASA Classification: 3 and E Assessment & Plan Anesthesia* Anesthesia Assessment Anesthesia Assessment: Discussed sedation and/or anesthesia options, risks, benefits, and alternatives with patient/parents/legal guardian/POA. Questions invited. The patient/parents/legal guardian/POA seems to understand and agrees to proceed with anesthesia plan. Reviewed the physical assessment, medical history, allergy history and patient home medications list prior to surgery/procedure/anesthetic and documented any changes. Performed airway and anesthesia risk assessments. Anesthesia Type Anesthesia Type: MAC History Source History Obtained from:: Patient and Chart Anesthesia Focused Assessment* Temperature: 97.4 F Pulse Rate: 81 Blood Pressure: 132/64 Respiratory Rate: 14 Pulse Ox: 97 Airway Assessment Mouth opens: >3 cm Mallampati Score: II Teeth Condition: Intact Neck Range of motion (ROM): Full ROM Pertinent Findings EKG Pertinent Findings:: NSR RBBB Focused Labs Anesthesia Preop lab: CBC WBC 2.7 K/mm3 (4.4-11.0) L 08/12/24 13:02 RBC 2.90 M/mm3 (4.6-6.2) L 08/12/24 13:02 Hgb 9.1 g/dL (13.0-16.5) L 08/12/24 13:02 Hct 28.3 % (40-54) L 08/12/24 13:02 Plt Count 59 K/mm3 (150-450) L 08/12/24 13:02 CHEMISTRY Potassium 3.6 mmol/L (3.5-5.1) 08/12/24 13:02 Sodium 141 mmol/L (136-145) 08/12/24 13:02 Magnesium 1.7 mg/dL (1.6-2.6) 08/11/24 19:00 Phosphorus 1.9 mg/dL (2.5-4.9) L 08/11/24 19:00 BUN 12 mg/dL (7-18) 08/12/24 13:02 Creatinine 1.23 mg/dL (0.70-1.30) 08/12/24 13:02 Glucose 100 mg/dL (74-106) 08/12/24 13:02 POC Glucose 142 mg/dL (74-106) H 08/12/24 11:00 TSH 0.325 uIU/mL (0.358-3.740) L 07/11/24 04:33 COAG PT 13.7 SECONDS (11.7-14.9) 04/23/20 11:10 Pre-Assessment Diagnosis/Proposed Procedure Planned Operative Procedure(s): EGD Anesthesia History 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 When Was Last Pacemaker Check QUESTION #4 FULL TEXT: You/Your Family Experience fever (hyperthermia) with Anesthesia Last Oral Intake Last Oral intake: Last Oral Intake NPO since 11:00 08/12/24 14:38 Meds taken in AM with sips of water? 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 Female HX of Motion Sickness HX of N/V After Surgery Non-Smoker Duration of Surgery greater than 60 minutes Number of Risk Factors PONV Score Height & Weight Height & Weight: Anesthesia: Height & Weight Height 5 ft 9 in 08/12/24 11:50 Weight: 89.2 kg 08/12/24 14:38 Body Mass Index (BMI) 29.0 08/12/24 00:07 Respiratory Assessment Respiratory Assessment - generator worker: Respiratory Tract Infection Hx - generator worker Hx Respiratory Tract Infection No 08/12/24 02:03 STOP Sleep Apnea STOP Sleep Apnea - generator worker: STOP Sleep Apnea - generator worker Hx Hypertension Yes: controlled with med 08/12/24 11:59 Hx Sleep Apnea No 08/12/24 00:07 CPAP No 08/12/24 00:07 BIPAP No 08/12/24 00:07 Do you snore loudly (louder No 08/12/24 00:07 than talking or can be heard Do you often feel tired/ Yes 08/12/24 00:07 fatigued/ sleepy during daytime? Has anyone observed you stop No 08/12/24 00:07 breathing during sleep? STOP Results Positive 08/12/24 00:07 QUESTION #5 FULL TEXT : Do you snore loudly (louder than talking or can be heard through closed doors)? 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 Specify any problems Hx of Preganancy in last 3 N/A 08/12/24 00:07 Months Nurse Filling Out Transfusion AFLICKING 08/12/24 00:07 & Questions: Date: 08/12/24 08/12/24 00:07 Time: 00:16 08/12/24 00:07 Patient unable to answer at this time (ie. confused, unrespo /Reproduction History /Reproductive History - generator worker: /Reproductive Hx- generator worker Hx Now No 08/12/24 02:03 Gestational Age (in weeks): EDC: Hx Hx Para Hx Section SAB No 08/12/24 02:03 Active Medications Active Medications: Current Medications Generic Name Dose Route Start Last Admin Trade Name Freq PRN Reason Stop Dose Admin Acetaminophen 650 mg 08/12/24 00:05 08/12/24 04:17 Acetaminophen 325 Mg Tablet PO 650 mg Q4H PRN PRN Administration Fever, pain 1-09/01 Acyclovir 400 mg 08/12/24 10:00 08/12/24 09:00 Acyclovir 200 Mg Capsule PO 400 mg BID MELODIE Administration Al Hydrox/Mg Hydrox/Simethicone 30 ml 08/12/24 00:05 Mag /Aluminum/Simeth [facility] Udc 30 Ml Oral.Susp PO Q6H PRN PRN Gastric Burning Albuterol Sulfate 2.5 mg 08/12/24 00:05 Albuterol 2.5 Mg/3 Ml Vial.Neb. INHALATION Q2H PRN PRN Dyspnea, wheezing Atorvastatin Calcium 10 mg 08/12/24 22:00 Atorvastatin Calcium 10 Mg Tablet PO QHS MELODIE Budesonide 0.5 mg 08/12/24 00:05 08/12/24 07:25 Budesonide Respules 0.5 Mg/2 Ml Ampul.Neb. INHALATION 0.5 mg BID.RT MELODIE Administration Citalopram Hydrobromide 20 mg 08/12/24 10:00 08/12/24 09:02 Citalopram 20 Mg Tablet PO 20 mg DAILY MELODIE Administration Clonazepam 1 mg 08/12/24 22:00 Clonazepam 1 Mg Tablet PO QHS MELODIE Fenofibrate 145 mg 08/12/24 00:05 08/12/24 01:15 Fenofibrate 145 Mg Tablet PO 145 mg QHS MELODIE Administration Fluticasone Propionate 2 spray 08/12/24 10:00 08/12/24 09:03 Fluticasone 0.05% 1 Pine Nasal.Sry NASAL Not Given DAILY MELODIE Gabapentin 300 mg 08/12/24 00:05 08/12/24 14:28 Gabapentin 300 Mg Capsule PO Not Given TID MELODIE Glycerin/Hypromellose/Polyethylene 1 drp 08/12/24 10:00 08/12/24 09:03 Glycerin/Hypromellose/[id number] 15 Ml Bottle EACH EYE Not Given BID MELODIE Guaifenesin 20 ml 08/12/24 00:05 Guaifenesin 10 Ml Udc (200mg/10ml) PO Q4H PRN PRN COUGH Hydralazine HCl 10 mg 08/12/24 00:05 Hydralazine 20 Mg/Ml Vial IV Q4H PRN PRN SBP > 160 Protocol Ceftriaxone Sodium 1 gm in 50 mls @ 100 mls/hr 08/12/24 00:05 08/12/24 03:05 Rocephin IV Infused QHS MELODIE Infusion Pantoprazole Sodium 80 mg/ 100 mls @ 10 mls/hr 08/12/24 00:05 08/12/24 12:41 Sodium Chloride CONT INF 10 mls/hr Q10H MELODIE Administration Lactated Ringer's 1,000 mls @ 15 mls/hr 08/12/24 14:45 08/12/24 14:38 IV 15 mls/hr .Q48H MELODIE Administration Insulin Human Lispro 0 unit 08/12/24 07:00 08/12/24 14:53 Insulin Lispro 100 Unit/Ml Insuln.Pen SC Not Given ACHS [facility] Protocol Ipratropium [place] 2 spray 08/12/24 10:00 08/12/24 09:03 Ipratropium [place] 0.06% Nasal Pine NASAL Not Given DAILY [facility] Levothyroxine Sodium 25 mcg 08/12/24 06:00 08/12/24 05:18 Levothyroxine 25 Mcg Tablet PO 25 mcg DAILY@0600 MELODIE Administration Loratadine 10 mg 08/12/24 10:00 08/12/24 09:03 Loratadine 10 Mg Tablet PO 10 mg DAILY MELODIE Administration Melatonin 3 mg 08/12/24 00:05 Melatonin 3 Mg Tablet PO QHS PRN PRN INSOMNIA Metoprolol Tartrate 12.5 mg 08/12/24 10:00 08/12/24 09:00 Metoprolol Tartrate 25 Mg Tablet PO 12.5 mg BID [facility] Administration Protocol Nutritional Formula (Lactose Free) 120 ml 08/12/24 08:00 08/12/24 12:41 Ensure Clear 120 Ml Liquid PO Not Given TIDCM [facility] Prochlorperazine Edisylate 5 mg 08/12/24 00:05 08/12/24 05:45 Prochlorperazine 10 Mg/2 Ml Vial IV 5 mg Q4H PRN PRN Administration Breakthrough nausea/vomiting Sodium Chloride 10 - 40 ml 08/12/24 00:43 08/12/24 05:45 0.9% Saline Lock 10 Ml Syringe IV 20 ml UD PRN Administration SALINE FLUSH Tamsulosin HCl 0.8 mg 08/12/24 00:05 08/12/24 01:14 Tamsulosin Hcl 0.4 Mg Capsule PO 0.8 mg QHS MELODIE Administration Trazodone HCl 100 mg 08/12/24 00:05 08/12/24 01:14 Trazodone 100 Mg Tablet PO Not Given QHS [facility] Trimethoprim/Sulfamethoxazole 1 tablet 08/12/24 08:00 08/12/24 09:00 Smz/Tmp Ds Tablet PO 1 tablet MoWeFr@0800 [facility] Administration [facility] Medical History Hearing loss, left Hearing loss, right Cancer Alcohol abuse Anxiety Diabetes Osteoporosis History of leg surgery ANCA (obstructive sleep apnea) GERD (gastroesophageal reflux disease) B-cell lymphoma Hypoxia COPD (chronic obstructive pulmonary disease) Pulmonary fibrosis Acute respiratory insufficiency Fluid overload Closed left hip fracture Hypertension (~07/22/23) Home Medications ?Medication ?Instructions ?Recorded ?Last Taken ?Type citalopram 20 mg tablet 20 mg PO DAILY depression 10/09/15 04/30/20 History trazodone 100 mg tablet 100 mg PO QHS sleep 10/09/15 04/29/20 History metoprolol tartrate 25 mg tablet 12.5 mg PO BID heart 08/22/18 04/30/20 History clonazepam 1 mg tablet 1 mg PO QHS anxiety 04/30/20 04/29/20 History ipratropium bromide 21 mcg (0.03 2 sprays NS DAILY sinus drainage 04/30/20 Unknown History %) nasal spray tamsulosin 0.4 mg capsule 0.8 mg PO QHS prostate 04/30/20 04/29/20 History cetirizine 10 mg capsule (Zyrtec) 10 mg PO QHS allergies 05/14/20 Unknown History omeprazole 40 mg capsule,delayed 40 mg PO DAILY reflux 05/14/20 Unknown History release albuterol sulfate 90 mcg/actuation 2 puff inhalation Q4H PRN 07/08/22 Unknown Rx aerosol inhaler shortness of breath or wheezing #3 device clopidogrel 75 mg tablet 75 mg PO DAILY anti platelet 07/08/22 Unknown History budesonide-formoterol HFA 160 2 puff inhalation BID breathing #3 10/27/23 Unknown Rx mcg-4.5 mcg/actuation aerosol device inhaler fenofibrate nanocrystallized 145 145 mg PO QHS cholesterol 10/27/23 Unknown History mg tablet acyclovir 400 mg tablet 400 mg PO BID viral infection 04/24/24 Unknown History calcium carbonate 600 mg-vitamin 1 cap PO QHS supplement 04/24/24 Unknown History D3 5 mcg (200 unit) capsule (Calcium 600 + D(3)) fluticasone propionate 50 2 spray intranasal DAILY allergies 04/24/24 Unknown History mcg/actuation nasal spray,suspension (24 Hour Allergy Relief) folic acid 1 mg tablet 1 mg PO DAILY supplement 04/24/24 Unknown History sulfamethoxazole 800 1 tab PO MOWEFR antibiotic 04/24/24 Unknown History mg-trimethoprim 160 mg tablet zanubrutinib 80 mg capsule 160 mg PO BID cancer 04/24/24 Unknown History (Brukinsa) fluorometholone 0.1 % eye 1 drp ophthalmic (eye) BID EYES 07/11/24 Unknown History drops,suspension gabapentin 300 mg capsule 300 mg PO TID LEG PAIN 07/11/24 Unknown History ondansetron HCl 8 mg tablet 8 mg PO Q8H PRN PRN nausea 07/11/24 Unknown History pantoprazole 40 mg tablet,delayed 40 mg PO DAILY reflux 07/11/24 Unknown History release prochlorperazine maleate 10 mg 10 mg PO Q6H PRN PRN 07/11/24 Unknown History tablet nausea/vomiting carboxymethylcellulose sodium 1 % 1 drp EACH EYE BID 08/11/24 Unknown History eye liquid gel drops (Refresh Liquigel) clonazepam 1 mg tablet 1 mg PO QHS 08/11/24 Unknown History clopidogrel 75 mg tablet (Plavix) 75 mg PO DAILY 08/11/24 Unknown History levothyroxine 25 mcg tablet 25 mcg PO DAILY 08/11/24 Unknown History multivitamin (Daily Multi-Vitamin 1 tab PO DAILY 08/11/24 Unknown History tablet) omega 1-jhs-wje-fish oil 300 2 cap PO DAILY 08/11/24 Unknown History mg-1,000 mg capsule (Fish Oil) rosuvastatin 5 mg tablet 5 mg PO DAILY 08/11/24 Unknown History Allergy/AdvReac Type Severity Reaction Status Date / Time No Known Allergies Allergy Verified 08/11/24 15:01 Family History (Updated 08/11/24 @ 22:[address] Imelda Johnson MD) Mother Heart disease Hypertension COPD (chronic obstructive pulmonary disease) Lung cancer Father Heart disease Hypertension CAD (coronary artery disease) Myocardial infarction Surgical History (Updated 08/11/24 @ 22:[address] Imelda Johnson MD) History of surgery on lower extremity History of hip surgery Status post left foot surgery S/P tonsillectomy and adenoidectomy H/O heart artery stent History of shoulder surgery Social History (Updated 08/11/24 @ 22:[address] Imelda Johnson MD) household members: spouse Smoking Status: Former smoker quit date: 11/23/06 Tobacco: How many years used: 44 how long ago did patient quit smoking: Quit 2009, smoked 1 ppd since 13 years old until quit. alcohol intake: former details: Sober since 1980, prior nearly 4 packs beer daily. substance use type: does not use Review of Systems (Anesthesia) ROS Narrative System reviewed and no additional complaints, except as documented.
--- NOTE | 2024-08-12 15:59 | EX.PCM.CON.G ---
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 ED on 08/11/24 with syncopal event. He is reporting that he passed out yesterday and on day of presentation with no prodrome prior to the event with his last chemotherapy several weeks prior with no reported bright red blood per rectum or dark stools but does report on day of presentation onset of left-sided abdominal discomfort described as cramping/aching in addition to occasional sharp stabbing with no specific nausea or emesis prompting ED evaluation to be cautious. Workup in the ED included T99, heart rate 80, BP 93/48, respiratory rate 12, 96% on room air with most recent repeat vital signs heart rate 75, BP 112/70, respiratory rate 18, 96% on room air, CBC with WBC 2.2, hemoglobin 6.8, MCV 102.4, platelets 73 with ANC 1.5, lymphocytes 0.53, BMP with BUN/Crea 21/1.43, GFR 52, initial troponin 17 [facility] Medical History Hearing loss, left Hearing loss, right Cancer Alcohol abuse Anxiety Diabetes Osteoporosis History of leg surgery ANCA (obstructive sleep apnea) GERD (gastroesophageal reflux disease) B-cell lymphoma Hypoxia COPD (chronic obstructive pulmonary disease) Pulmonary fibrosis Acute respiratory insufficiency Fluid overload Closed left hip fracture Hypertension (~07/22/23) Home Medications ?Medication ?Instructions ?Recorded ?Last Taken ?Type citalopram 20 mg tablet 20 mg PO DAILY depression 10/09/15 04/30/20 History trazodone 100 mg tablet 100 mg PO QHS sleep 10/09/15 04/29/20 History metoprolol tartrate 25 mg tablet 12.5 mg PO BID heart 08/22/18 04/30/20 History clonazepam 1 mg tablet 1 mg PO QHS anxiety 04/30/20 04/29/20 History ipratropium bromide 21 mcg (0.03 2 sprays NS DAILY sinus drainage 04/30/20 Unknown History %) nasal spray tamsulosin 0.4 mg capsule 0.8 mg PO QHS prostate 04/30/20 04/29/20 History cetirizine 10 mg capsule (Zyrtec) 10 mg PO QHS allergies 05/14/20 Unknown History omeprazole 40 mg capsule,delayed 40 mg PO DAILY reflux 05/14/20 Unknown History release albuterol sulfate 90 mcg/actuation 2 puff inhalation Q4H PRN 07/08/22 Unknown Rx aerosol inhaler shortness of breath or wheezing #3 device clopidogrel 75 mg tablet 75 mg PO DAILY anti platelet 07/08/22 Unknown History budesonide-formoterol HFA 160 2 puff inhalation BID breathing #3 10/27/23 Unknown Rx mcg-4.5 mcg/actuation aerosol device inhaler fenofibrate nanocrystallized 145 145 mg PO QHS cholesterol 10/27/23 Unknown History mg tablet acyclovir 400 mg tablet 400 mg PO BID viral infection 04/24/24 Unknown History calcium carbonate 600 mg-vitamin 1 cap PO QHS supplement 04/24/24 Unknown History D3 5 mcg (200 unit) capsule (Calcium 600 + D(3)) fluticasone propionate 50 2 spray intranasal DAILY allergies 04/24/24 Unknown History mcg/actuation nasal spray,suspension (24 Hour Allergy Relief) folic acid 1 mg tablet 1 mg PO DAILY supplement 04/24/24 Unknown History sulfamethoxazole 800 1 tab PO MOWEFR antibiotic 04/24/24 Unknown History mg-trimethoprim 160 mg tablet zanubrutinib 80 mg capsule 160 mg PO BID cancer 04/24/24 Unknown History (Brukinsa) fluorometholone 0.1 % eye 1 drp ophthalmic (eye) BID EYES 07/11/24 Unknown History drops,suspension gabapentin 300 mg capsule 300 mg PO TID LEG PAIN 07/11/24 Unknown History ondansetron HCl 8 mg tablet 8 mg PO Q8H PRN PRN nausea 07/11/24 Unknown History pantoprazole 40 mg tablet,delayed 40 mg PO DAILY reflux 07/11/24 Unknown History release prochlorperazine maleate 10 mg 10 mg PO Q6H PRN PRN 07/11/24 Unknown History tablet nausea/vomiting carboxymethylcellulose sodium 1 % 1 drp EACH EYE BID 08/11/24 Unknown History eye liquid gel drops (Refresh Liquigel) clonazepam 1 mg tablet 1 mg PO QHS 08/11/24 Unknown History clopidogrel 75 mg tablet (Plavix) 75 mg PO DAILY 08/11/24 Unknown History levothyroxine 25 mcg tablet 25 mcg PO DAILY 08/11/24 Unknown History multivitamin (Daily Multi-Vitamin 1 tab PO DAILY 08/11/24 Unknown History tablet) omega 9-agv-vsj-fish oil 300 2 cap PO DAILY 08/11/24 Unknown History mg-1,000 mg capsule (Fish Oil) rosuvastatin 5 mg tablet 5 mg PO DAILY 08/11/24 Unknown History Allergy/AdvReac Type Severity Reaction Status Date / Time No Known Allergies Allergy Verified 08/11/24 15:01 Family History (Updated 08/11/24 @ 22:[address] Imelda Johnson MD) Mother Heart disease Hypertension COPD (chronic obstructive pulmonary disease) Lung cancer Father Heart disease Hypertension CAD (coronary artery disease) Myocardial infarction Surgical History (Updated 08/11/24 @ 22:[address] Imelda Johnson MD) History of surgery on lower extremity History of hip surgery Status post left foot surgery S/P tonsillectomy and adenoidectomy H/O heart artery stent History of shoulder surgery Social History (Updated 08/11/24 @ 22:[address] Imelda Johnson MD) household members: spouse Smoking Status: Former smoker quit date: 11/23/06 Tobacco: How many years used: 44 how long ago did patient quit smoking: Quit 2009, smoked 1 ppd since 13 years old until quit. alcohol intake: former details: Sober since 1980, prior nearly 4 packs beer daily. substance use type: does not use ROS ROS Narrative Admission Review of Systems: CONSTITUTIONAL: No weight loss, fever, chills, + weakness or fatigue. HEENT: + Significant hearing loss secondary to cancer treatments. Eyes: No visual loss, blurred vision, double vision or yellow sclerae. Ears, Nose, Throat: No sneezing, congestion, runny nose or sore throat. SKIN: No rash or itching, lesions, wounds except + occasional abrasion, very staged ecchymoses. CARDIOVASCULAR: + Syncopal event. No chest pain, chest pressure or chest discomfort, palpitations, edema, orthopnea. RESPIRATORY: No shortness of breath, cough or sputum, wheezing, hemoptysis. GASTROINTESTINAL: No anorexia, nausea, vomiting or diarrhea, abdominal pain, melena, BRBPR. GENITOURINARY: No dysuria, frequency, urgency or retention. NEUROLOGICAL: No headache, dizziness, syncope, paralysis, ataxia, numbness or tingling in the extremities, focal weakness, change in bowel or bladder control, seizure. MUSCULOSKELETAL: + muscle, back pain, joint pain or stiffness. HEMATOLOGIC: + Chronic anemia, easy bleeding/bruising. LYMPHATICS: No enlarged nodes. No history of splenectomy. PSYCHIATRIC: + History of anxiety and depression. ENDOCRINOLOGIC: No reports of sweating, cold or heat intolerance. No polyuria or polydipsia. ALLERGIES: + History of allergic rhinitis. Physical Exam Narrative Physical Examination: General: Awake, alert, oriented x 3 and cooperative, seated upright in the ED bed, fatigued, notes some discomfort in the left side of the abdomen otherwise no complaints including lightheadedness/dizziness Skin: Normal color, normal turgor, no icterus, no cyanosis except occasional stage ecchymoses, abrasion. HEENT: AT/NC, EOMI, PERRLA, mildly dry MM, no carotid bruits or JVD noted, extremely hard of hearing using a microphone and headphone system. Lungs: Diminished, greater bases, appropriate effort, no rales, ronchi or wheezing. Heart: Currently regular rate and rhythm; no gallop, rub audible. Abdomen: Soft, mild discomfort to the left upper and lower quadrant with no rebound or guarding, no marked distention, mildly hyperactive BS, no markedly appreciated HSM. Extremities: No cyanosis, clubbing, or edema. Neurological: Patient awake, alert, oriented as noted, cognitive function intact; pupils equally reactive to light and accommodation, cranial nerves gross normal, moving all 4 extremities, no focal deficits, strength moderately globally decreased secondary to acute presentation complaints Psychiatric: Affect appears fatigued, no acute evidence of depressive or anxiety feelings but does have underlying history. Lab / Micro Data 08/12/24 13:02 08/12/24 13:02 Labs: Laboratory Results - last 24 hr 08/11/24 15:48: WBC 2.2 L, RBC 2.06 L, Hgb 6.8 L, Hct 21.1 L, MCV 102.4 H, MCH 33.0 H, MCHC 32.2, RDW Std Deviation 75.4 H, RDW Coeff of Thor 20.5 H, Plt Count 73 L, MPV 12.0, Neut % (Auto) Not Reportable, Absolute Neuts (auto) 1.5 L, Absolute Lymphs (auto) 0.53 L, Total Counted 100, Neutrophils % (Manual) 69, Lymphocytes % (Manual) 24, Monocytes % (Manual) 5, Eosinophils % (Manual) 2, Differential Comment MANUAL, Diff Path Review Reviewed, Atypical Lymphocytes 1+, Toxic Granulation 3+, Platelet Estimate MOD DEC, Plt Morphology Comment LARGE, RBC Morphology N CHROM, Anisocytosis 3+, Sodium 137, Potassium 3.6, Chloride 105, Carbon Dioxide 26.0, Anion Gap 6, BUN 21 H, Creatinine 1.43 H, Est GFR (MDRD) Af Amer 63, Est GFR (MDRD) Non-Af 52 L, BUN/Creatinine Ratio 14.7, Glucose 110 H, Calcium 8.1 L, Troponin I High Sens 17 08/11/24 19:00: Phosphorus 1.9 L, Magnesium 1.7, Troponin I High Sens 18 08/11/24 20:00: Blood Type A POSITIVE, Antibody Screen NEGATIVE, Crossmatch See Detail 08/11/24 20:00: Crossmatch See Detail 08/12/24 00:48: Hgb 7.0 L, Hct 21.5 L 08/12/24 06:45: POC Glucose 109 H 08/12/24 11:00: POC Glucose 142 H 08/12/24 13:02: WBC 2.7 L, RBC 2.90 L, Hgb 9.1 L, Hct 28.3 L, MCV 97.6 H, MCH 31.4, MCHC 32.2, RDW Std Deviation 71.6 H, RDW Coeff of Thor 20.3 H, Plt Count 59 L, MPV 11.4, Immature Gran % (Auto) 1.100 H, Neut % (Auto) 60.6, Lymph % (Auto) 31.6, Thurston % (Auto) 4.8, Eos % (Auto) 1.5, Baso % (Auto) 0.4, Absolute Neuts (auto) 1.7 L, Absolute Lymphs (auto) 0.86, Nucleated RBC % 0, Platelet Estimate MOD DEC, Anisocytosis 1+, Sodium 141, Potassium 3.6, Chloride 109 H, Carbon Dioxide 26.0, Anion Gap 6, BUN 12, Creatinine 1.23, Estim Creat Clear Calc 60.85, Est GFR (MDRD) Af Amer 74, Est GFR (MDRD) Non-Af 62, BUN/Creatinine Ratio 9.8 L, Glucose 100, Hemoglobin A1c 5.3, Calcium 8.1 L, Total Bilirubin 0.80, AST 40 H, ALT 51, Alkaline Phosphatase 66, Total Protein 5.6 L, Albumin 2.2 L, Globulin 3.4, Albumin/Globulin Ratio 0.6 L Micro: Microbiology 08/11/24 20:23 Stool Stool Occult Blood (ARLYN) - Final Occult Blood Positive Imaging Radiology Impression Chest X-Ray 08/11/24 16:40 IMPRESSION: Probable chronic interstitial changes in both lower lobes. 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 y Acute Syncopal event suspected secondary to Acute GI Bleed w/ resultant Acute Blood Loss Anemia on Chronic with concurrent pancytopenia: Will admit to [facility], maintain on IVFs, Hold antiplatelet therapy, will obtain serial H&H assessments, type and cross for 2 units initiated in the ED which will be continued, will maintain on IV Protonix drip, given history of former alcohol abuse and unclear cirrhotic/liver history will place also on prophylactic Rocephin. He will undergo an upper endoscopy to evaluate his upper GI tract. He was explained alternatives, risk, benefits include not withstanding bleeding, infection, sepsis, perforation, need for emergent and . He will have an ASA of 3. Charges/Coding Visit Charges Inpatient E&M: 65109 Init Hosp L3
--- NOTE | 2024-08-12 16:15 | OP.CCLET_ITS ---
08/12/2024 Diego Alonso Do Re : Upper GI endoscopy procedure for Pierre Ibrahim Dear Celeste This procedure was performed on Monday, August 12, 2024. My impressions and recommendations are as follows: Impressions : - Normal esophagus. - Non-bleeding gastric ulcers with no stigmata of bleeding. Biopsied. - Non-bleeding duodenal ulcers with no stigmata of bleeding. Recommendations : - [facility] care. - Resume regular diet. - Continue present medications. - Await pathology results. - Repeat upper endoscopy in 3 months for surveillance. - Use Protonix (pantoprazole) 40 mg PO BID for 12 weeks. - Use sucralfate tablets 1 gram PO BID. My findings are described in the full procedure note, which is enclosed. If I can be of further assistance, please feel free to contact me at . Sincerely, Chino Mclaughlin, 08/12/2024 4:15:02 PM This report has been signed electronically.
--- NOTE | 2024-08-12 16:15 | OP.EGD_ITS ---
Patient Name: Pierre Ibrahim Procedure Date: 08/12/2024 3:17 PM Date of : 1950 Age: 73 Procedure: Upper GI endoscopy Indications: Iron deficiency anemia, Recent gastrointestinal bleeding Providers: Chino Mclaughlin DO Medicines: Monitored Anesthesia Care Patient Profile: This is a 73 year old male. Refer to note in patient chart for documentation of history and physical. Patient has symptoms of acute nausea. Complications: No immediate complications. Procedure: Pre-Anesthesia Assessment: - Prior to the procedure, a History and Physical was performed, and patient medications and allergies were reviewed. The patient is competent. The risks and benefits of the procedure and the sedation options and risks were discussed with the patient. All questions were answered and informed consent was obtained. Patient identification and proposed procedure were verified by the physician in the pre-procedure area. Mental Status Examination: alert and oriented. Airway Examination: normal oropharyngeal airway and neck mobility. Respiratory Examination: clear to auscultation. CV Examination: normal. Prophylactic Antibiotics: The patient does not require prophylactic antibiotics. Prior Anticoagulants: The patient has taken no anticoagulant or antiplatelet agents except for NSAID medication. ASA Grade Assessment: II - A patient with mild systemic disease. After reviewing the risks and benefits, the patient was deemed in satisfactory condition to undergo the procedure. The anesthesia plan was to use monitored anesthesia care (MAC). Immediately prior to administration of medications, the patient was re-assessed for adequacy to receive sedatives. The heart rate, respiratory rate, oxygen saturations, blood pressure, adequacy of pulmonary ventilation, and response to care were monitored throughout the procedure. The physical status of the patient was re-assessed after the procedure. After obtaining informed consent, the endoscope was passed under direct vision. Throughout the procedure, the patient's blood pressure, pulse, and oxygen saturations were monitored continuously. The Endoscope was introduced through the mouth, and advanced to the second part of duodenum. The upper GI endoscopy was accomplished without difficulty. The patient tolerated the procedure well. Scope In: 4:06:08 PM Scope Out: 4:09:54 PM Total Procedure Duration Time 0 hours 3 minutes 46 seconds Findings: The examined esophagus was normal. Few non-bleeding cratered gastric ulcers with no stigmata of bleeding were found in the gastric antrum. The largest lesion was 6 mm in largest dimension. Biopsies were taken with a cold forceps for histology. Verification of patient identification for the specimen was done. Estimated blood loss was minimal. Biopsies were taken with a cold forceps for Helicobacter pylori testing. Verification of patient identification for the specimen was done. Estimated blood loss was minimal. Two non-bleeding cratered duodenal ulcers with no stigmata of bleeding were found in the first portion of the duodenum. The largest lesion was 6 mm in largest dimension. Impression: - Normal esophagus. - Non-bleeding gastric ulcers with no stigmata of bleeding. Biopsied. - Non-bleeding duodenal ulcers with no stigmata of bleeding. Recommendation: - Return patient to [facility] for [facility] care. - Resume regular diet. - Continue present medications. - Await pathology results. - Repeat upper endoscopy in 3 months for surveillance. - Use Protonix (pantoprazole) 40 mg PO BID for 12 weeks. - Use sucralfate tablets 1 gram PO BID. Procedure Code(s): --- Professional --- 33411, Esophagogastroduodenoscopy, flexible, transoral; with biopsy, single or multiple CPT copyright 2021 [employer]. All rights reserved. The codes documented in this report are preliminary and upon svp review may be revised to meet current compliance requirements. Chino Mclaughlin DO 08/12/2024 4:15:02 PM This report has been signed electronically. Number of Addenda: 0 Note Initiated On: 08/12/2024 3:17 PM
--- NOTE | 2024-08-12 16:15 | PCM.POST.ANE ---
Anesthesia: Postop Eval I Current Vital Signs Temperature: 99.5 F Pulse Rate: 90 Blood Pressure: 116/70 Respiratory Rate: 16 Pulse Ox: 94 Oxygen Delivery Method: Room Air Assessment Airway patent: Yes Spontaneous unlabored respirations: Yes Mental status: Awake and Calm nausea: No Vomiting: No Anesthesia Complication: No Fluid Hydration Crystalloid volume administer (ml): 300 Total IV fluid infused: 300 Progress Note Anesthesia document: Postop Eval 1 completed: Yes
--- NOTE | 2024-08-12 16:16 | POSTOPAN2_ITS ---
Anesthesia Postop Eval I Sum Postop Eval Completion status Anesthesia document: Postop Eval 1 completed: Yes Anesthesia Postop Eval I Summary Anesthesia Postop Eval I Summary: Anesthesia Postop Eval I: Assessment Summary Airway patent Yes 08/12/24 16:16 [email or web address] Spontaneous unlabored Yes 08/12/24 16:16 [email or web address] respirations Mental status Awake,Calm 08/12/24 16:16 [email or web address] nausea No 08/12/24 16:16 [email or web address] Vomiting No 08/12/24 16:16 [email or web address] Anesthesia Postop Eval I: Fluid Summary Crystalloid volume administer 300 08/12/24 16:16 [email or web address] (ml) Colloids volume administered ( ml) Blood Product volume administered (ml) Total IV fluid infused 300 08/12/24 16:16 [email or web address] Anesthesia Postop Eval I: Summary Notes Anesthesia Complication No 08/12/24 16:16 [email or web address] Anesthesia Complication Comment: Post-operative progress note Anesthesia: Postop Eval II Evaluation Mental status: Awake and Calm Pain Level: 0 nausea: No Vomiting: No Complications Anesthesia Complication: No
--- NOTE | 2024-08-12 16:16 | PCM.POSTANE2 ---
Anesthesia Postop Eval I Sum Postop Eval Completion status Anesthesia document: Postop Eval 1 completed: Yes Anesthesia Postop Eval I Summary Anesthesia Postop Eval I Summary: Anesthesia Postop Eval I: Assessment Summary Airway patent Yes 08/12/24 16:16 [email or web address] [email or web address] [email or web address] Spontaneous unlabored Yes 08/12/24 16:16 WAX POT [email or web address].OT respirations Mental status Awake,Calm 08/12/24 16:16 [email or web address] [email or web address] [email or web address] nausea No 08/12/24 16:16 [email or web address] [email or web address] [email or web address] Vomiting No 08/12/24 16:16 [email or web address] [email or web address] [email or web address] Anesthesia Postop Eval I: Fluid Summary Crystalloid volume administer 300 08/12/24 16:16 WAX POT [email or web address] (ml) Colloids volume administered ( ml) Blood Product volume administered (ml) Total IV fluid infused 300 08/12/24 16:16 [email or web address] [email or web address] [email or web address] Anesthesia Postop Eval I: Summary Notes Anesthesia Complication No 08/12/24 16:16 WAX POT [email or web address].OT Anesthesia Complication Comment: Post-operative progress note Anesthesia: Postop Eval II Evaluation Mental status: Awake and Calm Pain Level: 0 nausea: No Vomiting: No Complications Anesthesia Complication: No
--- NOTE | 2024-08-12 21:10 | CPS ---
Patient refused PAP therapy for night time use. Stated that he doesn't wear one at home.
[2024-08-12] MEDS: Atorvastatin Calcium 10 MG Tablet PO (22:22)
[2024-08-12] MEDS: clonazePAM 1 MG Tablet PO (22:22)
[2024-08-12] MEDS: traZODone 100 MG Tablet PO (22:22)
[2024-08-12 23:00] LABS: Bedside Glucose 103 mg/dL (74-106)
[2024-08-13 03:22] VITALS: BMI 29.2
[2024-08-13 04:45] VITALS: BP 134/77; PULSE 85; RESP 16; TEMP 37.2; O2SAT 98
[2024-08-13] MEDS: Gabapentin 300 MG Capsule PO ×2 (05:58→13:35)
[2024-08-13] MEDS: Levothyroxine 25 MCG TABLET PO (05:58)
[2024-08-13 06:38] LABS: Bedside Glucose 129 mg/dL (74-106)
[2024-08-13 07:00] LABS: Hematocrit 26.2 % (40-54); Hemoglobin 8.7 g/dL (13.0-16.5); Mean Corp Hgb Conc 33.2 g/dL (32-36); Mean Corpuscular Hgb 32.3 pg (27.0-32.0); Mean Corpuscular Volume 97.4 fL (80-94); POSITIVE COUNT YES; POSITIVE MORPHOLOGY YES; RBC Distribution Width CV 20.1 % (11.6-14.6); Red Blood Count 2.69 M/mm3 (4.6-6.2); White Blood Count 2.4 K/mm3 (4.4-11.0)
[2024-08-13 07:12] LABS: Platelet Count 42 K/mm3 (150-450)
[2024-08-13 07:13] LABS: Scan Indicated on CBC? Y/N YES- FLAGS NOTED
[2024-08-13 07:17] VITALS: PULSE 79; RESP 20; O2SAT 96
[2024-08-13] MEDS: Budesonide Respules 0.5 MG/2 ML AMPUL.NEB. INHALATION (07:17)
[2024-08-13] MEDS: Pantoprazole Sodium 80 MG in 0.9% Normal Saline (100mL Bag) 80 ML 10 MG CONT INF (07:28)
[2024-08-13 10:16] VITALS: BP 106/66; PULSE 77; RESP 18; TEMP 37.7; O2SAT 98
[2024-08-13] MEDS: Loratadine 10 MG Tablet PO (10:40)
[2024-08-13] MEDS: Acyclovir 200 MG Capsule 400 MG PO (10:41)
[2024-08-13] MEDS: ZANUBRUTINIB 80 MG 160 MG PO (10:41)
[2024-08-13] MEDS: Citalopram 20 MG Tablet PO (10:41)
[2024-08-13 10:42] VITALS: PULSE 77
[2024-08-13] MEDS: Metoprolol Tartrate 25 MG Tablet 12.5 MG PO (10:42)
[2024-08-13] MEDS: Pantoprazole Sodium 40 MG Tablet PO (10:47)
[2024-08-13] MEDS: Sucralfate 1 GM Tablet PO (10:52)
[2024-08-13 11:50] LABS: Bedside Glucose 132 mg/dL (74-106)
--- NOTE | 2024-08-13 12:23 | DCINST_ITS ---
Discharge Instructions Diet Discharge Diet: No restrictions Activity Discharge Activity: No Restrictions Follow Up Care Test Results: Test results from this visit will be discussed in further detail at your follow-up appointment, if applicable. Discharge Plan Admission Admit Date/Time: 08/11/24 21:32 Primary Reason for Your Visit: passing out Attending Provider: Shaq Duffy Primary Care Provider: Diego Alonso Consulting Providers: Imelda Johnson Instructions Additional Instructions / Restrictions: Take pantoprazole twice daily for the next 12 weeks and sucralfate twice daily for the next 2 weeks to help with healing of your ulcers. You will need a repeat upper scope in about 3 months to make sure the ulcers have healed well. The GI office will call you to help set this up. Discharge Orders/Prescriptions Prescriptions: New sucralfate 1 gram Tablet 1 g PO BID 14 Days Qty: 28 0RF pantoprazole 40 mg Tablet,Delayed Release (Dr/Ec) 40 mg PO BID 90 Days Qty: 180 0RF Continued Zyrtec 10 mg capsule 10 mg PO QHS albuterol sulfate 90 mcg/actuation HFA aerosol inhaler 2 puff inhalation Q4H PRN (Reason: shortness of breath or wheezing) Qty: 3 3RF Rx Instructions: administer with spacer fenofibrate nanocrystallized 145 mg tablet 145 mg PO QHS budesonide-formoterol 160-4.5 mcg/actuation HFA aerosol inhaler 2 puff inhalation BID Qty: 3 3RF citalopram 20 MG tablet 20 mg PO DAILY Patient Comments: MOOD trazodone 100 MG tablet 100 mg PO QHS Patient Comments: SLEEP metoprolol tartrate 25 MG tablet 12.5 mg PO BID ipratropium bromide 30 ML spray,non-aerosol 2 sprays NS DAILY tamsulosin 0.4 MG capsule 0.8 mg PO QHS fluorometholone 0.1 % drops,suspension 1 drp ophthalmic (eye) BID Rx Instructions: EACH EYE TWICE DAILY gabapentin 300 mg capsule 300 mg PO TID ondansetron HCl 8 mg tablet 8 mg PO Q8H PRN PRN (Reason: nausea) prochlorperazine maleate 10 mg tablet 10 mg PO Q6H PRN PRN (Reason: nausea/vomiting) levothyroxine 25 mcg tablet 25 mcg PO DAILY clopidogrel [Plavix] 75 mg tablet 75 mg PO DAILY multivitamin [Daily Multi-Vitamin] Tablet 1 tab PO DAILY clonazepam 1 mg tablet 1 mg PO QHS Rx Instructions: administer 30 minutes before bedtime omega 3-jud-rwr-fish oil [Fish Oil] 300-1,000 mg capsule 2 cap PO DAILY rosuvastatin 5 mg tablet 5 mg PO DAILY carboxymethylcellulose sodium [Refresh Liquigel] 1 % drops, liquid gel 1 drp EACH EYE BID folic acid 1 mg tablet 1 mg PO DAILY fluticasone propionate [24 Hour Allergy Relief] 50 mcg/actuation spra y,suspension 2 spray intranasal DAILY Rx Instructions: administer into each nostril Calcium 600 + D(3) 600 mg-5 mcg (200 unit) capsule 1 cap PO QHS Brukinsa 80 mg capsule 160 mg PO BID acyclovir 400 mg tablet 400 mg PO BID sulfamethoxazole-trimethoprim 800-160 mg tablet 1 tab PO MOWEFR Discontinued clopidogrel 75 mg tablet 75 mg PO DAILY clonazepam 1 MG tablet 1 mg PO QHS Rx Instructions: do not fill after 10/19/15 omeprazole 40 MG capsule,delayed release(DR/EC) 40 mg PO DAILY pantoprazole 40 mg tablet,delayed release (DR/EC) 40 mg PO DAILY Referrals / Follow Up: Diego Alonso DO [Primary Care Provider] - Friend,DO Chino [Med Staff - Active Staff] - Disposition Disposition (needs filled in before D/C Order can be placed): Home, Self Care
--- NOTE | 2024-08-13 12:28 | PCM.DC.SUM ---
Providers Date of Admission: 08/11/24 Date of Discharge: 08/13/24 Primary Care Physician: Dr. Diego Alonso, DO Consultations 08/12/24 07:00 Consult: Gastroenterology Routine Consulting Provider: [facility] Reason for Consult: GI bleed, ABLA complicated by underlying CA w/ pancytopenia EMERGENT Consult: No MD Notified: Yes Date Notified: 08/12/24 Time Notified: 06:58 Method of Notification: Text Reason For Visit: ABLA, GI BLEED Diagnosis Discharge Diagnosis (1) GI bleed: Status: Acute Code(s): K92.2 - Gastrointestinal hemorrhage, unspecified (2) Syncope: Status: Acute Code(s): R55 - Syncope and collapse Medications at Discharge Home Medications citalopram 20 mg tablet 20 mg PO DAILY depression 10/09/15 trazodone 100 mg tablet 100 mg PO QHS sleep 10/09/15 metoprolol tartrate 25 mg tablet 12.5 mg PO BID heart 08/22/18 ipratropium bromide 21 mcg (0.03 %) nasal spray 2 sprays NS DAILY sinus drainage 04/30/20 tamsulosin 0.4 mg capsule 0.8 mg PO QHS prostate 04/30/20 cetirizine 10 mg capsule (Zyrtec) 10 mg PO QHS allergies 05/14/20 albuterol sulfate 90 mcg/actuation aerosol inhaler 2 puff inhalation Q4H PRN shortness of breath or wheezing #3 device 07/08/22 budesonide-formoterol HFA 160 mcg-4.5 mcg/actuation aerosol inhaler 2 puff inhalation BID breathing #3 device 10/27/23 fenofibrate nanocrystallized 145 mg tablet 145 mg PO QHS cholesterol 10/27/23 acyclovir 400 mg tablet 400 mg PO BID viral infection 04/24/24 calcium carbonate 600 mg-vitamin D3 5 mcg (200 unit) capsule (Calcium 600 + D(3)) 1 cap PO QHS supplement 04/24/24 fluticasone propionate 50 mcg/actuation nasal spray,suspension (24 Hour Allergy Relief) 2 spray intranasal DAILY allergies 04/24/24 folic acid 1 mg tablet 1 mg PO DAILY supplement 04/24/24 sulfamethoxazole 800 mg-trimethoprim 160 mg tablet 1 tab PO MOWEFR antibiotic 04/24/24 zanubrutinib 80 mg capsule (Brukinsa) 160 mg PO BID cancer 04/24/24 fluorometholone 0.1 % eye drops,suspension 1 drp ophthalmic (eye) BID EYES 07/11/24 gabapentin 300 mg capsule 300 mg PO TID LEG PAIN 07/11/24 ondansetron HCl 8 mg tablet 8 mg PO Q8H PRN PRN nausea 07/11/24 prochlorperazine maleate 10 mg tablet 10 mg PO Q6H PRN PRN nausea/vomiting 07/11/24 carboxymethylcellulose sodium 1 % eye liquid gel drops (Refresh Liquigel) 1 drp EACH EYE BID 08/11/24 clonazepam 1 mg tablet 1 mg PO QHS sleep/anxiety 08/11/24 clopidogrel 75 mg tablet (Plavix) 75 mg PO DAILY antiplatelet 08/11/24 levothyroxine 25 mcg tablet 25 mcg PO DAILY thyroid 08/11/24 multivitamin (Daily Multi-Vitamin tablet) 1 tab PO DAILY supplement 08/11/24 omega 1-dvg-lmz-fish oil 300 mg-1,000 mg capsule (Fish Oil) 2 cap PO DAILY supplement 08/11/24 rosuvastatin 5 mg tablet 5 mg PO DAILY cholesterol 08/11/24 pantoprazole 40 mg tablet,delayed release 40 mg PO BID 90 days #180 tabs 08/13/24 sucralfate 1 gram tablet 1 g PO BID 14 days #28 tabs 08/13/24 Hospital Course Operations None Procedures EGD, EKG and - (Chest x-ray) Summary of Care Provided Minutes Spent on Discharge: 35 Hospital Course: Patient is a 73-year-old male who presented [facility] ED on 08/11/2024 after a syncopal event at home. Hospital course as noted below. Patient discharged home in stable condition on 08/13. 1. Acute on chronic anemia with concern for GI bleed ? GI followed. Hemoglobin 6.8 on admit, slightly down from baseline around 7.5-8. Stool occult positive. S/p 2 units of packed red blood cells with repeat hemoglobin 9.1. EGD on 08/12 showed nonbleeding gastric and duodenal ulcers with no stigmata of bleeding and normal esophagus. GI recommended Protonix 40 mg p.o. twice daily for 12 weeks and sucralfate 1 g p.o. twice daily for 14 days for treatment. Will need repeat EGD in 3 months for surveillance. Hemoglobin 8.7 on day of discharge, stable. Recommend repeat CBC in 5 to 7 days to ensure that hemoglobin remains stable. 2. 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 Follows with Dr. Pagan. Current treatment regimen of Brukinsa with prophylactic acyclovir and Bactrim, continued while inpatient. Notably has significant hearing deficits secondary to cancer treatment and uses headphones with microphone for medication. Close outpatient follow-up on discharge. 3. Chronic pancytopenia ? Presumed secondary to underlying malignancy and treatments. Admission CBC with WBC 2.2 with ANC 1.5 and absolute lymphs 0.53, hemoglobin 6.8, MCV 102, platelets 73. Labs remained stable during admission. Chronic medical conditions: ? Pulmonary fibrosis: Continue home inhalers. Outpatient follow-up with pulmonology. ? Chronic COPD with allergic rhinitis: Not in acute exacerbation. Continue home inhalers. ? Paroxysmal A-fib: Continue home Lopressor. Not on anticoagulant therapy. ? CAD s/p stenting, hypertension, hyperlipidemia: Continue home Lopressor, statin and fenofibrate. Held Plavix during hospitalization, okay to resume on discharge. Not on ARTHUR or ARB. ? Former alcohol abuse: Encouraged continued cessation. ? Former tobacco abuse: Encouraged continued cessation. ? GERD: Treated with Protonix as noted above. ? Type 2 diabetes with neuropathy: A1c 5.3%. Not on any home diabetic medications. Sliding scale insulin while inpatient. Continue home gabapentin. ? BPH with obstructive symptoms: Continue home Flomax. ? Hypothyroidism: Continue home Synthroid. Total clinical time spent by myself addressing the patient's medical issues, reviewing all the data, and collaborating with patient's care team: 35 minutes. Physical Exam Const alert, oriented x3, no apparent distress and average body habitus Constitutional Narrative: Elderly male, somewhat chronically ill-appearing, using headphones and microphone device for assistance with hearing, otherwise laying back comfortably in bed, conversing normally, in no acute distress. Stable. General Appearance: cooperative and comfortable HEENT normocephalic, head/scalp atraumatic, nasal mucous membranes and turbinates normal and moist oral mucous membranes HEENT Narrative: Headphones in place. Eyes PERRL, EOMs intact bilaterally and conjunctivae normal Neck full ROM Chest inspection of chest normal Resp normal respiratory effort, normal air movement, no use of accessory muscles and clear to auscultation bilaterally Cardio regular rate, regular rhythm, no murmurs and peripheral pulses 2+ throughout GI normal to inspection, nondistended, normoactive bowel sounds, soft to palpation, non-tender and non-distended Back/Spine normal ROM Extremity normal to inspection, full ROM and no pedal edema Skin no rashes or lesions noted Neuro no focal motor deficits and no sensory deficits noted Speech: speech normal Psych mental status grossly normal Medical Records Data Medical Nutrition Assessment Dietitian: Malnutrition Criteria Met Start: 08/12/24 16:31 Freq: Status: Active Protocol: Document 08/12/24 16:31 SB (Rec: 08/12/24 16:31 SB [id number]) Nutrition Malnutrition Evidence of Malnutrition Exists Yes Malnutrition (severe): Acute Illness/Injury Evidenced By Suboptimal Energy Intake ( Severe),Weight Loss (Severe) Clinical Problem Acute Disease or Injury Related Malnutrition Etiology severe related to inadequate oral intake Signs/Symptoms as evidenced by PO meeting <50 % of estimated nutrition needs x 3 weeks and 5.5% weight loss x 1 month. Status Active Problem Recommendation Dietitian Recommendations/Changes Recommend, as tolerated, liberal consistent carb diet as diet is advanced. Continue 120ml apple ensure clear TID with medpass. Will d/c ensure clear as diet is advanced. As diet is advanced, will order 120ml chocolate glucerna 4x daily with medpass. Will monitor weight, as available. Will consult DATA SME d/t swallowing difficulty worsens. Reviewed and approved by Temi Mota RD, LD. Weight / BMI Weight Weight: 89.9 kg Body Mass Index (BMI) 29.2 ABG / Lab / Microbiology Data 08/13/24 06:35 08/12/24 13:02 Laboratory: Laboratory Results - last 24 hr 08/11/24 15:48: Diff Path Review Reviewed 08/12/24 13:02: WBC 2.7 L, RBC 2.90 L, Hgb 9.1 L, Hct 28.3 L, MCV 97.6 H, MCH 31.4, MCHC 32.2, RDW Std Deviation 71.6 H, RDW Coeff of Thor 20.3 H, Plt Count 59 L, MPV 11.4, Immature Gran % (Auto) 1.100 H, Neut % (Auto) 60.6, Lymph % (Auto) 31.6, Mcclain % (Auto) 4.8, Eos % (Auto) 1.5, Baso % (Auto) 0.4, Absolute Neuts (auto) 1.7 L, Absolute Lymphs (auto) 0.86, Nucleated RBC % 0, Platelet Estimate MOD DEC, Anisocytosis 1+, Sodium 141, Potassium 3.6, Chloride 109 H, Carbon Dioxide 26.0, Anion Gap 6, BUN 12, Creatinine 1.23, Estim Creat Clear Calc 60.85, Est GFR (MDRD) Af Amer 74, Est GFR (MDRD) Non-Af 62, BUN/Creatinine Ratio 9.8 L, Glucose 100, Hemoglobin A1c 5.3, Calcium 8.1 L, Total Bilirubin 0.80, AST 40 H, ALT 51, Alkaline Phosphatase 66, Total Protein 5.6 L, Albumin 2.2 L, Globulin 3.4, Albumin/Globulin Ratio 0.6 L 08/12/24 22:31: POC Glucose 103 08/13/24 06:00: POC Glucose 129 H 08/13/24 06:35: WBC 2.4 L, RBC 2.69 L, Hgb 8.7 L, Hct 26.2 L, MCV 97.4 H, MCH 32.3 H, MCHC 33.2, RDW Std Deviation 70.0 H, RDW Coeff of Thor 20.1 H, Plt Count 42 L*, MPV 12.0, Differential Comment , Diff Path Review March08/13/24 11:32: POC Glucose 132 H Microbiology: Microbiology 08/11/24 20:23 Stool Stool Occult Blood (ARLYN) - Final Occult Blood Positive D/C Instructions Discharge Diet: No restrictions Meaningful Use Info Meaningful Use Meaningful Use Diagnoses (Choose all that apply): None applicable Ischemic Stroke Statin Dosing Therapy Reference: STATIN DOSE THERAPY REFERENCE: * Patients > 75 years receive moderate or high dose statin therapy. * Patients 75 years or YOUNGER should receive HIGH intensity statin dose unless contraindicated. You will be required to document reason for non-treatment if statin daily dose does not meet guidelines. HIGH DOSE STATIN THERAPY DAILY Atorvastatin > than or = to 40 mg Rosuvastatin > than or = to 20 mg Amlodipine + Atorvastatin > than or = to 2.5/40 mg Ezetimibe + Simvastatin 10/80 mg Simvastatin 80mg Discharge Plan Admission Admit Date/Time: 08/11/24 21:32 Primary Reason for Your Visit: passing out Attending Provider: Shaq Duffy Primary Care Provider: Diego Alonso Consulting Providers: Imelda Johnson Instructions Additional Instructions / Restrictions: Take pantoprazole twice daily for the next 12 weeks and sucralfate twice daily for the next 2 weeks to help with healing of your ulcers. You will need a repeat upper scope in about 3 months to make sure the ulcers have healed well. The GI office will call you to help set this up. Discharge Orders/Prescriptions Prescriptions: New pantoprazole 40 mg Tablet,Delayed Release (Dr/Ec) 40 mg PO BID 90 Days Qty: 180 0RF sucralfate 1 gram tablet 1 g PO BID 14 Days Qty: 28 0RF Continued Zyrtec 10 mg capsule 10 mg PO QHS albuterol sulfate 90 mcg/actuation HFA aerosol inhaler 2 puff inhalation Q4H PRN (Reason: shortness of breath or wheezing) Qty: 3 3RF Rx Instructions: administer with spacer fenofibrate nanocrystallized 145 mg tablet 145 mg PO QHS budesonide-formoterol 160-4.5 mcg/actuation HFA aerosol inhaler 2 puff inhalation BID Qty: 3 3RF citalopram 20 MG tablet 20 mg PO DAILY Patient Comments: MOOD trazodone 100 MG tablet 100 mg PO QHS Patient Comments: SLEEP metoprolol tartrate 25 MG tablet 12.5 mg PO BID ipratropium bromide 30 ML spray,non-aerosol 2 sprays NS DAILY tamsulosin 0.4 MG capsule 0.8 mg PO QHS fluorometholone 0.1 % drops,suspension 1 drp ophthalmic (eye) BID Rx Instructions: EACH EYE TWICE DAILY gabapentin 300 mg capsule 300 mg PO TID ondansetron HCl 8 mg tablet 8 mg PO Q8H PRN PRN (Reason: nausea) prochlorperazine maleate 10 mg tablet 10 mg PO Q6H PRN PRN (Reason: nausea/vomiting) levothyroxine 25 mcg tablet 25 mcg PO DAILY clopidogrel [Plavix] 75 mg tablet 75 mg PO DAILY multivitamin [Daily Multi-Vitamin] Tablet 1 tab PO DAILY clonazepam 1 mg tablet 1 mg PO QHS Rx Instructions: administer 30 minutes before bedtime omega 9-wzh-ysd-fish oil [Fish Oil] 300-1,000 mg capsule 2 cap PO DAILY rosuvastatin 5 mg tablet 5 mg PO DAILY carboxymethylcellulose sodium [Refresh Liquigel] 1 % drops, liquid gel 1 drp EACH EYE BID folic acid 1 mg tablet 1 mg PO DAILY fluticasone propionate [24 Hour Allergy Relief] 50 mcg/actuation spray,suspension 2 spray intranasal DAILY Rx Instructions: administer into each nostril Calcium 600 + D(3) 600 mg-5 mcg (200 unit) capsule 1 cap PO QHS Brukinsa 80 mg capsule 160 mg PO BID acyclovir 400 mg tablet 400 mg PO BID sulfamethoxazole-trimethoprim 800-160 mg tablet 1 tab PO MOWEFR Discontinued clopidogrel 75 mg tablet 75 mg PO DAILY clonazepam 1 MG tablet 1 mg PO QHS Rx Instructions: do not fill after 10/19/15 omeprazole 40 MG capsule,delayed release(DR/EC) 40 mg PO DAILY pantoprazole 40 mg tablet,delayed release (DR/EC) 40 mg PO DAILY Referrals / Follow Up: Diego Alonso DO [Primary Care Provider] - Friend,DO [place] [Med Staff - Active Staff] - Disposition Disposition (needs filled in before D/C Order can be placed): Home, Self Care Charges/Coding Visit Charges Inpatient E&M: 02478 Disch Hosp >30min
[2024-08-13] MEDS: 0.9% Saline Lock 10 ML Syringe IV (13:37)
[2024-08-15 11:28] LABS: Pathologist Review Reviewed
== END 2024-08-13 14:22 | disposition home or self-care (01) | DRG 377 ==
LOC: ED 21:23 → PCU 22:46
PROVIDERS: Internal Medicine Gastroenterology; Admitting Provider Family Medicine; Emergency Provider Emergency Medicine; PCP Student in an Organized Health Care Education/Training Program; Visit Provider Hospitalist
PROC: 0DJ08ZZ Inspection of Upper Intestinal Tract, Via Natural or Artificial Opening Endoscopic (ICD-10-PCS; CPT 43235; principal; 2024-08-12 15:25)
DX: K92.2 Gastrointestinal hemorrhage, unspecified (principal); D61.810 Antineoplastic chemotherapy induced pancytopenia; C85.19 Unspecified B-cell lymphoma, extranodal and solid organ sites; N13.8 Other obstructive and reflux uropathy; D62 Acute posthemorrhagic anemia; J44.9 Chronic obstructive pulmonary disease, unspecified; E11.40 Type 2 diabetes mellitus with diabetic neuropathy, unspecified; E03.9 Hypothyroidism, unspecified; I10 Essential (primary) hypertension; F32.A Depression, unspecified; F10.11 Alcohol abuse, in remission; K26.9 Duodenal ulcer, unspecified as acute or chronic, without hemorrhage or perforation; E66.9 Obesity, unspecified; I48.0 Paroxysmal atrial fibrillation; G47.33 Obstructive sleep apnea (adult) (pediatric); J30.9 Allergic rhinitis, unspecified; K21.9 Gastro-esophageal reflux disease without esophagitis; J84.10 Pulmonary fibrosis, unspecified; I25.10 Atherosclerotic heart disease of native coronary artery without angina pectoris; E78.5 Hyperlipidemia, unspecified; F41.9 Anxiety disorder, unspecified; K25.9 Gastric ulcer, unspecified as acute or chronic, without hemorrhage or perforation; T45.1X5A Adverse effect of antineoplastic and immunosuppressive drugs, initial encounter; N40.1 Benign prostatic hyperplasia with lower urinary tract symptoms; H91.93 Unspecified hearing loss, bilateral; Z79.02 Long term (current) use of antithrombotics/antiplatelets; Z79.890 Hormone replacement therapy; Z79.899 Other long term (current) drug therapy; Z87.891 Personal history of nicotine dependence; Z95.5 Presence of coronary angioplasty implant and graft
CPT/HCPCS: 36415; 71045; 80048; 80053; 82274; 82962; 83036; 83735; 84100; 84484; 85014; 85018; 85025; 85027; 86644; 86850; 86900; 86901; 86920; 88305; 88342; 93005; 94640; 94668; 97802; 99285; J7030; J7040; J7120; P9040; A4216

== ENCOUNTER 2024-08-31 22:04 | Emergency (ER) | payer MEDICARE, OTHER, SELFPAY ==
[2024-08-31 22:06] VITALS: BP 114/66; PULSE 79; RESP 18; TEMP 36.8; O2SAT 97; BMI 30.9
[2024-08-31 22:08] VITALS: BP 128/70; PULSE 76; RESP 18; TEMP 36.7; O2SAT 97
--- NOTE | 2024-08-31 22:31 | RAD_ITS ---
INDICATION: ? osteo EXAMINATION/TECHNIQUE: X-RAY - LEFT XR Tibia/Fibula 2 Views COMPARISON: None FINDINGS: SOFT TISSUES: Diffuse lower leg and ankle edema. No radiopaque foreign body. BONES/JOINTS: No acute fracture... Normal alignment. Preservation of the joint space.. Minimal tibiotalar osteophyte formation. No erosive changes or periostitis. No sclerotic or destructive changes observed. RAD/Tibia & Fibula 2 Views IMPRESSION: Lower leg and ankle edema. No acute osseous finding to suggest osteomyelitis. MRI could further evaluate as clinically indicated.. Electronically Signed: Zan Centeno MD at 0:00 EDT ,
--- NOTE | 2024-08-31 22:40 | US_ITS ---
INDICATION: LT LEG REDNESS SWELLING EXAMINATION: Ultrasound US Venous Duplex LE Unilat / Limited TECHNIQUE: Loaiza scale, pulse wave, and color flow Doppler imaging was performed of the lower extremity venous system. The left greater saphenous, common femoral, femoral, and popliteal veins were interrogated. COMPARISON: None. FINDINGS: There is normal compression, augmentation, and signal throughout the visualized left common femoral vein, common femoral vein/saphenous junction, mid and distal superficial femoral vein, popliteal, posterior tibial, peroneal vein.. Right common femoral vein is patent. There is hypoechoic 10.5 x 5.6 x 7.1 cm mass surrounding the proximal femoral vessels which are likely patent on axial color flow image 12 though not accessible by compression and is not excluded DVT. Questionable color flow or artifact within the anterior aspect of the mass. US/Venous Duplex Imag/Limited/Uni IMPRESSION: Nonspecific large hypoechoic mass encases the proximal superficial femoral vessels. Considerations include hematoma with artifactual internal color flow. Neoplastic process would be less common but not excluded. Recommend CT without and with IV contrast to further characterize. No evidence of deep venous thrombosis within the remainder of the left lower extremity. Electronically Signed: Zan Centeno MD at 1:03 EDT ,
--- NOTE | 2024-08-31 22:43 | EX.ED.DYSGE1 ---
HPI History of Present Illness Chief Complaint: Cellulitis Informant: patient and spouse/S.O. Narrative Narrative: Patient is a 73-year-old male with past medical history of COPD hypertension and B-cell lymphoma and metastatic cancer. He states that he noticed his left lower leg was slightly pink today. He states that he noticed this skin change around noon and did not think much of it but by 7 PM it was more bright red and hot. He denies any fevers or injury and he denies any history of DVT/PE. He states that he contacted his oncologist and was advised to come to the hospital and secondary to this presents for evaluation [facility] Medical History Hearing loss, left Hearing loss, right Cancer Alcohol abuse Anxiety Diabetes Osteoporosis History of leg surgery ANCA (obstructive sleep apnea) GERD (gastroesophageal reflux disease) B-cell lymphoma Hypoxia COPD (chronic obstructive pulmonary disease) Pulmonary fibrosis Acute respiratory insufficiency Fluid overload Closed left hip fracture Hypertension (~07/22/23) Home Medications ?Medication ?Instructions ?Recorded ?Last Taken ?Type citalopram 20 mg tablet 20 mg PO DAILY depression 10/09/15 04/30/20 History trazodone 100 mg tablet 100 mg PO QHS sleep 10/09/15 04/29/20 History metoprolol tartrate 25 mg tablet 12.5 mg PO BID heart 08/22/18 04/30/20 History ipratropium bromide 21 mcg (0.03 2 sprays NS DAILY sinus drainage 04/30/20 Unknown History %) nasal spray tamsulosin 0.4 mg capsule 0.8 mg PO QHS prostate 04/30/20 04/29/20 History cetirizine 10 mg capsule (Zyrtec) 10 mg PO QHS allergies 05/14/20 Unknown History acyclovir 400 mg tablet 400 mg PO BID viral infection 04/24/24 Unknown History calcium 600 mg (as 1 cap PO QHS supplement 04/24/24 Unknown History carbonate)-vitamin D3 5 mcg (200 unit) capsule (Calcium 600 + D(3)) fluticasone propionate 50 2 spray intranasal DAILY allergies 04/24/24 Unknown History mcg/actuation nasal spray,suspension (24 Hour Allergy Relief) folic acid 1 mg tablet 1 mg PO DAILY supplement 04/24/24 Unknown History sulfamethoxazole 800 1 tab PO MOWEFR antibiotic 04/24/24 Unknown History mg-trimethoprim 160 mg tablet zanubrutinib 80 mg capsule 160 mg PO BID cancer 04/24/24 Unknown History (Brukinsa) fluorometholone 0.1 % eye 1 drp ophthalmic (eye) BID EYES 07/11/24 Unknown History drops,suspension gabapentin 300 mg capsule 300 mg PO TID LEG PAIN 07/11/24 Unknown History ondansetron HCl 8 mg tablet 8 mg PO Q8H PRN PRN nausea 07/11/24 Unknown History prochlorperazine maleate 10 mg 10 mg PO Q6H PRN PRN 07/11/24 Unknown History tablet nausea/vomiting carboxymethylcellulose sodium 1 % 1 drp EACH EYE BID 08/11/24 Unknown History eye liquid gel drops (Refresh Liquigel) clonazepam 1 mg tablet 1 mg PO QHS sleep/anxiety 08/11/24 Unknown History clopidogrel 75 mg tablet (Plavix) 75 mg PO DAILY antiplatelet 08/11/24 Unknown History levothyroxine 25 mcg tablet 25 mcg PO DAILY thyroid 08/11/24 Unknown History multivitamin (Daily Multi-Vitamin 1 tab PO DAILY supplement 08/11/24 Unknown History tablet) rosuvastatin 5 mg tablet 5 mg PO DAILY cholesterol 08/11/24 Unknown History pantoprazole 40 mg tablet,delayed 40 mg PO BID 90 days #180 tabs 08/13/24 Unknown Rx release sucralfate 1 gram tablet 1 g PO TID 4 weeks #84 tabs 08/16/24 Unknown Rx ferrous sulfate 325 mg (65 mg 325 mg PO QDAY 08/30/24 Unknown History iron) tablet (iron) prednisone 20 mg tablet 20 mg PO QDAY 08/30/24 Unknown History clindamycin HCl 300 mg capsule 300 mg PO 4X/DAY 10 days #40 caps 09/01/24 Unknown Rx Allergy/AdvReac Type Severity Reaction Status Date / Time No Known Allergies Allergy Verified 08/31/24 22:09 Family History (Updated 08/11/24 @ 22:[address] Imelda Johnson MD) Mother Heart disease Hypertension COPD (chronic obstructive pulmonary disease) Lung cancer Father Heart disease Hypertension CAD (coronary artery disease) Myocardial infarction Surgical History (Updated 08/11/24 @ 22:[address] Imelda Johnson MD) History of surgery on lower extremity History of hip surgery Status post left foot surgery S/P tonsillectomy and adenoidectomy H/O heart artery stent History of shoulder surgery Social History (Updated 08/11/24 @ 22:[address] Imelda Johnson MD) household members: spouse Smoking Status: Former smoker quit date: 11/23/06 Tobacco: How many years used: 44 how long ago did patient quit smoking: Quit 2009, smoked 1 ppd since 13 years old until quit. alcohol intake: former details: Sober since 1980, prior nearly 4 packs beer daily. substance use type: does not use ROS ROS ED Constitutional Constitutional ED: Denies chills or fever(s) ENT ENT ED: Denies sore throat Cardiovascular Cardiovascular: Denies chest pain Respiratory/Chest Respiratory/Chest: Denies cough or dyspnea Gastrointestinal Gastrointestinal: Denies abdominal pain, diarrhea, nausea or vomiting Genitourinary Genitourinary ED: Denies dysuria Musculoskeletal Musculoskeletal: Reports other Details: Positive left lower leg pain Integumentary Reports other Details: Positive left lower leg redness and warmth Neurologic Neurologic: Denies headache(s) Hematologic/Lymphatic Hematologic/Lymphatic: Denies easy bleeding or easy bruising Allergic/Immunologic Allergic/Immunologic ED: Denies mouth swelling, tongue swelling or urticaria EXAM Physical Exam Const Vital Signs: 08/31/24 22:06 08/31/24 22:08 08/31/24 23:08 Temperature 98.3 F 98.1 F 97.9 F Temperature Source Oral Oral Oral Pulse Rate 79 76 79 Respiratory Rate 18 18 18 Blood Pressure 114/66 128/70 H 134/64 H Blood Pressure Mean 82 89 87 Pulse Ox 97 97 98 Oxygen Delivery Method Room Air Room Air Room Air 09/01/24 00:00 Temperature 98.3 F Temperature Source Oral Pulse Rate 73 Respiratory Rate 19 H Blood Pressure 150/63 H Blood Pressure Mean 92 Pulse Ox 96 Oxygen Delivery Method Room Air Positive well nourished and well developed General Appearance ED: well developed HEENT HEENT Narrative: Normocephalic atraumatic Eyes PERRL and EOMs intact bilaterally Neck supple Resp normal respiratory effort Resp Narrative: Breath sounds are slight diminished throughout with faint rhonchi in bilateral bases consistent history of COPD but no signs of respiratory distress Cardio regular rate and regular rhythm Extremity Extremity Narrative: Left lower extremity is neurovascularly intact. Patient has asymmetric +2-3 pitting edema of the left leg compared to right which she states is more chronic in nature. There is asymmetric erythema and warmth extending from essentially the ankle up to the mid dey and is circumferential in nature. No lymphangitic streaking. No obvious abscess formation. Compartments are soft and compressible going against compartment syndrome Neuro oriented x3, CN's II-XII intact bilaterally and no sensory deficits noted Sensorium / Orientation: alert Motor Exam: strength 5/5 throughout Psych mental status grossly normal Skin Skin Narrative: Soft tissue changes to the left lower leg as documented above MDM MDM MDM Narrative Medical decision making narrative: Patient arrived to the ER with stable vitals. He reported chronic swelling to the left lower extremity which was only mildly increased from his baseline. However his main concern was development of progressing redness and warmth concerning for potential infection. Differential diagnosis is for cellulitis versus chronic stasis changes versus DVT versus neutropenic fever versus sepsis. As the patient has known metastatic cancer he is at higher risk for formation of clots and therefore venous duplex was obtained. This revealed no obvious DVT. It did document a mass in his left leg but patient states that this has been known and therefore do not feel there is need for further investigation. The patient's compartments are soft and compressible going against compartment syndrome. His neutrophil count was normal and he does not have a fever going as neutropenic fever. His x-ray reveals no signs of osteomyelitis or free air to suggest necrotizing fasciitis. Because of his immunosuppression he was started on Zosyn as his exam and history is most consistent with developing cellulitis. I attempted to contact his oncologist Dr. Pagan to discuss the patient's care. However I was unable to reach the physician. At this time he is afebrile he is normotensive he does not have a lactic acidosis leukocytosis left shift or neutropenia. The erythema has not progressed during his ER stay and he does not have DVT based on his venous duplex. Therefore do not feel there is need for admission and we will start him on outpatient oral antibiotic. Patient states he will contact his oncologist to inform them of this and discuss further treatment options or plan of care. However at this time patient and do agree with plan of care as he does not have a blood clot or signs of sepsis. History & Record Review Discussion w/independent historian: Patient and Significant other Lab Data Attestation: I reviewed the patient's lab results. Labs: Laboratory Results - last 24 hr 08/31/24 23:07 WBC 8.8 RBC 2.62 L Hgb 8.5 L Hct 27.4 L MCV 104.6 H MCH 32.4 H MCHC 31.0 L RDW Std Deviation 90.7 H RDW Coeff of Thor 24.4 H Plt Count 106 L MPV 11.1 Immature Gran % (Auto) 2.500 H Neut % (Auto) 53.0 Lymph % (Auto) 30.3 Owsley % (Auto) 13.3 H Eos % (Auto) 0.6 Baso % (Auto) 0.3 Absolute Neuts (auto) 4.7 Absolute Lymphs (auto) 2.68 Nucleated RBC % 0.2 Differential Comment SCANNED Polychromasia 1+ Anisocytosis 1+ Stomatocytes 1+ Sodium 142 Potassium 3.8 Chloride 108 H Carbon Dioxide 27.0 Anion Gap 7 BUN 27 H Creatinine 1.60 H Estim Creat Clear Calc 48.17 Est GFR (MDRD) Af Amer 55 L Est GFR (MDRD) Non-Af 45 L BUN/Creatinine Ratio 16.9 Glucose 131 H Lactic Acid 1.5 Calcium 8.6 Procalcitonin 0.61 H Radiography Diagnostic Testing: Clinical Impression(s) from Imaging Studies Tibia/Fibula X-Ray 08/31/24 22:31 IMPRESSION: Lower leg and ankle edema. No acute osseous finding to suggest osteomyelitis. MRI could further evaluate as clinically indicated.. Electronically Signed: Zan Centeno MD at 0:00 EDT Reading Location ID and State: [address] [place] [address] Tel , Service support , X-ray of the left tibia and fibula display soft tissue swelling without any type of moth-eaten appearance suggest osteomyelitis or gas relation to suggest necrotizing fasciitis Discharge Plan Triage Chief Complaint: Cellulitis ED Provider: Rivera Messer Dx/Rx/DC Orders Clinical Impression: Cellulitis of left lower extremity, Hypertension, B-cell lymphoma, COPD (chronic obstructive pulmonary disease), Metastatic cancer Instructions: Cellulitis Dc Prescriptions: New clindamycin HCl 300 mg capsule 300 mg PO 4X/DAY 10 Days Qty: 40 0RF No Action Zyrtec 10 mg capsule 10 mg PO QHS ferrous sulfate [iron] 325 mg (65 mg iron) tablet 325 mg PO QDAY prednisone 20 mg tablet 20 mg PO QDAY citalopram 20 MG tablet 20 mg PO DAILY Patient Comments: MOOD trazodone 100 MG tablet 100 mg PO QHS Patient Comments: SLEEP metoprolol tartrate 25 MG tablet 12.5 mg PO BID ipratropium bromide 30 ML spray,non-aerosol 2 sprays NS DAILY tamsulosin 0.4 MG capsule 0.8 mg PO QHS fluorometholone 0.1 % drops,suspension 1 drp ophthalmic (eye) BID Rx Instructions: EACH EYE TWICE DAILY gabapentin 300 mg capsule 300 mg PO TID ondansetron HCl 8 mg tablet 8 mg PO Q8H PRN PRN (Reason: nausea) prochlorperazine maleate 10 mg tablet 10 mg PO Q6H PRN PRN (Reason: nausea/vomiting) levothyroxine 25 mcg tablet 25 mcg PO DAILY clopidogrel [Plavix] 75 mg tablet 75 mg PO DAILY multivitamin [Daily Multi-Vitamin] Tablet 1 tab PO DAILY clonazepam 1 mg tablet 1 mg PO QHS Rx Instructions: administer 30 minutes before bedtime rosuvastatin 5 mg tablet 5 mg PO DAILY carboxymethylcellulose sodium [Refresh Liquigel] 1 % drops, liquid gel 1 drp EACH EYE BID pantoprazole 40 mg Tablet,Delayed Release (Dr/Ec) 40 mg PO BID 90 Days Qty: 180 0RF folic acid 1 mg tablet 1 mg PO DAILY fluticasone propionate [24 Hour Allergy Relief] 50 mcg/actuation spray,suspension 2 spray intranasal DAILY Rx Instructions: administer into each nostril Calcium 600 + D(3) 600 mg-5 mcg (200 unit) capsule 1 cap PO QHS Brukinsa 80 mg capsule 160 mg PO BID acyclovir 400 mg tablet 400 mg PO BID sulfamethoxazole-trimethoprim 800-160 mg tablet 1 tab PO MOWEFR sucralfate 1 gram tablet 1 g PO TID 28 Days Qty: 84 0RF Primary Care Provider: Diego Alonso Referrals: Diego Alonso DO [Primary Care Provider] - Isaac Pagan DO [Med Staff - Active Staff] - Activity Restrictions/Additional Instructions: As we were unable to contact your oncologist this evening please call his office in the morning and inform him of your results. If your redness continues to spread, you develop streaking, or a fever of 100.4 or higher or you have any further concerns please return to the ER for repeat evaluation. Print Language: Polish Disposition Disposition: Home, Self Care
[2024-08-31] MEDS: Piperacil/Tazobactam 3.375 GM in 0.9% Normal Saline (50mL MB+) 50 ML IV (23:04)
[2024-08-31 23:08] VITALS: BP 134/64; PULSE 79; RESP 18; TEMP 36.6; O2SAT 98
[2024-08-31 23:17] LABS: Absolute Lymphocyte Count 2.68 X10^3/uL (0.83-4.51); Absolute Neutrophil Count 4.7 X10^3/uL (2.0-7.7); Basophil# 0.03 X10^3/uL; Basophil% 0.3 % (0-1); Eosinophil# 0.05 X10^3/uL; Eosinophils% 0.6 % (0-5); Hematocrit 27.4 % (40-54); Hemoglobin 8.5 g/dL (13.0-16.5); Lymphocyte # 2.68 X10^3/ul (0.83-4.51); Lymphocyte % 30.3 % (19-41); Mean Corpuscular Hgb 32.4 pg (27.0-32.0); Mean Corpuscular Volume 104.6 fL (80-94); Mean Platelet Vol. 11.1 fl (6.2-12.0); Monocyte# 1.18 X10^3/uL; Monocyte% 13.3 % (0-10); NRBC Flagged by Analyzer 0.2 % (0-5); Neutrophil # 4.68 X10^3/uL (2.7-7.7); POSITIVE MORPHOLOGY YES; Platelet Count 106 K/mm3 (150-450); RBC Distribution Width CV 24.4 % (11.6-14.6); RBC Distribution Width SD 90.7 fl (35.1-43.9); Red Blood Count 2.62 M/mm3 (4.6-6.2); White Blood Count 8.8 K/mm3 (4.4-11.0)
[2024-08-31 23:21] LABS: Differential Indicated SCAN CRITERIA MET
[2024-08-31 23:30] LABS: Anion Gap 7 (5-15); BUN 27 mg/dL (7-18); BUN/Creat Ratio 16.9 RATIO (10-20); Calcium,Total 8.6 mg/dL (8.5-10.1); Chloride 108 mmol/L (98-107); EST Glomerular Filtration Rate 45 mL/min (>60); Est Glom Filt Rate - Afr Amer 55 mL/min (>60); Estimated Creatinine Clearance 48.17 ml/min; Glucose 131 mg/dL (74-106); Potassium 3.8 mmol/L (3.5-5.1); Sodium Level 142 mmol/L (136-145)
[2024-08-31 23:39] LABS: Lactic Acid 1.5 mmol/L (0.4-1.9)
[2024-08-31 23:41] LABS: Procalcitonin 0.61 ng/mL (0.00-0.09)
[2024-08-31 23:57] LABS: Anisocytosis 1+; Differential Comment SCANNED; Polychromasia 1+; Stomatocyte 1+
[2024-09-01] VITALS: BP 150/63; PULSE 73; RESP 19; TEMP 36.8; O2SAT 96
[2024-09-01 01:14] VITALS: BP 148/65; PULSE 74; RESP 18; TEMP 36.9; O2SAT 96
== END 2024-09-01 01:15 | disposition home or self-care (01) ==
PROVIDERS: Emergency Provider Emergency Medicine; PCP Student in an Organized Health Care Education/Training Program; Referring Provider Emergency Medicine; Visit Provider Emergency Medicine
DX: L03.116 Cellulitis of left lower limb (principal); C85.10 Unspecified B-cell lymphoma, unspecified site; J44.9 Chronic obstructive pulmonary disease, unspecified; E11.9 Type 2 diabetes mellitus without complications; I10 Essential (primary) hypertension; Z87.891 Personal history of nicotine dependence; K21.9 Gastro-esophageal reflux disease without esophagitis
CPT/HCPCS: 36591; 73590; 80048; 83605; 84145; 85025; 87040; 93971; 99282; A4216

== ENCOUNTER 2024-09-20 10:51 | Inpatient (IN) | payer MEDICARE, OTHER, SELFPAY ==
[2024-09-20] VITALS (29 sets, daily range): BP systolic 102–170; BP diastolic 62–93; PULSE 62–117; RESP 10–20; TEMP 36.6–37.1; O2SAT 92–99; BMI 31.4; BMI 31.8
--- NOTE | 2024-09-20 11:05 | EKG12_ITS ---
Test Reason : cp Blood Pressure : */* mmHG Vent. Rate : 64 BPM Atrial Rate : 64 BPM P-R Int : 190 ms QRS Dur : 144 ms QT Int : 482 ms P-R-T Axes : 40 -6 1 degrees QTcB Int : 497 ms Normal sinus rhythm with sinus arrhythmia Right bundle branch block Abnormal ECG Confirmed by NADER NAVA, ABDIRIZAK ([id number]), editorial manager ROWDY KIM ([id number]) on 09/22/2024 11:26:48 AM Referred By: Confirmed By: ABDIRIZAK DOE MD
--- NOTE | 2024-09-20 11:15 | RAD_ITS ---
HISTORY: chest pain. TECHNIQUE: XR Chest 1 View. COMPARISON: 08/11/2024. FINDINGS: CARDIOMEDIASTINAL BORDERS: Unchanged mild cardiomegaly. Mediastinal contour also unchanged with right chest wall port catheter tip at the level of the superior cavoatrial junction. LUNGS: Chronic linear scarring in the lung bases. PLEURA: No pleural effusion or pneumothorax seen. OSSEOUS STRUCTURES: Unremarkable. RAD/Chest 1 View (Portable) IMPRESSION: No acute cardiopulmonary process identified. Electronically Signed: Karen Grimes MD at 11:44 EDT ,
[2024-09-20 11:18] LABS: Absolute Neutrophil Count 7.5 X10^3/uL (2.0-7.7); Basophil# 0.03 X10^3/uL; Basophil% 0.3 % (0-1); Eosinophil# 0.02 X10^3/uL; Eosinophils% 0.2 % (0-5); Hematocrit 29.4 % (40-54); Hemoglobin 8.9 g/dL (13.0-16.5); Lymphocyte % 18.1 % (19-41); Mean Corp Hgb Conc 30.3 g/dL (32-36); Mean Corpuscular Hgb 31.8 pg (27.0-32.0); Mean Platelet Vol. 9.9 fl (6.2-12.0); Monocyte# 0.93 X10^3/uL; Monocyte% 8.9 % (0-10); NRBC Flagged by Analyzer 0 % (0-5); Neutrophil # 7.51 X10^3/uL (2.7-7.7); Neutrophil % 71.5 % (47-70); POSITIVE MORPHOLOGY YES; Platelet Count 144 K/mm3 (150-450); RBC Distribution Width CV 17.2 % (11.6-14.6); RBC Distribution Width SD 66.4 fl (35.1-43.9); White Blood Count 10.5 K/mm3 (4.4-11.0)
[2024-09-20 11:22] LABS: Differential Indicated SCAN CRITERIA MET
[2024-09-20 11:33] LABS: Anion Gap 6 (5-15); BUN 21 mg/dL (7-18); BUN/Creat Ratio 15.2 RATIO (10-20); Calcium,Total 8.8 mg/dL (8.5-10.1); Chloride 108 mmol/L (98-107); Creatinine, Serum 1.38 mg/dL (0.70-1.30); EST Glomerular Filtration Rate 54 mL/min (>60); Est Glom Filt Rate - Afr Amer 65 mL/min (>60); Estimated Creatinine Clearance 58.03 ml/min; Glucose 127 mg/dL (74-106); Potassium 3.5 mmol/L (3.5-5.1); Sodium Level 141 mmol/L (136-145); Troponin-I HS (w/2H Reflex) 81 pg/mL (3.0-78.0)
[2024-09-20 11:44] LABS: Anisocytosis 1+
--- NOTE | 2024-09-20 12:25 | EDS_ITS ---
HPI History of Present Illness Chief Complaint: Chest Pain Informant: patient Onset/Context/Timing Onset: Today and Hours Activity at onset: sudden Timing: Continuous Quality: Positive for Stabbing Location: Substernal Worsened By: Nothing Relieved By: Nothing Associated Symptoms: Positive for Dyspnea and Lightheadedness; Negative for Nausea, Vomiting, Diaphoresis, Cough, Fever, Acid Reflux or Palpitations Narrative Narrative: Patient presents with chest pain that began a few hours prior to arrival. Patient states the pain is over the substernal area. Patient describes it as stabbing. Patient states nothing makes it better nothing makes it worse. Patient admits to some lightheadedness and dizziness. Patient also admits to some mild shortness of breath. Patient also complains of pain in his left online. Patient states he has a known hematoma in his left thigh. Patient is on Eliquis and Plavix. Patient states he has had a DVT in his left thigh that was diagnosed recently. Patient denies any fevers or chills. CVD Risk Factors: Positive for Hypertension; Negative for Diabetes, Hypercholesterolemia, Family History 1' </=55 or Smoking PE Risk Factors: Positive for Recent Immobilization, Prior DVT or PE and Cancer; Negative for Recent Travel/Surgery [facility] Medical History Hearing loss, left Hearing loss, right Cancer Alcohol abuse Anxiety Diabetes Osteoporosis History of leg surgery ANCA (obstructive sleep apnea) GERD (gastroesophageal reflux disease) B-cell lymphoma Hypoxia COPD (chronic obstructive pulmonary disease) Pulmonary fibrosis Acute respiratory insufficiency Fluid overload Closed left hip fracture Hypertension (~07/22/23) Home Medications ?Medication ?Instructions ?Recorded ?Last Taken ?Type citalopram 20 mg tablet 20 mg PO DAILY depression 10/09/15 04/30/20 History trazodone 100 mg tablet 100 mg PO QHS sleep 10/09/15 04/29/20 History metoprolol tartrate 25 mg tablet 12.5 mg PO BID heart 08/22/18 04/30/20 History ipratropium bromide 21 mcg (0.03 2 sprays NS DAILY sinus drainage 04/30/20 Unknown History %) nasal spray tamsulosin 0.4 mg capsule 0.8 mg PO QHS prostate 04/30/20 04/29/20 History cetirizine 10 mg capsule (Zyrtec) 10 mg PO QHS allergies 05/14/20 Unknown History calcium 600 mg (as 1 cap PO QHS supplement 04/24/24 Unknown History carbonate)-vitamin D3 5 mcg (200 unit) capsule (Calcium 600 + D(3)) fluticasone propionate 50 2 spray intranasal DAILY allergies 04/24/24 Unknown History mcg/actuation nasal spray,suspension (24 Hour Allergy Relief) folic acid 1 mg tablet 1 mg PO DAILY SUPPLEMENT 04/24/24 Unknown History sulfamethoxazole 800 1 tab PO MOWEFR antibiotic 04/24/24 Unknown History mg-trimethoprim 160 mg tablet zanubrutinib 80 mg capsule 160 mg PO BID cancer 04/24/24 Unknown History (Brukinsa) fluorometholone 0.1 % eye 1 drp ophthalmic (eye) BID EYE 07/11/24 Unknown History drops,suspension SWELLING/REDNESS/ITCHING gabapentin 300 mg capsule 300 mg PO TID LEG PAIN 07/11/24 Unknown History ondansetron HCl 8 mg tablet 8 mg PO Q8H PRN NAUSEA/VOMITING 07/11/24 Unknown History carboxymethylcellulose sodium 1 % 1 drp EACH EYE BID 08/11/24 Unknown History eye liquid gel drops (Refresh Liquigel) clonazepam 1 mg tablet 1 mg PO QHS sleep/anxiety 08/11/24 Unknown History clopidogrel 75 mg tablet (Plavix) 75 mg PO DAILY antiplatelet 08/11/24 Unknown H istory levothyroxine 25 mcg tablet 25 mcg PO DAILY thyroid 08/11/24 Unknown History multivitamin (Daily Multi-Vitamin 1 tab PO DAILY supplement 08/11/24 Unknown History tablet) rosuvastatin 5 mg tablet 5 mg PO DAILY cholesterol 08/11/24 Unknown History pantoprazole 40 mg tablet,delayed 40 mg PO BID GERD 90 days #180 tabs 08/13/24 Unknown Rx release ferrous sulfate 325 mg (65 mg 325 mg PO QDAY 08/30/24 Unknown History iron) tablet (iron) prednisone 20 mg tablet 20 mg PO QDAY 08/30/24 Unknown History apixaban 5 mg tablet (Eliquis) 5 mg PO BID 09/20/24 Unknown History Allergy/AdvReac Type Severity Reaction Status Date / Time No Known Allergies Allergy Verified 09/20/24 10:52 Family History (Updated 08/11/24 @ 22:[address] Imelda Johnson MD) Mother Heart disease Hypertension COPD (chronic obstructive pulmonary disease) Lung cancer Father Heart disease Hypertension CAD (coronary artery disease) Myocardial infarction Surgical History History of surgery on lower extremity History of hip surgery Status post left foot surgery S/P tonsillectomy and adenoidectomy H/O heart artery stent History of shoulder surgery Social History household members: spouse Smoking Status: Former smoker quit date: 11/23/06 Tobacco: How many years used: 44 how long ago did patient quit smoking: Quit 2009, smoked 1 ppd since 13 years old until quit. alcohol intake: former details: Sober since 1980, prior nearly 4 packs beer daily. substance use type: does not use ROS ROS ED Constitutional Constitutional ED: Denies chills or fever(s) Eyes Eyes: Denies blurry vision or change in vision ENT ENT ED: Denies rhinorrhea or sore throat Cardiovascular Cardiovascular: Reports chest pain; Denies palpitations Respiratory/Chest Respiratory/Chest: Reports dyspnea; Denies cough Gastrointestinal Gastrointestinal: Denies nausea or vomiting Genitourinary Genitourinary ED: Reports urinary frequency; Denies dysuria or hematuria Musculoskeletal Musculoskeletal: Denies back pain or neck pain Integumentary Denies abscess or rash Neurologic Neurologic: Reports headache(s); Denies weakness Allergic/Immunologic Allergic/Immunologic ED: Denies mouth swelling or urticaria EXAM Physical Exam Const Vital Signs: 09/20/24 10:51 09/20/24 11:07 09/20/24 11:31 Temperature 98 F Temperature Source Temporal Pulse Rate 69 68 Respiratory Rate 20 H 12 Blood Pressure 112/75 120/62 Blood Pressure Mean 87 81 Pulse Ox 93 95 93 Oxygen Delivery Method Room Air Room Air Room Air 09/20/24 11:48 09/20/24 12:00 09/20/24 12:00 Temperature Temperature Source Pulse Rate 66 65 66 Respiratory Rate 12 12 13 Blood Pressure 113/69 131/63 H Blood Pressure Mean 83 84 Pulse Ox 95 93 Oxygen Delivery Method Room Air 09/20/24 12:15 09/20/24 12:30 09/20/24 12:45 Temperature Temperature Source Pulse Rate 66 65 66 Respiratory Rate 15 16 12 Blood Pressure 128/73 H 136/69 H 129/71 H Blood Pressure Mean 86 90 89 Pulse Ox 94 Oxygen Delivery Method 09/20/24 13:00 09/20/24 13:00 09/20/24 13:15 Temperature Temperature Source Pulse Rate 66 65 65 Respiratory Rate 18 12 10 L Blood Pressure 129/71 H 131/69 H 135/73 H Blood Pressure Mean 90 89 91 Pulse Ox 97 Oxygen Delivery Method Room Air 09/20/24 13:30 09/20/24 13:45 09/20/24 14:00 Temperature Temperature Source Pulse Rate 63 65 67 Respiratory Rate 12 11 L 14 Blood Pressure 137/68 H 130/75 H 130/80 H Blood Pressure Mean 88 90 96 Pulse Ox 99 Oxygen Delivery Method Room Air 09/20/24 14:00 09/20/24 14:15 09/20/24 14:30 Temperature Temperature Source Pulse Rate 65 64 64 Respiratory Rate 10 L 10 L 11 L Blood Pressure 130/80 H 130/78 H 119/62 Blood Pressure Mean 95 91 76 Pulse Ox 97 Oxygen Delivery Method 09/20/24 14:45 09/20/24 15:00 Temperature Temperature Source Pulse Rate 66 65 Respiratory Rate 12 12 Blood Pressure 102/69 124/64 H Blood Pressure Mean 79 76 Pulse Ox 95 92 Oxygen Delivery Method Room Air Room Air Positive well nourished and well developed General Appearance ED: well developed and NAD HEENT Reports moist mucous membranes Neck supple and no JVD Resp normal respiratory effort and clear to auscultation bilaterally Cardio regular rate and regular rhythm GI soft to palpation, non-tender and non-distended Neuro oriented x3, CN's II-XII intact bilaterally and no sensory deficits noted Sensorium / Orientation: awake and alert Motor Exam: strength 5/5 throughout Psych mental status grossly normal Heart Score History: Slightly/Non-Suspicious ECG: Nonspecific Repolarization Age: >/= 65 years Risk Factors: 1 or 2 Risk Factors Score: 4 MDM MDM MDM Narrative Medical decision making narrative: Differential diagnosis includes cardiac dysrhythmia, cardiac ischemia, electrolyte abnormality, pneumonia, pneumothorax, gastroesophageal reflux disease, and musculoskeletal pain.. Patient is on Eliquis and has been vital signs CBC will be obtained to assess for leukocytosis and anemia. Basic metabolic profile will be obtained to assess for electrolyte abnormality and renal function. High-sensitivity troponin will be obtained to assess for cardiac ischemia. 2-hour repeat high-sensitivity troponin will be obtained to assess for ongoing cardiac ischemia. EKG will be obtained to assess for cardiac dysrhythmia and cardiac ischemia. Chest x-ray will be obtained to assess for pneumonia and pneumothorax., so I do not think this is from a pulmonary embolism. Lab Data Attestation: I reviewed the patient's lab results. Lab results narrative: CBC was reviewed. There is a mild anemia with a hemoglobin of 8.9 and hematocrit 29.4. Platelets are slightly low at 144. Basic metabolic profile was reviewed. BUN is slightly elevated at 1 and creatinine is slightly elevated at 1.38. The remainder is within normal limits. Initial high-sensitivity troponin was reviewed and was slightly elevated at 81. Labs: Laboratory Results - last 24 hr 09/20/24 09/20/24 11:00 13:25 WBC 10.5 RBC 2.80 L Hgb 8.9 L Hct 29.4 L MCV 105.0 H MCH 31.8 MCHC 30.3 L RDW Std Deviation 66.4 H RDW Coeff of Thor 17.2 H Plt Count 144 L MPV 9.9 Immature Gran % (Auto) 1.000 H Neut % (Auto) 71.5 H Lymph % (Auto) 18.1 L [place] % (Auto) 8.9 Eos % (Auto) 0.2 Baso % (Auto) 0.3 Absolute Neuts (auto) 7.5 Absolute Lymphs (auto) 1.90 Nucleated RBC % 0 Anisocytosis 1+ Sodium 141 Potassium 3.5 Chloride 108 H Carbon Dioxide 27.0 Anion Gap 6 BUN 21 H Creatinine 1.38 H Estim Creat Clear Calc 58.03 Est GFR (MDRD) Af Amer 65 Est GFR (MDRD) Non-Af 54 L BUN/Creatinine Ratio 15.2 Glucose 127 H Calcium 8.8 Troponin I High Sens 81 H 101 H Radiography Chest X-Ray - ED: 1 View, Read by ED Physician, Read by Radiologist and No Acute Disease Diagnostic Testing: Clinical Impression(s) from Imaging Studies Chest X-Ray 09/20/24 11:15 IMPRESSION: No acute cardiopulmonary process identified. Electronically Signed: Karen Grimes MD at 11:44 EDT , Portable 1 view chest x-ray was obtained. On my independent interpretation, lung power are clear. There is normal cardiac silhouette. Bony thorax is normal. There is no acute process noted. Radiologist also interpreted the x- ray and agrees. EKG Initial EKG: Attestation: I personally reviewed and interpreted this EKG as follows: Interpretation: Sinus Rhythm (64), RBBB and Non-Specific ST Changes Comments: EKG was obtained. On my independent interpretation, shows normal sinus rhythm with a rate of 64. DC interval was normal at 190 ms. QRS interval was prolonged at 144 ms. QTc interval was borderline at 497 ms. [place] was normal. There is a right bundle branch block pattern noted. There are nonspecific ST-T wave changes noted. Prior EKG tracings: available for review Prior: Unchanged (08/11/2024) Management Discussion w/another healthcare provider: Hospitalist Treatment and Re-Evaluation :: Patient stable aspirin. Patient was given morphine. Patient states this helped his pain but it was starting to return on reevaluation. Patient given a repeat dose of morphine. Patient was advised of his findings. Since his high- sensitivity troponin went from 81 to 101, I recommended admission to the hospital. Case was discussed with the hospitalist. He will admit the patient to his service. Patient understood and was agreeable with the plan. All questions were answered. Discharge Plan Dx/Rx/DC Orders Clinical Impression: Chest pain, B-cell lymphoma, Hematoma of left thigh, Elevated troponin Disposition Disposition: Acute Care Hospital [facility]
[2024-09-20] MEDS: Aspirin 81 MG TAB.CHEW 324 MG PO (12:32)
[2024-09-20] MEDS: Morphine 4 MG/ML Syringe IV ×2 (12:34→16:13)
[2024-09-20 13:12] LABS: Reflex Troponin-HS? (from REC) Y
[2024-09-20 13:50] LABS: Troponin-I HS 101 pg/mL (3.0-78.0)
--- NOTE | 2024-09-20 16:50 | EKG12_ITS ---
Test Reason : CP Blood Pressure : */* mmHG Vent. Rate : 71 BPM Atrial Rate : 71 BPM P-R Int : 170 ms QRS Dur : 130 ms QT Int : 448 ms P-R-T Axes : 36 10 16 degrees QTcB Int : 486 ms Normal sinus rhythm Right bundle branch block Abnormal ECG When compared with ECG of 20-Sep-2024 17:43, MANUAL COMPARISON REQUIRED DATA IS UNCONFIRMED Confirmed by NADER NAVA, ABDIRIZAK ([id number]), supervising film or videotape editor ROWDY KIM ([id number]) on 09/22/2024 11:34:44 AM Referred By: GERSON Confirmed By: ABDIRIZAK DOE MD
--- NOTE | 2024-09-20 16:53 | HP.PCM.HOS_ITS ---
[facility] Date of Service: 09/20/24 Chief Complaint: Chest pain [facility] Narrative RENY GUTIÉRREZ, is a 73 M who presents with chest pain. Mr. Gutiérrez is a gentleman who has had a history of coronary artery disease with stents on Plavix. Recently has experienced a left leg hematoma as well as a femoral artery clot. Patient was transferred to [facility] From [facility] for this arterial clot and seen by vascular surgery who recommended medical management for him. He has been maintained on clopidogrel and apixaban for his underlying heart disease, arterial clot and monitoring of his hematoma. This morning, he experienced midsternal, nonradiating chest pain. Never had chest pain like this previously. Also noted that his left leg felt worse as well. Presented to the emergency room and his troponins went from 81-101. Patient has been applying compression wrap to his left leg hematoma as he was advised to at [facility]. Patient and his stated that there was no trauma that was associated with his hematoma and began spontaneously. The hospital service was contacted for admission. [facility] Medical History Hearing loss, left Hearing loss, right Cancer Alcohol abuse Anxiety Diabetes Osteoporosis History of leg surgery ANCA (obstructive sleep apnea) GERD (gastroesophageal reflux disease) B-cell lymphoma Hypoxia COPD (chronic obstructive pulmonary disease) Pulmonary fibrosis Acute respiratory insufficiency Fluid overload Closed left hip fracture Hypertension (~07/22/23) Home Medications ?Medication ?Instructions ?Recorded ?Last Taken ?Type citalopram 20 mg tablet 20 mg PO DAILY depression 10/09/15 04/30/20 History trazodone 100 mg tablet 100 mg PO QHS sleep 10/09/15 04/29/20 History metoprolol tartrate 25 mg tablet 12.5 mg PO BID heart 08/22/18 04/30/20 History ipratropium bromide 21 mcg (0.03 2 sprays NS DAILY sinus drainage 04/30/20 Unknown History %) nasal spray tamsulosin 0.4 mg capsule 0.8 mg PO QHS prostate 04/30/20 04/29/20 History cetirizine 10 mg capsule (Zyrtec) 10 mg PO QHS allergies 05/14/20 Unknown History calcium 600 mg (as 1 cap PO QHS supplement 04/24/24 Unknown History carbonate)-vitamin D3 5 mcg (200 unit) capsule (Calcium 600 + D(3)) fluticasone propionate 50 2 spray intranasal DAILY allergies 04/24/24 Unknown History mcg/actuation nasal spray,suspension (24 Hour Allergy Relief) folic acid 1 mg tablet 1 mg PO DAILY SUPPLEMENT 04/24/24 Unknown History sulfamethoxazole 800 1 tab PO MOWEFR antibiotic 04/24/24 Unknown History mg-trimethoprim 160 mg tablet zanubrutinib 80 mg capsule 160 mg PO BID cancer 04/24/24 Unknown History (Brukinsa) fluorometholone 0.1 % eye 1 drp ophthalmic (eye) BID EYE 07/11/24 Unknown History drops,suspension SWELLING/REDNESS/ITCHING gabapentin 300 mg capsule 300 mg PO TID LEG PAIN 07/11/24 Unknown History ondansetron HCl 8 mg tablet 8 mg PO Q8H PRN NAUSEA/VOMITING 07/11/24 Unknown History carboxymethylcellulose sodium 1 % 1 drp EACH EYE BID 08/11/24 Unknown History eye liquid gel drops (Refresh Liquigel) clonazepam 1 mg tablet 1 mg PO QHS sleep/anxiety 08/11/24 Unknown History clopidogrel 75 mg tablet (Plavix) 75 mg PO DAILY antiplatelet 08/11/24 Unknown History levothyroxine 25 mcg tablet 25 mcg PO DAILY thyroid 08/11/24 Unknown History multivitamin (Daily Multi-Vitamin 1 tab PO DAILY supplement 08/11/24 Unknown History tablet) rosuvastatin 5 mg tablet 5 mg PO DAILY cholesterol 08/11/24 Unknown History pantoprazole 40 mg tablet,delayed 40 mg PO BID GERD 90 days #180 tabs 08/13/24 Unknown Rx release ferrous sulfate 325 mg (65 mg 325 mg PO QDAY 08/30/24 Unknown History iron) tablet (iron) prednisone 20 mg tablet 20 mg PO QDAY 08/30/24 Unknown History apixaban 5 mg tablet (Eliquis) 5 mg PO BID 09/20/24 Unknown History Allergy/AdvReac Type Severity Reaction Status Date / Time No Known Allergies Allergy Verified 09/20/24 10:52 Family History Mother Heart disease Hypertension COPD (chronic obstructive pulmonary disease) Lung cancer Father Heart disease Hypertension CAD (coronary artery disease) Myocardial infarction Surgical History History of surgery on lower extremity History of hip surgery Status post left foot surgery S/P tonsillectomy and adenoidectomy H/O heart artery stent History of shoulder surgery Social History household members: spouse Smoking Status: Former smoker quit date: 11/23/06 Tobacco: How many years used: 44 how long ago did patient quit smoking: Quit 2009, smoked 1 ppd since 13 years old until quit. alcohol intake: former details: Sober since 1980, prior nearly 4 packs beer daily. substance use type: does not use ROS ROS Narrative With his chest pain, he felt short of breath and was diaphoretic. No nausea or vomiting. Does have a left lower extremity edema which has been ongoing since his hematoma. He had cellulitis but that is since resolved of his left lower extremity. All review of systems were negative except as mentioned above in the history of present illness and the other review of systems. Vital Signs Vital Signs Vital Signs: 09/20/24 10:51 09/20/24 11:07 09/20/24 11:31 Temperature 36.6 C Temperature Source Temporal Pulse Rate 69 68 Respiratory Rate 20 H 12 Respiratory Effort Respiratory Pattern Blood Pressure 112/75 120/62 Blood Pressure Mean 87 81 Pulse Ox 93 95 93 Oxygen Delivery Method Room Air Room Air Room Air 09/20/24 11:48 09/20/24 12:00 09/20/24 12:00 Temperature Temperature Source Pulse Rate 66 65 66 Respiratory Rate 12 12 13 Respiratory Effort Respiratory Pattern Blood Pressure 113/69 131/63 H Blood Pressure Mean 83 84 Pulse Ox 95 93 Oxygen Delivery Method Room Air 09/20/24 12:15 09/20/24 12:30 09/20/24 12:45 Temperature Temperature Source Pulse Rate 66 65 66 Respiratory Rate 15 16 12 Respiratory Effort Respiratory Pattern Blood Pressure 128/73 H 136/69 H 129/71 H Blood Pressure Mean 86 90 89 Pulse Ox 94 Oxygen Delivery Method 09/20/24 13:00 09/20/24 13:00 09/20/24 13:15 Temperature Temperature Source Pulse Rate 66 65 65 Respiratory Rate 18 12 10 L Respiratory Effort Respiratory Pattern Blood Pressure 129/71 H 131/69 H 135/73 H Blood Pressure Mean 90 89 91 Pulse Ox 97 Oxygen Delivery Method Room Air 09/20/24 13:30 09/20/24 13:45 09/20/24 14:00 Temperature Temperature Source Pulse Rate 63 65 67 Respiratory Rate 12 11 L 14 Respiratory Effort Respiratory Pattern Blood Pressure 137/68 H 130/75 H 130/80 H Blood Pressure Mean 88 90 96 Pulse Ox 99 Oxygen Delivery Method Room Air 09/20/24 14:00 09/20/24 14:15 09/20/24 14:30 Temperature Temperature Source Pulse Rate 65 64 64 Respiratory Rate 10 L 10 L 11 L Respiratory Effort Respiratory Pattern Blood Pressure 130/80 H 130/78 H 119/62 Blood Pressure Mean 95 91 76 Pulse Ox 97 Oxygen Delivery Method 09/20/24 14:45 09/20/24 15:00 09/20/24 15:14 Temperature Temperature Source Pulse Rate 66 65 Respiratory Rate 12 12 Respiratory Effort Normal Respiratory Pattern Normal Blood Pressure 102/69 124/64 H Blood Pressure Mean 79 76 Pulse Ox 95 92 Oxygen Delivery Method Room Air Room Air 09/20/24 16:00 09/20/24 16:17 Temperature 37.1 C Temperature Source Pulse Rate 67 71 Respiratory Rate 12 20 H Respiratory Effort Respiratory Pattern Blood Pressure 147/74 H 149/81 H Blood Pressure Mean 98 103 Pulse Ox 97 96 Oxygen Delivery Method Room Air Weight Weight: 99.4 kg Body Mass Index (BMI) 31.4 Physical Exam Narrative - Physical Exam General: Alert, Oriented x3, Cooperative HEENT: Atraumatic, no icterus. Mucous membranes moist. Normocephalic Oral: Moist Mucosa, No Gingival or Mucosal Lesions/ Ulcerations Neck: Supple, No JVD, Negative Carotid Bruits Lungs: Clear to auscultation, Normal air movement Cardiovascular: Regular rate, Normal S1, Normal S2, No murmurs Abdomen: Bowel Sounds Present, Soft, Non Tender, Non-Distended, No Hepato- splenomegaly Extremities: No clubbing, No cyanosis, edema of the left lower extremity. More indurated, but without redness on the medial aspect of his upper thigh on the left. Capillary Refill Less than 3 Seconds Skin: No rashes, No breakdown Musculoskeletal: No Tenderness to Palpation of Joints or Extremities Neurological: Neuro grossly intact Psych/Mental Status: Normal Affect, Appropriate Results Lab / Micro Data Attestation: I reviewed the patient's lab results. 09/20/24 11:00 09/20/24 11:00 Labs: Laboratory Results - last 24 hr 09/20/24 11:00: WBC 10.5, RBC 2.80 L, Hgb 8.9 L, Hct 29.4 L, MCV 105.0 H, MCH 31.8, MCHC 30.3 L, RDW Std Deviation 66.4 H, RDW Coeff of Thor 17.2 H, Plt Count 144 L, MPV 9.9, Immature Gran % (Auto) 1.000 H, Neut % (Auto) 71.5 H, Lymph % (Auto) 18.1 L, [place] % (Auto) 8.9, Eos % (Auto) 0.2, Baso % (Auto) 0.3, Absolute Neuts (auto) 7.5, Absolute Lymphs (auto) 1.90, Nucleated RBC % 0, Anisocytosis 1+, Sodium 141, Potassium 3.5, Chloride 108 H, Carbon Dioxide 27.0, Anion Gap 6, BUN 21 H, Creatinine 1.38 H, Estim Creat Clear Calc 58.03, Est GFR (MDRD) Af Amer 65, Est GFR (MDRD) Non-Af 54 L, BUN/Creatinine Ratio 15.2, Glucose 127 H, Calcium 8.8, Troponin I High Sens 81 H 09/20/24 13:25: Troponin I High Sens 101 H EKG Initial EKG: Attestation: I personally reviewed and interpreted this EKG as follows: Prior EKG tracings: available for review EKG Rhythm Intrepretation: Sinus Rhythm Imaging Radiology Impression Chest X-Ray 09/20/24 11:15 IMPRESSION: No acute cardiopulmonary process identified. Electronically Signed: Karen Grimes MD at 11:44 EDT , Assessment & Plan Assessment/Plan (1) Elevated troponin: PLAN: Unclear significance but concerning for underlying non-STEMI with the patient's cardiac history. Will continue to cycle his troponins. I discussed with Dr. Ruiz and discussed the case. He recommended getting a stress test. He recommended consulting cardiology if the stress test is abnormal or if the troponins go up considerably Continue with clopidogrel, statin Patient had an echocardiogram in June that showed an EF of 60%. Hold off on repeating echocardiogram given this recent study. (2) Hematoma of left thigh: PLAN: Atraumatic Noted on duplex from August 31. Measuring at that time 10.5 x 5.6 x 7.1 cm. Will recheck ultrasound this patient states that is feeling worse. PLAN: Plan Recent femoral artery clot: Continue with apixaban. Patient was seen by vascular surgery during that hospitalization and surgery was not recommended at that time. Chronic conditions * Hypothyroidism: Continue with levothyroxine. * Peptic ulcer disease: Continue with pantoprazole. VTE prophylaxis: Not indicated as patient is already anticoagulated with apixaban CODE STATUS: Addressed with the patient. Patient wishes to be DNR Comfort Care arrest no intubation. Patient is advised that they can change her mind at any point if they so wish but just to let us know Charges/Coding Visit Charges Inpatient E&M: 55495 Init Hosp L3
--- NOTE | 2024-09-20 17:39 | US_ITS ---
HISTORY: LLE hematoma. TECHNIQUE: 47 images of the left anterior thigh. COMPARISON: None. FINDINGS: 8.6 x 10.4 x 13.6 cm complex septated collection surrounding the femoral vessels. US/Ext Non Vasc Limited/Soft Tiss IMPRESSION: 13.6 cm loculated fluid collection in the left thigh surrounding the femoral vessels, which may represent hematoma or abscess. Recommend follow-up to resolution to exclude cystic mass. Electronically Signed: Karen Grimes MD at 15:40 EDT ,
[2024-09-20 19:37] LABS: Troponin-I HS 169 pg/mL (3.0-78.0)
[2024-09-20] MEDS: oxyCODONE 5 MG Tablet PO (20:30)
[2024-09-20] MEDS: Gabapentin 300 MG Capsule PO (22:13)
[2024-09-20] MEDS: Pantoprazole Sodium 40 MG Tablet PO (22:13)
[2024-09-20] MEDS: clonazePAM 1 MG Tablet PO (22:13)
[2024-09-20] MEDS: Metoprolol Tartrate 25 MG Tablet 12.5 MG PO (22:13)
[2024-09-20] MEDS: Tamsulosin HCl 0.4 MG Capsule 0.8 MG PO (22:14)
[2024-09-20] MEDS: traZODone 100 MG Tablet PO (22:14)
[2024-09-20] MEDS: Atorvastatin Calcium 10 MG Tablet PO (22:15)
[2024-09-20] MEDS: Loratadine 10 MG Tablet PO (22:15)
[2024-09-20] MEDS: APIXABAN 5 MG TABLET PO (22:23)
[2024-09-21] VITALS (7 sets, daily range): BP systolic 133–170; BP diastolic 67–87; PULSE 69–94; RESP 16–18; TEMP 36.2–36.6; O2SAT 92–96
--- NOTE | 2024-09-21 01:36 | CT_ITS ---
INDICATION: fall. PT WAS IN BED AND THEN FOUND ON FLOOR FACE DOWN HX:DM,B-CELL LYMPHOMA,CAD-ON PLAVIX,HTN. EXAMINATION: CT BRAIN - CT Head or Brain W/O Contrast Injection TECHNIQUE: Serial CT axial images were obtained of the head without intravenous contrast. A radiation dose optimization technique was used for this scan. COMPARISON: 07/13/[address] Findings: Serial CT axial images of the head without contrast. BRAIN PARENCHYMA: Diffuse periventricular hypoattenuation likely chronic white matter ischemic changes. Mild diffuse volume loss. No evidence of intraparenchymal hemorrhage or hyperattenuating extra-axial fluid collection. VASCULAR STRUCTURES: Atherosclerotic vascular calcifications. BONES: Pansinus mucosal thickening. Scattered bilateral mastoid air cell opacification, without obvious fracture, lytic bony change or overlying soft tissue swelling. SCALP/REMAINING SOFT TISSUES: Unremarkable. ASPECTS Score for Acute Strokes, if applicable: 10 CT/Brain/Head without Contrast IMPRESSION: Age-related changes as above, without evidence of acute intracranial hemorrhage in this noncontrast head CT. Pansinus disease. Electronically Signed: Roberto Poretr MD at 3:19 EDT ,
[2024-09-21 02:58] LABS: Bedside Glucose 201 mg/dL (74-106)
--- NOTE | 2024-09-21 03:10 | PCM.HOSP.N ---
Hospitalist Note Patient had already witnessed fall the night. As per the charge nurse, probably patient was going to bathroom and then fell down. Patient head was rotated on side on the floor. As it was unclear as patient had head injury and not therefore CT head was done. Report pending but images reviewed. No acute intracranial change as per my read. Patient was awake. Orthostatic vitals ordered about 10 AM today
--- NOTE | 2024-09-21 05:55 | RAD_ITS ---
STUDY: X-RAY CHEST REASON FOR EXAM: Male, 73 years old. chest pain -- TECHNIQUE: Single PA view of the chest. COMPARISON: 09/20/2024. FINDINGS: Stable right IJ indwelling catheter terminating in the SVC at the level of the right hilum. Increasing atelectasis or infiltrate in the mid and lower right lung since prior exam. Improved airspace density in the left lung base since prior exam. There is mild cardiac enlargement. Normal mediastinum and ramses. Normal visualized pulmonary arteries. Normal visualized aortic arch and descending thoracic aorta. Normal visualized thoracic spine. Normal visualized ribs, clavicles, and shoulders. There is no demonstrated abnormality of the visualized soft tissue structures of the upper abdomen. RAD/Chest PA and Lateral IMPRESSION: Worsening atelectasis or infiltrate in the mid and lower right lung since prior study. Electronically Signed: Dane Milton MD at 17:29 EDT ,
--- NOTE | 2024-09-21 05:55 | EKG12_ITS ---
Test Reason : CHEST PAIN Blood Pressure : */* mmHG Vent. Rate : 66 BPM Atrial Rate : 66 BPM P-R Int : 182 ms QRS Dur : 132 ms QT Int : 474 ms P-R-T Axes : 26 37 13 degrees QTcB Int : 496 ms Normal sinus rhythm Right bundle branch block Abnormal ECG When compared with ECG of 20-Sep-2024 11:10, MANUAL COMPARISON REQUIRED DATA IS UNCONFIRMED Confirmed by NADER NAVA, ABDIRIZAK ([id number]), web editor ROWDY KIM ([id number]) on 09/22/2024 11:35:43 AM Referred By: GERSON Confirmed By: ABDIRIZAK DOE MD
[2024-09-21 06:04] LABS: Absolute Lymphocyte Count 2.39 X10^3/uL (0.83-4.51); Basophil# 0.02 X10^3/uL; Basophil% 0.2 % (0-1); Eosinophil# 0.02 X10^3/uL; Eosinophils% 0.2 % (0-5); Hematocrit 31.6 % (40-54); Hemoglobin 9.7 g/dL (13.0-16.5); Lymphocyte # 2.39 X10^3/ul (0.83-4.51); Mean Corp Hgb Conc 30.7 g/dL (32-36); Mean Corpuscular Hgb 32.1 pg (27.0-32.0); Mean Corpuscular Volume 104.6 fL (80-94); Mean Platelet Vol. 10.2 fl (6.2-12.0); Monocyte# 0.76 X10^3/uL; Monocyte% 8.3 % (0-10); NRBC Flagged by Analyzer 0 % (0-5); Neutrophil # 5.95 X10^3/uL (2.7-7.7); Neutrophil % 64.6 % (47-70); POSITIVE MORPHOLOGY YES; Platelet Count 169 K/mm3 (150-450); RBC Distribution Width CV 17.3 % (11.6-14.6); RBC Distribution Width SD 67.7 fl (35.1-43.9); Red Blood Count 3.02 M/mm3 (4.6-6.2); White Blood Count 9.2 K/mm3 (4.4-11.0)
[2024-09-21 06:11] LABS: Differential Indicated SCAN CRITERIA MET
[2024-09-21] MEDS: Sucralfate 1 GM Tablet PO ×2 (06:30→17:09)
[2024-09-21] MEDS: Levothyroxine 25 MCG TABLET PO (06:30)
[2024-09-21] MEDS: Gabapentin 300 MG Capsule PO ×2 (06:30→14:55)
[2024-09-21 06:37] LABS: Anion Gap 5 (5-15); BUN 19 mg/dL (7-18); BUN/Creat Ratio 13.3 RATIO (10-20); Chloride 109 mmol/L (98-107); Creatinine, Serum 1.43 mg/dL (0.70-1.30); EST Glomerular Filtration Rate 52 mL/min (>60); Est Glom Filt Rate - Afr Amer 63 mL/min (>60); Glucose 154 mg/dL (74-106); Potassium 3.9 mmol/L (3.5-5.1); Sodium Level 140 mmol/L (136-145)
[2024-09-21 06:47] LABS: Troponin-I HS 174 pg/mL (3.0-78.0)
[2024-09-21] MEDS: Budesonide Respules 0.5 MG/2 ML AMPUL.NEB. INHALATION (07:09)
[2024-09-21] MEDS: Albuterol 2.5 MG/3 ML VIAL.NEB. INHALATION ×2 (07:09→13:21)
--- NOTE | 2024-09-21 07:36 | PN.HOSP_ITS ---
Reason for Visit Reason for Visit: Diagnoses Other specified abnormal findings of blood chemistry (09/20/24) Contusion of left thigh, initial encounter (09/20/24) Subjective Subjective Patient is a 73-year-old gentleman with multiple comorbidities admitted with chest pain Objective Data Objective Data Vital Signs: Vital Signs Temp Pulse Resp BP Pulse Ox O2 Del Method 97.8 F 69 16 152/87 H 96 Room Air 09/21/24 03:25 09/21/24 07:11 09/21/24 07:11 09/21/24 03:25 09/21/24 07:11 09/21/24 07:11 Oxygen Delivery Method Room Air Weight: 98 kg Body Mass Index (BMI) 31.8 Intake & Output: Intake and Output for Last 24 Hours 09/19/24 09/20/24 09/21/24 23:59 23:59 23:59 Output Total 600 / 600 Balance -600 / -600 Lab / Micro Data 09/21/24 05:25 09/21/24 05:25 Labs: Laboratory Results - last 24 hr 09/20/24 11:00: WBC 10.5, RBC 2.80 L, Hgb 8.9 L, Hct 29.4 L, MCV 105.0 H, MCH 31.8, MCHC 30.3 L, RDW Std Deviation 66.4 H, RDW Coeff of Thor 17.2 H, Plt Count 144 L, MPV 9.9, Immature Gran % (Auto) 1.000 H, Neut % (Auto) 71.5 H, Lymph % (Auto) 18.1 L, Bullock % (Auto) 8.9, Eos % (Auto) 0.2, Baso % (Auto) 0.3, Absolute Neuts (auto) 7.5, Absolute Lymphs (auto) 1.90, Nucleated RBC % 0, Anisocytosis 1+, Sodium 141, Potassium 3.5, Chloride 108 H, Carbon Dioxide 27.0, Anion Gap 6, BUN 21 H, Creatinine 1.38 H, Estim Creat Clear Calc 58.03, Est GFR (MDRD) Af Amer 65, Est GFR (MDRD) Non-Af 54 L, BUN/Creatinine Ratio 15.2, Glucose 127 H, Calcium 8.8, Troponin I High Sens 81 H 09/20/24 13:25: Troponin I High Sens 101 H 09/20/24 18:06: Troponin I High Sens 169 H* 09/21/24 01:06: POC Glucose 201 H 09/21/24 05:25: WBC 9.2, RBC 3.02 L, Hgb 9.7 L, Hct 31.6 L, MCV 104.6 H, MCH 32.1 H, MCHC 30.7 L, RDW Std Deviation 67.7 H, RDW Coeff of Thor 17.3 H, Plt Count 169, MPV 10.2, Immature Gran % (Auto) 0.700, Neut % (Auto) 64.6, Lymph % (Auto) 26.0, Bullock % (Auto) 8.3, Eos % (Auto) 0.2, Baso % (Auto) 0.2, Absolute Neuts (auto) 6.0, Absolute Lymphs (auto) 2.39, Nucleated RBC % 0, Sodium 140, Potassium 3.9, Chloride 109 H, Carbon Dioxide 26.0, Anion Gap 5, BUN 19 H, C reatinine 1.43 H, Estim Creat Clear Calc 54.70, Est GFR (MDRD) Af Amer 63, Est GFR (MDRD) Non-Af 52 L, BUN/Creatinine Ratio 13.3, Glucose 154 H, Calcium 9.0, T roponin I High Sens 174 H* Radiography Diagnostic Testing: Radiology Impression Chest X-Ray 09/20/24 11:15 IMPRESSION: No acute cardiopulmonary process identified. Electronically Signed: Karen Grimes MD at 11:44 EDT , Brain CT 09/21/24 01:36 IMPRESSION: Age-related changes as above, without evidence of acute intracranial hemorrhage in this noncontrast head CT. Pansinus disease. Electronically Signed: Roberto Porter MD at 3:19 EDT , Physical Exam Narrative GENERAL: cooperative HEENT: Atraumatic; normocephalic EYES; Anicteric, Normal Conjunctiva NECK; supple, normal thyroid, RESPIRATORY: Diminished to auscultation CARDIOVASCULAR: Regular S1 S2, GI: soft, normoactive bowel sounds, : No Renal angle tenderness; a EXTREMITIES; an area of induration on the medial aspect of the left thigh MUSCULOSKELETAL: no muscle wasting NEURO: Awake; no lateralizing signs. SKIN: As described above PSYCH; Flat affect Assessment & Plan Assessment/Plan (1) Elevated troponin: PLAN: Plan Patient is a 73-year-old gentleman with multiple comorbidities admitted with chest pain 1. Acute non-STEMI ? Patient presented with chest pain with elevated troponin. Has underlying history of coronary artery disease with previous stent placement. Patient troponin peaked at 174. Case was discussed with cardiology Dr. Ruiz on admission as well as this a.m. Given patient's significant medical comorbidities decision was made to left heart catheterization is back for patient to undergo nuclear stress test prior.. Plan is to consult cardiology if stress test comes back abnormal 2. Recent spontaneous arterial clot and hematoma involving the left thigh ? Patient was [facility] at [facility] By vascular surgery conservative management was recommended 3. 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 Pagan 4. Anemia ? Secondary to chronic disorder chronic blood loss anemia from patient left thigh hematoma, monitoring H&H and transfuse if patient becomes symptomatic or hemoglobin falls below 7 5. Chronic kidney disease stage III ? Kidney function at baseline 6. Coronary artery disease ? With previous stent placement patient is on guideline directed medical therapy including statin therapy, clopidogrel as well as beta-blockers 8. Dyslipidemia ?Patient is on statin therapy, continued at home dose 9. COPD Managed with bronchodilator treatment as needed 10. Depression with anxiety ? Patient is on citalopram as well as clonazepam 11. GERD patient is on PPI daily continue 12. History of pulmonary fibrosis This patient is followed by pulmonary medicine as outpatient 13. BPH with lower urinary obstructive symptoms - Patient treated with tamsulosin 14. Hypertension ? Blood pressure controlled, home medications continued with dose adjustment as needed 15. Paroxysmal A-fib ? Rate controlled on metoprolol systemic anticoagulation with apixaban 16. Hypothyroidism ? Patient is on levothyroxine home dose continued 17. DVT prophylaxis ? On apixaban Time spent in the patient's overall evaluation,decision-making process, review of diagnostic data, adjustment of management, discussion with other providers, nursing nursing and ancillary staff involved in patient's care documentation, 50 minutes Charges/Coding Visit Charges Inpatient E&M: 85056 Subs Hosp L3
[2024-09-21 08:33] LABS: Anisocytosis 2+; Differential Comment SCANNED; Macrocytosis 1+; Microcytosis 1+
--- NOTE | 2024-09-21 10:15 | CASEMGMT ---
RN CM Face to Face with patient for initial transition planning/care coordination assessment. ALEJO CM introduced self and role at [facility]. Patient lying in bed, alert and oriented, at bedside. Patient willing to participate in assessment and is able to answer all questions appropriately. Care providers, pharmacy, and demographics verified. Strata: 3 PCP: Celeste Specialists: Latasha, oncologist; Blake, knockout machine operator [place]; Joellen Perrin, lithographic press operator; Preferred Pharmacy: [facility] Insurance: [facility], [employer] Prescription Benefit: yes Living Will/HPOA: yes, Pilar Ibrahim LNOK: , daughter Living Arrangements: Patient lives with in a 2 story home with bed and bath on first floor. Patient states he is independent at home. Patient does admitted that he has had 3 falls recently. Transportation: DME/HHC: Patient has shower chair, cane, walker, grab bars, nebulizer, pulse ox, and home oxygen through [employer] with POC. Patient has been to TCU in the past. No previous HHC. Patient wishes to discharge home. Will monitor progress with therapy. RN CM discussed increase weakness and possible need for additional therapy and different level or care. Patient states he has no further needs or concerns at this time. CM to follow for discharge planning needs that may arise. Disposition Plan: TBD, anticipate HHC pending progress with therapy. Margarita CLAIRE, RN, CM
[2024-09-21] MEDS: Folic Acid 1 MG Tablet PO (14:54)
[2024-09-21] MEDS: Citalopram 20 MG Tablet PO (14:55)
[2024-09-21] MEDS: Lactobacillis Acidophilus 1 CAP PO (14:55)
[2024-09-21] MEDS: Pantoprazole Sodium 40 MG Tablet PO (14:55)
[2024-09-21] MEDS: predniSONE 5 MG Tablet PO (14:55)
[2024-09-21] MEDS: Fluticasone 0.05% 1 SPRAY NASAL.SRY 2 SPRAY NASAL (14:56)
[2024-09-21] MEDS: Ferrous Sulfate 325 MG Tablet PO (14:56)
[2024-09-21] MEDS: Glycerin/Hypromellose/PEG400 15 ml Bottle 1 DRP EACH EYE (14:56)
[2024-09-21] MEDS: Clopidogrel Bisulfate 75 MG Tablet PO (14:56)
[2024-09-21] MEDS: Metoprolol Tartrate 25 MG Tablet 12.5 MG PO (14:57)
[2024-09-21] MEDS: CLARIFY ORDER NOTE (15:36)
--- NOTE | 2024-09-21 16:54 | STRESSREP ---
Stress Test Report Pharmacologic myocardial perfusion stress test. 73-year-old man with a history of abnormal cardiac enzymes Resting EKG demonstrates sinus rhythm with a rate of 74 bpm. Resting blood pressure is 124/78 mmHg. 0.4 mg of regadenoson was infused per usual protocol followed by rapid intravenous saline flush injection. Continuous EKG monitoring was performed. The maximum heart rate was 129 bpm which was 86% of max impacted heart rate the maximum workload was 1 metabolic equivalent. At rest there were no ST or T wave changes noted to suggest ischemia and at peak infusion nonspecific ST changes were noted which did not meet the criteria for ischemia. No clinical angina is noted. The final blood pressure was 114/64 mmHg. Myocardial perfusion protocol. 9.8 mCi of technetium 99m sestamibi was injected at rest. 0.4 mg of regadenoson was infused per usual protocol. At peak infusion 27.5 mCi of technetium 99m sestamibi was injected stress images were obtained stress and rest images were reconstructed and compared in the short axis vertical long and horizontal long axis. Gated images were also obtained. Perfusion SPECT analysis: Review of the stress images demonstrate normal uptake of tracer noted in all areas of the myocardium. The resting images similar demonstrated normal uptake of tracer noted in all areas of the myocardium. No areas of reversibility are noted to suggest ischemia and no previous infarct is noted. Gated SPECT analysis: The gated ejection fraction is 67%. Conclusion: Normal pharmacologic myocardial perfusion stress test. Preserved ejection fraction.
--- NOTE | 2024-09-21 16:58 | DS.PCM_ITS ---
Providers Date of Admission: 09/20/24 Date of Discharge: 09/21/24 Primary Care Physician: Dr. Diego Alonso, Reason For Visit: CHEST PAIN Diagnosis Discharge Diagnosis (1) Elevated troponin: Status: Acute Code(s): R79.89 - Other specified abnormal findings of blood chemistry Plan Patient is a 73-year-old gentleman with multiple comorbidities admitted with chest pain 1. Acute non-STEMI ? Patient presented with chest pain with elevated troponin. Has underlying history of coronary artery disease with previous stent placement. Patient troponin peaked at 174. Case was discussed with cardiology Dr. Ruiz on admission as well as this a.m. Given patient's significant medical comorbidities decision was made to left heart catheterization is back for patient to undergo nuclear stress test prior.. Plan is to consult cardiology if stress test comes back abnormal ? Patient nuclear stress test came back negative for stress-induced ischemia. Results were discussed with the patient and the . Patient has an appointment with his cardiology Dr. Foss at [facility] patient was instructed to keep the appoint with him also patient has been experiencing recurrent syncopal episode for which patient has a 30-day event monitor. Did speak to patient's author prior to patient being discharged 2. Recent spontaneous arterial clot and hematoma involving the left thigh ? Patient was evaluated at [facility] By vascular surgery conservative management was recommended 3. 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 Pagan 4. Anemia ? Secondary to chronic disorder chronic blood loss anemia from patient left thigh hematoma, monitoring H&H and transfuse if patient becomes symptomatic or hemoglobin falls below 7 5. Chronic kidney disease stage III ? Kidney function at baseline 6. Coronary artery disease ? With previous stent placement patient is on guideline directed medical therapy including statin therapy, clopidogrel as well as beta-blockers 8. Dyslipidemia ?Patient is on statin therapy, continued at home dose 9. COPD Managed with bronchodilator treatment as needed 10. Depression with anxiety ? Patient is on citalopram as well as clonazepam 11. GERD patient is on PPI daily continue 12. History of pulmonary fibrosis This patient is followed by pulmonary medicine as outpatient 13. BPH with lower urinary obstructive symptoms - Patient treated with tamsulosin 14. Hypertension ? Blood pressure controlled, home medications continued with dose adjustment as needed 15. Paroxysmal A-fib ? Rate controlled on metoprolol systemic anticoagulation with apixaban 16. Hypothyroidism ? Patient is on levothyroxine home dose continued 17. DVT prophylaxis ? On apixaban Time spent in the patient's overall evaluation,decision-making process, review of diagnostic data, adjustment of management, discussion with other providers, nursing nursing and ancillary staff involved in patient's care documentation, 50 minutes Medications at Discharge Home Medications citalopram 20 mg tablet 20 mg PO DAILY depression 10/09/15 trazodone 100 mg tablet 100 mg PO QHS sleep 10/09/15 metoprolol tartrate 25 mg tablet 12.5 mg PO BID heart 08/22/18 ipratropium bromide 21 mcg (0.03 %) nasal spray 2 sprays NS DAILY PRN sinus drainage 04/30/20 tamsulosin 0.4 mg capsule 0.8 mg PO QHS prostate 04/30/20 cetirizine 10 mg capsule (Zyrtec) 10 mg PO QHS allergies 05/14/20 calcium 600 mg (as carbonate)-vitamin D3 5 mcg (200 unit) capsule (Calcium 600 + D(3)) 1 cap PO QHS supplement 04/24/24 fluticasone propionate 50 mcg/actuation nasal spray,suspension (24 Hour Allergy Relief) 2 spray intranasal DAILY allergies 04/24/24 folic acid 1 mg tablet 1 mg PO DAILY SUPPLEMENT 04/24/24 sulfamethoxazole 800 mg-trimethoprim 160 mg tablet 1 tab PO MOWEFR antibiotic 04/24/24 zanubrutinib 80 mg capsule (Brukins[place]) 160 mg PO BID cancer 04/24/24 fluorometholone 0.1 % eye drops,suspension 1 drp ophthalmic (eye) BID EYE SWELLING/REDNESS/ITCHING 07/11/24 gabapentin 300 mg capsule 300 mg PO TID LEG PAIN 07/11/24 ondansetron HCl 8 mg tablet 8 mg PO Q8H PRN NAUSEA/VOMITING 07/11/24 carboxymethylcellulose sodium 1 % eye liquid gel drops (Refresh Liquigel) 1 drp EACH EYE BID dry eyes 08/11/24 clonazepam 1 mg tablet 1 mg PO QHS sleep/anxiety 08/11/24 clopidogrel 75 mg tablet (Plavix) 75 mg PO DAILY antiplatelet 08/11/24 levothyroxine 25 mcg tablet 25 mcg PO DAILY thyroid 08/11/24 multivitamin (Daily Multi-Vitamin tablet) 1 tab PO DAILY supplement 08/11/24 rosuvastatin 5 mg tablet 5 mg PO QHS cholesterol 08/11/24 pantoprazole 40 mg tablet,delayed release 40 mg PO BID GERD 90 days #180 tabs 08/13/24 ferrous sulfate 325 mg (65 mg iron) tablet (iron) 325 mg PO QDAY supplement 08/30/24 prednisone 20 mg tablet 5 mg PO QDAY kidneys 08/30/24 Lactobacillus acidophilus 10 billion cell capsule (Probacap) 100 mmu cells PO DAILY probiotic 09/20/24 apixaban 5 mg tablet (Eliquis) 5 mg PO BID blood thinner 09/20/24 budesonide-formoterol HFA 160 mcg-4.5 mcg/actuation aerosol inhaler (Symbicort) 2 puff inhalation BID COPD 09/20/24 sucralfate 1 gram tablet (Carafate) 1 g PO BID stomach 09/20/24 potassium chloride 20 mEq oral packet (Klor-Con) 20 meq PO DAILY low potassium 09/21/24 Physical Exam Narrative GENERAL: cooperative HEENT: Atraumatic; normocephalic EYES; Anicteric, Normal Conjunctiva NECK; supple, normal thyroid, RESPIRATORY: Diminished to auscultation CARDIOVASCULAR: Regular S1 S2, GI: soft, normoactive bowel sounds, : No Renal angle tenderness; a EXTREMITIES; an area of induration on the medial aspect of the left thigh MUSCULOSKELETAL: no muscle wasting NEURO: Awake; no lateralizing signs. SKIN: As described above PSYCH; Flat affect Weight / BMI Weight Weight: 98 kg Body Mass Index (BMI) 31.8 ABG / Lab / Microbiology Data 09/21/24 05:25 09/21/24 05:25 Laboratory: Laboratory Results - last 24 hr 09/20/24 18:06: Troponin I High Sens 169 H* 09/21/24 01:06: POC Glucose 201 H 09/21/24 05:25: WBC 9.2, RBC 3.02 L, Hgb 9.7 L, Hct 31.6 L, MCV 104.6 H, MCH 32.1 H, MCHC 30.7 L, RDW Std Deviation 67.7 H, RDW Coeff of Thor 17.3 H, Plt Count 169, MPV 10.2, Immature Gran % (Auto) 0.700, Neut % (Auto) 64.6, Lymph % (Auto) 26.0, O'Brien % (Auto) 8.3, Eos % (Auto) 0.2, Baso % (Auto) 0.2, Absolute Neuts (auto) 6.0, Absolute Lymphs (auto) 2.39, Nucleated RBC % 0, Differential Comment SCANNED, Anisocytosis 2+, Microcytosis 1+, Macrocytosis 1+, Sodium 140, Potassium 3.9, Chloride 109 H, Carbon Dioxide 26.0, Anion Gap 5, BUN 19 H, C reatinine 1.43 H, Estim Creat Clear Calc 54.70, Est GFR (MDRD) Af Amer 63, Est GFR (MDRD) Non-Af 52 L, BUN/Creatinine Ratio 13.3, Glucose 154 H, Calcium 9.0, T roponin I High Sens 174 H* Radiography Diagnostic Testing: Radiology Impression Soft Tissue Ultrasound 09/20/24 17:39 IMPRESSION: 13.6 cm loculated fluid collection in the left thigh surrounding the femoral vessels, which may represent hematoma or abscess. Recommend follow-up to resolution to exclude cystic mass. Electronically Signed: Karen Grimes MD at 15:40 EDT , Brain CT 09/21/24 01:36 IMPRESSION: Age-related changes as above, without evidence of acute intracranial hemorrhage in this noncontrast head CT. Pansinus disease. Electronically Signed: Roberto Porter MD at 3:19 EDT , D/C Instructions Discharge Diet: No restrictions Discharge Activity: Return to Normal Activity Call your doctor if you observe: Fever of 101 or Higher, Shortness of breath, Fainting spells and Chest pain Meaningful Use Info Meaningful Use Meaningful Use Diagnoses (Choose all that apply): None applicable Ischemic Stroke Statin Dosing Therapy Reference: STATIN DOSE THERAPY REFERENCE: * Patients > 75 years receive moderate or high dose statin therapy. * Patients 75 years or YOUNGER should receive HIGH intensity statin dose unless contraindicated. You will be required to document reason for non-treatment if statin daily dose does not meet guidelines. HIGH DOSE STATIN THERAPY DAILY Atorvastatin > than or = to 40 mg Rosuvastatin > than or = to 20 mg Amlodipine + Atorvastatin > than or = to 2.5/40 mg Ezetimibe + Simvastatin 10/80 mg Simvastatin 80mg Discharge Plan Admission Admit Date/Time: 09/20/24 16:41 Attending Provider: Mo Champion Primary Care Provider: Diego Alonso Consulting Providers: Moises Flores Discharge Orders/Prescriptions Prescriptions: Continued Zyrtec 10 mg capsule 10 mg PO QHS ferrous sulfate [iron] 325 mg (65 mg iron) tablet 325 mg PO QDAY prednisone 20 mg tablet 5 mg PO QDAY citalopram 20 MG tablet 20 mg PO DAILY trazodone 100 MG tablet 100 mg PO QHS Patient Comments: SLEEP metoprolol tartrate 25 MG tablet 12.5 mg PO BID ipratropium bromide 30 ML spray,non-aerosol 2 sprays NS DAILY PRN (Reason: sinus drainage) tamsulosin 0.4 MG capsule 0.8 mg PO QHS fluorometholone 0.1 % drops,suspension 1 drp ophthalmic (eye) BID gabapentin 300 mg capsule 300 mg PO TID ondansetron HCl 8 mg tablet 8 mg PO Q8H PRN (Reason: NAUSEA/VOMITING ) levothyroxine 25 mcg tablet 25 mcg PO DAILY clopidogrel [Plavix] 75 mg tablet 75 mg PO DAILY multivitamin [Daily Multi-Vitamin] Tablet 1 tab PO DAILY clonazepam 1 mg tablet 1 mg PO QHS Rx Instructions: administer 30 minutes before bedtime rosuvastatin 5 mg tablet 5 mg PO QHS carboxymethylcellulose sodium [Refresh Liquigel] 1 % drops, liquid gel 1 drp EACH EYE BID pantoprazole 40 mg Tablet,Delayed Release (Dr/Ec) 40 mg PO BID 90 Days Qty: 180 0RF Eliquis 5 mg tablet 5 mg PO BID Probacap 10 billion cell capsule 100 mmu cells PO DAILY sucralfate [Carafate] 1 gram tablet 1 g PO BID budesonide-formoterol [Symbicort] 160-4.5 mcg/actuation HFA aerosol inhaler 2 puff inhalation BID potassium chloride [Klor-Con] 20 mEq packet 20 meq PO DAILY folic acid 1 mg tablet 1 mg PO DAILY fluticasone propionate [24 Hour Allergy Relief] 50 mcg/actuation spray,suspension 2 spray intranasal DAILY Rx Instructions: administer into each nostril Calcium 600 + D(3) 600 mg-5 mcg (200 unit) capsule 1 cap PO QHS [place] 80 mg capsule 160 mg PO BID sulfamethoxazole-trimethoprim 800-160 mg tablet 1 tab PO MOWEFR Discontinued acyclovir 400 mg tablet 400 mg PO BID Referrals / Follow Up: Diego Alonso DO [Primary Care Provider] - Within 1 Week Disposition Disposition (needs filled in before D/C Order can be placed): Home, Self Care Charges/Coding Visit Charges Inpatient E&M: 53211 Disch Hosp >30min
[2024-09-21] MEDS: oxyCODONE 5 MG Tablet PO (17:09)
[2024-09-21] MEDS: Acetaminophen 325 MG Tablet 650 MG PO (17:09)
[2024-09-21] MEDS: APIXABAN 5 MG TABLET PO (17:09)
== END 2024-09-21 18:14 | disposition home or self-care (01) | DRG 313 ==
LOC: ED 16:10 → PCU 16:59
PROVIDERS: Internal Medicine; Emergency Provider Emergency Medicine; PCP Student in an Organized Health Care Education/Training Program; Visit Provider Internal Medicine
DX: R07.9 Chest pain, unspecified (principal); I74.3 Embolism and thrombosis of arteries of the lower extremities; C83.19 Mantle cell lymphoma, extranodal and solid organ sites; N13.8 Other obstructive and reflux uropathy; E11.22 Type 2 diabetes mellitus with diabetic chronic kidney disease; E03.9 Hypothyroidism, unspecified; D50.0 Iron deficiency anemia secondary to blood loss (chronic); E78.5 Hyperlipidemia, unspecified; Z66 Do not resuscitate; I48.0 Paroxysmal atrial fibrillation; R55 Syncope and collapse; J44.9 Chronic obstructive pulmonary disease, unspecified; N18.30 Chronic kidney disease, stage 3 unspecified; I12.9 Hypertensive chronic kidney disease with stage 1 through stage 4 chronic kidney disease, or unspecified chronic kidney disease; F32.A Depression, unspecified; K27.9 Peptic ulcer, site unspecified, unspecified as acute or chronic, without hemorrhage or perforation; F41.9 Anxiety disorder, unspecified; I25.10 Atherosclerotic heart disease of native coronary artery without angina pectoris; K21.9 Gastro-esophageal reflux disease without esophagitis; M79.81 Nontraumatic hematoma of soft tissue; W19.XXXA Unspecified fall, initial encounter; Y92.230 Patient room in hospital as the place of occurrence of the external cause; R35.0 Frequency of micturition; R79.89 Other specified abnormal findings of blood chemistry; N40.1 Benign prostatic hyperplasia with lower urinary tract symptoms; Z79.01 Long term (current) use of anticoagulants; Z79.02 Long term (current) use of antithrombotics/antiplatelets; Z79.51 Long term (current) use of inhaled steroids; Z79.890 Hormone replacement therapy; Z79.899 Other long term (current) drug therapy; Z87.891 Personal history of nicotine dependence; Z95.5 Presence of coronary angioplasty implant and graft
CPT/HCPCS: 36415; 36591; 70450; 71045; 71046; 76882; 78452; 80048; 82962; 84484; 85025; 93005; 93017; 94640; 97162; 97166; 99285; A9500; A4216